=== PATIENT | female | born 1960 | race Caucasian/White ===

== ENCOUNTER 2024-06-23 10:46 | Emergency (ER) | payer OTHER, SELFPAY ==
--- NOTE | ~2024-06-23 | XR_ITS ---
EXAMINATION: XR CHEST CLINICAL INFORMATION: Pain COMPARISON: None available. TECHNIQUE: 2 views of the chest were obtained. FINDINGS: The lungs are well-expanded. No focal consolidation. No pleural effusions, edema or pneumothorax. The cardiomediastinal silhouette is within normal limits. No acute osseous abnormality. XR/XR chest 2V IMPRESSION: No acute pulmonary disease. Electronically signed by: Ludwin Sotelo MD 06/23/2024 01:34 PM EDT
--- NOTE | ~2024-06-23 | US_ITS ---
EXAMINATION: US ABDOMEN LIMITED CLINICAL INFORMATION: Right upper quadrant pain. COMPARISON: None available. TECHNIQUE: Real-time imaging of the gallbladder and common bile duct. FINDINGS: GALLBLADDER: The gallbladder is physiologically distended with a small nonmobile echogenic focus along the wall of the gallbladder measuring 0.2 x 0.1 x 0.2 cm and likely representing a polyp. No evidence of shadowing gallstones. No gallbladder wall thickening or pericholecystic fluid. As per technologist notes, a positive sonographic Horne's sign is noted. COMMON BILE DUCT: Normal in caliber measuring 0.5 cm in diameter. US/US abdomen limited IMPRESSION: 1. Tiny gallbladder polyp as detailed for which no dedicated follow-up imaging is required in the absence of symptoms. 2. No cholelithiasis or sonographic evidence of acute cholecystitis. Positive sonographic Horne's sign which is nonspecific. 3. No biliary ductal dilatation. Electronically signed by: Ludwin Sotelo MD 06/23/2024 01:46 PM EDT
--- NOTE | 2024-06-23 11:26 | ED.GENADULT ---
HPI - General Adult General Chief complaint: Abdominal Pain Stated complaint: r side abd pain Time Seen by Provider: 06/23/24 15:51 Source: patient Mode of arrival: ambulatory Limitations: no limitations History of Present Illness ED Provider: Mamta Mccloud PA-C HPI narrative: Patient is a 64 year old assigned female at with no reported medical history presenting to the emergency department today with right upper and right lower abdominal pain. Patient states that over the last 3 days she has had right lower and right upper abdominal pain. Patient states that she has had this before and it was more intermittent, normally around when she is about to eat or had just eaten but now it is more consistent. Patient denies any dizziness, lightheadedness, vomiting, fever, chills, blurry vision, double vision, loss of vision, chest pain, difficulty breathing, shortness of breath, back pain, night sweats, pain with urination, increased urinary frequency, increased urinary urgency, blood in her urine or stool, syncope or a near syncopal episode, recent trauma or falls, bowel incontinence, bladder incontinence, or any other complaints at this time. Onset (ago): day(s) (3) Location: abdomen and right Relieving factors: none Exacerbating factors: none Associated symptoms: nausea/vomiting Treatments prior to arrival: none Related Data Previous Rx's ?Medication ?Instructions ?Recorded pantoprazole 40 mg tablet,delayed 40 mg PO DAILY #14 tabs 06/23/24 release (Protonix) Allergies Allergy/AdvReac Type Severity Reaction Status Date / Time Latex, Natural Rubber Allergy Rash Verified 06/23/24 11:30 Review of Systems Constitutional: Constitutional: Reports no additional constitutional complaints, Denies chills, Denies fever(s) and Denies night sweats Eyes: Eyes: Reports no additional eye complaints, Denies blurry vision, Denies change in vision, Denies diplopia, Denies eye discharge, Denies loss of vision and Denies eye pain ENT: Denies dizziness Cardiovascular: Cardiovascular: Reports no additional cardiovascular complaints, Denies chest pain, Denies lightheadedness, Denies Loss of Consciousness and Denies dyspnea Respiratory: Respiratory: Reports no additional respiratory complaints and Denies dyspnea Gastrointestinal: Gastrointestinal: Reports no additional gastrointestinal complaints, Reports abdominal pain, Denies melena, Denies hematochezia, Denies change in bowel habits, Denies change in stool character, Reports nausea and Denies vomiting Genitourinary: Genitourinary: Denies hematuria, Denies urinary frequency, Denies dysuria, Denies urinary incontinence, Denies urinary hesitancy and Denies urinary urgency Musculoskeletal: Musculoskeletal: Reports no additional musculoskeletal complaints, Denies numbness and Denies tingling Neurologic: Denies dizziness, Denies loss of vision, Denies numbness and Denies tingling Psychiatric: Psychiatric: Reports no additional psychiatric complaints Endocrine: Endocrine: Reports no additional endocrine complaints Hematologic/Lymphatic: Hematologic/Lymphatic: Reports no additional hematologic/lymphatic complaints Allergic/Immunologic: Allergic/Immunologic: Reports no additional allergic/immunologic complaints [facility] Past Medical History Attestation statement: The following information was validated with the patient. Source: old records reviewed and nursing notes reviewed Social History Social History Advance Directives: No Advance Directives Information Provided: No Do you have a plan to hurt others: No Plan Physical Exam ED Vital Signs: Vital Signs - 24 hr 06/23/24 11:27 06/23/24 15:45 06/23/24 15:46 Temperature 98.6 F 98.3 F 98.3 F Pulse Rate 101 H 89 89 Respiratory Rate 16 16 16 Blood Pressure 146/87 H 142/72 H 142/72 H Pulse Oximetry 97 98 98 Oxygen Delivery Method Room Air Room Air BMI result Body Mass Index 22.9 Const General: cooperative, no acute distress, alert and awake Nutritional Appearance: well nourished Orientation/consciousness: patient oriented x3 Limitations: no limitations [facility] Head: Yes normal to inspection and Yes atraumatic Ears: hearing grossly normal bilaterally and external ears normal General nose exam: Normal external nose present, no nasal discharge noted and no epistaxis Face and sinus: Yes normal facial exam, No abrasion and No laceration Mouth: Normal oral and palatal mucosa present, no drooling and no muffled voice Eyes General: appearance normal, both eyes and all related structures Periorbital: periorbital findings normal Eyelids: Yes eyelids normal Conjunctivae: conjunctivae normal Pupils: Equal, round and reactive pupils present EOM: EOMs intact bilaterally Neck Neck: Yes normal visual inspection, Yes full ROM and Yes no lymphadenopathy Chest Chest palpation & inspection: normal inspection of the chest Resp Effort & Inspection: normal respiratory effort and able to speak in complete sentences GI Inspection: Yes normal to inspection Palpation (GI): Soft to palpation, not firm, Tenderness to palpation present (GI) in the RUQ, no guarding and not rigid Neuro General: patient oriented x3 and moves all extremities Cranial nerves: Yes Equal, round and reactive pupils present Cognition (Neuro): normal cognition Extrem General: Yes normal to inspection, Yes full ROM and Yes capillary refill normal Psych Appearance: grossly normal Mental Status: mental status grossly normal Affect: normal affect Attitude: cooperative Thought process: Normal thought process present Thought content: Normal thought content present Insight: Good insight present (Psych) Course Course Course Narrative: RME performed by Mamta Mccloud PA-C. Patient is a 64 year old assigned female at presenting to the emergency department with right sided chest and abdominal pain. Patient states she has been having right sided chest and abdominal pain over the last 3 days. Detailed physical exam and review of systems are deferred to the primary care nurse practitioner. EKG, labs, imaging, and swabs ordered. Patient placed back in the waiting room pending room availability and results. Medical Decision Making Medical Decision Making MDM Narrative: Patient is a 64 year old assigned female at with no reported medical history presenting to the emergency department today with right sided upper and lower abdominal pain. Patient's physical exam was as noted in the physical exam portion of this note. Patient's blood work showed a slightly elevated WBC count of 12.6 but were otherwise unremarkable. Patient's urine showed no acute process. Patient's EKG was unremarkable. Patient's chest x-ray showed no acute process. Patient's RUQ abdominal US showed a gallbladder polyp and a positive horne's sign but otherwise unremarkable. Patient's clinical presentation is most consistent with biliary colic. I explained my physical exam findings as well as all test results to the patient. I answered all questions asked by the patient. I stressed the importance of the patient taking her medication as directed (either prescribed or as the over the counter packaging recommends). I stressed the importance of the patient following up with her primary care provider and a general surgeon for a HIDA scan. I stressed the importance of the patient returning to the emergency department immediately if her symptoms were to worsen or if she were to develop any dizziness, shortness of breath, difficulty breathing, chest pain, blurry vision, loss of vision, nausea, vomiting, abdominal pain, fever, chills, back pain, or any other complaints. Patient verbalized agreement and understanding with this treatment plan and discharge. Differential Diagnosis Differential Diagnoses: The differential diagnosis associated with the presentation includes RUQ abdominal pain Biliary colic Cholecystitis Cholelithiasis Admission/Observation Consideration of admission/observation: Escalation of care including admission/observation considered Patient would have been admitted to the hospital had her work up had any findings where hospital admission was appropriate and her clinical presentation warranted hospital admission. Lab Data [facility] Lab Attestation statement: I reviewed the patient's lab results. My interpretation of these results are in the MDM Rationale portion of this note. 06/23/24 11:47 06/23/24 11:47 Labs: Lab Results 06/23/24 06/23/24 Range/Units 11:46 11:47 WBC 12.6 H (4.8-10.8) X10*3/uL RBC 4.48 (4.20-5.50) X10*6/uL Hgb 14.4 (12.0-16.0) g/dl Hct 40.2 (37.0-47.0) % MCV 89.7 (80.0-98.0) fL MCH 32.1 (27.0-33.0) pg MCHC 35.8 H (31.0-35.0) g/dl RDW 12.3 (11.0-16.0) % Plt Count 421 H (160-400) X10*3/uL MPV 9.4 (9.4-12.3) fL Immature Gran % (Auto) 0.4 (0.0-0.4) % Neut % (Auto) 67.8 (45-73) % Lymph % (Auto) 23.1 (20-40) % Oliver % (Auto) 5.9 (2-11) % Eos % (Auto) 1.8 (0-4) % Baso % (Auto) 1.0 (0-2) % Lymph # (Auto) 2.9 (1.2-4.9) X10*3/uL Oliver # (Auto) 0.7 (0.1-1.2) X10*3/uL Eos # (Auto) 0.2 (0.0-0.4) X10*3/uL Baso # (Auto) 0.1 (0.0-0.2) X10*3/uL Abs Immat Gran (auto) 0.05 H (0.00-0.03) X10*3/uL Absolute Neuts (auto) 8.5 H (2.0-8.3) x10*3/uL Absolute Nucleated RBC 0.000 (0.0-0.012) X10*3/uL Nucleated RBC % (auto) 0.0 (0.0-0.2) /100WBC Sodium 139 (135-145) mmol/L Potassium 4.0 (3.3-5.1) mmol/L Chloride 101 (96-108) mmol/L Carbon Dioxide 29 (22-29) mmol/L Anion Gap 13 (12-20) BUN 24 H (9-16) mg/dL Creatinine 0.78 (0.5-1.4) mg/dL Estim Creat Clear Calc 71.7 Estimated GFR > 60 Random Glucose 215 H (60-115) mg/dL Calcium 10.3 H (8.4-10.2) mg/dL Magnesium 1.8 (1.6-2.6) mg/dL Total Bilirubin 0.3 (0.0-1.0) mg/dL AST 13 (5-31) U/L ALT 16 (0-31) U/L Alkaline Phosphatase 85 (39-117) U/L Troponin I High Sens < 2.7 (<3.5-17.0) ng/L Total Protein 7.2 (6.5-8.0) g/dL Albumin 4.2 (3.5-5.0) g/dL Urine Color Dark Yellow Urine Appearance Cloudy Urine pH 5.5 (5.0-9.0) Ur Specific [place] >= 1.030 H (1.005-1.025) Urine Protein 30 (1+) H (Neg-Trace) mg/dL Urine Glucose (UA) 250 H (Negative) mg/dL Urine Ketones Negative (Negative) mg/dL Urine Blood Negative (Negative) Urine Nitrite Negative (Negative) Ur Leukocyte Esterase Negative (Negative) Urine RBC 3-5 H (0-2) /HPF Urine WBC 6-10 (0-5) /HPF Ur Squamous Epith Cells 11-20 (0-2) /HPF Urine Bacteria 1+ (None Seen) Hyaline Casts 0-2 (0-2) /LPF Influenza Type A (PCR) NEGATIVE (Negative) Influenza Type B (PCR) NEGATIVE (Negative) RSV RNA Qual (PCR) NEGATIVE (Negative) SARS-CoV-2 RNA (RT-PCR) NEGATIVE (Negative) Independent Interpretation I performed an independent interpretation of an: EKG, Plain X-Ray and Ultrasound Interpretation: My interpretation is in agreement with the radiologist's impression of these imaging studies. EXAMINATION: US ABDOMEN LIMITED CLINICAL INFORMATION: Right upper quadrant pain. COMPARISON: None available. TECHNIQUE: Real-time imaging of the gallbladder and common bile duct. FINDINGS: GALLBLADDER: The gallbladder is physiologically distended with a small nonmobile echogenic focus along the wall of the gallbladder measuring 0.2 x 0.1 x 0.2 cm and likely representing a polyp. No evidence of shadowing gallstones. No gallbladder wall thickening or pericholecystic fluid. As per technologist notes, a positive sonographic Horne's sign is noted. COMMON BILE DUCT: Normal in caliber measuring 0.5 cm in diameter. US/US abdomen limited IMPRESSION: 1. Tiny gallbladder polyp as detailed for which no dedicated follow-up imaging is required in the absence of symptoms. 2. No cholelithiasis or sonographic evidence of acute cholecystitis. Positive sonographic Horne's sign which is nonspecific. 3. No biliary ductal dilatation. Electronically signed by: Ludwin Sotelo MD 06/23/2024 01:46 PM EDT Dictated By: Ludwin Sotelo Signed By: Electronically signed by Ludwin Sotelo 06/23/24 1346 EXAMINATION: XR CHEST CLINICAL INFORMATION: Pain COMPARISON: None available. TECHNIQUE: 2 views of the chest were obtained. FINDINGS: The lungs are well-expanded. No focal consolidation. No pleural effusions, edema or pneumothorax. The cardiomediastinal silhouette is within normal limits. No acute osseous abnormality. XR/XR chest 2V IMPRESSION: No acute pulmonary disease. Electronically signed by: Ludwin Sotelo MD 06/23/2024 01:34 PM EDT Dictated By: Ludwin Sotelo Signed By: Electronically signed by Ludwin Sotelo 06/23/24 1334 Vent. Rate: 097 BPM Atrial Rate: 097 BPM P-R Int: 140 ms QRS Dur: 072 ms QT Int: 338 ms P-R-T Axes: 072 044 055 degrees QTc Int: 429 ms Normal sinus rhythm Possible Left atrial enlargement Borderline ECG No previous ECGs available DD/ 0179 Radiology Impression Discussion of test interpretation with radiology: I have reviewed the radiologist's reading. Discharge Plan Discharge Clinical Impression: Biliary colic Patient Disposition: Home, Self-Care Instructions: Biliary Colic (ED) Additional Instructions: Follow up with your primary care provider and a General Surgeon (for a HIDA scan). Return to the emergency department immediately if your symptoms worsen or if you develop any dizziness, shortness of breath, difficulty breathing, chest pain, blurry vision, loss of vision, nausea, vomiting, abdominal pain, fever, chills, back pain, or any other complaints. Prescriptions: New pantoprazole [Protonix] 40 mg tablet,delayed release (DR/EC) 40 mg PO DAILY Qty: 14 0RF Referrals: [facility] [Provider Group] (Call to establish and follow up with a general surgeon for a HIDA scan. ) [facility] [place]] (Call to establish and follow up with a primary care provider. If you already have a primary care provider, please follow up with them.) [facility] [Provider Group] (Call to establish and follow up with a primary care provider. If you already have a primary care provider, please follow up with them.) [facility] [Provider Group] (Call to establish and follow up with a primary care provider. If you already have a primary care provider, please follow up with them.) Stand Alone Forms: Work/School Release Interventions: ED Discharge Assessment Last Done: 06/23/24 15:45 Discharge Date/Time: 06/23/24 16:00 Print Language: Polish
[2024-06-23 11:27] VITALS: BP 146/87; PULSE 101; RESP 16; TEMP 37; O2SAT 97; BMI 22.9
--- NOTE | 2024-06-23 11:28 | ECG_ITS ---
Test Reason : chest pain Blood Pressure : / mmHG Vent. Rate : 097 BPM Atrial Rate : 097 BPM P-R Int : 140 ms QRS Dur : 072 ms QT Int : 338 ms P-R-T Axes : 072 044 055 degrees QTc Int : 429 ms Normal sinus rhythm Possible Left atrial enlargement Borderline ECG No previous ECGs available Referred By: Mamta Mccloud Electronically Signed By:TERRI DEAL
[2024-06-23 11:58] LABS: MANUAL DIFF FLAG NO
[2024-06-23 12:03] LABS: Appearance Urine Cloudy; Color Urine Dark Yellow; Glucose Urine UA 250 mg/dL (Negative); Leukocyte Esterase Urine Negative (Negative); Nitrite Urine Negative (Negative); PH 5.5 (5.0-9.0); Specific Gravity - Urine >= 1.030 (1.005-1.025); UMIC TRIGGER UACC YES; Urine Blood Negative (Negative); Urine Ketones Negative (Negative); Urine Protein 30 (1+) mg/dL (Neg-Trace)
[2024-06-23 12:04] LABS: Basophils Absolute Auto 0.1 X10*3/uL (0.0-0.2); Eosinophils Absolute Auto 0.2 X10*3/uL (0.0-0.4); Eosinophils Percent Auto 1.8 % (0-4); Hematocrit 40.2 % (37.0-47.0); Hemoglobin 14.4 g/dl (12.0-16.0); Imm Gran Abs Auto 0.05 X10*3/uL (0.00-0.03); Imm Gran Pct Auto 0.4 % (0.0-0.4); Lymphocytes Absolute Auto 2.9 X10*3/uL (1.2-4.9); Lymphocytes Percent Auto 23.1 % (20-40); Mean Corpuscular HGB Conc 35.8 g/dl (31.0-35.0); Mean Corpuscular Hemoglobin 32.1 pg (27.0-33.0); Mean Corpuscular Volume 89.7 fL (80.0-98.0); Mean Platelet Volume 9.4 fL (9.4-12.3); Monocytes Absolute Auto 0.7 X10*3/uL (0.1-1.2); Monocytes Percent Auto 5.9 % (2-11); Neutrophils Absolute Auto 8.5 x10*3/uL (2.0-8.3); Neutrophils Percent Auto 67.8 % (45-73); Platelet Count 421 X10*3/uL (160-400); Red Blood Count 4.48 X10*6/uL (4.20-5.50); Red Cell Distribution Width 12.3 % (11.0-16.0); White Blood Count 12.6 X10*3/uL (4.8-10.8)
[2024-06-23 12:18] LABS: Alanine Aminotransferase 16 U/L (0-31); Albumin Level 4.2 g/dL (3.5-5.0); Alkaline Phosphatase 85 U/L (39-117); Anion Gap 13 (12-20); Aspartate Amino Transferase 13 U/L (5-31); Bilirubin Total 0.3 mg/dL (0.0-1.0); Blood Urea Nitrogen 24 mg/dL (9-16); Calcium 10.3 mg/dL (8.4-10.2); Carbon Dioxide 29 mmol/L (22-29); Chloride 101 mmol/L (96-108); Creatinine Clr Calc Pharmacy 71.7; Estimated Glomerular Filt Rate > 60; Glucose Random 215 mg/dL (60-115); Magnesium 1.8 mg/dL (1.6-2.6); Sodium 139 mmol/L (135-145); Total Protein 7.2 g/dL (6.5-8.0)
[2024-06-23 12:20] LABS: Bacteria Urine 1+ (None Seen); Hyaline Casts Urine 0-2 /LPF (0-2); UACC Culture Trigger YES
[2024-06-23 12:26] LABS: Troponin-I High Sensitivity < 2.7 ng/L (<3.5-17.0)
[2024-06-23 12:41] LABS: Influenza A PCR NEGATIVE (Negative); Influenza B PCR NEGATIVE (Negative); Resp Syncy Virus RNA Qual PCR NEGATIVE (Negative); SARS COV2 PCR INHOUSE NEGATIVE (Negative)
[2024-06-23 15:45] VITALS: BP 142/72; PULSE 89; RESP 16; TEMP 36.8; O2SAT 98
[2024-06-23 15:46] VITALS: BP 142/72; PULSE 89; RESP 16; TEMP 36.8; O2SAT 98
== END 2024-06-23 16:00 | disposition home or self-care (01) ==
PROVIDERS: Physician Assistant Medical; Emergency Provider Emergency Medicine
DX: K80.50 Calculus of bile duct without cholangitis or cholecystitis without obstruction (principal); R10.11 Right upper quadrant pain; R10.31 Right lower quadrant pain; R07.89 Other chest pain; Z03.818 Encounter for observation for suspected exposure to other biological agents ruled out; Z79.899 Other long term (current) drug therapy
CPT/HCPCS: 0241U; 71046; 76705; 80053; 81001; 81003; 83735; 84484; 85025; 87086; 93005; 99283; 99284

== ENCOUNTER 2024-07-16 14:24 | Outpatient (AMB) | payer OTHER, SELFPAY ==
[2024-07-16 14:25] VITALS: BP 144/72; PULSE 91; BMI 23.2
--- NOTE | 2024-07-16 14:25 | MHC.OFFVIS ---
Vital Signs 07/16/24 14:25 Height 5 ft 7 in Weight 148 lb BMI 23.2 BP 144/72 H Blood Pressure Location Rt brachial Position Sitting Pulse 91 Intake Visit Reasons: Bilary colic Intake Note: This patient presents for [facility] [place] emergency department follow-up for biliary colic. Pt c/o; reports RUQ swelling radiates towards back, reports nausea, reports eating small meals helps with nausea but other day's has no appetite at all. Chest X-ray-06/23/2024 Abd US: 06/23/2024 Business Department Chair Required: No Accompanied by: Other Relationship Allergies Latex, Natural Rubber Allergy (Verified 07/16/24 14:34) Rash HPI HPI Bilary colic: Details: 64-year-old male referred for gallbladder polyp. She went to the ER on June 26, 2024 because of abdominal pain. Her pain had resolved in the emergency room. He had an ultrasound showing a small gallbladder polyp, 2 mm in widest dimension. She was therefore referred to me. She does state that she had multiple complaints when she went to the ER. She had vague chest pains, joint pains and nausea. She says the she continues to have some of this symptoms. She says that her nausea seems to be much improved with Prilosec. She denies any weight loss. She has good oral intake. [facility] Medical History (Updated 07/17/24 @ 12:49 by Tracee Novak [facility]) Gallbladder polyp Surgical History No pertinent past surgical history Social History Unable to assess alcohol history related to: Unknown Patient Tobacco Use Status: Tobacco use Unknown Review of Systems Const Denies chills and Denies fever(s) Card Denies chest pain, Denies dyspnea and Denies dyspnea on exertion Resp Denies cough, Denies dyspnea and Denies dyspnea on exertion GI Denies hematochezia and Denies change in bowel habits Denies hematuria Musc Denies back pain and Denies limited range of motion Neuro Denies focal weakness and Denies convulsions Psych Denies depression and Denies mood swings Physical Exam Vital Signs: Last Vital Signs Pulse 91 07/16/24 14:25 BP 144/72 H 07/16/24 14:25 BMI result Body Mass Index 23.2 Const General: comfortable and no acute distress Orientation/consciousness: patient oriented x3 Neck Neck: Yes no lymphadenopathy Resp Auscultation: clear to auscultation bilaterally Cardio Rhythm: regular rhythm GI Palpation (GI): Soft to palpation, nontender and no guarding Neuro General: patient oriented x3 Assessment & Plan Assessment & Plan (1) Gallbladder polyp: Code(s): K82.4 - Cholesterolosis of gallbladder Category: Medical Plan: She has a very small gallbladder polyp as described above. She describes vague complaints when she went to the emergency room 3 weeks ago. She says she had chest pain, nausea, abdominal pain as well as joint pains. It was unlikely that her symptoms were from a very small gallbladder polyp. Currently, cholecystectomy is not indicated. Ultrasound does not show gallstones. I did tell her that for larger gallbladder polyps, cholecystectomy may be warranted. She may therefore benefit from a follow-up ultrasound in about 1 year. She does state that Prilosec has helped with her symptoms. I will prescribe this for her. She may have had gastritis causing some abdominal pain. Medications: New omeprazole magnesium (Prilosec OTC) 20 mg PO DAILY 30 tabs 1RF Coding Level of Care Code New Pt Level 3 (18822) Diagnoses Gallbladder polyp K82.4
== END 2024-07-16 15:02 | disposition home or self-care (01) ==
PROVIDERS: PCP Internal Medicine; Visit Provider Surgery
DX: K82.4 Cholesterolosis of gallbladder (principal)
CPT/HCPCS: 99203

== ENCOUNTER → 2024-07-16 14:24 | Outpatient (BNVA) | payer OTHER, SELFPAY | PROVIDERS: PCP Internal Medicine; Visit Provider Surgery | DX: K82.4 Cholesterolosis of gallbladder (principal) | CPT/HCPCS: 99202 ==

== ENCOUNTER 2024-08-21 07:28 | Emergency (ER) | payer OTHER, SELFPAY ==
--- NOTE | ~2024-08-21 | US_ITS ---
EXAMINATION: US ABDOMEN LIMITED CLINICAL INFORMATION: Right upper quadrant and flank pain. COMPARISON: None available. TECHNIQUE: Real-time imaging of the right upper quadrant abdominal viscera. FINDINGS: PANCREAS: Normal. LIVER: Normal. The liver is normal in size. The liver contour is normal. Parenchymal echogenicity is normal. No focal hepatic lesion. There is no intrahepatic biliary duct dilatation seen. GALLBLADDER: A 2 mm nonmobile polyps is limited. The gallbladder is physiologically distended without evidence of stones, sludge, polyps, wall thickening or pericholecystic fluid. COMMON BILE DUCT: Normal in caliber measuring 0.6 cm in diameter. RIGHT KIDNEY: Normal. There is pelviectasis, without franklin hydronephrosis. No renal calculi or focal parenchymal lesions. The kidney measures 11.8 cm in maximum dimension. FREE FLUID: None. US/US abdomen limited IMPRESSION: 1. No right renal mass or calculus is seen. There is right renal pelviectasis, without franklin hydronephrosis. 2. A 2 mm nonmobile gallbladder polyp is incidentally noted. Electronically signed by: Lex Moran MD 08/21/2024 12:25 PM EDT
--- NOTE | ~2024-08-21 | XR_ITS ---
EXAMINATION: XR CHEST 2 VIEW CLINICAL INFORMATION: Right scapular pain COMPARISON: 06/23/2024 TECHNIQUE: PA and lateral views of the chest obtained. FINDINGS: The lungs are clear. There are no pleural effusions. The cardiomediastinal silhouette is normal. XR/XR chest 2V IMPRESSION: No acute cardiopulmonary disease. Electronically signed by: Darin Toney MD 08/21/2024 10:36 AM EDT
[2024-08-21 07:35] VITALS: BP 134/95; PULSE 109; RESP 18; TEMP 36.6; O2SAT 100; BMI 22.6
--- NOTE | 2024-08-21 08:16 | ECG_ITS ---
Test Reason : back pain Blood Pressure : / mmHG Vent. Rate : 082 BPM Atrial Rate : 082 BPM P-R Int : 156 ms QRS Dur : 070 ms QT Int : 352 ms P-R-T Axes : 069 033 054 degrees QTc Int : 411 ms Normal sinus rhythm Possible Left atrial enlargement Borderline ECG When compared with ECG of 23-JUN-2024 11:29, No significant change was found Referred By: Briseyda Diamond Electronically Signed By:Prateek Mann
[2024-08-21 08:38] LABS: MANUAL DIFF FLAG NO
[2024-08-21 08:40] LABS: Basophils Absolute Auto 0.1 X10*3/uL (0.0-0.2); Eosinophils Absolute Auto 0.3 X10*3/uL (0.0-0.4); Eosinophils Percent Auto 2.9 % (0-4); Hematocrit 38.3 % (37.0-47.0); Hemoglobin 13.9 g/dl (12.0-16.0); Imm Gran Abs Auto 0.04 X10*3/uL (0.00-0.03); Imm Gran Pct Auto 0.4 % (0.0-0.4); Lymphocytes Absolute Auto 2.2 X10*3/uL (1.2-4.9); Lymphocytes Percent Auto 19.4 % (20-40); Mean Corpuscular HGB Conc 36.3 g/dl (31.0-35.0); Monocytes Absolute Auto 0.6 X10*3/uL (0.1-1.2); Monocytes Percent Auto 4.9 % (2-11); Neutrophils Percent Auto 71.4 % (45-73); Platelet Count 443 X10*3/uL (160-400); Red Blood Count 4.35 X10*6/uL (4.20-5.50); Red Cell Distribution Width 12.1 % (11.0-16.0); White Blood Count 11.2 X10*3/uL (4.8-10.8)
[2024-08-21 08:55] LABS: Alanine Aminotransferase 20 U/L (0-31); Albumin Level 4.1 g/dL (3.5-5.0); Alkaline Phosphatase 77 U/L (39-117); Anion Gap 13 (12-20); Aspartate Amino Transferase 18 U/L (5-31); Bilirubin Direct 0.1 mg/dL (0.0-0.5); Bilirubin Total 0.4 mg/dL (0.0-1.0); Blood Urea Nitrogen 22 mg/dL (9-16); Calcium 10.3 mg/dL (8.4-10.2); Carbon Dioxide 24 mmol/L (22-29); Chloride 105 mmol/L (96-108); Creatinine Clr Calc Pharmacy 66.6; Estimated Glomerular Filt Rate > 60; Glucose Random 155 mg/dL (60-115); Lipase 35 U/L (8-78); Magnesium 1.8 mg/dL (1.6-2.6); Potassium 3.9 mmol/L (3.3-5.1); Sodium 138 mmol/L (135-145); Total Protein 6.9 g/dL (6.5-8.0)
--- NOTE | 2024-08-21 10:07 | ED.BACK ---
HPI - Back Pain/Injury General Chief Complaint: Back Pain/Injury Stated Complaint: R side pain Time Seen by Provider: 08/21/24 07:39 Source: patient, RN notes reviewed and old records reviewed Mode of arrival: ambulatory History of Present Illness ED Provider: Briseyda Diamond PA-C HPI Narrative: 64-year-old female with a past medical history of gallbladder polyp, biliary colic, presenting to the ED complaining of right upper back/RUQ abdominal pain intermittently x few weeks with associated nausea. Admits eating improves symptoms. Admits she does heavy lifting at work however denies known injury or fall/trauma. Denies CP/SOB, vomiting, dysuria/hematuria Related Data Previous Rx's ?Medication ?Instructions ?Recorded omeprazole magnesium 20 mg 20 mg PO DAILY #30 tabs 07/16/24 tablet,delayed release (Prilosec OTC) pantoprazole 40 mg tablet,delayed 40 mg PO DAILY #14 tabs 07/24/24 release (Protonix) acetaminophen 500 mg tablet 500 mg PO Q6H PRN fever or pain 08/21/24 (Tylenol Extra Strength) #14 tabs cyclobenzaprine 5 mg tablet 5 mg PO Q8H PRN pain (scale score 08/21/24 7-10) 5 days #14 tabs lidocaine 5 % topical patch 1 patch topical DAILY PRN pain #30 08/21/24 (Lidoderm) ea naproxen 500 mg tablet 500 mg PO BID PRN pain 10 days #20 08/21/24 tabs Allergies Allergy/AdvReac Type Severity Reaction Status Date / Time Latex, Natural Rubber Allergy Rash Verified 08/21/24 07:38 Review of Systems Review of Systems: Yes all other systems are reviewed and are negative Constitutional: Constitutional: Reports as per HPI [facility] Past Medical History Attestation statement: The following information was validated with the patient. Source: old records reviewed Medical History Gallbladder polyp Surgical History No pertinent past surgical history Social History Social History Unable to assess alcohol history related to: Unknown Patient Tobacco Use Status: Tobacco use Unknown Advance Directives: No Advance Directives Information Provided: Yes Do you have a plan to hurt others: No Plan Physical Exam Vital Signs: Vital Signs: Last Vital Signs Temp 97.9 F 08/21/24 13:59 Pulse 79 08/21/24 13:59 Resp 18 08/21/24 13:59 BP 135/93 H 08/21/24 13:59 Pulse Ox 98 08/21/24 13:59 O2 Del Method Room Air 08/21/24 13:59 BMI result Body Mass Index 22.6 Const: General: cooperative, healthy appearing and no acute distress Orientation/consciousness: patient oriented x3 Limitations: no limitations HEENT: Head: Yes normal to inspection and Yes atraumatic Ears: hearing grossly normal bilaterally General nose exam: Normal external nose present Face and sinus: Yes normal facial exam Eyes: General: appearance normal, both eyes and all related structures EOM: EOMs intact bilaterally Neck: Neck: Yes normal visual inspection and Yes no meningeal signs Resp: Effort & Inspection: normal respiratory effort and no respiratory distress Auscultation: clear to auscultation bilaterally Cardio: Rate: regular rate Heart sounds: S1 normal heart sound present and S2 normal heart sound present Peripheral pulses: Peripheral pulses 2+ throughout GI: Inspection: Yes normal to inspection Palpation (GI): Soft to palpation, Tenderness to palpation present (GI) in the RUQ; with no rebound tenderness, no guarding and not rigid : General: Yes no CVA tenderness Back/Spine/Pelvis: Other: No midline cervical/thoracic/lumbar spinous tenderness/step-off or deformity. Back pain not reproducible on exam. No rash. Back: no CVA tenderness Skin: Rashes: no rashes Wounds: no wounds Neuro: General: patient oriented x3, gait normal, tone normal, moves all extremities, no meningeal signs, no focal motor deficits and CN's II-XI intact bilaterally Cranial nerves: Yes CN's II-XII intact bilaterally Gait exam (Neuro): Normal gait present Motor exam (neuro): 5/5 motor strength present throughout Extrem: General: Yes normal to inspection Course Course Course Narrative: -labs reassuring -UA negative XR chest 2V IMPRESSION: No acute cardiopulmonary disease. > delay in [facility] reading patient's ultrasound. US abdomen limited IMPRESSION: 1. No right renal mass or calculus is seen. There is right renal pelviectasis, without franklin hydronephrosis. 2. A 2 mm nonmobile gallbladder polyp is incidentally noted. > patient has follow-up with GI next week. Recommended keeping this appointment. Results discussed with patient including worrisome signs and symptoms and strict return precautions, and when to return to the emergency department. They verbalized understanding and feel safe for discharge at this time. Medications Administered Discontinued Medications Generic Name Dose Route Start Last Admin Trade Name Frelinda PRN Reason Stop Dose Admin Cyclobenzaprine HCl 10 mg 08/21/24 10:11 08/21/24 10:21 Cyclobenzaprine Hcl 10 Mg Tablet PO 08/21/24 10:12 10 mg ONCE ONE Administration Ketorolac Tromethamine 30 mg 08/21/24 12:44 08/21/24 12:52 Ketorolac Tromethamine 30 Mg/Ml Vial IM 08/21/24 12:45 30 mg ONCE ONE Administration Medical Decision Making Medical Decision Making MDM Narrative: 64-year-old female with a past medical history of gallbladder polyp, biliary colic, presenting to the ED complaining of right upper back/RUQ abdominal pain intermittently x few weeks with associated nausea. On exam mildly tachycardic likely from pain, NAD/nontoxic appearing, physical exam as noted above with RUQ tenderness, no rebound or guarding, no reproducible back tenderness. Concern for cholecystitis/lithiasis vs pancreatitis vs MSK pain/strain vs pyelo or stone. Lower suspicion for atypical ACS or pneumonia/PTX. Unlikely dissection or PE Plan: EKG, labs, UA, ultrasound, x-ray, pain control Please refer to course for remaining clinical decision making, interpretation of labs/imaging results, and discussions with consultants and/or family members. Differential Diagnosis Differential Diagnoses: The differential diagnosis associated with the presentation includes As above Admission/Observation Consideration of admission/observation: Escalation of care including admission/observation considered Lab Data [facility] Lab Attestation statement: I reviewed the patient's lab results. 08/21/24 08:33 08/21/24 08:33 Labs: Lab Results 08/21/24 08/21/24 Range/Units 08:33 10:23 WBC 11.2 H (4.8-10.8) X10*3/uL RBC 4.35 (4.20-5.50) X10*6/uL Hgb 13.9 (12.0-16.0) g/dl Hct 38.3 (37.0-47.0) % MCV 88.0 (80.0-98.0) fL MCH 32.0 (27.0-33.0) pg MCHC 36.3 H (31.0-35.0) g/dl RDW 12.1 (11.0-16.0) % Plt Count 443 H (160-400) X10*3/uL MPV 9.0 L (9.4-12.3) fL Immature Gran % (Auto) 0.4 (0.0-0.4) % Neut % (Auto) 71.4 (45-73) % Lymph % (Auto) 19.4 L (20-40) % [place] % (Auto) 4.9 (2-11) % Eos % (Auto) 2.9 (0-4) % Baso % (Auto) 1.0 (0-2) % Lymph # (Auto) 2.2 (1.2-4.9) X10*3/uL [place] # (Auto) 0.6 (0.1-1.2) X10*3/uL Eos # (Auto) 0.3 (0.0-0.4) X10*3/uL Baso # (Auto) 0.1 (0.0-0.2) X10*3/uL Abs Immat Gran (auto) 0.04 H (0.00-0.03) X10*3/uL Absolute Neuts (auto) 8.0 (2.0-8.3) x10*3/uL Absolute Nucleated RBC 0.000 (0.0-0.012) X10*3/uL Nucleated RBC % (auto) 0.0 (0.0-0.2) /100WBC Sodium 138 (135-145) mmol/L Potassium 3.9 (3.3-5.1) mmol/L Chloride 105 (96-108) mmol/L Carbon Dioxide 24 (22-29) mmol/L Anion Gap 13 (12-20) BUN 22 H (9-16) mg/dL Creatinine 0.84 (0.5-1.4) mg/dL Estim Creat Clear Calc 66.6 Estimated GFR > 60 Random Glucose 155 H (60-115) mg/dL Calcium 10.3 H (8.4-10.2) mg/dL Magnesium 1.8 (1.6-2.6) mg/dL Total Bilirubin 0.4 (0.0-1.0) mg/dL Direct Bilirubin 0.1 (0.0-0.5) mg/dL AST 18 (5-31) U/L ALT 20 (0-31) U/L Alkaline Phosphatase 77 (39-117) U/L Total Protein 6.9 (6.5-8.0) g/dL Albumin 4.1 (3.5-5.0) g/dL Lipase 35 (8-78) U/L Urine Color Yellow Urine Appearance Clear Urine pH 6.0 (5.0-9.0) Ur Specific [place] <= 1.005 (1.005-1.025) Urine Protein Negative (Neg-Trace) mg/dL Urine Glucose (UA) Negative (Negative) mg/dL Urine Ketones Negative (Negative) mg/dL Urine Blood Negative (Negative) Urine Nitrite Negative (Negative) Ur Leukocyte Esterase Negative (Negative) Independent Interpretation I performed an independent interpretation of an: EKG (My interpretation EKG normal sinus rhythm rate of 82. QRS 70. QTC 411. No significant change when compared to prior. No STEMI), Plain X-Ray and Ultrasound Radiology Impression Discussion of test interpretation with radiology: I have reviewed the radiologist's reading. External Record Review External record reviewed: Inpatient record, Office record, Outpatient record, Prior outpatient labs, Prior outpatient radiology, Primary care record and Outside ED record Tests considered The following testing was considered but not selected: As above Prescription Management I considered prescription management with: Pain Medication Social Determinants Patient?s care significantly limited by Social Determinants of Health including: Other Social Determinant of Health Discharge Plan Discharge Clinical Impression: Back pain, Abdominal pain, RUQ Patient Disposition: Home, Self-Care Instructions: Abdominal Pain (ED), Back Pain (ED) Additional Instructions: Your blood work and urine are reassuring Your x-ray was unremarkable Your ultrasound does show a polyp in her gallbladder Please keep follow-up with gastroenterology as scheduled Please also follow up with her doctor Flexeril is a muscle relaxer, take at night as it makes you drowsy, do not drive, drink alcohol, or operate machinery while taking it Naproxen as an anti-inflammatory / pain medication, take with food Lidoderm patches are numbing patches, apply to painful area In addition take Tylenol at home If symptoms persist or worsen, pain becomes unbearable, you developed urinary retention or incontinence, or weakness return to the ED Prescriptions: New acetaminophen [Tylenol Extra Strength] 500 mg tablet 500 mg PO Q6H PRN (Reason: fever or pain) Qty: 14 0RF lidocaine [Lidoderm] 5 % adhesive patch,medicated 1 patch topical DAILY MDD remove after 12 hours PRN (Reason: pain) Qty: 30 0RF Rx Instructions: leave on most painful area for up to 12 hrs naproxen 500 mg tablet 500 mg PO BID PRN (Reason: pain) 10 Days Qty: 20 0RF cyclobenzaprine 5 mg tablet 5 mg PO Q8H PRN (Reason: pain (scale score 7-10)) 5 Days Qty: 14 0RF No Action pantoprazole [Protonix] 40 mg tablet,delayed release (DR/EC) 40 mg PO DAILY Qty: 14 0RF omeprazole magnesium [Prilosec OTC] 20 mg tablet,delayed release (DR/EC) 20 mg PO DAILY Qty: 30 1RF Referrals: [facility] [place] [facility] [Provider Group] Blanche Granger MD [Primary Care Provider] - 5 days Interventions: ED Discharge Assessment Last Done: 08/21/24 13:59 Discharge Date/Time: 08/21/24 13:59 Print Language: Vietnamese
[2024-08-21] MEDS: Cyclobenzaprine HCl 10 MG TABLET PO (10:21)
[2024-08-21 10:32] LABS: Appearance Urine Clear; Color Urine Yellow; Glucose Urine UA Negative (Negative); Leukocyte Esterase Urine Negative (Negative); Nitrite Urine Negative (Negative); Specific Gravity - Urine <= 1.005 (1.005-1.025); Urine Blood Negative (Negative); Urine Ketones Negative (Negative); Urine Protein Negative (Neg-Trace)
[2024-08-21] MEDS: Ketorolac Tromethamine 30 MG/ML VIAL IM (12:52)
[2024-08-21 13:27] VITALS: BP 135/93; PULSE 79; RESP 16; TEMP 36.5; O2SAT 98
[2024-08-21 13:59] VITALS: BP 135/93; PULSE 79; RESP 18; TEMP 36.6; O2SAT 98
== END 2024-08-21 13:59 | disposition home or self-care (01) ==
PROVIDERS: Physician Assistant; Emergency Provider Emergency Medicine; PCP Internal Medicine
DX: M54.50 Low back pain, unspecified (principal); R10.11 Right upper quadrant pain; R11.0 Nausea; R94.31 Abnormal electrocardiogram [ECG] [EKG]; Z79.899 Other long term (current) drug therapy
CPT/HCPCS: 36415; 71046; 76705; 80048; 80076; 81003; 83690; 83735; 85025; 93005; 96372; 99284; 99285; J1885

== ENCOUNTER → 2024-08-21 08:16 | Outpatient (BNV) | payer OTHER, SELFPAY | PROVIDERS: Emergency Provider Emergency Medicine; PCP Internal Medicine; Visit Provider Internal Medicine Cardiovascular Disease | DX: R94.31 Abnormal electrocardiogram [ECG] [EKG] (principal); M54.9 Dorsalgia, unspecified | CPT/HCPCS: 93010 ==

== ENCOUNTER 2024-08-29 13:59 | Outpatient (AMB) | payer OTHER, SELFPAY ==
[2024-08-29 14:28] VITALS: BP 111/66; PULSE 109; BMI 22.3
--- NOTE | 2024-08-29 14:28 | MHC.OFFVIS ---
Vital Signs 08/29/24 14:28 Height 5 ft 7 in Weight 142 lb 6.698 oz BMI 22.3 BP 111/66 Blood Pressure Location Lt brachial Position Sitting Pulse 109 H Intake Visit Reasons: Gastritis, unspecified, Intake Note: Nohemi presents to office as new patient for gastritis. CC: Patient states that has been in the ER twice since May, first time for abdominal pain and the second time with back pain. She still c/o back pain, constant nausea, abdominal pain, constipation alternating with diarrhea today. Per patient she can't pass gas easily, she also reports RUQ abdominal swelling and induration, and feeling lower back pain and swelling. Her daughter also reports that the patient has big lump from her left upper back. Cork Insulation Setter Required: No Accompanied by: Self / Same As Patient Allergies No Known Drug Allergies Allergy (Unknown, Verified 10/31/24 11:59) none Latex, Natural Rubber Allergy (Verified 10/31/24 11:59) Rash HPI HPI Gastritis, unspecified,: Details: 64-year-old female here for a preprocedural meeting to discuss a screening colonoscopy. She is referred by Yeny Barrow. PMX Chronic back pain Smoker Impaired fasting glucose * SURGICAL HISTORY PT denies * ALLERGIES Latex * [email or web address] LABS: Laboratory Tests 08/21/24 08:33 WBC 11.2 H Hgb 13.9 Hct 38.3 Plt Count 443 H Estimated GFR > 60 Total Bilirubin 0.4 Direct Bilirubin 0.1 AST 18 ALT 20 Alkaline Phosphatase 77 Lipase 35 US ABDOMEN 08/21/24 FINDINGS: PANCREAS: Normal. LIVER: Normal. The liver is normal in size. The liver contour is normal. Parenchymal echogenicity is normal. No focal hepatic lesion. There is no intrahepatic biliary duct dilatation seen. GALLBLADDER: A 2 mm nonmobile polyps is limited. The gallbladder is physiologically distended without evidence of stones, sludge, polyps, wall thickening or pericholecystic fluid. COMMON BILE DUCT: Normal in caliber measuring 0.6 cm in diameter. RIGHT KIDNEY: Normal. There is pelviectasis, without franklin hydronephrosis. No renal calculi or focal parenchymal lesions. The kidney measures 11.8 cm in maximum dimension. FREE FLUID: None. US/US abdomen limited IMPRESSION: 1. No right renal mass or calculus is seen. There is right renal pelviectasis, without franklin hydronephrosis. 2. A 2 mm nonmobile gallbladder polyp is incidentally noted. TODAY'S VISIT ER and Dr. Betancourt for question of biliary colic. ONset about several mos ago with discomfort in my gut. It was in the upper abdomen diffusely somewhat to the right. In December it suddenly worsened. She aslo had some feeling of swelling in the right back with apin and she put ice on it. she has tried wearing a back brace but his worsens the rt flank pain. The pain in knawing/aching and when she is hungry she will feel like she has to vomit. Sometimes, eating helps. Hunger also is a trigger for the pain. Worse 10/10 but lingers at 5/10. The pain seemed to creep up happening only for a couple of days then remitting, but now the pain is every day, only somewhat better in am if she eats. Some help with protonix but ran out. She has difficulty eating and has to force myself. She has been taking nsaid/tylenol with a muscle relaxer for her back. This seems to worsen the nausea. Cannibus edibles helps a little bit. Has a large fluid filled swelling on her back just along side the shoulder blade. Has been there for 2 years. FHX PUD in father with parts of stomach removed mother had GB diseease. NO known FHX of crc or polyps. DIet mostly sandwiches and soup. Used to drink a lot of diet coke, not excessive ETOH. Trial bentyl. ROV2 weeks. [facility] Medical History (Updated 10/31/24 @ 12:43 by CHEMO Asher) Back pain Gallbladder polyp Surgical History No pertinent past surgical history Social History Alcohol intake: current Alcohol intake frequency: holidays/special occasions only Patient Tobacco Use Status: Current someday Tobacco user Years Smoked: 40 + Review of Systems Const Denies fatigue, Denies fever(s), Denies night sweats, Reports poor appetite and Reports weight loss ENT Reports Normal hearing present, Denies dental pain, Denies dysphagia, Denies hearing loss, Denies mouth pain, Denies odynophagia, Denies throat swelling, Denies tongue swelling and Reports other (Dentition adequate) Card Reports chest pain Resp Reports no additional complaints GI Details: Reports abdominal pain, Denies melena, Reports bloating (upper abd), Denies hematochezia, Denies constipation, Denies GI cramping, Denies dysphagia, Denies excessive flatus, Denies early satiety, Reports heartburn, Denies diarrhea, Reports loose stools, Reports nausea, Denies odynophagia, Denies vomiting and Denies hematemesis Musc Reports back pain, Reports myalgias and Reports arthralgias Skin/Breast Reports change in breast shape, Denies pruritus, Denies lesions, Denies rash, Reports skin swelling (left upper back) and Denies jaundice Neuro Reports Normal hearing present, Denies Abnormal speech present and Reports paresthesias Endo Denies fatigue Aller/Immun Denies throat swelling and Denies tongue swelling Physical Exam Vital Signs: Last Vital Signs Pulse 109 H 08/29/24 14:28 BP 111/66 08/29/24 14:28 BMI result Body Mass Index 22.3 Const General: cooperative, no acute distress, well developed and well groomed Nutritional Appearance: average body habitus and well nourished Orientation/consciousness: oriented to person, oriented to place and oriented to time Limitations: No language barrier HEENT Head: Yes normocephalic and Yes atraumatic Eyes General: appearance normal, both eyes and all related structures Pupils: Equal, round and reactive pupils present Neck Neck: Yes normal visual inspection and Yes no lymphadenopathy Thyroid: Thyroid normal Resp Effort & Inspection: normal respiratory effort and able to speak in complete sentences Auscultation: clear to auscultation bilaterally Cardio Rate: regular rate Rhythm: regular rhythm Heart sounds: Normal, physiologic split S2 sound present Peripheral pulses: radial pulses present and posterior tibial pulses present GI Inspection: No distended and No Abdominal panniculus present Palpation (GI): Soft to palpation, nontender, no guarding, not rigid and No hepatosplenomegaly present Percussion: Yes normal to percussion Auscultation: normal bowel sounds Rectal Exam - Female: deferred Back/Spine/Pelvis Back/spine/pelvis image: 1. Large fluid-filled? sac on back Skin General skin exam: no rashes or lesions noted, turgor normal, skin not dry, no jaundice, No spider nevi and no striae Rashes: no rashes Nails: normal Neuro General: oriented to person, oriented to place and oriented to time Cranial nerves: Yes Equal, round and reactive pupils present and Yes Normal hearing present Speech: No Abnormal speech present Extrem General: Yes normal to inspection, No clubbing, No cyanosis and No edema Psych Appearance: grossly normal and well kempt Mental Status: mental status grossly normal Speech and movement: Normal speech and movement present Affect: normal affect Attitude: cooperative Thought process: Normal thought process present and not confabulating Thought content: Normal thought content present Insight: Fair insight present (Psych) Judgement: Fair judgement present (Psych) Assessment & Plan Assessment & Plan (1) GERD (gastroesophageal reflux disease): Code(s): K21.9 - Gastro-esophageal reflux disease without esophagitis Category: Medical (2) Periumbilical abdominal pain: Code(s): R10.33 - Periumbilical pain Category: Medical (3) Weight loss: Code(s): R63.4 - Abnormal weight loss Category: Medical (4) Nausea: Code(s): R11.0 - Nausea Category: Medical (5) Mass on back: Comment: large fluid sack on back Code(s): R22.2 - Localized swelling, mass and lump, trunk Category: Medical Plan ER and Dr. Betancourt for question of biliary colic. ONset about several mos ago with discomfort in my gut. It was in the upper abdomen diffusely somewhat to the right. In December it suddenly worsened. She aslo had some feeling of swelling in the right back with apin and she put ice on it. she has tried wearing a back brace but his worsens the rt flank pain. The pain in knawing/aching and when she is hungry she will feel like she has to vomit. Sometimes, eating helps. Hunger also is a trigger for the pain. Worse 10/10 but lingers at 5/10. The pain seemed to creep up happening only for a couple of days then remitting, but now the pain is every day, only somewhat better in am if she eats. Some help with protonix but ran out. She has difficulty eating and has to force myself. She has been taking nsaid/tylenol with a muscle relaxer for her back. This seems to worsen the nausea. Cannibus edibles helps a little bit. Has a large fluid filled swelling on her back just along side the shoulder blade. Has been there for 2 years. FHX PUD in father with parts of stomach removed mother had GB diseease. NO known FHX of crc or polyps. DIet mostly sandwiches and soup. Used to drink a lot of diet coke, not excessive ETOH. Trial bentyl. ROV2 weeks. Orders: Orders XR lumbar spine 2-3V 09/01/24 M54.9 - Dorsalgia, unspecified, R10.33 - Periumbilical pain, R63.4 - Abnormal weight loss, R11.0 - Nausea EGD/[place] Combo - GI Use Only 08/29/24 M54.9 - Dorsalgia, unspecified, R10.33 - Periumbilical pain, R63.4 - Abnormal weight loss, R11.0 - Nausea GERALDINE Reflex Titer and Pattern 09/01/24 M54.9 - Dorsalgia, unspecified, R10.33 - Periumbilical pain, R63.4 - Abnormal weight loss, R11.0 - Nausea Erythrocyte Sedimentation Rate 09/01/24 M54.9 - Dorsalgia, unspecified, R10.33 - Periumbilical pain, R63.4 - Abnormal weight loss, R11.0 - Nausea Uric Acid 09/01/24 M54.9 - Dorsalgia, unspecified, R10.33 - Periumbilical pain, R63.4 - Abnormal weight loss, R11.0 - Nausea XR thoracic spine 2V 09/01/24 M54.9 - Dorsalgia, unspecified, R10.33 - Periumbilical pain, R63.4 - Abnormal weight loss, R11.0 - Nausea C Reactive Protein 09/01/24 M54.9 - Dorsalgia, unspecified, R10.33 - Periumbilical pain, R63.4 - Abnormal weight loss, R11.0 - Nausea H Pylori Breath Test 08/29/24 M54.9 - Dorsalgia, unspecified, R10.33 - Periumbilical pain, R63.4 - Abnormal weight loss, R11.0 - Nausea Rheumatoid Factor 09/01/24 M54.9 - Dorsalgia, unspecified, R10.33 - Periumbilical pain, R63.4 - Abnormal weight loss, R11.0 - Nausea Cyclic Citrullinated Peptide 09/01/24 M54.9 - Dorsalgia, unspecified, R10.33 - Periumbilical pain, R63.4 - Abnormal weight loss, R11.0 - Nausea US soft tiss head and/or neck 08/29/24 R22.2 - Localized swelling, mass and lump, trunk Medications: New dicyclomine 20 mg PO QID 120 tabs 3RF 30 days R10.33 - Periumbilical pain Changed From pantoprazole 40 mg PO DAILY 14 tabs 0RF K21.9 - Gastro-esophageal reflux disease without esophagitis To pantoprazole (Protonix) 40 mg PO BID 60 tabs 6RF K21.9 - Gastro-esophageal reflux disease without esophagitis Discontinued omeprazole magnesium Discontinued Reason: Doctor's Order 20 mg PO DAILY 30 tabs 1RF Coding Level of Care Code New Pt Level 3 (09190) Diagnoses GERD (gastroesophageal reflux disease) K21.9 Periumbilical abdominal pain R10.33 Weight loss R63.4 Nausea R11.0 Mass on back R22.2
== END 2024-08-29 16:15 | disposition home or self-care (01) ==
LOC: HO.HGI 13:59
PROVIDERS: PCP Internal Medicine; Visit Provider Nurse Practitioner
DX: K21.9 Gastro-esophageal reflux disease without esophagitis (principal); R10.33 Periumbilical pain; R63.4 Abnormal weight loss; R11.0 Nausea; R22.2 Localized swelling, mass and lump, trunk
CPT/HCPCS: 99203

== ENCOUNTER 2024-08-29 13:59 | Outpatient (REF) | payer OTHER, SELFPAY ==
[2024-08-30 10:18] LABS: H Pylori Breath Test Negative (Negative)
== END 2024-08-29 14:00 | disposition home or self-care (01) ==
LOC: HO.LNP 13:59
PROVIDERS: PCP Internal Medicine; Visit Provider Nurse Practitioner
DX: K21.9 Gastro-esophageal reflux disease without esophagitis (principal); R10.33 Periumbilical pain; R63.4 Abnormal weight loss; R11.0 Nausea; R22.2 Localized swelling, mass and lump, trunk; M54.9 Dorsalgia, unspecified
CPT/HCPCS: 83013; 99202

== ENCOUNTER 2024-09-01 09:53 | Outpatient (REF) | payer OTHER, SELFPAY ==
[2024-09-01 13:57] LABS: Estimated Average Glucose 151 mg/dL; Hemoglobin A1C 172.4489 umol/L; Hemoglobin A1c % 6.9 % (<6.0); Total Hemoglobin (HGBA1C) 3333.0868 umol/L
[2024-09-01 14:14] LABS: C Reactive Protein < 0.10 mg/dL (< or = 0.50); Uric Acid 5.4 mg/dL (2.4-5.7)
[2024-09-01 14:29] LABS: Erythrocyte Sedimentation Rate 19 MM/HR (0-20)
[2024-09-01 14:42] LABS: Alanine Aminotransferase 15 U/L (0-31); Albumin Level 4.4 g/dL (3.5-5.0); Anion Gap 12 (12-20); Aspartate Amino Transferase 20 U/L (5-31); Bilirubin Total 0.6 mg/dL (0.0-1.0); Blood Urea Nitrogen 23 mg/dL (9-16); Calcium 10.3 mg/dL (8.4-10.2); Carbon Dioxide 23 mmol/L (22-29); Chloride 104 mmol/L (96-108); Cholesterol 233 mg/dL (<200); Estimated Glomerular Filt Rate > 60; Glucose Random 136 mg/dL (60-115); HDL Cholesterol 54 mg/dL (>40); LDL Cholesterol Calculated 139 mg/dL (<100); Potassium 3.9 mmol/L (3.3-5.1); Rheumatoid Factor < 13.0 IU/mL (<15.0); Sodium 135 mmol/L (135-145); Total Protein 7.1 g/dL (6.5-8.0); Triglycerides 203 mg/dL (<150)
[2024-09-01 16:29] LABS: Alkaline Phosphatase 70 U/L (39-117)
[2024-09-04 07:13] LABS: Cyclic Citrullinated Peptide <16 UNITS
[2024-09-08 13:29] LABS: Anti Nuclear Antibody Screen NEGATIVE (NEGATIVE)
== END 2024-09-01 09:54 | disposition home or self-care (01) ==
LOC: HO.HMGCX 09:53
PROVIDERS: Nurse Practitioner; PCP Internal Medicine; Visit Provider Internal Medicine
DX: Z00.00 Encounter for general adult medical examination without abnormal findings (principal); R10.33 Periumbilical pain; R63.4 Abnormal weight loss; R11.0 Nausea; M54.50 Low back pain, unspecified; R73.01 Impaired fasting glucose; Z13.31 Encounter for screening for depression; Z72.0 Tobacco use; Z12.4 Encounter for screening for malignant neoplasm of cervix
CPT/HCPCS: 36415; 72070; 72100; 80053; 80061; 83036; 84550; 85652; 86038; 86140; 86200; 86431

== ENCOUNTER 2024-09-08 07:00 | Outpatient (RCR) | payer OTHER, SELFPAY ==
--- NOTE | 2024-09-05 08:43 | MHC.PT.EP ---
[facility] [place] Office [place] Office [place] Office [address] Maritza Nguyen [address] [phone] F: [phone] F: [phone] F: [phone] F: [phone] Physical Therapy Plan of Care Date of Evaluation: 09/05/24 Date of Surgery: n/a Diagnosis: low back pain Assessment: Patient is a 64 year old female presenting to PT with complaints of pain in her low back. Pt reports onset of pain began December 2023 due to insidious onset but around the time she began having GI issues. She presents today with impairments in pain, hip strength, tissue density, core strength. 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 Clinical presentation today is most consistent with signs and sx associated with low back pain and pt will benefit from skilled PT 2 week x 4 weeks to address the following problems and impairments noted upon evaluation: pain, hip strength, tissue density, core strength. These problems limit the patient with the following functional activities: prolonged standing, work, sitting, ADLs. The prescribed treatment plan of care is medically necessary. Co-morbidities of none were identified and taken into considerations of plan of care. Pt was educated on HEP, role of PT, prognosis, POC. Frequency and Duration: The patient will be seen 2 x week x 4 weeks Short Term Goals: Pt will demonstrate improved hip MMT strength by 1/3 grade in 2 weeks. Pt will demonstrate improved posture as evidence by min to no cues during session in 2 weeks. 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 Pt will demonstrate ability to work a full day with min to no pain in 4 weeks for improved tolerance to work. Pt will demonstrate ability to sit with min to no pain in 4 weeks for return to PLOF Treatment Plan: Modalities to reduce pain, spasms and effusion. Manual therapy to restore motion and function. Therapeutic exercise to improve strength and flexibility. Neuromuscular re-education for posture and balance. Therapeutic activities to return to functional activities of daily living. Electronically signed by: Pau Malave, PT, DPT, ATC Please sign and return to therapist. Thank you for your referral.
--- NOTE | 2024-10-17 13:19 | MHC.PT.DC ---
[facility] [place] Office [place] Office [place] Office [address] Maritza Nguyen [address] [phone] F: [phone] F: [phone] F: [phone] F: [phone] Physical Therapy Discharge Report Diagnosis: low back pain Date of Surgery: n/a Date of Evaluation: 09/05/24 Date of Discharge: 10/17/24 Treatments to Date: 2 Cancellations to Date: 3 No Shows to Date: 0 Discharge Status: Discharge Summary: Pt cancelled her last 3 appointments and has not called to be scheduled in > 30 days, therefore to be d/c. Electronically signed by: Pau Malave, PT, DPT, ATC Please sign and return to therapist. Thank you for your referral.
== END 2024-10-17 13:20 | disposition home or self-care (01) ==
LOC: HO.PTCHIC 07:00
PROVIDERS: PCP Internal Medicine; Visit Provider Internal Medicine
DX: M54.50 Low back pain, unspecified (principal)
CPT/HCPCS: 97110; 97161

== ENCOUNTER 2024-09-09 10:07 | Outpatient (REF) | payer OTHER, SELFPAY | END 2024-09-09 10:08 | disposition home or self-care (01) | LOC: HO.HMGCX 10:07 | PROVIDERS: PCP Internal Medicine; Visit Provider Nurse Practitioner | DX: R22.2 Localized swelling, mass and lump, trunk (principal) | CPT/HCPCS: 76604 ==

== ENCOUNTER 2024-10-31 11:57 | Outpatient (AMB) | payer OTHER, SELFPAY ==
--- NOTE | 2024-10-31 11:58 | A.OFFVIS_ITS ---
Vital Signs 10/31/24 12:09 Height 5 ft 6 in Weight 133 lb BMI 21.5 BP 110/59 L Blood Pressure Location Lt brachial Position Sitting Pulse 95 Intake Visit Reasons: Follow up labs and US Allergies No Known Drug Allergies Allergy (Unknown, Verified 10/31/24 11:59) none Latex, Natural Rubber Allergy (Verified 10/31/24 11:59) Rash [facility] Medical History (Updated 08/29/24 @ 15:29 by CHEMO Asher) Back pain Gallbladder polyp Surgical History No pertinent past surgical history Social History Alcohol intake: current Alcohol intake frequency: holidays/special occasions only Patient Tobacco Use Status: Current someday Tobacco user Years Smoked: 40 + Physical Exam Vital Signs: Last Vital Signs Pulse 95 10/31/24 12:09 BP 110/59 L 10/31/24 12:09 BMI result Body Mass Index 21.5 Coding
--- NOTE | 2024-10-31 11:59 | MHC.OFFVIS ---
Vital Signs 10/31/24 12:09 Height 5 ft 6 in Weight 133 lb BMI 21.5 BP 110/59 L Blood Pressure Location Lt brachial Position Sitting Pulse 95 Intake Visit Reasons: Follow up labs and US Intake Note: Patient follow up for GERD and US results. Patient cc: no good appetite with weight lost, RUQ pain with numbness and bloating, and constipation with some bloody mucous stool. 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: No Accompanied by: Family/Other Allergies No Known Drug Allergies Allergy (Unknown, Verified 10/31/24 11:59) none Latex, Natural Rubber Allergy (Verified 10/31/24 11:59) Rash HPI HPI Follow up labs and US: Details: Assessment & Plan (1) GERD (gastroesophageal reflux disease): Code(s): K21.9 - Gastro-esophageal reflux disease without esophagitis Category: Medical (2) Periumbilical abdominal pain: Code(s): R10.33 - Periumbilical pain Category: Medical (3) Weight loss: Code(s): R63.4 - Abnormal weight loss Category: Medical (4) Nausea: Code(s): R11.0 - Nausea Category: Medical (5) Mass on back: Comment: large fluid sack on back Code(s): R22.2 - Localized swelling, mass and lump, trunk Category: Medical Orders: Orders XR lumbar spine 2-3V Today M54.9 - Dorsalgia, unspecified, R10.33 - Periumbilical pain, R11.0 - Nausea, R63.4 - Abnormal weight loss EGD/[place] Combo - GI Use Only Today M54.9 - Dorsalgia, unspecified, R10.33 - Periumbilical pain, R11.0 - Nausea, R63.4 - Abnormal weight loss GERALDINE Reflex Titer and Pattern Today M54.9 - Dorsalgia, unspecified, R10.33 - Periumbilical pain, R11.0 - Nausea, R63.4 - Abnormal weight loss Erythrocyte Sedimentation Rate Today M54.9 - Dorsalgia, unspecified, R10.33 - Periumbilical pain, R11.0 - Nausea, R63.4 - Abnormal weight loss Uric Acid Today M54.9 - Dorsalgia, unspecified, R10.33 - Periumbilical pain, R11.0 - Nausea, R63.4 - Abnormal weight loss XR thoracic spine 2V Today M54.9 - Dorsalgia, unspecified, R10.33 - Periumbilical pain, R11.0 - Nausea, R63.4 - Abnormal weight loss C Reactive Protein Today M54.9 - Dorsalgia, unspecified, R10.33 - Periumbilical pain, R11.0 - Nausea, R63.4 - Abnormal weight loss H Pylori Breath Test Today M54.9 - Dorsalgia, unspecified, R10.33 - Periumbilical pain, R11.0 - Nausea, R63.4 - Abnormal weight loss Rheumatoid Factor Today M54.9 - Dorsalgia, unspecified, R10.33 - Periumbilical pain, R11.0 - Nausea, R63.4 - Abnormal weight loss Cyclic Citrullinated Peptide Today M54.9 - Dorsalgia, unspecified, R10.33 - Periumbilical pain, R11.0 - Nausea, R63.4 - Abnormal weight loss US soft tiss head and/or neck Today R22.2 - Localized swelling, mass and lump, trunk Medications: New dicyclomine 20 mg PO QID 120 tabs 3RF 30 days R10.33 - Periumbilical pain Changed From pantoprazole (Protonix) 40 mg PO DAILY 14 tabs 0RF K21.9 - Gastro-esophageal reflux disease without esophagitis To pantoprazole (Protonix) 40 mg PO BID 60 tabs 6RF K21.9 - Gastro-esophageal reflux disease without esophagitis Discontinued omeprazole magnesium (Prilosec OTC) Discontinued Reason: Doctor's Order 20 mg PO DAILY 30 tabs 1RF ER and Dr. Betancourt for question of biliary colic. Onset about several mos ago with discomfort in my gut. It was in the upper abdomen diffusely somewhat to the right. In December it suddenly worsened. She aslo had some feeling of swelling in the right back with pain and she put ice on it. she has tried wearing a back brace but his worsens the rt flank pain. The pain in knawing/aching and when she is hungry she will feel like she has to vomit. Sometimes, eating helps. Hunger also is a trigger for the pain. Worse 10/10 but lingers at 5/10. The pain seems to creep up happening only for a couple of days then remitting, but now the pain is every day, only somewhat better in am if she eats. Some help with protonix but ran out. she has difficulty eating and has to force myself. she has been taking nsaid/tylenol with a muscle relaxer for her back. This seems to worsen the nausea. Cannibus edibles helps a little bit. Has a large fluid filled swelling on her back just along side the shoulder blade. Has been there for 2 years. FHX PUD in father with parts of stomach removed mother had GB disease. NO known FHX of crc or polyps. Diet mostly sandwiches and soup. Used to drink a lot of diet coke, not excessive ETOH. Trial bentyl. ROV2 weeks. LABS Laboratory Tests 08/29/24 09/01/24 15:50 10:10 Hemoglobin A1c % 6.9 H Uric Acid 5.4 Calcium 10.3 H Total Bilirubin 0.6 AST 20 ALT 15 Alkaline Phosphatase 70 C-Reactive Protein < 0.10 Rheumatoid Factor < 13.0 Cycl Citrul Peptide IgG <16 GERALDINE Screen NEGATIVE H. pylori Breath Test Negative Laboratory Tests 09/01/24 10:10 ESR 19 XR LUMBAR SPINE 10/24/24 FINDINGS: No acute lumbar compression fracture. Small spondylitic changes seen. There is a morphologic sixth lumbar appearing vertebra which may reflect a lumbarized transitional S1 vertebra. Anterolisthesis at the L5-S1 level. Mild eccentric degenerative disc space narrowing posteriorly at the L4-5 level. Multilevel facet arthrosis. Interpolar calcification of the right kidney measuring 3 mm suspicious for small nephrolith. XR/XR lumbar spine 2-3V IMPRESSION: 1. No acute compression fracture. Degenerative changes as described. 2. Anterolisthesis at the L5-S1 level. 3. Suspected small nephrolith of the right kidney. XR THORACIC SPINE 10/24/24 FINDINGS: No evidence for acute thoracic compression fracture. Upper to midthoracic slight to mild dextroscoliosis. No paravertebral abnormality. Multilevel spondylitic changes as well as eccentric degenerative disc space narrowing. Visualized pedicles appear intact. XR/XR thoracic spine 2V IMPRESSION: 1. No acute compression fracture. Slight to mild dextroscoliosis. 2. Multilevel degenerative changes. US CHEST 10/28/24 FINDINGS: Asymmetric edematous changes are noted in the area of concern indicated by the patient in the [id number] left back when compared with the corresponding right-sided area. No discrete mass or fluid collection appreciated in the area indicated by the patient in the [id number] left back. US/US chest IMPRESSION: 1. Asymmetric edematous changes are noted in the area of concern indicated by the patient in the mid to upper left back when compared with the corresponding right-sided area. No discrete mass or fluid collection appreciated in the area indicated by the patient in the [id number] left back. 2. Decisions regarding further imaging, treatment or biopsy should be based on the clinical exam, as not all abnormalities are detectable on ultrasound studies. EGD/COLONOSCOPY 12/22/2024 BIOPSY TODAYS VISIT She confirms her nex dx of NIDDM and she was started on metformin by her PCP. Nausea and back pain seem to have worsened. 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 She does have arthritis in her back it is too hard to tell on x-ray whether there is some element of radicular pain. She does report some increasing sense of numbness in her right flank. An MRI would be the only way to definitively tell. With the diagnosis of diabetes I think we need to do a gastric emptying study. It is also possible with a differential diagnosis that the nausea and weight loss is caused by peptic ulcer disease, I also would like to rule out any pancreatic problems. With this in mind I want to get a CT scan of the chest (because of the mass on her back the ultrasound failed to elucidate) and because of the ongoing nausea back pain and weight loss. Her primary care provider feels that it is probably a lipoma, and this could be true but usually lipomas are picked up on ultrasounds. In the meantime I am going to start her on Reglan 4 times a day 5 mg to try to improve the nausea and I have suggested that she utilize Tylenol for her back pain. She also had a mildly elevated calcium on 2 separate draws so I am going to run a parathyroid hormone just for her best health prevention going forward. Return office visit next available ? Bárbara Goel getting our reports??? [facility] Medical History (Updated 10/31/24 @ 12:43 by CHEMO Asher) Back pain Gallbladder polyp Surgical History No pertinent past surgical history Social History Alcohol intake: current Alcohol intake frequency: holidays/special occasions only Patient Tobacco Use Status: Current someday Tobacco user Years Smoked: 40 + Review of Systems Const Denies fatigue, Denies fever(s), Denies night sweats, Reports poor appetite and Reports weight loss ENT Reports Normal hearing present, Denies dental pain, Denies dysphagia, Denies hearing loss, Denies mouth pain, Denies odynophagia, Denies throat swelling, Denies tongue swelling and Reports other (Dentition adequate) Card Reports no additional complaints Resp Reports no additional complaints GI Details: Reports abdominal pain, Denies melena, Denies bloating, Denies hematochezia, Denies constipation, Denies GI cramping, Denies dysphagia, Denies excessive flatus, Denies early satiety, Denies heartburn, Denies diarrhea, Reports nausea, Denies odynophagia, Reports vomiting and Denies hematemesis Musc Details: Large lump on right side of back Reports back pain, Reports deformity and Reports numbness (Right flank) Skin/Breast Denies pruritus, Denies lesions, Denies rash and Denies jaundice Neuro Reports Normal hearing present, Denies Abnormal speech present and Reports numbness (Right flank) Endo Denies fatigue Aller/Immun Denies throat swelling and Denies tongue swelling Physical Exam Vital Signs: Last Vital Signs Pulse 95 10/31/24 12:09 BP 110/59 L 10/31/24 12:09 BMI result Body Mass Index 21.5 Const General: cooperative, no acute distress, well developed and well groomed Nutritional Appearance: well nourished and thin Orientation/consciousness: oriented to person, oriented to place and oriented to time Limitations: No language barrier HEENT Head: Yes normocephalic and Yes atraumatic Eyes General: appearance normal, both eyes and all related structures Pupils: Equal, round and reactive pupils present Neck Neck: Yes normal visual inspection and Yes no lymphadenopathy Thyroid: Thyroid normal Resp Effort & Inspection: normal respiratory effort and able to speak in complete sentences Auscultation: clear to auscultation bilaterally Cardio Rate: regular rate Rhythm: regular rhythm Heart sounds: Normal, physiologic split S2 sound present Peripheral pulses: radial pulses present and posterior tibial pulses present GI Inspection: No distended and No Abdominal panniculus present Palpation (GI): Soft to palpation, Tenderness to palpation present (GI) (To right flank radiating around to the back) in the RUQ, no guarding, not rigid and No hepatosplenomegaly present Percussion: Yes normal to percussion Auscultation: normal bowel sounds Rectal Exam - Female: deferred General: Yes CVA tenderness Back/Spine/Pelvis Back: CVA tenderness Thoracic/Lumbar Spine: thoracic spinal tenderness Skin General skin exam: no rashes or lesions noted, turgor normal, skin not dry, no jaundice, No spider nevi and no striae Rashes: no rashes Nails: normal Neuro General: oriented to person, oriented to place and oriented to time Cranial nerves: Yes Equal, round and reactive pupils present and Yes Normal hearing present Speech: No Abnormal speech present Extrem General: Yes normal to inspection, No clubbing, No cyanosis and No edema Psych Appearance: grossly normal and well kempt Mental Status: mental status grossly normal Speech and movement: Normal speech and movement present Affect: normal affect Attitude: cooperative Thought process: Normal thought process present and not confabulating Thought content: Normal thought content present Insight: Limited insight present (Psych) Judgement: Limited judgement present (Psych) Results Reviewed Results Reviewed: Laboratory Tests 09/01/24 10:10 ESR 19 XR LUMBAR SPINE 10/24/24 FINDINGS: No acute lumbar compression fracture. Small spondylitic changes seen. There is a morphologic sixth lumbar appearing vertebra which may reflect a lumbarized transitional S1 vertebra. Anterolisthesis at the L5-S1 level. Mild eccentric degenerative disc space narrowing posteriorly at the L4-5 level. Multilevel facet arthrosis. Interpolar calcification of the right kidney measuring 3 mm suspicious for small nephrolith. XR/XR lumbar spine 2-3V IMPRESSION: 1. No acute compression fracture. Degenerative changes as described. 2. Anterolisthesis at the L5-S1 level. 3. Suspected small nephrolith of the right kidney. XR THORACIC SPINE 10/24/24 FINDINGS: No evidence for acute thoracic compression fracture. Upper to midthoracic slight to mild dextroscoliosis. No paravertebral abnormality. Multilevel spondylitic changes as well as eccentric degenerative disc space narrowing. Visualized pedicles appear intact. XR/XR thoracic spine 2V IMPRESSION: 1. No acute compression fracture. Slight to mild dextroscoliosis. 2. Multilevel degenerative changes. US CHEST 10/28/24 FINDINGS: Asymmetric edematous changes are noted in the area of concern indicated by the patient in the [id number] left back when compared with the corresponding right-sided area. No discrete mass or fluid collection appreciated in the area indicated by the patient in the [id number]-pj-gcmti left back. US/US chest IMPRESSION: 1. Asymmetric edematous changes are noted in the area of concern indicated by the patient in the mid to upper left back when compared with the corresponding right-sided area. No discrete mass or fluid collection appreciated in the area indicated by the patient in the igy-rt-[id number] left back. 2. Decisions regarding further imaging, treatment or biopsy should be based on the clinical exam, as not all abnormalities are detectable on ultrasound studies. Assessment & Plan Assessment & Plan (1) Weight loss: Code(s): R63.4 - Abnormal weight loss Category: Medical (2) Nausea: Code(s): R11.0 - Nausea Category: Medical (3) Diabetes: Code(s): E11.9 - Type 2 diabetes mellitus without complications Category: Medical (4) Hypercalcemia: Code(s): E83.52 - Hypercalcemia Category: Medical Plan She confirms her nex dx of NIDDM and she was started on metformin by her PCP. Nausea and back pain seem to have worsened. 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 She does have arthritis in her back it is too hard to tell on x-ray whether there is some element of radicular pain. She does report some increasing sense of numbness in her right flank. An MRI would be the only way to definitively tell. With the diagnosis of diabetes I think we need to do a gastric emptying study. It is also possible with a differential diagnosis that the nausea and weight loss is caused by peptic ulcer disease, I also would like to rule out any pancreatic problems. With this in mind I want to get a CT scan of the chest (because of the mass on her back the ultrasound failed to elucidate) and because of the ongoing nausea back pain and weight loss. Her primary care provider feels that it is probably a lipoma, and this could be true but usually lipomas are picked up on ultrasounds. In the meantime I am going to start her on Reglan 4 times a day 5 mg to try to improve the nausea and I have suggested that she utilize Tylenol for her back pain. She also had a mildly elevated calcium on 2 separate draws so I am going to run a parathyroid hormone just for her best health prevention going forward. Return office visit next available ? Bárbara Goel getting our reports??? Orders: Orders NM gastric emptying study Today E11.9 - Type 2 diabetes mellitus without complications, R11.0 - Nausea, R63.4 - Abnormal weight loss Parathyroid Hormone Intact Today E83.52 - Hypercalcemia Blood Urea Nitrogen Today R10.33 - Periumbilical pain, R22.2 - Localized swelling, mass and lump, trunk, R63.4 - Abnormal weight loss Creatinine Today R10.33 - Periumbilical pain, R22.2 - Localized swelling, mass and lump, trunk, R63.4 - Abnormal weight loss CT abdomen w IV con Today R10.33 - Periumbilical pain, R22.2 - Localized swelling, mass and lump, trunk, R63.4 - Abnormal weight loss CT chest w IV con Today R10.33 - Periumbilical pain, R22.2 - Localized swelling, mass and lump, trunk, R63.4 - Abnormal weight loss Medications: New metoclopramide HCl (Reglan) 5 mg PO QIDACHS 120 tabs 6RF R11.0 - Nausea On Hold dicyclomine Hold Comment: Doctor's Order 20 mg PO QID 30 days 120 tabs 3RF R10.33 - Periumbilical pain Coding Level of Care Code Est Pt Level 4 (07164) Diagnoses Weight loss R63.4 Nausea R11.0 Diabetes E11.9 Hypercalcemia E83.52 Time Spent (min) 40
[2024-10-31 12:09] VITALS: BP 110/59; PULSE 95; BMI 21.5
== END 2024-10-31 12:54 | disposition home or self-care (01) ==
PROVIDERS: PCP Internal Medicine; Visit Provider Nurse Practitioner
DX: R63.4 Abnormal weight loss (principal); R11.0 Nausea; E11.9 Type 2 diabetes mellitus without complications; E83.52 Hypercalcemia
CPT/HCPCS: 99214

== ENCOUNTER → 2024-10-31 11:57 | Outpatient (BNVA) | payer OTHER, SELFPAY | PROVIDERS: PCP Internal Medicine; Visit Provider Nurse Practitioner | DX: E11.9 Type 2 diabetes mellitus without complications (principal); R63.4 Abnormal weight loss; R11.0 Nausea; E83.52 Hypercalcemia; Z79.84 Long term (current) use of oral hypoglycemic drugs | CPT/HCPCS: 99212 ==

== ENCOUNTER → 2024-11-20 08:01 | Outpatient (REF) | payer OTHER, SELFPAY ==
--- NOTE | ~2024-11-20 | NM_ITS ---
EXAMINATION: NM RADIONUCLIDE SOLID FOOD GASTRIC EMPTYING 4-HOUR STUDY CLINICAL INFORMATION: Nausea COMPARISON: None TECHNIQUE: A standard meal consisting of 4 oz of Egg Beaters brand tagged with 1.0 microcuries Tc-99m Sulfur Colloid, 8 oz water and 2 slices of toast with jelly was administered orally to the patient. Images were obtained using a dual head gamma camera in the anterior and posterior projections over of the stomach immediately post ingestion and at hourly intervals up to 4 hours post ingestion. The anterior and posterior counts at each time interval were averaged using the geometric mean and expressed as percentage of the immediate post ingestion counts. FINDINGS: There is good visualization of activity in the stomach immediately post ingestion. As the study progresses, there is good clearance of activity from the stomach and visualization of progressively increasing small bowel activity. By the end of the study, there is almost no retention noted in the stomach. Retention in the stomach at each time interval was: 1 hour 49%% (normal 37%-90%) 2 hours 3%% (normal 30%-60%) 3 hours 3% 4 hours. Not evaluated. NM/NM gastric emptying study IMPRESSION: Normal 4-hour solid food gastric emptying study. For solid meal, rapid gastric emptying is less than 30% at 60 minutes. Delayed gastric emptying criteria is more than 60% remaining at 120 minutes or more than 10% at 240 minutes. The 4-hour value is the best discriminator of a normal or abnormal result). Gastric emptying study grading per JNMT Consensus Recommendations in 2008 (https://tech.snmjournals.org/content/36/44) Grade 1 (mild retention): 11-20% at 4h Grade 2 (moderate retention): 21-35% at 4h Grade 3 (severe retention): 36-50% at 4h Grade 4 (very severe retention): >50% retention at 4h Electronically signed by: Victor Hugo Avery MD 11/20/2024 12:33 PM [facility]
== END ==
LOC: HO.NUCMED 08:01
PROVIDERS: PCP Internal Medicine; Visit Provider Nurse Practitioner
DX: R11.0 Nausea (principal); R63.4 Abnormal weight loss; E11.9 Type 2 diabetes mellitus without complications
CPT/HCPCS: 78264; A9541

== ENCOUNTER → 2024-11-20 08:02 | Outpatient (BNV) | payer OTHER, SELFPAY | PROVIDERS: PCP Internal Medicine; Visit Provider Radiology Diagnostic Radiology | DX: R11.0 Nausea (principal) | CPT/HCPCS: 78264 ==

== ENCOUNTER 2024-12-15 08:05 | Outpatient (REF) | payer OTHER, SELFPAY ==
[2024-12-15 10:36] LABS: Blood Urea Nitrogen 24 mg/dL (9-16); Estimated Glomerular Filt Rate > 60
[2024-12-15 10:38] LABS: Estimated Average Glucose 154 mg/dL; Hemoglobin A1C 196.5922 umol/L; Total Hemoglobin (HGBA1C) 3730.5122 umol/L
[2024-12-15 10:40] LABS: Alanine Aminotransferase 44 U/L (0-31); Albumin Level 4.4 g/dL (3.5-5.0); Alkaline Phosphatase 78 U/L (39-117); Anion Gap 13 (12-20); Aspartate Amino Transferase 21 U/L (5-31); Bilirubin Total 0.4 mg/dL (0.0-1.0); Blood Urea Nitrogen 24 mg/dL (9-16); Calcium 10.2 mg/dL (8.4-10.2); Carbon Dioxide 24 mmol/L (22-29); Chloride 105 mmol/L (96-108); Cholesterol 140 mg/dL (<200); Estimated Glomerular Filt Rate > 60; Glucose Random 177 mg/dL (60-115); HDL Cholesterol 50 mg/dL (>40); LDL Cholesterol Calculated 61 mg/dL (<100); Potassium 3.9 mmol/L (3.3-5.1); Sodium 138 mmol/L (135-145); Total Protein 7.4 g/dL (6.5-8.0); Triglycerides 146 mg/dL (<150)
[2024-12-15 11:02] LABS: Parathyroid Hormone Intact 133.4 pg/mL (8.7-77.1)
[2024-12-15 11:03] LABS: Creatinine Urine 211.12 mg/dL
[2024-12-15 11:18] LABS: Microalbum/Creatinine Ratio Ur 947.3 ug/mg cr (<30); Microalbumin Urine > 2000.0 mg/L
== END 2024-12-15 08:06 | disposition home or self-care (01) ==
LOC: HO.HMGCLDS 08:05
PROVIDERS: PCP Internal Medicine; Referring Provider Nurse Practitioner; Visit Provider Internal Medicine
DX: D17.1 Benign lipomatous neoplasm of skin and subcutaneous tissue of trunk (principal); E11.9 Type 2 diabetes mellitus without complications; E78.2 Mixed hyperlipidemia; Z72.0 Tobacco use; R22.2 Localized swelling, mass and lump, trunk; R63.4 Abnormal weight loss; R10.33 Periumbilical pain; E83.52 Hypercalcemia
CPT/HCPCS: 36415; 80053; 80061; 82043; 82565; 82570; 83036; 83970; 84520

== ENCOUNTER 2024-12-16 09:53 | Outpatient (AMB) | payer OTHER, SELFPAY ==
[2024-12-16 09:57] VITALS: BP 102/77; PULSE 107; BMI 20.7
--- NOTE | 2024-12-16 09:57 | A.OFFVIS_ITS ---
Vital Signs 12/16/24 09:57 Height 5 ft 7 in Weight 132 lb 4.438 oz BMI 20.7 BP 102/77 Blood Pressure Location Lt brachial Position Sitting Pulse 107 H Intake Visit Reasons: January Patient Pre [place] Intake Note: Nohemi presents as a January patient. CC: She states that she has been having dizzy spells due to reglan and stated that she is back to where she started with nausea and unable to eat. 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 Nausea and back pain seem to have worsened. 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 She does have arthritis in her back it is too hard to tell on x-ray whether there is some element of radicular pain. She does report some increasing sense of numbness in her right flank. An MRI would be the only way to definitively tell. With the diagnosis of diabetes I think we need to do a gastric emptying study. It is also possible with a differential diagnosis that the nausea and weight loss is caused by peptic ulcer disease, I also would like to rule out any pancreatic problems. With this in mind I want to get a CT scan of the chest (because of the mass on her back the ultrasound failed to elucidate) and because of the ongoing nausea back pain and weight loss. Her primary care provider feels that it is probably a lipoma, and this could be true but usually lipomas are picked up on ultrasounds. In the meantime I am going to start her on Reglan 4 times a day 5 mg to try to improve the nausea and I have suggested that she utilize Tylenol for her back pain. She also had a mildly elevated calcium on 2 separate draws so I am going to run a parathyroid hormone just for her best health prevention going forward. Return office visit next available TODAY'S VISIT Patient is here today for requested visit. As mentioned above in HPI patient was previously seen by Lory Jeff NP who currently is out of the office. Patient has been experiencing in the past few months epigastric pain, nausea, bloating. Patient last over 20 lb in the past few months. Patient denies melena, hematochezia. She is scheduled to go for upper endoscopy and colonoscopy next week. Patient stopped taking Reglan, patient experienced dizziness while taking it. Patient is not taking dicyclomine as it was not helping her with cramping. Patient reports occasional dyspepsia without dysphagia or odynophagia. Patient denies any issues with anesthesia in the past. No history of sleep apnea. Not on any anticoagulation. Patient reports large lipoma on her back, no change in size. Patient reports that it is not painful to touch. She is experiencing abdominal pain radiating to her legs. [facility] Medical History Back pain Gallbladder polyp Surgical History No pertinent past surgical history Social History Alcohol intake: current Alcohol intake frequency: holidays/special occasions only Patient Tobacco Use Status: Current someday Tobacco user Years Smoked: 40 + Review of Systems Const Denies weight gain and Denies weight loss ENT Reports no additional complaints, Denies dysphagia and Denies odynophagia Card Reports no additional complaints Resp Reports no additional complaints GI Reports abdominal pain, Denies belching, Denies melena, Reports bloating, Denies change in bowel habits, Reports constipation, Denies dysphagia, Denies excessive flatus, Denies dyspepsia, Denies heartburn, Denies diarrhea, Denies loose stools, Denies nausea, Denies odynophagia and Denies vomiting Reports no additional complaints Musc Reports no additional complaints Neuro Reports no additional complaints Psych Reports no additional complaints Endo Reports no additional complaints Physical Exam Vital Signs: Last Vital Signs Pulse 107 H 12/16/24 09:57 BP 102/77 12/16/24 09:57 BMI result Body Mass Index 20.7 Const General: healthy appearing, no acute distress and well developed Nutritional Appearance: well nourished Orientation/consciousness: patient oriented x3 Resp Effort & Inspection: normal respiratory effort, able to speak in complete sentences, no tracheal deviation and symmetric chest movement Auscultation: clear to auscultation bilaterally Cardio Rate: regular rate GI Inspection: Yes normal to inspection and No distended Palpation (GI): Soft to palpation, not firm, nontender and No hepatosplenomegaly present Auscultation: normal bowel sounds General: Yes no CVA tenderness Back/Spine/Pelvis Other: Large lipoma on right upper back. Back: no CVA tenderness Skin General skin exam: elasticity normal, turgor normal and dry skin Neuro General: patient oriented x3 Psych Appearance: grossly normal Mental Status: mental status grossly normal Assessment & Plan Assessment & Plan (1) Weight loss: Code(s): R63.4 - Abnormal weight loss Category: Medical (2) Nausea: Code(s): R11.0 - Nausea Category: Medical (3) Diabetes: Code(s): E11.9 - Type 2 diabetes mellitus without complications Category: Medical Qualifiers: Diabetes mellitus complication status: without complication Diabetes mellitus emt intermediate insulin use: without nursing home use Diabetes mellitus type: type 2 Qualified Code(s): E11.9 - Type 2 diabetes mellitus without complications (4) Hypercalcemia: Code(s): E83.52 - Hypercalcemia Category: Medical (5) GERD (gastroesophageal reflux disease): Code(s): K21.9 - Gastro-esophageal reflux disease without esophagitis Category: Medical Qualifiers: Esophagitis presence: esophagitis presence not specified Qualified Code(s): K21.9 - Gastro-esophageal reflux disease without esophagitis (6) Constipation: Code(s): K59.00 - Constipation, unspecified Qualifiers: Constipation type: slow transit constipation Qualified Code(s): K59.01 - Slow transit constipation Plan Patient has colonoscopy booked next week as well as upper endoscopy. Script for prep sent. Discuss with patient what to expect before during and after the procedure. Patient continues to have epigastric pain, decreased appetite. PTH elevated, calcium normal. Will send patient for ultrasound to evaluate parathyroid gland, will check vitamin-D level. Will refer patient to endocrinology. In addition we will rule out celiac as patient has epigastric pain postprandially. Will check lipase to rule out chronic pancreatitis. Discussed with patient high calorie diet. Patient reports that pantoprazole in size not helping. Will order Nexium in the morning and famotidine at bedtime. Avoid dietary triggers and late night snacking. Staying upright for minimum 3 hours after meals discussed with patient. Patient will be referred to dietitian as well. Patient was found to have large lipoma on her back. Dr. Chin from general surgery evaluated and referral was placed for patient to be seek. She will call to make appointment. At this time patient wants to wait as the lipoma is not causing her any pain or discomfort. Patient has appointment after the procedure with Lory Jeff, however if patient continues to have symptoms she was advised to call the office. I will call patient with results from both ultrasound and lab work. Patient is agreeable to this plan and verbalizes understanding of instructions. She was given the opportunity to ask questions and all questions answered. Thank you for allowing me to participate in her care Orders: Orders Transglutaminase IgA Today R10.9 - Unspecified abdominal pain Vitamin D 25-OH (D2 and D3) Today E55.9 - Vitamin D deficiency, unspecified Lipase Today R10.9 - Unspecified abdominal pain US soft tiss head and/or neck Today E21.3 - Hyperparathyroidism, unspecified Vitamin B12 and Folate Today R19.7 - Diarrhea, unspecified Referrals Endocrinology Referral E11.9 - Type 2 diabetes mellitus without complications, E21.3 - Hyperparathyroidism, unspecified, E83.52 - Hypercalcemia General Surgery Referral D17.9 - Benign lipomatous neoplasm, unspecified 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 Referral R63.4 - Abnormal weight loss Medications: New sennosides (Natural Senna Laxative) 17.2 mg (2 x 8.6 mg) PO BEDTIME 60 tabs 3RF constipation K59.00 - Constipation, unspecified bisacodyl (Dulcolax (bisacodyl)) take 4 tabs at noon the day before your colonoscopy 20 mg (4 x 5 mg) PO ONCE 1 day 4 tabs 0RF constipation Z12.11 - Encounter for screening for malignant neoplasm of colon polyethylene glycol 3350 (Miralax) As directed by gastroenterology department at [facility] 238 grams PO ONCE 238 grams 0RF Z12.11 - Encounter for screening for malignant neoplasm of colon mirtazapine 7.5 mg PO BEDTIME 30 tabs 1RF K31.84 - Gastroparesis famotidine (Pepcid) 20 mg PO BEDTIME 30 tabs 3RF K21.9 - Gastro-esophageal reflux disease without esophagitis esomeprazole magnesium (Nexium) 20 mg PO DAILY 30 caps 4RF Discontinued dicyclomine Discontinued Reason: Doctor's Order 20 mg PO QID 30 days 120 tabs 3RF R10.33 - Periumbilical pain pantoprazole (Protonix) Discontinued Reason: Doctor's Order 40 mg PO BID 60 tabs 6RF K21.9 - Gastro-esophageal reflux disease without esophagitis Coding Level of Care Code Est Pt Level 4 (77926) Complex EM visit Add On G2211 Diagnoses Weight loss R63.4 Nausea R11.0 Type 2 diabetes mellitus without complication, without long-term current use of insulin E11.9 Diabetes mellitus complication status: without complication Diabetes mellitus nursing home insulin use: without emt intermediate use Diabetes mellitus type: type 2 Hypercalcemia E83.52 Gastroesophageal reflux disease, unspecified whether esophagitis present K21.9 Esophagitis presence: esophagitis presence not specified Slow transit constipation K59.01 Constipation type: slow transit constipation Time Spent (min) 45 Comment 30 minutes spent with patient and additional 15 minutes spent reviewing her records
== END 2024-12-16 10:56 | disposition home or self-care (01) ==
PROVIDERS: PCP Internal Medicine; Visit Provider Nurse Practitioner Family
DX: R63.4 Abnormal weight loss (principal); R11.0 Nausea; E11.9 Type 2 diabetes mellitus without complications; E83.52 Hypercalcemia; K21.9 Gastro-esophageal reflux disease without esophagitis; K59.01 Slow transit constipation
CPT/HCPCS: 99214; G2211

== ENCOUNTER → 2024-12-16 09:53 | Outpatient (BNVA) | payer OTHER, SELFPAY | PROVIDERS: PCP Internal Medicine; Visit Provider Nurse Practitioner Family | DX: Z01.818 Encounter for other preprocedural examination (principal); K21.9 Gastro-esophageal reflux disease without esophagitis; K59.01 Slow transit constipation; R63.4 Abnormal weight loss; R11.0 Nausea; E11.9 Type 2 diabetes mellitus without complications; E83.52 Hypercalcemia; E55.9 Vitamin D deficiency, unspecified; E21.3 Hyperparathyroidism, unspecified; R19.7 Diarrhea, unspecified; D17.9 Benign lipomatous neoplasm, unspecified; R10.33 Periumbilical pain | CPT/HCPCS: 99212 ==

== ENCOUNTER 2024-12-19 14:10 | Outpatient (REF) | payer OTHER, SELFPAY ==
[2024-12-19 17:13] LABS: Lipase 22 U/L (8-78)
[2024-12-19 17:50] LABS: Folate 13.9 ng/mL (> or = 4.0); Vitamin B12 437 pg/mL (200-900)
[2024-12-22 18:54] LABS: Transglutaminase IgA <1.0 U/mL
[2024-12-23 17:54] LABS: Vitamin D 25-OH, D2 <4 ng/mL; Vitamin D 25-OH, D3 21 ng/mL; Vitamin D 25-OH, Total 21 ng/mL (30-100)
== END 2024-12-19 14:11 | disposition home or self-care (01) ==
LOC: HO.HMGCLDS 14:10
PROVIDERS: PCP Internal Medicine; Visit Provider Nurse Practitioner Family
DX: R10.9 Unspecified abdominal pain (principal); E55.9 Vitamin D deficiency, unspecified; R19.7 Diarrhea, unspecified
CPT/HCPCS: 36415; 82306; 82607; 82746; 83690; 86364

== ENCOUNTER 2024-12-22 14:07 | Outpatient (REF) | payer OTHER, SELFPAY ==
--- NOTE | ~2024-12-22 | US_ITS ---
EXAMINATION: US THYROID HISTORY: E21.3 - Hyperparathyroidism, unspecified TECHNIQUE: Real-time grayscale ultrasound imaging was performed and images were reviewed. COMPARISON: There are no prior studies for comparison. FINDINGS: SIZE: The right thyroid lobe measures 5.2 x 1.9 x 1.6 cm. The left thyroid lobe measures 5.0 x 1.1 x 1.7 cm. The isthmus measures 6 mm. FLOW: Flow to the gland is increased. ECHOGENICITY: The echotexture of the gland is mildly heterogeneous. NODULES: There are nodules noted in the right thyroid lobe as described below: Nodule #: 1 Location: Right upper pole measuring 2 x 1 x 2 mm Shape: Wider than tall (0 points) Margins: Smooth (0 points) Echotexture: Hyperechoic (1 point) Composition: Solid (2 points) Calcifications: Macrocalcs (1 point) Total points: 4 TIRADS: TR4: Moderately suspicious. Nodule #: 2 Location: Midportion of the right thyroid lobe measuring 4 x 2 x 3 mm Shape: Wider than tall (0 points) Margins: Smooth (0 points) Echotexture: Hyperechoic (1 point) Composition: Solid (2 points) Calcifications: Macrocalcs (1 point) Total points: 4 TIRADS: TR4: Moderately suspicious. US/US thyroid IMPRESSION: Tiny subcentimeter right thyroid nodules as described. ACR TI-RADS Guidelines TR1: Benign, No follow-up or biopsy required TR2: Not Suspicious, No biopsy indicated TR3: Mildly Suspicious, FNA if >= 2.5 cm, Follow if >= 1.5 cm TR4: Moderately Suspicious, FNA if >= 1.5 cm, Follow if >= 1.0 cm TR5: Highly Suspicious, FNA if >= 1.0 cm, Follow if >= 0.5 cm Electronically signed by: Jorge Shelby MD 12/22/2024 03:15 PM [facility] [place]
== END 2024-12-22 14:08 | disposition home or self-care (01) ==
LOC: HO.US 14:07
PROVIDERS: PCP Internal Medicine; Visit Provider Nurse Practitioner Family
DX: E21.3 Hyperparathyroidism, unspecified (principal)
CPT/HCPCS: 76536

== ENCOUNTER → 2024-12-22 14:08 | Outpatient (BNV) | payer OTHER, SELFPAY | PROVIDERS: PCP Internal Medicine; Visit Provider Radiology Diagnostic Radiology | DX: E21.3 Hyperparathyroidism, unspecified (principal); E04.1 Nontoxic single thyroid nodule | CPT/HCPCS: 76536 ==

== ENCOUNTER 2024-12-23 08:44 | Day surgery (SDC) | payer OTHER, SELFPAY ==
--- NOTE | 2024-12-22 10:30 | HO.ANESPROP2 ---
Documented by User: Annie Cali NP 12/22/24 10:32 HPI - Anesthesia Eval Consult details Narrative: 64yo F for Upper Endoscopy and Colonoscopy PMF Active Problems Active Problems: All Active Problems Hypercalcemia (Acute) Diabetes (Acute) Mass on back (Acute) Nausea (Acute) Weight loss (Acute) Periumbilical abdominal pain (Acute) Back pain (Acute) GERD (gastroesophageal reflux disease) (Acute) Gallbladder polyp (Acute) Past Medical History Medical History (Updated 12/23/24 @ 09:09 by Thea Cordero RN) Diabetes GERD (gastroesophageal reflux disease) Back pain Gallbladder polyp Surgical History Surgical History (Updated 12/23/24 @ 09:08 by Thea Cordero RN) H/O dilation and curettage Social History Social History Alcohol intake: current Alcohol intake frequency: holidays/special occasions only Patient Tobacco Use Status: Current everyday Tobacco user Tobacco use type: Cigarette Cigarettes Per Day: 6 Years Smoked: 40 + Use of substances other than those prescribed or required for medical reasons: Yes Substance Use Type Other:: gummies for pain and sleep Advance Directives: No Advance Directives Information Provided: Yes Recently lost weight without trying: Yes How much weight loss: 24-33 pounds Nutrition Risks: No Nutritional Risk Patient : No Meds Allergies Allergy/AdvReac Type Severity Reaction Status Date / Time Latex, Natural Rubber Allergy Rash Verified 12/16/24 10:00 Home Medications ?Medication ?Instructions ?Recorded ?Confirmed ?Last Taken ?Type atorvastatin 20 mg tablet 20 mg PO BEDTIME 10/31/24 Unknown History metformin 500 mg tablet,extended mg PO DAILY 12/16/24 Unknown History release 24 hr Exam Pertinent Lab Results Pertinent Lab Results: Laboratory Tests 08/21/24 12/15/24 08:33 08:10 WBC 11.2 H Hgb 13.9 Hct 38.3 Plt Count 443 H Sodium 138 Potassium 3.9 Chloride 105 Carbon Dioxide 24 BUN 24 H Creatinine 0.77 Narrative Narrative: EKG 2023 Vent. Rate : 082 BPM Atrial Rate : 082 BPM P-R Int : 156 ms QRS Dur : 070 ms QT Int : 352 ms P-R-T Axes : 069 033 054 degrees QTc Int : 411 ms Normal sinus rhythm Possible Left atrial enlargement Borderline ECG When compared with ECG of 23-JUN-2024 11:29, No significant change was found Assessment and Plan Assessment Anesthesia Assessment: Chart Reviewed Documented by User: Eron Nesbitt MD 12/23/24 10:17 [facility] Past Medical History Medical History (Updated 12/23/24 @ 09:09 by Thea Cordero RN) Diabetes GERD (gastroesophageal reflux disease) Back pain Gallbladder polyp Family History Family history of problems with anesthesia: No Surgical History Surgical History (Updated 12/23/24 @ 09:08 by Thea Cordero RN) H/O dilation and curettage History of Problems with Anesthesia: No Social History Social History Alcohol intake: current Alcohol intake frequency: holidays/special occasions only Patient Tobacco Use Status: Current everyday Tobacco user Tobacco use type: Cigarette Cigarettes Per Day: 6 Years Smoked: 40 + Use of substances other than those prescribed or required for medical reasons: Yes Substance Use Type Other:: gummies for pain and sleep Advance Directives: No Advance Directives Information Provided: Yes Recently lost weight without trying: Yes How much weight loss: 24-33 pounds Nutrition Risks: No Nutritional Risk Patient : No Meds Allergies Allergy/AdvReac Type Severity Reaction Status Date / Time Latex, Natural Rubber Allergy Rash Verified 12/16/24 10:00 Home Medications ?Medication ?Instructions ?Recorded ?Confirmed ?Last Taken ?Type atorvastatin 20 mg tablet 20 mg PO BEDTIME 10/31/24 Unknown History metformin 500 mg tablet,extended mg PO DAILY 12/16/24 Unknown History release 24 hr Exam Airway Mallampati Class: II TM Dist: >3cm Neck ROM: Full Loose/Missing/Broken Teeth: Yes Heart: ok Lungs: ok Assessment and Plan Assessment Anesthesia Assessment: Anesthesia Plan Discussed Final Anesthetic Review Family History of Problems with Anesthesia: No History of Problems with Anesthesia: No NPO: Yes ASA Class: II Final Preanesthetic Review: No Changes in Pt Med Stat, Meds/Allgs Chart Reviewed, Consent Obtained/Reviewed and Anes Risks/Benef Reviewed Patient Risk: Low Procedure Risk: Intermediate Anesthetic Plan Anesthetic Plan: Agree w/ Assess. and Plan and TIVA Disposition: Standard PACU
[2024-12-23 09:16] VITALS: BMI 20.4
[2024-12-23 09:19] VITALS: BP 118/66; PULSE 98; RESP 16; TEMP 37.3; O2SAT 97
[2024-12-23 09:34] LABS: Glucose, Whole Blood 169 mg/dL (60-115)
[2024-12-23] MEDS: Lactated Ringers 1,000 ML 100 ML IVCONT (09:35)
--- NOTE | 2024-12-23 09:49 | MHC.SHP ---
Pre-Procedural Eval Section A - 24 Hr Update-Section A only Date of Service: 12/23/24 Section B - Complete if H&P > 30 days Chief Complaint: Dorsalgia,Periumbilical pain,gerd, Details of Present Illness: weight loss Relevant Family History (Specify if Yes): No Relevant Social History: Tobacco Use Present Medications: see Short Stay Collaborative assessment Medical History: Significant History (Back pain Gallbladder polyp) History of Previous Operations: No relevant previous surgery Allergies: Allergies Allergy/AdvReac Type Severity Reaction Status Date / Time Latex, Natural Rubber Allergy Rash Verified 12/16/24 10:00 Review of Systems Sugical H&P ROS: Negative: Constitution, Cardiovascular, Respiratory, Neurological, Psychiatric, Hem-Onc, Allergic/Immunologic, Gastrointestinal, Genitourinary, Musculoskeletal, Integumentary, Endocrine and Eyes/Ears/Nose/Throat Exam Surgical H&P Exam: Normal: HEENT, Normal: Heart, Normal: Lungs, Normal: Extremities, Normal: Abdomen, Normal: Skin and Normal: Neurological Plan Diagnosis/Plan: Unchanged I have reviewed the history and physical and performed a pertinent physical examination on my patient. No changes have occurred unless specified. Time Spent With Patient Time: Total time managing care of this patient today ____ minutes.
--- NOTE | 2024-12-23 10:09 | P.OPN-COLO_ITS ---
Colonoscopy Operative Note Operative Note Date of Service: 12/23/24 Narrative: Operative Information Procedure Description: EGD, Colonoscopy Indication: weight loss Anesthesia: MAC FLEXIBLE TRANSORAL UPPER GASTROINTESTINAL ENDOSCOPY AND COLONOSCOPY PROCEDURE NOTE UPPER ENDOSCOPY Consent: Indications for the procedure and potential complications of bleeding, perforation, reaction to medications and missed diagnosis were discussed with the patient and informed consent was obtained. Instrument: Olympus GIF H 190 J mid size upper endoscope Monitoring: Vital signs and clinical assessment, continuous EKG monitoring, Pulse oximetry, Carbon Dioxide monitoring and blood pressure monitoring were done throughout the procedure. Procedure: The patient was placed in the left lateral decubitis position and pre-procedure medications were administered and a bite block was placed. The endoscope was inserted into the mouth and advanced under direct vision to the third part of duodenum. A careful inspection was made as the upper endoscope was withdrawn including a retroflexed examination of the proximal stomach; Findings and interventions are described below. Findings: Larynx:normal Esophagus: GE junction at 40 cm, diaphragm hiatus at 40 cm, bogginess and erythema at GEJ, bx taken from here and distal, proximal esophagus Stomach: Normal mucosa. Biopsies were obtained. Grade 2 flap valve on retroflexed examination of the cardia. Duodenum: Normal bulb and descending duodenum, bx taken Intervention: Biopsies as noted above, COLONOSCOPY Instrument: Olympus variable stiffness pediatric scope 190L Colonoscopy Monitoring: Vital signs and clinical assessment, continuous EKG monitoring, Pulse oximetry, Carbon Dioxide monitoring and blood pressure monitoring were done throughout the procedure. Colon withdrawal time was 10 minutes. Procedure: The patient was placed in the left lateral decubitis position and pre-procedure medications were administered. After a digital rectal examination of the ano-rectum, the video colonoscope was inserted into the rectum and advanced through the colon to the cecum/TI. The colonoscope was slowly withdrawn in a retrograde panoramic fashion and the colon mucosa was carefully examined including a retroflexed view of the rectum. Findings and interventions are described below. Procedure Difficulty:moderate Findings: Terminal Ileum-normal, bx taken Random colon bx taken Cecum:normal Ascending Colon: normal Transverse Colon -normal Descending Colon:normal Sigmoid Colon: moderate severe diverticulosis with tight angles Rectum: Retroflexion with small internal hemorrhoids, grade I Anorectum - normal Colon preparation: [place] Bowel Preparation Scale Right colon; 2 Transverse colon: 2 Left colon; 2 (0 = Unprepared colon segment with mucosa not seen due to solid stool that cannot be cleared. 1 = Portion of mucosa of the colon segment seen, but other areas of the colon segment not well seen due to staining, residual stool and/or opaque liquid. 2 = Minor amount of residual staining, small fragments of stool and/or opaque liquid, but mucosa of colon segment seen well. 3 = Entire mucosa of colon segment seen well with no residual staining, small fragments of stool or opaque liquid) Impression and Post Procedure Diagnosis: Endoscopy Findings: mild esophagitis Colonoscopy Findings: diverticulosis internal hemorrhoids Plan: Await Pathology results Repeat Colonoscopy in 10 years or earlier if clinically indicated High fiber diet leaflet avoid straining at stool, epsom salts and sitz bath, anusol supps or cream if ongoing weight loss and bx negative consider Ct chest Above findings were reviewed with the patient and relevant handouts were provided if indicated.
[2024-12-23 10:39] VITALS: BP 94/51; PULSE 81; RESP 20; TEMP 37.3; O2SAT 97
[2024-12-23 10:54] VITALS: BP 107/60; PULSE 80; RESP 20; O2SAT 95
[2024-12-23 11:09] VITALS: BP 123/62; PULSE 78; RESP 20; TEMP 37.2; O2SAT 96
== END 2024-12-23 11:49 | disposition home or self-care (01) ==
PROVIDERS: PCP Internal Medicine; Visit Provider Internal Medicine Gastroenterology
PROC: (CPT 45380; principal; 2024-12-23 11:30)
DX: Z12.11 Encounter for screening for malignant neoplasm of colon (principal); K59.01 Slow transit constipation; K57.30 Diverticulosis of large intestine without perforation or abscess without bleeding; K64.0 First degree hemorrhoids; R63.4 Abnormal weight loss; Z68.20 Body mass index [BMI] 20.0-20.9, adult; M54.9 Dorsalgia, unspecified; R10.13 Epigastric pain; R10.33 Periumbilical pain; K82.4 Cholesterolosis of gallbladder; R11.0 Nausea; K20.80 Other esophagitis without bleeding; K21.9 Gastro-esophageal reflux disease without esophagitis; K44.9 Diaphragmatic hernia without obstruction or gangrene; E11.9 Type 2 diabetes mellitus without complications; M47.9 Spondylosis, unspecified; R20.0 Anesthesia of skin; D17.1 Benign lipomatous neoplasm of skin and subcutaneous tissue of trunk; E55.9 Vitamin D deficiency, unspecified; E83.52 Hypercalcemia; E21.3 Hyperparathyroidism, unspecified; Z79.84 Long term (current) use of oral hypoglycemic drugs; Z79.899 Other long term (current) drug therapy; Z91.040 Latex allergy status; F17.210 Nicotine dependence, cigarettes, uncomplicated
CPT/HCPCS: 45380; 43239; 82947; 88305; 88313; J2003; J2704; J3010

== ENCOUNTER → 2024-12-23 08:44 | Outpatient (BNV) | payer OTHER, SELFPAY | PROVIDERS: PCP Internal Medicine; Visit Provider Internal Medicine Gastroenterology | DX: K20.90 Esophagitis, unspecified without bleeding (principal); R63.4 Abnormal weight loss; K57.30 Diverticulosis of large intestine without perforation or abscess without bleeding; K64.0 First degree hemorrhoids | CPT/HCPCS: 43239; 45380 ==

== ENCOUNTER 2024-12-24 | Outpatient (REF) | payer OTHER, SELFPAY | END 2024-12-24 00:01 | disposition home or self-care (01) | LOC: CF | PROVIDERS: PCP Nurse Practitioner Family; Visit Provider Nurse Practitioner | DX: D17.1 Benign lipomatous neoplasm of skin and subcutaneous tissue of trunk (principal) | CPT/HCPCS: 99212 ==

== ENCOUNTER 2024-12-24 09:44 | Outpatient (AMB) | payer OTHER, SELFPAY ==
--- NOTE | 2024-12-24 09:50 | MHC.OFFVIS ---
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 Pt c/o; lipoma of back, no pain or discomfort at this time. Cancer Program Consultant Required: No Accompanied by: Self / Same As Patient Allergies Latex, Natural Rubber Allergy (Verified 12/24/24 09:56) Rash Medication List - Last Reconciled 12/24/24 by Wesley Betancourt MD acetaminophen (Tylenol Extra Strength) 500 mg PO Q6H PRN atorvastatin 20 mg PO BEDTIME bisacodyl (Dulcolax (bisacodyl)) 20 mg (4 x 5 mg) PO ONCE 1 day cholecalciferol (vitamin D3) 125 mcg PO DAILY cyclobenzaprine 5 mg PO Q8H PRN 5 days esomeprazole magnesium (Nexium) 20 mg PO DAILY famotidine (Pepcid) 20 mg PO BEDTIME metformin ER mg PO DAILY mirtazapine 7.5 mg PO BEDTIME polyethylene glycol 3350 (Miralax) 238 grams PO ONCE sennosides (Natural Senna Laxative) 17.2 mg (2 x 8.6 mg) PO BEDTIME HPI HPI 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 She says that she has had this for many years but this has been increasing in size. This has been causing her discomfort and she now wants this removed. She has a known diabetic but admits that she does not really monitor her blood sugars closely She had an EGD and colonoscopy today showing hemorrhoids and diverticulosis. She describes being unsteady and says she has this chronic back pain. [facility] Medical History (Updated 12/24/24 @ 10:17 by Wesley Betancourt MD) Lipoma of back Diabetes GERD (gastroesophageal reflux disease) Back pain Gallbladder polyp Surgical History H/O dilation and curettage Social History Alcohol intake: current Alcohol intake frequency: holidays/special occasions only Patient Tobacco Use Status: Current everyday Tobacco user Tobacco use type: Cigarette Cigarettes Per Day: 6 Years Smoked: 40 + Review of Systems Const Denies chills and Denies fever(s) Card Denies chest pain, Denies dyspnea and Denies dyspnea on exertion Resp Denies cough, Denies dyspnea and Denies dyspnea on exertion GI Denies hematochezia and Denies change in bowel habits Denies hematuria Musc Reports back pain and Denies limited range of motion Neuro Details: Unsteadiness Denies focal weakness and Denies convulsions Psych Denies depression and Denies mood swings Physical Exam Vital Signs: BMI result Body Mass Index 21.3 Const General: comfortable and no acute distress Orientation/consciousness: patient oriented x3 Neck Neck: Yes no lymphadenopathy Resp Auscultation: clear to auscultation bilaterally Cardio Rhythm: regular rhythm GI Palpation (GI): Soft to palpation, nontender and no guarding Back/Spine/Pelvis Other: Large lipoma, about 7 cm, well-defined, on the back Neuro General: patient oriented x3 Assessment & Plan Assessment & Plan (1) Lipoma of back: Code(s): D17.1 - Benign lipomatous neoplasm of skin and subcutaneous tissue of trunk Category: Medical Plan: She wants this excised. In view of the size I told her that we may need to do this under some form of anesthesia. I explained the technique of this procedure. I reviewed the risks including but not limited to bleeding, infections and postop pain, as well as the benefits and alternatives. She understands and wants to proceed She is going to see her primary care physician tomorrow so I told her that she should have her A1c checked. She describes some other complaints like back pain as well as weight loss. Coding Level of Care Code New Pt Level 3 (41919) Diagnoses Lipoma of back D17.1
[2024-12-24 09:56] VITALS: BMI 21.3
== END 2024-12-24 10:13 | disposition home or self-care (01) ==
PROVIDERS: PCP Internal Medicine; Visit Provider Surgery
DX: D17.1 Benign lipomatous neoplasm of skin and subcutaneous tissue of trunk (principal)
CPT/HCPCS: 99213

== ENCOUNTER 2024-12-27 07:06 | Inpatient (IN) | payer OTHER, SELFPAY ==
--- NOTE | ~2024-12-27 | US_ITS ---
CLINICAL HISTORY: complex R cyst US pelvis transvaginal Comparison: CT/SR - CT ABDOMEN PELVIS W IV CON - 12/27/24 10:14 EST Findings: Transvaginal scanning performed. The uterus is 6.6 cm length. Normal myometrium. Endometrium 2.5 mm thickness. Right ovary 3.1 x 1.4 x 1.9 cm. Within the right adnexa, there is a 2.4 x 1.3 x 3.2 cm complex cystic structure noted. Left ovary 2.3 x 1.9 x 2.5 cm. Normal color Doppler of both ovaries. Small volume free fluid within the cul-de-sac. IMPRESSION: Complex cystic structure right adnexa. Given age of patient and postmenopausal state, a follow-up within 3 months is recommended This document has been electronically signed by: Zachariah Lunsford MD on 12/27/2024 13:33:26
--- NOTE | ~2024-12-27 | CT_ITS ---
CLINICAL HISTORY: lower abdominal pain n v CT abdomen and pelvis with contrast Comparison: None Findings: Trace right effusion with overlying atelectasis. The liver, gallbladder, spleen, adrenal glands and pancreas are unremarkable. There is asymmetric prominence and heterogeneous enhancement of the right kidney. Asymmetric perinephric stranding on the right. No obstructing calculus. There is a 3 mm collecting system calculus in the right. The bladder is decompressed. Normal appendix. Abnormal thickening of the ascending colon with surrounding stranding. Normal appendix. The terminal ileum appears unremarkable. No bowel obstruction or free air. No abscess. Complex right adnexal cyst suggested. Uterus unremarkable. Moderate diffuse atherosclerotic disease. No acute osseous finding. Impression: Abnormal prominence of the right kidney with asymmetric perfusion. Clinical correlation for pyelonephritis. Abnormal thickening of predominantly the ascending colon with surrounding stranding. Colitis suggested. Normal appendix. No free air or abscess. Right adnexal complex cysts. Ultrasound could be considered. This document has been electronically signed by: Zachariah Lunsford MD on 12/27/2024 12:08:17
--- NOTE | ~2024-12-27 | CT_ITS ---
CLINICAL HISTORY: unexplained weight loss CT chest with contrast Comparison: None Findings: No cardiomegaly or pericardial effusion. No aneurysm or dissection. No mediastinal adenopathy or pericardial effusion. Trace right-sided pleural effusion with overlying consolidation, likely atelectasis. Minimal airway thickening. No suspicious pulmonary lesion. No acute osseous finding. The visualized upper abdomen is unremarkable. Impression: No suspicious pulmonary lesion. Trace right effusion with overlying atelectasis. This document has been electronically signed by: Zachariah Lunsford MD on 12/27/2024 11:46:09
[2024-12-27 07:17] VITALS: BP 95/57; PULSE 100; RESP 22; TEMP 36.2; O2SAT 100; BMI 19.7
--- NOTE | 2024-12-27 08:41 | ED_ITS ---
HPI - Abdominal Pain General Chief Complaint: Abdominal Pain Stated Complaint: abd pain Time Seen by Provider: 12/27/24 08:29 Source: patient and old records reviewed Mode of arrival: ambulatory Limitations: no limitations History of Present Illness ED Provider: JOSEFINA CARRERA narrative: 64 yo female with PMH Of GERD followed by GI just had colonoscopy a week ago diverticulosis, mild esophagitis follows with Dr. Salinas. She has has reported significant weight loss along with lower abdominal pain and nausea. She cannot eat despite takin remeron and edibles. She has temporal wasting. She has no change in stools. She cannot remember an event but it has worsened slowly since the summer and she has unbearable back pain as well. She had a normal gastric emptying study. No fevers, she is here today stating she cannot live like this anymore and is frustrated. MD elicited complaint: abdominal pain Pertinent past history: none Onset (ago): month(s) Pain Consistency: constant Location: RLQ, LLQ and suprapubic Severity: moderate Quality: aching and fullness Radiation: none Migration to: no migration Exacerbating factors: eating and movement Relieving factors: nothing Context: history of similar episodes Associated symptoms: nausea and other (weight loss) Related Data Home Medications ?Medication ?Instructions ?Recorded ?Confirmed atorvastatin 20 mg tablet 20 mg PO BEDTIME 10/31/24 12/24/24 metformin 500 mg tablet,extended mg PO DAILY 12/16/24 12/24/24 release 24 hr Previous Rx's ?Medication ?Instructions ?Recorded acetaminophen 500 mg tablet 500 mg PO Q6H PRN fever or pain 08/21/24 (Tylenol Extra Strength) #14 tabs cyclobenzaprine 5 mg tablet 5 mg PO Q8H PRN pain (scale score 08/21/24 7-10) 5 days #14 tabs bisacodyl 5 mg tablet,delayed 20 mg (4 x 5 mg) PO ONCE 12/16/24 release (Dulcolax (bisacodyl)) constipation 1 day #4 tabs esomeprazole magnesium 20 mg 20 mg PO DAILY #30 caps 12/16/24 capsule,delayed release (Nexium) famotidine 20 mg tablet (Pepcid) 20 mg PO BEDTIME #30 tabs 12/16/24 mirtazapine 7.5 mg tablet 7.5 mg PO BEDTIME #30 tabs 12/16/24 polyethylene glycol 3350 17 238 g PO ONCE #238 grams 12/16/24 gram/dose oral powder (Miralax) sennosides 8.6 mg tablet (Natural 17.2 mg (2 x 8.6 mg) PO BEDTIME 12/16/24 Senna Laxative) constipation #60 tabs cholecalciferol (vitamin D3) 125 125 mcg PO DAILY #90 caps 12/23/24 mcg (5,000 unit) capsule Allergies Allergy/AdvReac Type Severity Reaction Status Date / Time Latex, Natural Rubber Allergy Rash Verified 12/27/24 07:25 Review of Systems Review of Systems Constitutional : pos Weight loss, No Fever, No Chills, pos fatigue ENT/Mouth : No sore throat, No Rhinorrhea Eyes: No Swelling, No Redness Cardiovascular : No Chest Pain, No SOB, NoEdema Respiratory : No Cough, No Sputum, No Wheezing Gastrointestinal : Positive Nausea, Positive Vomiting, no Diarrhea, positive abdominal Pain, No Hematochezia, No Melena Genitourinary : No Dysuria, No Urinary Frequency, No Hematuria, No Urgency Musculoskeletal : No joint pain, No Myalgias, No Joint Swelling Skin : No Skin Lesions, No rash Neuro : No Weakness, No Numbness, No Dizziness, No Headache All other systems reviewed and are negative. [facility] Past Medical History Attestation statement: The following information was validated with the patient. Source: old records reviewed Medical History Lipoma of back Diabetes GERD (gastroesophageal reflux disease) Back pain Gallbladder polyp Surgical History H/O dilation and curettage Social History Social History Alcohol intake: former Patient Tobacco Use Status: Current everyday Tobacco user Tobacco use type: Cigarette Cigarettes Per Day: 6 Years Smoked: 40 + Smoked in Last 30 Days: Yes Use of substances other than those prescribed or required for medical reasons: Yes Substance Use Type: Marijuana Substance Use Frequency: Daily Advance Directives: No Advance Directives Information Provided: No Patient : No Physical Exam ED Vital Signs: Vital Signs - 24 hr 12/27/24 07:17 12/27/24 11:05 Temperature 97.1 F Pulse Rate 100 79 Respiratory Rate 22 H 14 Blood Pressure 95/57 L 122/49 L Pulse Oximetry 100 97 Oxygen Delivery Method Room Air Room Air BMI result Body Mass Index 19.7 Appearance: Alert. Oriented X3. No acute distress. Eyes: Pupils equal, round and reactive to light. ENT: Pharynx dry MM, temporal wasting Neck: Normal inspection. Neck supple. CVS: Normal heart rate and rhythm. Pulses normal. Respiratory: No respiratory distress. Breath sounds normal. Abdomen: Soft and moderate lower abdominal ttp feels slightly bloated Skin: Skin warm and dry. pale skin color. Normal skin turgor. Extremities: No lower extremity edema. No calf ttp Neuro: Oriented X 3. No motor deficit. No sensory deficit. CN2-12 intact Course Course Course Narrative: infection suspected 935am lactic acid cultures and IV ceftriaxone for UTI ordered Medical Decision Making Medical Decision Making [facility] Narrative: 64 yo female with PMH of GERD followed by GI here with c/o weight loss, abdominal pain, fatigue on exam she has visible wasting and weight loss but her abdomen is slightly swollen I am concerned about mass I do not see any prior CT scans just US of upper abdomen. She could have ovarian pathology or other isolated mass causing her symptoms. I am going to start her on fluids, check thyroid panel Differential Diagnosis Differential Diagnoses: The differential diagnosis associated with the presentation includes mass, FTT, anorexia, lyte abnormality Admission/Observation Consideration of admission/observation: Escalation of care including admission/observation considered admit for further workup given pyelo and inability to eat or drink I am going to admit for IV abx Consult Healthcare Provider Management of the patient was discussed with: Hospitalist (will admit) Lab Data [facility] Lab Attestation statement: I reviewed the patient's lab results. 12/27/24 09:04 12/27/24 09:04 Labs: Lab Results 12/27/24 12/27/24 12/27/24 Range/Units 09:04 09:06 09:40 WBC 16.8 H (4.8-10.8) X10*3/uL RBC 4.02 L (4.20-5.50) X10*6/uL Hgb 12.6 (12.0-16.0) g/dl Hct 34.3 L (37.0-47.0) % MCV 85.3 (80.0-98.0) fL MCH 31.3 (27.0-33.0) pg MCHC 36.7 H (31.0-35.0) g/dl RDW 12.1 (11.0-16.0) % Plt Count 321 D (160-400) X10*3/uL MPV 9.8 (9.4-12.3) fL Immature Gran % (Auto) 0.8 H (0.0-0.4) % Neut % (Auto) 88.3 H (45-73) % Lymph % (Auto) 3.6 L (20-40) % [place] % (Auto) 6.8 (2-11) % Eos % (Auto) 0.2 (0-4) % Baso % (Auto) 0.3 (0-2) % Lymph # (Auto) 0.6 L (1.2-4.9) X10*3/uL [place] # (Auto) 1.2 (0.1-1.2) X10*3/uL Eos # (Auto) 0.0 (0.0-0.4) X10*3/uL Baso # (Auto) 0.1 (0.0-0.2) X10*3/uL Abs Immat Gran (auto) 0.13 H (0.00-0.03) X10*3/uL Absolute Neuts (auto) 14.8 H (2.0-8.3) x10*3/uL Absolute Nucleated RBC 0.000 (0.0-0.012) X10*3/uL Nucleated RBC % (auto) 0.0 (0.0-0.2) /100WBC Sodium 131 L (135-145) mmol/L Potassium 3.0 L D (3.3-5.1) mmol/L Chloride 97 (96-108) mmol/L Carbon Dioxide 21 L (22-29) mmol/L Anion Gap 16 (12-20) BUN 27 H (9-16) mg/dL Creatinine 1.08 (0.5-1.4) mg/dL Estim Creat Clear Calc 47.9 Estimated GFR 51 Random Glucose 266 H (60-115) mg/dL Lactic Acid 1.7 (0.5-2.0) mmol/L Calcium 9.1 D (8.4-10.2) mg/dL Total Bilirubin 0.5 (0.0-1.0) mg/dL AST 42 H (5-31) U/L ALT 35 H (0-31) U/L Alkaline Phosphatase 121 H (39-117) U/L Total Protein 6.6 (6.5-8.0) g/dL Albumin 3.1 L (3.5-5.0) g/dL Lipase 21 Cancelled (8-78) U/L TSH 4.44 H Cancelled (0.32-4.0) uIU/mL Free T4 1.06 (0.71-1.85) ng/dL Urine Color Yellow Urine Appearance Turbid Urine pH 6.0 (5.0-9.0) Ur Specific [place] 1.020 (1.005-1.025) Urine Protein 300 (3+) H (Neg-Trace) mg/dL Urine Glucose (UA) 500 H (Negative) mg/dL Urine Ketones Trace (Negative) mg/dL Urine Blood Small (1+) H (Negative) Urine Nitrite Negative (Negative) Ur Leukocyte Esterase Moderate (2+) H (Negative) Urine RBC 3-5 H (0-2) /HPF Urine WBC >50 H (0-5) /HPF Ur Squamous Epith Cells 6-10 (0-2) /HPF Urine Bacteria 4+ (None Seen) Hyaline Casts 3-5 (0-2) /LPF Granular Casts Present Independent Interpretation I performed an independent interpretation of an: Ultrasound (ovarian cyst repeat in 3 months) and CT Scan (pyelo no stones, R pleural effusion) Radiology Impression Discussion of test interpretation with radiology: I have reviewed the radiologist's reading. Independent Historian Clinical information obtained from an independent historian. History obtained from or confirmed by: Other (family) External Record Review External record reviewed: Outpatient record Medications Administered Discontinued Medications Generic Name Dose Route Start Last Admin Trade Name Freq PRN Reason Stop Dose Admin Ceftriaxone Sodium 1 gm 12/27/24 09:34 12/27/24 10:49 Ceftriaxone Sodium 1 Gm Vial IVPUSH 12/27/24 09:35 1 gm ONCE ONE Administration Lactated Ringer's 1,000 mls @ 999 mls/hr 12/27/24 09:02 12/27/24 10:19 Lr IV 12/27/24 10:02 Infused .Q1H1M ONE Infusion Potassium Chloride 10 meq in 100 mls @ 100 mls/hr 12/27/24 09:49 12/27/24 12:12 Potassium Chloride/H20 IV 12/27/24 10:48 Infused ONCE ONE Infusion Lactated Ringer's 1,000 mls @ 999 mls/hr 12/27/24 10:45 12/27/24 13:33 Lr IV 12/27/24 11:45 Infused .Q1H1M ONE Infusion Iohexol 85 ml 12/27/24 10:20 12/27/24 10:20 Iohexol 350 Mg/Ml 100 Ml Infus..Btl IV 12/27/24 10:21 85 ml ONCE ONE Administration Potassium Chloride 40 meq 12/27/24 09:49 12/27/24 10:49 Potassium Chloride Er 20 Meq Tab.Er.Prt PO 12/27/24 09:50 40 meq ONCE ONE Administration Prochlorperazine Edisylate 10 mg 12/27/24 09:02 12/27/24 09:29 Prochlorperazine Edisylate 10 Mg/2 Ml Vial IVPUSH 12/27/24 09:03 10 mg ONCE ONE Administration Discharge Plan Discharge Clinical Impression: Acute UTI, Abdominal pain, Acute hypokalemia, Pyelonephritis, Ovarian cyst Patient Disposition: Admitted As Inpatient Print Language: Uzbek
[2024-12-27 09:09] LABS: MANUAL DIFF FLAG NO
[2024-12-27 09:11] LABS: Basophils Absolute Auto 0.1 X10*3/uL (0.0-0.2); Basophils Percent Auto 0.3 % (0-2); Eosinophils Percent Auto 0.2 % (0-4); Hematocrit 34.3 % (37.0-47.0); Hemoglobin 12.6 g/dl (12.0-16.0); Imm Gran Abs Auto 0.13 X10*3/uL (0.00-0.03); Imm Gran Pct Auto 0.8 % (0.0-0.4); Lymphocytes Absolute Auto 0.6 X10*3/uL (1.2-4.9); Lymphocytes Percent Auto 3.6 % (20-40); Mean Corpuscular HGB Conc 36.7 g/dl (31.0-35.0); Mean Corpuscular Hemoglobin 31.3 pg (27.0-33.0); Mean Corpuscular Volume 85.3 fL (80.0-98.0); Mean Platelet Volume 9.8 fL (9.4-12.3); Monocytes Absolute Auto 1.2 X10*3/uL (0.1-1.2); Monocytes Percent Auto 6.8 % (2-11); Neutrophils Absolute Auto 14.8 x10*3/uL (2.0-8.3); Neutrophils Percent Auto 88.3 % (45-73); Platelet Count 321 X10*3/uL (160-400); Red Blood Count 4.02 X10*6/uL (4.20-5.50); Red Cell Distribution Width 12.1 % (11.0-16.0); White Blood Count 16.8 X10*3/uL (4.8-10.8)
[2024-12-27 09:12] LABS: Appearance Urine Turbid; Color Urine Yellow; Glucose Urine UA 500 mg/dL (Negative); Leukocyte Esterase Urine Moderate (2+) (Negative); Nitrite Urine Negative (Negative); UMIC TRIGGER UACC YES; Urine Blood Small (1+) (Negative); Urine Ketones Trace mg/dL (Negative); Urine Protein 300 (3+) mg/dL (Neg-Trace)
[2024-12-27 09:21] LABS: Bacteria Urine 4+ (None Seen); Granular Casts Urine Present; UACC Culture Trigger YES; WBC Urine >50 /HPF (0-5)
[2024-12-27] MEDS: Lactated Ringers 1,000 ML 999 ML IV ×2 (09:26→10:50)
[2024-12-27] MEDS: Prochlorperazine Edisylate 10 MG/2 ML VIAL IVPUSH (09:29)
[2024-12-27 09:44] LABS: Alanine Aminotransferase 35 U/L (0-31); Albumin Level 3.1 g/dL (3.5-5.0); Alkaline Phosphatase 121 U/L (39-117); Anion Gap 16 (12-20); Aspartate Amino Transferase 42 U/L (5-31); Bilirubin Total 0.5 mg/dL (0.0-1.0); Blood Urea Nitrogen 27 mg/dL (9-16); Calcium 9.1 mg/dL (8.4-10.2); Carbon Dioxide 21 mmol/L (22-29); Chloride 97 mmol/L (96-108); Creatinine Clr Calc Pharmacy 47.9; Estimated Glomerular Filt Rate 51; Glucose Random 266 mg/dL (60-115); Lipase 21 U/L (8-78); Sodium 131 mmol/L (135-145); Total Protein 6.6 g/dL (6.5-8.0)
[2024-12-27 10:00] LABS: TSH reflex Free T4 4.44 uIU/mL (0.32-4.0)
[2024-12-27] MEDS: iohexoL 350 MG/ML 100 ML INFUS..BTL 85 ML IV (10:20)
[2024-12-27 10:30] LABS: Free T4 (Free Thyroxine) 1.06 ng/dL (0.71-1.85)
[2024-12-27 10:39] LABS: Lactic Acid 1.7 mmol/L (0.5-2.0)
[2024-12-27] MEDS: Potassium Chloride ER 20 MEQ TAB.ER.PRT 40 MEQ PO (10:49)
[2024-12-27] MEDS: cefTRIAXone sodium 1 GM VIAL IVPUSH ×2 (10:49→23:33)
[2024-12-27] MEDS: Potassium Chloride/H20 10 MEQ/100 ML PIGGYBACK 100 MEQ IV (10:55)
[2024-12-27 11:05] VITALS: BP 122/49; PULSE 79; RESP 14; O2SAT 97
--- NOTE | 2024-12-27 13:47 | PM.IMHP ---
History of Present Illness Date of Service: 12/27/24 Attending physician on admission: [facility] Chief Complaint: Lower abdominal pain Pt is a 64-year-old female with a PMH significant for?HLD, [id number] type 2 diabetes, and GERD who presents to the ED with multiple complaints, including lower abdominal pain, nausea, reduced p.o. intake, weight loss, and lower back pain. Symptoms have primarily been going on since May and pt has been following with her PCP, GI, and endocrinology with multiple workups which have been mostly benign: Gastric emptying study on 11/20/2024 was normal; thyroid ultrasound on 12/22/2024 showed tiny subcentimeter right thyroid nodule; and EGD and colonoscopy on 12/23/2024 found mild esophagitis, diverticulosis, and internal hemorrhoids. Pt reports 30 lb weight loss in the past 6 months due to lack of appetite. Reports presents to the ED today as she felt that outpatient workup was going too slowly and symptoms were not resolving. Pt's only new complaint is of lower back pain for the past few days. No vomiting or diarrhea. Denies fever, chills. No SOB or difficulty breathing. Denies chest pain/ pressure, palpitations. In the ED pt was Tachycardic up to 100, tachypneic up to 22, and soft BP as low as 95/57. Labs were significant for leukocytosis 16.8, sodium 131, potassium 3.0, creatinine 1.08, glucose 266, AST 42, ALT 35, alk-phos 121, and albumin 3.1. UA positive for UTI. CTA chest with trace right effusion with overlying atelectasis, but negative for suspicious pulmonary lesion. CT of abdomen / pelvis with asymmetric perfusion of right kidney suspicious for pyelonephritis. Also showed abnormal thickening ascending colon suggestive of colitis, As well as right adnexal complex cysts. Transvaginal pelvic ultrasound found complex cystic structure of right adnexa, recommend follow up in 3 months. Pt was treated with IVF, prochlorperazine, potassium chloride and ceftriaxone. Pt will be admitted to the hospital For treatment and further evaluation of acute pyelonephritis with sepsis. Review of Systems Review of Systems: Negative except for that which is stated in the HPI. [facility] Medical History Lipoma of back Diabetes GERD (gastroesophageal reflux disease) Back pain Gallbladder polyp Surgical History H/O dilation and curettage Social History Household Members: Family Housing: House Alcohol intake: former Patient Tobacco Use Status: Current everyday Tobacco user Tobacco use type: Cigarette Cigarettes Per Day: 2 Years Smoked: 40 + Smoked in Last 30 Days: Yes e-Cigarette/Vaping Use: Currently Using Patient Interested in Nicotine Replacement: No Use of substances other than those prescribed or required for medical reasons: Yes Substance Use Type: Marijuana Substance Use Frequency: Daily Currently Displaying Signs/Symptoms of Drug Intoxication Withdrawal: No Any prior treatment program specific to substance use: No Have you been hit, kicked, punched, or otherwise hurt by someone within the past year? If so, by whom?: No Do you feel safe in your current relationship?: No Current Relationship Is there a partner from a previous relationship who is making you feel unsafe now?: No Are you made to feel afraid or neglected: No Advance Directives: No Advance Directives Information Provided: No Do you have a plan to hurt others: No Plan Recently lost weight without trying: Yes How much weight loss: 24-33 pounds Eating poorly because of decreased appetite: Yes Nutrition screen score: 6 Nutrition Risks: No Nutritional Risk Patient : No : No Poor oral hygiene: No Meds Allergies Allergy/AdvReac Type Severity Reaction Status Date / Time Latex, Natural Rubber Allergy Rash Verified 12/27/24 07:25 Home Medications ?Medication ?Instructions ?Recorded ?Confirmed ?Last Taken ?Type atorvastatin 20 mg tablet 20 mg PO BEDTIME 10/31/24 12/27/24 12/26/24 History Physical Exam Vital Signs and Narrative: Vital Signs: Last Vital Signs Temp 97.1 F 12/27/24 07:17 Pulse 79 12/27/24 11:05 Resp 14 12/27/24 11:05 BP 122/49 L 12/27/24 11:05 Pulse Ox 97 12/27/24 11:05 O2 Del Method Room Air 12/27/24 11:05 BMI result Body Mass Index 19.7 General: AOx3, no acute distress. Looks weak and wan Resp: CTA bilaterally CVS: S1, S2, RRR GI: +BS, NT, no distention Back: Right CVA tenderness Skin: Warm, dry Neuro: Cranial nerves II-XII grossly intact bilaterally. Motor grossly intact bilaterally Extremities: No edema Psych: Appropriate affect Results Labs 12/28/24 06:16 12/28/24 06:17 Labs: Laboratory Results - last 24 hr 12/27/24 12/27/24 12/27/24 09:04 09:06 09:40 MCV 85.3 MCH 31.3 MCHC 36.7 H RDW 12.1 Plt Count 321 D MPV 9.8 Immature Gran % (Auto) 0.8 H Neut % (Auto) 88.3 H Lymph % (Auto) 3.6 L [place] % (Auto) 6.8 Eos % (Auto) 0.2 Baso % (Auto) 0.3 Lymph # (Auto) 0.6 L [place] # (Auto) 1.2 Eos # (Auto) 0.0 Baso # (Auto) 0.1 Abs Immat Gran (auto) 0.13 H Absolute Neuts (auto) 14.8 H Absolute Nucleated RBC 0.000 Nucleated RBC % (auto) 0.0 Anion Gap 16 Estim Creat Clear Calc 47.9 Estimated GFR 51 Random Glucose 266 H Lactic Acid 1.7 Calcium 9.1 D Total Bilirubin 0.5 AST 42 H ALT 35 H Alkaline Phosphatase 121 H Total Protein 6.6 Albumin 3.1 L Lipase 21 Cancelled TSH 4.44 H Cancelled Free T4 1.06 Urine Color Yellow Urine Appearance Turbid Urine pH 6.0 Ur Specific [place] 1.020 Urine Protein 300 (3+) H Urine Glucose (UA) 500 H Urine Ketones Trace Urine Blood Small (1+) H Urine Nitrite Negative Ur Leukocyte Esterase Moderate (2+) H Urine RBC 3-5 H Urine WBC >50 H Ur Squamous Epith Cells 6-10 Urine Bacteria 4+ Hyaline Casts 3-5 Granular Casts Present Assessment and Plan (1) Pyelonephritis: Status: Acute Plan Pt is a 64-year-old female with a PMH significant for?HLD, nla-[id number] type 2 diabetes, and GERD who presents to the ED with multiple complaints, including lower abdominal pain, nausea, reduced p.o. intake, weight loss, and lower back pain. Acute pyelonephritis UA+, CT evidence, right-sided CVA tenderness Meets sepsis criteria with leukocytosis, tachycardia, and tachypnea; lactic acid WNL Will treat with ceftriaxone, started 12/27/2024 Follow urine cultures Transaminitis, mild Unclear etiology Trend labs, GI consult Question of colitis CT showing abnormal thickening of ascending colon with surrounding stranding Abdominal exam benign Pt with longstanding abdominal pain, nausea, reduced p.o. intake since May Outpatient GI workup so farunremarkable Symptomatic treatment GI consult Right ovarian cyst Pelvic ultrasound found complex cystic structure of right adnexa Follow up outpatient with OBGYN for repeat imaging in 3 months Elevated TSH Thyroid ultrasound on 12/22/2024 showing tiny subcentimeter right thyroid nodule Follow-up outpatient with endocrinology Non-insulin dependent type 2 diabetes Recently taken off metformin due to GI sympotms SSI Diabetic diet HLD Continue statin GERD Continue famotidine, PPI Mood disorder Mirtazapine Full Code Attending:?Dr. Rachel DVT Prophylaxis: Lovenox Pt will require a hospitalization of at least two nights for treatment of? acute pyelonephritis with sepsis require administration of IV antibiotics. Quality Stroke Does the patient have a stroke diagnosis?: No VTE Prior VTE?: No VTE Risk Level:: Medical - moderate - high VTE Device Contraindication: Treatment Not Indicated VTE Drug Contraindication: N/A - Med Ordered
[2024-12-27] MEDS: Morphine Sulfate 2 MG/ML CARTRIDGE IVPUSH (13:57)
[2024-12-27] MEDS: Ketorolac Tromethamine 15 MG/ML VIAL IVPUSH (13:57)
[2024-12-27 15:03] VITALS: BP 108/54; PULSE 82; RESP 16; O2SAT 96
--- NOTE | 2024-12-27 15:11 | PHA.MEDREC ---
Addendum entered by Amber Norton susie 12/27/24 15:53: reviewed by pharmacist Original Note: Pharmacy Consult ? Medication Reconciliation Pharmacy has completed the medication reconciliation. Spoke with patient and family member at bedside to confirm medications. She was taken off of metformin on d/t weight loss, last taken on Sunday. She was switched from pantoprazole to esomeprazole. She is no longer taking metoclopramide due to dizziness and dicyclomine due to not helping with cramps.
[2024-12-27 16:13] VITALS: BP 124/65; PULSE 78; RESP 16; TEMP 36.6; O2SAT 97
[2024-12-27] MEDS: Enoxaparin Sodium 40 MG/0.4 ML SYRINGE SUBCUT (16:15)
[2024-12-27] MEDS: 0.9 % Sodium Chloride Flush 3 ML SYRINGE IVFLUSH ×2 (16:16→20:50)
--- NOTE | 2024-12-27 18:59 | PC.NURSE ---
Pt settled in room, no complaints at this time. Ambulated to bed, no questions for POC. Call lambert within reach. RNs in middle of report during shift change.
[2024-12-27 19:27] VITALS: BP 119/62; PULSE 74; RESP 18; TEMP 36.2; O2SAT 96
[2024-12-27] MEDS: Mirtazapine 7.5 MG TABLET PO (20:50)
[2024-12-27] MEDS: Atorvastatin Calcium 20 MG TABLET PO (20:50)
[2024-12-27] MEDS: Famotidine 20 MG TABLET PO (20:50)
[2024-12-27 21:05] LABS: Glucose, Whole Blood 268 mg/dL (60-115)
[2024-12-27] MEDS: Insulin Lispro 100 UNIT/ML 3 ML VIAL SUBCUT (21:12)
--- NOTE | 2024-12-27 23:11 | PM.EVENT ---
Event Note Date of Service: 12/27/24 Event Note: Lab reported: Positive blood culture: Gram negative rods seen on the Gram stain. . Will increase ceftriaxone to 2 g daily Time Spent With Patient Time: Total time managing care of this patient today ____ minutes.
[2024-12-28 03:55] VITALS: BP 134/71; PULSE 82; RESP 18; TEMP 36.3; O2SAT 99
[2024-12-28] MEDS: Omeprazole 20 MG CAPSULE.DR PO (05:12)
[2024-12-28 06:27] LABS: Hematocrit 30.5 % (37.0-47.0); Mean Corpuscular HGB Conc 36.1 g/dl (31.0-35.0); Mean Corpuscular Hemoglobin 31.4 pg (27.0-33.0); Mean Corpuscular Volume 87.1 fL (80.0-98.0); Mean Platelet Volume 9.7 fL (9.4-12.3); Platelet Count 313 X10*3/uL (160-400); Red Cell Distribution Width 12.1 % (11.0-16.0); White Blood Count 18.1 X10*3/uL (4.8-10.8)
[2024-12-28 06:50] LABS: Anion Gap 13 (12-20); Blood Urea Nitrogen 22 mg/dL (9-16); Calcium 8.9 mg/dL (8.4-10.2); Carbon Dioxide 22 mmol/L (22-29); Chloride 100 mmol/L (96-108); Creatinine Clr Calc Pharmacy 56.9; Estimated Glomerular Filt Rate > 60; Glucose Random 160 mg/dL (60-115); Potassium 3.3 mmol/L (3.3-5.1); Sodium 132 mmol/L (135-145)
[2024-12-28 07:24] LABS: Glucose, Whole Blood 153 mg/dL (60-115)
[2024-12-28] MEDS: 0.9 % Sodium Chloride Flush 3 ML SYRINGE IVFLUSH ×3 (07:36→20:37)
[2024-12-28] MEDS: Insulin Lispro 100 UNIT/ML 3 ML VIAL SUBCUT ×3 (07:36→20:36)
[2024-12-28] MEDS: Cholecalciferol (Vitamin D3) 25 MCG TABLET 125 MCG PO (07:37)
[2024-12-28 08:00] VITALS: BP 137/87; PULSE 75; RESP 18; TEMP 36.3; O2SAT 97
[2024-12-28] MEDS: Meropenem 1 GM VIAL IVPUSH ×3 (08:55→23:16)
--- NOTE | 2024-12-28 09:29 | P.CNGI_ITS ---
History of Present Illness Data of Consult Service Date: 12/28/24 Requesting physician: Elliot Buchanan Primary Care Provider: Blanche Granger MD HPI Reason for consult: weight loss 64-year-old female with a hx of?HLD, [id number] type 2 diabetes, and GERD who I am seeing for assessment for weight loss Patient was admitted with acute on chronic worsening right sided 6/10 lower abdominal pain with radiaiton to the lower back, nausea, poor appetite, weight loss of 30# over 6 months . No vomiting or diarrhea. Denies fever, chills. No SOB or difficulty breathing. Denies chest pain/ pressure, palpitations. No releiving or exacerbating factors for her abdominal pain She had a number of tests recently for evaluation of her weight loss: Gastric emptying study on 11/20/2024 was normal; thyroid ultrasound on 12/22/2024 showed tiny subcentimeter right thyroid nodule; EGD and colonoscopy on 12/23/2024 with mild esophagitis, diverticulosis, and internal hemorrhoids This admission: Labs: v leukocytosis 16.8, sodium 131, potassium 3.0, creatinine 1.08, glucose 266, AST 42, ALT 35, alk-phos 121, and albumin 3.1. blood culture pos for GNR UA suggestive of UTI Imaging: CTA and CT A/P: Trace right effusion with overlying atelectasis, but negative for suspicious pulmonary lesion. CT of abdomen / pelvis with asymmetric perfusion of right kidney suspicious for pyelonephritis. Also showed abnormal thickening ascending colon suggestive of colitis, right adnexal complex cysts Transvaginal pelvic ultrasound with complex cystic structure of right adnexa, Review of Systems 2 Review of Systems: Constitutional : + Weight loss, No Fever, No Chills ENT/Mouth : No sore throat, No Rhinorrhea Eyes: No Swelling, No Redness Cardiovascular : No Chest Pain, No SOB, No Edema Respiratory : No Cough, No Sputum, No Wheezing Gastrointestinal : see HPI Genitourinary : NO Dysuria, No Urinary Frequency, No Hematuria, No Urgency Musculoskeletal : + joint pain, No Myalgias, No Joint Swelling Skin : No Skin Lesions, No rash Neuro : No Weakness, No Numbness, No Dizziness, No Headache Psych : No Anxiety/Panic, No Depression Heme/Lymph: No Bruising, No Lymphadenopathy Endocrine : No Polyuria, No Polydipsia All other systems reviewed and are negative. [facility] Past Medical History Medical History Lipoma of back Diabetes GERD (gastroesophageal reflux disease) Back pain Gallbladder polyp Surgical History Surgical History H/O dilation and curettage Social History Social History Household Members: Family Housing: House Alcohol intake: former Patient Tobacco Use Status: Current everyday Tobacco user Tobacco use type: Cigarette Cigarettes Per Day: 2 Years Smoked: 40 + Smoked in Last 30 Days: Yes e-Cigarette/Vaping Use: Currently Using Patient Interested in Nicotine Replacement: No Use of substances other than those prescribed or required for medical reasons: Yes Substance Use Type: Marijuana Substance Use Frequency: Daily Currently Displaying Signs/Symptoms of Drug Intoxication Withdrawal: No Any prior treatment program specific to substance use: No Have you been hit, kicked, punched, or otherwise hurt by someone within the past year? If so, by whom?: No Do you feel safe in your current relationship?: No Current Relationship Is there a partner from a previous relationship who is making you feel unsafe now?: No Are you made to feel afraid or neglected: No Advance Directives: No Advance Directives Information Provided: No Do you have a plan to hurt others: No Plan Recently lost weight without trying: Yes How much weight loss: 24-33 pounds Eating poorly because of decreased appetite: Yes Nutrition screen score: 6 Nutrition Risks: No Nutritional Risk Patient : No : No Poor oral hygiene: No service: No Meds Allergies Allergy/AdvReac Type Severity Reaction Status Date / Time Latex, Natural Rubber Allergy Rash Verified 12/27/24 07:25 Active Medications: Current Medications Acetaminophen (Acetaminophen 325 Mg Tablet) 650 mg PO Q6H PRN PRN Reason: Pain, Mild 1-3,fever,headache Atorvastatin Calcium (Atorvastatin Calcium 20 Mg Tablet) 20 mg PO BEDTIME [facility] Last Admin: 12/27/24 20:50 Dose: 20 mg Calcium Carbonate (Calcium Carbonate 750 Mg Tab.Chew) 750 mg PO Q4H PRN PRN Reason: Heartburn Dextrose (Dextrose 50 % 25 Gm/50 Ml Syringe) 25 gm IVPUSH Q15M PRN; Protocol PRN Reason: per Hypoglycemia Standing Ord. Enoxaparin Sodium (Enoxaparin Sodium 40 Mg/0.4 Ml Syringe) 40 mg SUBCUT Q24H [facility] Last Admin: 12/27/24 16:15 Dose: 40 mg Famotidine (Famotidine 20 Mg Tablet) 20 mg PO BEDTIME [facility] Last Admin: 12/27/24 20:50 Dose: 20 mg Glucose (Glucose Gel 15 Gm Gel..Gram.) 15 gm PO Q15M PRN; Protocol PRN Reason: per Hypoglycemia Standing Ord. Insulin Human Lispro (Insulin Lispro 100 Unit/Ml 3 Ml Vial) 0 unit SUBCUT QIDACHS [facility]; Protocol Last Admin: 12/28/24 07:36 Dose: 2 unit Ketorolac Tromethamine (Ketorolac Tromethamine 15 Mg/Ml Vial) 15 mg IVPUSH Q6H PRN PRN Reason: Pain, Moderate(Pain Scale 4-6) Magnesium Hydroxide (Milk Of Magnesia 30 Ml Oral.Susp) 30 ml PO DAILY PRN PRN Reason: Constipation Melatonin (Melatonin 3 Mg Tablet) 6 mg PO BEDTIME PRN PRN Reason: Insomnia Meropenem (Meropenem 1 Gm Vial) 1 gm IVPUSH Q8H [facility] Last Admin: 12/28/24 08:55 Dose: 1 gm Mirtazapine (Mirtazapine 7.5 Mg Tablet) 7.5 mg PO BEDTIME [facility] Last Admin: 12/27/24 20:50 Dose: 7.5 mg Morphine Sulfate (Morphine Sulfate 2 Mg/Ml Cartridge) 2 mg IVPUSH Q6H PRN; Protocol PRN Reason: Pain, Severe (Pain Scale 7-10) Omeprazole (Omeprazole 20 Mg Capsule.Dr) 20 mg PO DAILY [facility] Last Admin: 12/28/24 05:12 Dose: 20 mg Sodium Chloride (0.9 % Sodium Chloride Flush 3 Ml Syringe) 3 ml IVFLUSH QSHIFT [facility] Last Admin: 12/28/24 07:36 Dose: 3 ml Vitamin D (Cholecalciferol (Vitamin D3) 25 Mcg Tablet) 125 mcg PO DAILY [facility] Last Admin: 12/28/24 07:37 Dose: 125 mcg Home Medications ?Medication ?Instructions ?Recorded ?Confirmed ?Last Taken ?Type atorvastatin 20 mg tablet 20 mg PO BEDTIME 10/31/24 12/27/24 12/26/24 History Physical Exam 2 Vital Signs: Vital Signs: Last Vital Signs Temp 97.4 F 12/28/24 08:00 Pulse 75 12/28/24 08:00 Resp 18 12/28/24 08:00 BP 137/87 12/28/24 08:00 Pulse Ox 97 12/28/24 08:00 O2 Del Method Room Air 12/28/24 08:00 BMI result Body Mass Index 19.7 EXAM: GENERAL: The patient is thin VITAL SIGNS:see workflow HEENT: Nonicteric sclerae, PERRLA, EOMI. Oropharynx clear. Moist mucous membranes. Conjunctivae appear well perfused. No thyroid mass. CHEST: Chest wall is nontender. HEART: Regular rate and rhythm without murmurs. LUNGS: Clear to auscultation bilaterally. ABDOMEN: Soft, positive bowel sounds, tender right side abdo, no organomegaly.no flank tenderness SKIN: No rash, no excessive bruising, petechiae, or purpura. NEUROLOGIC: Cranial nerves II-XII intact without motor/sensory deficit. Psych: normal affect Results Labs 12/28/24 06:16 12/28/24 06:17 Labs: Short CBC 12/28/24 Range/Units 06:16 WBC 18.1 H (4.8-10.8) X10*3/uL Hgb 11.0 L (12.0-16.0) g/dl Hct 30.5 L (37.0-47.0) % Plt Count 313 (160-400) X10*3/uL BMP 12/27/24 12/28/24 09:04 06:17 Sodium 131 L 132 L Potassium 3.0 L D 3.3 Chloride 97 100 Carbon Dioxide 21 L 22 BUN 27 H 22 H Creatinine 1.08 0.91 Calcium 9.1 D 8.9 Liver Function 12/27/24 Range/Units 09:04 Total Bilirubin 0.5 (0.0-1.0) mg/dL AST 42 H (5-31) U/L ALT 35 H (0-31) U/L Alkaline Phosphatase 121 H (39-117) U/L Albumin 3.1 L (3.5-5.0) g/dL Microbiology Microbiology Results: Microbiology 12/27/24 09:40 Urine clean catch - Clean Catch Midstream Urine Culture - Preliminary Gram negative lashae 12/27/24 09:40 Blood - Venous Blood Culture - Preliminary Prelim: GNR Gram Stain only 12/27/24 10:37 Blood - Venous Blood Culture - Preliminary Prelim: GNR Gram Stain only Imaging CT scan - abdomen: Attestation: I personally reviewed and interpreted this imaging study as follows: (right adnexal lesion, right colonic thickening, enlarged right kidney) Assessment and Plan (1) Abdominal pain: Qualifiers: Abdominal location: lower abdomen, unspecified Qualified Code(s): R 10.30 - Lower abdominal pain, unspecified Status: Acute Plan 1/ 6 month of weight loss, now with GNR bacteremia and pyelonephritis, may have a complax mass in right adnexal area - no obvious GI etiology to her sx, also recent colonoscopy was reassuring PLAN: 1/ recommend checking ca 125 2/ cont treatment for her bacteremia 3/ 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
[2024-12-28] MEDS: Morphine Sulfate 2 MG/ML CARTRIDGE IVPUSH (10:35)
--- NOTE | 2024-12-28 11:00 | HO.PM.IMPN ---
Subjective Subjective Date of Service: 12/28/24 Interval History: f/u on acute pyelonephritis, sepsis, bacteremia less pain today, no fever but wbc going up urine and blood cultures growing gram negative rods Physical Exam Vital Signs: Vital Signs: Last Vital Signs Temp 97.4 F 12/28/24 08:00 Pulse 75 12/28/24 08:00 Resp 18 12/28/24 08:00 BP 137/87 12/28/24 08:00 Pulse Ox 97 12/28/24 08:00 O2 Del Method Room Air 12/28/24 08:00 BMI result Body Mass Index 19.7 Const: Other: GENERAL: The patient is thin VITAL SIGNS:see workflow HEENT: Nonicteric sclerae, PERRLA, EOMI. Oropharynx clear. Moist mucous membranes. Conjunctivae appear well perfused. No thyroid mass. CHEST: Chest wall is nontender. HEART: Regular rate and rhythm without murmurs. LUNGS: Clear to auscultation bilaterally. ABDOMEN: Soft, positive bowel sounds, nontender, no organomegaly.no flank tenderness SKIN: No rash, no excessive bruising, petechiae, or purpura. NEUROLOGIC: Cranial nerves II-XII intact without motor/sensory deficit. Psych: normal affect Objective Data Active Medications Acetaminophen (Acetaminophen 325 Mg Tablet) 650 mg PO Q6H PRN PRN Reason: Pain, Mild 1-3,fever,headache Atorvastatin Calcium (Atorvastatin Calcium 20 Mg Tablet) 20 mg PO BEDTIME [facility] Last Admin: 12/27/24 20:50 Dose: 20 mg Documented By: MEENU Calcium Carbonate (Calcium Carbonate 750 Mg Tab.Chew) 750 mg PO Q4H PRN PRN Reason: Heartburn Dextrose (Dextrose 50 % 25 Gm/50 Ml Syringe) 25 gm IVPUSH Q15M PRN; Protocol PRN Reason: per Hypoglycemia Standing Ord. Enoxaparin Sodium (Enoxaparin Sodium 40 Mg/0.4 Ml Syringe) 40 mg SUBCUT Q24H [facility] Last Admin: 12/27/24 16:15 Dose: 40 mg Documented By: MANNIE Famotidine (Famotidine 20 Mg Tablet) 20 mg PO BEDTIME [facility] Last Admin: 12/27/24 20:50 Dose: 20 mg Documented By: MEENU Glucose (Glucose Gel 15 Gm Gel..Gram.) 15 gm PO Q15M PRN; Protocol PRN Reason: per Hypoglycemia Standing Ord. Insulin Human Lispro (Insulin Lispro 100 Unit/Ml 3 Ml Vial) 0 unit SUBCUT QIDACHS [facility]; Protocol Last Admin: 12/28/24 07:36 Dose: 2 unit Documented By: TY Ketorolac Tromethamine (Ketorolac Tromethamine 15 Mg/Ml Vial) 15 mg IVPUSH Q6H PRN PRN Reason: Pain, Moderate(Pain Scale 4-6) Magnesium Hydroxide (Milk Of Magnesia 30 Ml Oral.Susp) 30 ml PO DAILY PRN PRN Reason: Constipation Melatonin (Melatonin 3 Mg Tablet) 6 mg PO BEDTIME PRN PRN Reason: Insomnia Meropenem (Meropenem 1 Gm Vial) 1 gm IVPUSH Q8H [facility] Last Admin: 12/28/24 08:55 Dose: 1 gm Documented By: TY Mirtazapine (Mirtazapine 7.5 Mg Tablet) 7.5 mg PO BEDTIME [facility] Last Admin: 12/27/24 20:50 Dose: 7.5 mg Documented By: MEENU Morphine Sulfate (Morphine Sulfate 2 Mg/Ml Cartridge) 2 mg IVPUSH Q6H PRN; Protocol PRN Reason: Pain, Severe (Pain Scale 7-10) Last Admin: 12/28/24 10:35 Dose: 2 mg Documented By: TY Omeprazole (Omeprazole 20 Mg Capsule.Dr) 20 mg PO DAILY [facility] Last Admin: 12/28/24 05:12 Dose: 20 mg Documented By: MEENU Sodium Chloride (0.9 % Sodium Chloride Flush 3 Ml Syringe) [facility] Last Admin: 12/28/24 07:36 Dose: 3 ml Documented By: TY Vitamin D (Cholecalciferol (Vitamin D3) 25 Mcg Tablet) 125 mcg PO DAILY [facility] Last Admin: 12/28/24 07:37 Dose: 125 mcg Documented By: TY Labs 12/28/24 06:16 12/28/24 06:17 Labs: Laboratory Results - last 24 hr 12/27/24 12/28/24 12/28/24 20:55 06:16 06:17 MCV 87.1 MCH 31.4 MCHC 36.1 H RDW 12.1 Plt Count 313 MPV 9.7 Absolute Nucleated RBC 0.000 Nucleated RBC % (auto) 0.0 Anion Gap 13 Estim Creat Clear Calc 56.9 Estimated GFR > 60 POC Glucose 268 H Random Glucose 160 H Calcium 8.9 12/28/24 07:16 MCV MCH MCHC RDW Plt Count MPV Absolute Nucleated RBC Nucleated RBC % (auto) Anion Gap Estim Creat Clear Calc Estimated GFR POC Glucose 153 H Random Glucose Calcium Microbiology Microbiology Results: Microbiology 12/27/24 09:40 Urine Culture - Preliminary Urine clean catch - Clean Catch Midstream Gram negative lashae 12/27/24 09:40 Blood Culture - Preliminary Blood - Venous Prelim: GNR Gram Stain only 12/27/24 10:37 Blood Culture - Preliminary Blood - Venous Prelim: GNR Gram Stain only Assessment and Plan (1) Pyelonephritis: Status: Acute Plan Pt is a 64-year-old female with a PMH significant for?HLD, [id number] type 2 diabetes, and GERD who presents to the ED with multiple complaints, including lower abdominal pain, nausea, reduced p.o. intake, weight loss, and lower back pain. Acute pyelonephritis with gram negative lashae bacteremia, WBC went up 16 to 18, urine culture gram negative lashae as well on Ceftriaxone from 12/27, change to Meropnem 12/28 to cover ESBL ID consult Transaminitis, mild Unclear etiology Trend labs, GI consult Question of colitis CT showing abnormal thickening of ascending colon with surrounding stranding Abdominal exam benign Pt with longstanding abdominal pain, nausea, reduced p.o. intake since May Outpatient GI workup so farunremarkable Symptomatic treatment GI consult Right ovarian cyst Pelvic ultrasound found complex cystic structure of right adnexa Follow up outpatient with OBGYN for repeat imaging in 3 months Elevated TSH Thyroid ultrasound on 12/22/2024 showing tiny subcentimeter right thyroid nodule Follow-up outpatient with endocrinology Non-insulin dependent type 2 diabetes Recently taken off metformin due to GI sympotms SSI Diabetic diet HLD Continue statin GERD Continue famotidine, PPI Mood disorder Mirtazapine Full Code DVT Prophylaxis: Lovenox Pt will require a hospitalization of at least two nights for treatment of? acute pyelonephritis with sepsis require administration of IV antibiotics. Quality Stroke Does the patient have a stroke diagnosis?: No VTE Prior VTE?: No VTE Risk Level:: Medical - moderate - high VTE Device Contraindication: Treatment Not Indicated VTE Drug Contraindication: N/A - Med Ordered
[2024-12-28 11:06] LABS: Glucose, Whole Blood 191 mg/dL (60-115)
[2024-12-28 11:20] LABS: Alanine Aminotransferase 56 U/L (0-31); Albumin Level 2.7 g/dL (3.5-5.0); Alkaline Phosphatase 112 U/L (39-117); Aspartate Amino Transferase 57 U/L (5-31); Bilirubin Direct 0.2 mg/dL (0.0-0.5); Bilirubin Total 0.4 mg/dL (0.0-1.0); Total Protein 5.7 g/dL (6.5-8.0)
[2024-12-28] MEDS: ondansetron HCL 4 MG/2 ML VIAL IVPUSH (12:26)
--- NOTE | 2024-12-28 13:50 | MHC.CM.PN ---
PT REPORTS SHE LIVES WITH HER MOTHER, BROTHER AND DAUGHTER SHE IS INDEPENDENT WITH CARE AND HAS NO DME OR SERVICES SHE DOES NOT WANT TO COMPLETE A HCP TODAY BUT DID ACCEPT INFO AND DOCUMENT PCP: SRINIVASA SEVILLA DCP: HOME NO SERVICES VIA PRIVATE TRANSPORT
[2024-12-28 15:20] VITALS: BP 131/69; PULSE 75; RESP 18; TEMP 36.9; O2SAT 98
[2024-12-28 16:19] LABS: Glucose, Whole Blood 144 mg/dL (60-115)
[2024-12-28] MEDS: Enoxaparin Sodium 40 MG/0.4 ML SYRINGE SUBCUT (16:30)
[2024-12-28 20:00] VITALS: BP 124/58; PULSE 87; RESP 18; TEMP 37.1; O2SAT 96
[2024-12-28 20:17] LABS: Glucose, Whole Blood 227 mg/dL (60-115)
[2024-12-28] MEDS: Mirtazapine 7.5 MG TABLET PO (20:36)
[2024-12-28] MEDS: Atorvastatin Calcium 20 MG TABLET PO (20:36)
[2024-12-28] MEDS: Famotidine 20 MG TABLET PO (20:36)
[2024-12-28] MEDS: Ketorolac Tromethamine 15 MG/ML VIAL IVPUSH (20:43)
[2024-12-28 21:13] VITALS: RESP 16
[2024-12-29 02:23] VITALS: RESP 16
[2024-12-29 03:13] VITALS: BP 143/78; PULSE 69; RESP 18; TEMP 36.5; O2SAT 97
[2024-12-29] MEDS: Ketorolac Tromethamine 15 MG/ML VIAL IVPUSH (05:05)
[2024-12-29 06:29] LABS: Anion Gap 16 (12-20); Blood Urea Nitrogen 18 mg/dL (9-16); Calcium 8.8 mg/dL (8.4-10.2); Carbon Dioxide 24 mmol/L (22-29); Chloride 99 mmol/L (96-108); Creatinine Clr Calc Pharmacy 63.2; Estimated Glomerular Filt Rate > 60; Glucose Random 163 mg/dL (60-115); Potassium 3.6 mmol/L (3.3-5.1); Sodium 135 mmol/L (135-145)
[2024-12-29 07:31] VITALS: BP 137/70; PULSE 66; RESP 16; TEMP 36.6; O2SAT 99
[2024-12-29 07:39] LABS: Glucose, Whole Blood 173 mg/dL (60-115)
[2024-12-29] MEDS: 0.9 % Sodium Chloride Flush 3 ML SYRINGE IVFLUSH ×3 (08:32→20:24)
[2024-12-29] MEDS: Omeprazole 20 MG CAPSULE.DR PO (08:33)
[2024-12-29] MEDS: Cholecalciferol (Vitamin D3) 25 MCG TABLET 125 MCG PO (08:33)
[2024-12-29] MEDS: Meropenem 1 GM VIAL IVPUSH ×2 (08:33→15:41)
[2024-12-29] MEDS: Insulin Lispro 100 UNIT/ML 3 ML VIAL SUBCUT ×4 (08:34→20:24)
[2024-12-29 10:11] LABS: Hematocrit 32.2 % (37.0-47.0); Hemoglobin 11.4 g/dl (12.0-16.0); Mean Corpuscular HGB Conc 35.4 g/dl (31.0-35.0); Mean Corpuscular Hemoglobin 31.2 pg (27.0-33.0); Mean Corpuscular Volume 88.2 fL (80.0-98.0); Mean Platelet Volume 9.9 fL (9.4-12.3); Platelet Count 361 X10*3/uL (160-400); Red Blood Count 3.65 X10*6/uL (4.20-5.50); Red Cell Distribution Width 12.3 % (11.0-16.0)
--- NOTE | 2024-12-29 10:43 | MHC.CM.PN ---
Per MD rounds patient not medically cleared for dc. CM will continue to follow.
[2024-12-29 11:10] LABS: Glucose, Whole Blood 166 mg/dL (60-115)
--- NOTE | 2024-12-29 11:45 | P.PNIM_ITS ---
Subjective Subjective Date of Service: 12/29/24 Interval History: f/u on acute pyelonephritis, sepsis, bacteremia less pain today, no fever but wbc going up urine and blood cultures growing gram negative rods Physical Exam 2 Vital Signs: Vital Signs: Last Vital Signs Temp 97.8 F 12/29/24 07:31 Pulse 66 12/29/24 07:31 Resp 16 12/29/24 07:31 BP 137/70 12/29/24 07:31 Pulse Ox 99 12/29/24 07:31 O2 Del Method Room Air 12/29/24 07:31 BMI result Body Mass Index 19.7 Const: Other: General: AO X 3, no acute distress Resp: CTA bilateral CVS: S1,S2,RRR GI: +BS, NT, no distention, no flank tenderness Skin: No rash Neuro: motor grossly intact Psych: appropriate affect Objective Data Active Medications Acetaminophen (Acetaminophen 325 Mg Tablet) 650 mg PO Q6H PRN PRN Reason: Pain, Mild 1-3,fever,headache Atorvastatin Calcium (Atorvastatin Calcium 20 Mg Tablet) 20 mg PO BEDTIME [facility] Last Admin: 12/28/24 20:36 Dose: 20 mg Documented By: MU Calcium Carbonate (Calcium Carbonate 750 Mg Tab.Chew) 750 mg PO Q4H PRN PRN Reason: Heartburn Dextrose (Dextrose 50 % 25 Gm/50 Ml Syringe) 25 gm IVPUSH Q15M PRN; Protocol PRN Reason: per Hypoglycemia Standing Ord. Enoxaparin Sodium (Enoxaparin Sodium 40 Mg/0.4 Ml Syringe) 40 mg SUBCUT Q24H [facility] Last Admin: 12/28/24 16:30 Dose: 40 mg Documented By: TY Famotidine (Famotidine 20 Mg Tablet) 20 mg PO BEDTIME [facility] Last Admin: 12/28/24 20:36 Dose: 20 mg Documented By: MU Glucose (Glucose Gel 15 Gm Gel..Gram.) 15 gm PO Q15M PRN; Protocol PRN Reason: per Hypoglycemia Standing Ord. Insulin Human Lispro (Insulin Lispro 100 Unit/Ml 3 Ml Vial) 0 unit SUBCUT QIDACHS [facility]; Protocol Last Admin: 12/29/24 08:34 Dose: 2 unit Documented By: ANUEL Ketorolac Tromethamine (Ketorolac Tromethamine 15 Mg/Ml Vial) 15 mg IVPUSH Q6H PRN PRN Reason: Pain, Moderate(Pain Scale 4-6) Last Admin: 12/29/24 05:05 Dose: 15 mg Documented By: MU Magnesium Hydroxide (Milk Of Magnesia 30 Ml Oral.Susp) 30 ml PO DAILY PRN PRN Reason: Constipation Melatonin (Melatonin 3 Mg Tablet) 6 mg PO BEDTIME PRN PRN Reason: Insomnia Meropenem (Meropenem 1 Gm Vial) 1 gm IVPUSH Q8H [facility] Last Admin: 12/29/24 08:33 Dose: 1 gm Documented By: ANUEL Mirtazapine (Mirtazapine 7.5 Mg Tablet) 7.5 mg PO BEDTIME [facility] Last Admin: 12/28/24 20:36 Dose: 7.5 mg Documented By: MU Morphine Sulfate (Morphine Sulfate 2 Mg/Ml Cartridge) 2 mg IVPUSH Q6H PRN; Protocol PRN Reason: Pain, Severe (Pain Scale 7-10) Last Admin: 12/28/24 10:35 Dose: 2 mg Documented By: TY Omeprazole (Omeprazole 20 Mg Capsule.Dr) 20 mg PO DAILY [facility] Last Admin: 12/29/24 08:33 Dose: 20 mg Documented By: ANUEL Ondansetron HCl (Ondansetron Hcl 4 Mg/2 Ml Vial) 4 mg IVPUSH Q8H PRN PRN Reason: Nausea and Vomiting Last Admin: 12/28/24 12:26 Dose: 4 mg Documented By: TY Sodium Chloride (0.9 % Sodium Chloride Flush 3 Ml Syringe) 3 ml IVFLUSH QSHIFT [facility] Last Admin: 12/29/24 08:32 Dose: 3 ml Documented By: ANUEL Vitamin D (Cholecalciferol (Vitamin D3) 25 Mcg Tablet) 125 mcg PO DAILY [facility] Last Admin: 12/29/24 08:33 Dose: 125 mcg Documented By: ANUEL Labs 12/29/24 09:33 12/29/24 05:51 Labs: Laboratory Results - last 24 hr 12/28/24 12/28/24 12/29/24 16:15 19:41 05:51 MCV MCH MCHC RDW Plt Count MPV Absolute Nucleated RBC Nucleated RBC % (auto) Anion Gap 16 Estim Creat Clear Calc 63.2 Estimated GFR > 60 POC Glucose 144 H 227 H Random Glucose 163 H Calcium 8.8 12/29/24 12/29/24 12/29/24 07:34 09:33 11:06 MCV 88.2 MCH 31.2 MCHC 35.4 H RDW 12.3 Plt Count 361 MPV 9.9 Absolute Nucleated RBC 0.000 Nucleated RBC % (auto) 0.0 Anion Gap Estim Creat Clear Calc Estimated GFR POC Glucose 173 H 166 H Random Glucose Calcium Microbiology Microbiology Results: Microbiology 12/27/24 10:37 Blood Culture - Preliminary Blood - Venous Gram negative lashae 12/27/24 09:40 Blood Culture - Preliminary Blood - Venous Gram negative lashae 12/27/24 09:40 Urine Culture - Final Urine clean catch - Clean Catch Midstream Klebsiella pneumoniae Assessment and Plan (1) Pyelonephritis: Status: Acute Plan Pt is a 64-year-old female with a PMH significant for?HLD, [id number] type 2 diabetes, and GERD who presents to the ED with multiple complaints, including lower abdominal pain, nausea, reduced p.o. intake, weight loss, and lower back pain. Acute pyelonephritis with gram negative lashae bacteremia, WBC went up 16 to 18, and now 12 urine culture gram negative lashae as well on Ceftriaxone from 12/27, change to Meropnem 12/28 to cover ESBL, sensitivity pending. Urine Klebsiela. ID consult pending Transaminitis, mild Unclear etiology Trend labs, GI consult Question of colitis CT showing abnormal thickening of ascending colon with surrounding stranding Abdominal exam benign Pt with longstanding abdominal pain, nausea, reduced p.o. intake since May Outpatient GI workup so farunremarkable Symptomatic treatment GI consult Right ovarian cyst Pelvic ultrasound found complex cystic structure of right adnexa Follow up outpatient with OBGYN for repeat imaging in 3 months Elevated TSH Thyroid ultrasound on 12/22/2024 showing tiny subcentimeter right thyroid nodule Follow-up outpatient with endocrinology Non-insulin dependent type 2 diabetes Recently taken off metformin due to GI sympotms SSI Diabetic diet HLD Continue statin GERD Continue famotidine, PPI Mood disorder Mirtazapine Full Code DVT Prophylaxis: Lovenox Pt will require a hospitalization of at least two nights for treatment of? acute pyelonephritis with sepsis require administration of IV antibiotics. Quality Stroke Does the patient have a stroke diagnosis?: No VTE Prior VTE?: No VTE Risk Level:: Medical - moderate - high VTE Device Contraindication: Treatment Not Indicated VTE Drug Contraindication: N/A - Med Ordered
[2024-12-29 13:19] VITALS: BMI 19.7
--- NOTE | 2024-12-29 13:31 | MHC.CLN ---
DIET=DIABETIC 2000 KCALS, VEGETARIAN. REPORTS 30# WEIGHT LOSS X 6 MONTHS DUE TO REDUCED PO INTAKE/APPETITE. SIGNIFICANT WEIGHT LOSS X 7 MONTHS=-14%. TAKES HIGH PROTEIN SHAKE AT HOME. ADDING ENSURE MAX BID TO PROVIDE 300 KCALS, 60 G PROTEIN. QUALIFIES MODERATELY MALNOURISHED IN THE CONTEXT OF CHRONIC ILLNESS. MILD DEPLETION OF BODY FAT AND MUSCLE MASS NOTED. SIGNIFICANT WEIGHT LOSS AND DECLINE IN INTAKE X 7 MONTHS. FOLLOW FOR PO INTAKE AND DIET TOLERANCE. SEE CLINICAL NUTRITION ASSESSMENT 12/29/24.
[2024-12-29 15:10] VITALS: BP 154/74; PULSE 72; RESP 14; TEMP 37.1; O2SAT 98
[2024-12-29] MEDS: Morphine Sulfate 2 MG/ML CARTRIDGE IVPUSH (15:35)
[2024-12-29] MEDS: Enoxaparin Sodium 40 MG/0.4 ML SYRINGE SUBCUT (15:35)
[2024-12-29 16:18] LABS: Glucose, Whole Blood 153 mg/dL (60-115)
[2024-12-29 20:00] VITALS: BP 115/59; PULSE 64; RESP 20; TEMP 36.9; O2SAT 97
[2024-12-29 20:17] LABS: Glucose, Whole Blood 162 mg/dL (60-115)
[2024-12-29] MEDS: Famotidine 20 MG TABLET PO (20:23)
[2024-12-29] MEDS: Mirtazapine 7.5 MG TABLET PO (20:23)
[2024-12-29] MEDS: Atorvastatin Calcium 20 MG TABLET PO (20:24)
[2024-12-29] MEDS: polyethylene glycoL 3350 17 GM POWD.PACK PO (20:28)
[2024-12-29 21:44] LABS: Lyme Abs Screen <0.90 index
[2024-12-30] MEDS: Meropenem 1 GM VIAL IVPUSH ×3 (00:05→15:47)
[2024-12-30 03:43] VITALS: BP 133/70; PULSE 74; RESP 18; TEMP 36.5; O2SAT 97
[2024-12-30 06:30] LABS: Hematocrit 35.1 % (37.0-47.0); Hemoglobin 12.4 g/dl (12.0-16.0); Mean Corpuscular HGB Conc 35.3 g/dl (31.0-35.0); Mean Corpuscular Hemoglobin 31.1 pg (27.0-33.0); Mean Platelet Volume 9.5 fL (9.4-12.3); Platelet Count 450 X10*3/uL (160-400); Red Blood Count 3.99 X10*6/uL (4.20-5.50); Red Cell Distribution Width 12.2 % (11.0-16.0); White Blood Count 9.8 X10*3/uL (4.8-10.8)
[2024-12-30 06:31] LABS: Anion Gap 12 (12-20); Blood Urea Nitrogen 17 mg/dL (9-16); Calcium 9.2 mg/dL (8.4-10.2); Carbon Dioxide 29 mmol/L (22-29); Chloride 99 mmol/L (96-108); Creatinine Clr Calc Pharmacy 63.9; Estimated Glomerular Filt Rate > 60; Glucose Random 162 mg/dL (60-115); Potassium 4.3 mmol/L (3.3-5.1); Sodium 136 mmol/L (135-145)
[2024-12-30] MEDS: Milk of Magnesia 30 ML ORAL.SUSP PO ×2 (06:43→15:48)
[2024-12-30 07:13] LABS: Glucose, Whole Blood 144 mg/dL (60-115)
[2024-12-30 07:17] VITALS: BP 134/62; PULSE 70; RESP 12; TEMP 36; O2SAT 99
[2024-12-30] MEDS: Cholecalciferol (Vitamin D3) 25 MCG TABLET 125 MCG PO (07:52)
[2024-12-30] MEDS: 0.9 % Sodium Chloride Flush 3 ML SYRINGE IVFLUSH ×3 (07:53→22:10)
[2024-12-30] MEDS: Omeprazole 20 MG CAPSULE.DR PO (07:53)
[2024-12-30 08:38] LABS: Alanine Aminotransferase 64 U/L (0-31); Albumin Level 2.8 g/dL (3.5-5.0); Aspartate Amino Transferase 48 U/L (5-31); Bilirubin Direct 0.1 mg/dL (0.0-0.5); Bilirubin Total 0.4 mg/dL (0.0-1.0); Total Protein 6.1 g/dL (6.5-8.0)
[2024-12-30 08:47] LABS: Alkaline Phosphatase 127 U/L (39-117)
[2024-12-30 11:13] LABS: Glucose, Whole Blood 215 mg/dL (60-115)
[2024-12-30] MEDS: Insulin Lispro 100 UNIT/ML 3 ML VIAL SUBCUT ×2 (11:46→22:09)
[2024-12-30 15:10] VITALS: BP 119/68; PULSE 86; RESP 16; TEMP 36.6; O2SAT 96
[2024-12-30] MEDS: Enoxaparin Sodium 40 MG/0.4 ML SYRINGE SUBCUT (15:47)
[2024-12-30 16:23] LABS: Glucose, Whole Blood 135 mg/dL (60-115)
[2024-12-30 19:16] VITALS: BP 134/85; PULSE 77; RESP 15; TEMP 36.6; O2SAT 97
--- NOTE | 2024-12-30 19:20 | HO.PM.IMPN ---
Subjective Subjective Date of Service: 12/30/24 Interval History: f/u on acute pyelonephritis, sepsis, bacteremia less pain today, no fever but wbc going up urine Klebsieal, blood culture sensitivity still pending, but likely same as urine Physical Exam Vital Signs: Vital Signs: Last Vital Signs Temp 97.9 F 12/30/24 19:16 Pulse 77 12/30/24 19:16 Resp 15 12/30/24 19:16 BP 134/85 12/30/24 19:16 Pulse Ox 97 12/30/24 19:16 O2 Del Method Room Air 12/30/24 19:16 BMI result Body Mass Index 19.7 Const: Other: General: AO X 3, no acute distress Resp: CTA bilateral CVS: S1,S2,RRR GI: +BS, NT, no distention Skin: No rash Neuro: motor grossly intact Psych: appropriate affect Objective Data Active Medications Acetaminophen (Acetaminophen 325 Mg Tablet) 650 mg PO Q6H PRN PRN Reason: Pain, Mild 1-3,fever,headache Atorvastatin Calcium (Atorvastatin Calcium 20 Mg Tablet) 20 mg PO BEDTIME [facility] Last Admin: 12/29/24 20:24 Dose: 20 mg Documented By: CHRIS Calcium Carbonate (Calcium Carbonate 750 Mg Tab.Chew) 750 mg PO Q4H PRN PRN Reason: Heartburn Dextrose (Dextrose 50 % 25 Gm/50 Ml Syringe) 25 gm IVPUSH Q15M PRN; Protocol PRN Reason: per Hypoglycemia Standing Ord. Enoxaparin Sodium (Enoxaparin Sodium 40 Mg/0.4 Ml Syringe) 40 mg SUBCUT Q24H [facility] Last Admin: 12/30/24 15:47 Dose: 40 mg Documented By: ANUEL Famotidine (Famotidine 20 Mg Tablet) 20 mg PO BEDTIME [facility] Last Admin: 12/29/24 20:23 Dose: 20 mg Documented By: CHRIS Glucose (Glucose Gel 15 Gm Gel..Gram.) 15 gm PO Q15M PRN; Protocol PRN Reason: per Hypoglycemia Standing Ord. Insulin Human Lispro (Insulin Lispro 100 Unit/Ml 3 Ml Vial) 0 unit SUBCUT QIDACHS [facility]; Protocol Last Admin: 12/30/24 16:27 Dose: Not Given Documented By: ANUEL Non-Admin Reason: No Insulin Coverage Ketorolac Tromethamine (Ketorolac Tromethamine 15 Mg/Ml Vial) 15 mg IVPUSH Q6H PRN PRN Reason: Pain, Moderate(Pain Scale 4-6) Last Admin: 12/29/24 05:05 Dose: 15 mg Documented By: MU Magnesium Hydroxide (Milk Of Magnesia 30 Ml Oral.Susp) 30 ml PO DAILY PRN PRN Reason: Constipation Last Admin: 12/30/24 15:48 Dose: 30 ml Documented By: ANUEL Comments: per MD Rachel give now Melatonin (Melatonin 3 Mg Tablet) 6 mg PO BEDTIME PRN PRN Reason: Insomnia Meropenem (Meropenem 1 Gm Vial) 1 gm IVPUSH Q8H [facility] Last Admin: 12/30/24 15:47 Dose: 1 gm Documented By: ANUEL Mirtazapine (Mirtazapine 7.5 Mg Tablet) 7.5 mg PO BEDTIME [facility] Last Admin: 12/29/24 20:23 Dose: 7.5 mg Documented By: CHRIS Morphine Sulfate (Morphine Sulfate 2 Mg/Ml Cartridge) 2 mg IVPUSH Q6H PRN; Protocol PRN Reason: Pain, Severe (Pain Scale 7-10) Last Admin: 12/29/24 15:35 Dose: 2 mg Documented By: ANUEL Omeprazole (Omeprazole 20 Mg Capsule.Dr) 20 mg PO DAILY [facility] Last Admin: 12/30/24 07:53 Dose: 20 mg Documented By: ANUEL Ondansetron HCl (Ondansetron Hcl 4 Mg/2 Ml Vial) 4 mg IVPUSH Q8H PRN PRN Reason: Nausea and Vomiting Last Admin: 12/28/24 12:26 Dose: 4 mg Documented By: TY Polyethylene Glycol (Polyethylene Glycol 3350 17 Gm Powd.Pack) 17 gm PO DAILY PRN PRN Reason: Constipation Last Admin: 12/29/24 20:28 Dose: 17 gm Documented By: CHRIS Sodium Chloride (0.9 % Sodium Chloride Flush 3 Ml Syringe) 3 ml IVFLUSH QSHIFT [facility] Last Admin: 12/30/24 15:54 Dose: 3 ml Documented By: ANUEL Vitamin D (Cholecalciferol (Vitamin D3) 25 Mcg Tablet) 125 mcg PO DAILY [facility] Last Admin: 12/30/24 07:52 Dose: 125 mcg Documented By: ANUEL Labs 12/30/24 05:55 12/30/24 05:55 Labs: Laboratory Results - last 24 hr 12/27/24 12/29/24 12/30/24 09:24 20:13 05:55 MCV 88.0 MCH 31.1 MCHC 35.3 H RDW 12.2 Plt Count 450 H MPV 9.5 Absolute Nucleated RBC 0.000 Nucleated RBC % (auto) 0.0 Anion Gap 12 Estim Creat Clear Calc 63.9 Estimated GFR > 60 POC Glucose 162 H Random Glucose 162 H Calcium 9.2 Total Bilirubin 0.4 Direct Bilirubin 0.1 AST 48 H ALT 64 H Alkaline Phosphatase 127 H Total Protein 6.1 L Albumin 2.8 L Lyme Screen IgG & IgM <0.90 Lyme Progressive Test TNP 12/30/24 12/30/24 12/30/24 07:10 11:09 16:20 MCV MCH MCHC RDW Plt Count MPV Absolute Nucleated RBC Nucleated RBC % (auto) Anion Gap Estim Creat Clear Calc Estimated GFR POC Glucose 144 H 215 H 135 H Random Glucose Calcium Total Bilirubin Direct Bilirubin AST ALT Alkaline Phosphatase Total Protein Albumin Lyme Screen IgG & IgM Lyme Progressive Test Microbiology Microbiology Results: Microbiology 12/27/24 10:37 Blood Culture - Preliminary Blood - Venous Gram negative lashae 12/27/24 09:40 Blood Culture - Preliminary Blood - Venous Gram negative lashae Assessment and Plan (1) Pyelonephritis: Status: Acute Plan Pt is a 64-year-old female with a PMH significant for?HLD, [id number] type 2 diabetes, and GERD who presents to the ED with multiple complaints, including lower abdominal pain, nausea, reduced p.o. intake, weight loss, and lower back pain. Acute pyelonephritis with gram negative lashae bacteremia, WBC went up 16 to 18, and now 12 urine culture gram negative lashae as well on Ceftriaxone from 12/27, change to Meropnem 12/28 to cover ESBL, sensitivity pending. Urine Klebsiela. ID consult pending Transaminitis, mild Unclear etiology monitor Question of colitis CT showing abnormal thickening of ascending colon with surrounding stranding Abdominal exam benign Pt with longstanding abdominal pain, nausea, reduced p.o. intake since May Outpatient GI workup so farunremarkable Symptomatic treatment same abx as above, outpatient eval as needed Right ovarian cyst Pelvic ultrasound found complex cystic structure of right adnexa Follow up outpatient with OBGYN for repeat imaging in 3 months Let Maryann Kohler's office know at discharge for follow up Elevated TSH Thyroid ultrasound on 12/22/2024 showing tiny subcentimeter right thyroid nodule Follow-up outpatient with endocrinology Non-insulin dependent type 2 diabetes Recently taken off metformin due to GI sympotms SSI Diabetic diet HLD Continue statin GERD Continue famotidine, PPI Mood disorder Mirtazapine Full Code DVT Prophylaxis: Lovenox Pt will require a hospitalization of at least two nights for treatment of? acute pyelonephritis with sepsis require administration of IV antibiotics home likely tomorrow. Quality Stroke Does the patient have a stroke diagnosis?: No VTE Prior VTE?: No VTE Risk Level:: Medical - moderate - high VTE Device Contraindication: Treatment Not Indicated VTE Drug Contraindication: N/A - Med Ordered
[2024-12-30 20:46] LABS: Glucose, Whole Blood 183 mg/dL (60-115)
--- NOTE | 2024-12-30 21:33 | P.CNID_ITS ---
History of Present Illness Data of Consult Service Date: 12/29/24 Requesting physician: Serjio Rachel Primary Care Provider: Blanche Granger MD [facility] Reason for consult: pyelonephritis She presents with right flank pain and low back pain,05/07. She has urine culture Klebsiella pneumonia. She has right kidney pyelonephritis. Review of Systems 2 Review of Systems: Yes all other systems are reviewed and are negative PMFSH Past Medical History Medical History Lipoma of back Diabetes GERD (gastroesophageal reflux disease) Back pain Gallbladder polyp Family History Family history: reviewed and not pertinent Surgical History Surgical History H/O dilation and curettage Social History Social History Household Members: Family Housing: House Alcohol intake: former Patient Tobacco Use Status: Current everyday Tobacco user Tobacco use type: Cigarette Cigarettes Per Day: 2 Years Smoked: 40 + Smoked in Last 30 Days: Yes e-Cigarette/Vaping Use: Currently Using Patient Interested in Nicotine Replacement: No Use of substances other than those prescribed or required for medical reasons: Yes Substance Use Type: Marijuana Substance Use Frequency: Daily Currently Displaying Signs/Symptoms of Drug Intoxication Withdrawal: No Any prior treatment program specific to substance use: No Have you been hit, kicked, punched, or otherwise hurt by someone within the past year? If so, by whom?: No Do you feel safe in your current relationship?: No Current Relationship Is there a partner from a previous relationship who is making you feel unsafe now?: No Are you made to feel afraid or neglected: No Advance Directives: No Advance Directives Information Provided: No Do you have a plan to hurt others: No Plan Recently lost weight without trying: Yes How much weight loss: 24-33 pounds Eating poorly because of decreased appetite: Yes Nutrition screen score: 6 Nutrition Risks: No Nutritional Risk Patient : No : No Poor oral hygiene: No service: No Meds Allergies Allergy/AdvReac Type Severity Reaction Status Date / Time Latex, Natural Rubber Allergy Rash Verified 12/27/24 07:25 Active Medications: Current Medications Acetaminophen (Acetaminophen 325 Mg Tablet) 650 mg PO Q6H PRN PRN Reason: Pain, Mild 1-3,fever,headache Atorvastatin Calcium (Atorvastatin Calcium 20 Mg Tablet) 20 mg PO BEDTIME [facility] Last Admin: 12/29/24 20:24 Dose: 20 mg Calcium Carbonate (Calcium Carbonate 750 Mg Tab.Chew) 750 mg PO Q4H PRN PRN Reason: Heartburn Dextrose (Dextrose 50 % 25 Gm/50 Ml Syringe) 25 gm IVPUSH Q15M PRN; Protocol PRN Reason: per Hypoglycemia Standing Ord. Enoxaparin Sodium (Enoxaparin Sodium 40 Mg/0.4 Ml Syringe) 40 mg SUBCUT Q24H [facility] Last Admin: 12/30/24 15:47 Dose: 40 mg Famotidine (Famotidine 20 Mg Tablet) 20 mg PO BEDTIME [facility] Last Admin: 12/29/24 20:23 Dose: 20 mg Glucose (Glucose Gel 15 Gm Gel..Gram.) 15 gm PO Q15M PRN; Protocol PRN Reason: per Hypoglycemia Standing Ord. Insulin Human Lispro (Insulin Lispro 100 Unit/Ml 3 Ml Vial) 0 unit SUBCUT QIDACHS [facility]; Protocol Last Admin: 12/30/24 16:27 Dose: Not Given Ketorolac Tromethamine (Ketorolac Tromethamine 15 Mg/Ml Vial) 15 mg IVPUSH Q6H PRN PRN Reason: Pain, Moderate(Pain Scale 4-6) Last Admin: 12/29/24 05:05 Dose: 15 mg Magnesium Hydroxide (Milk Of Magnesia 30 Ml Oral.Susp) 30 ml PO DAILY PRN PRN Reason: Constipation Last Admin: 12/30/24 15:48 Dose: 30 ml Melatonin (Melatonin 3 Mg Tablet) 6 mg PO BEDTIME PRN PRN Reason: Insomnia Meropenem (Meropenem 1 Gm Vial) 1 gm IVPUSH Q8H [facility] Last Admin: 12/30/24 15:47 Dose: 1 gm Mirtazapine (Mirtazapine 7.5 Mg Tablet) 7.5 mg PO BEDTIME [facility] Last Admin: 12/29/24 20:23 Dose: 7.5 mg Morphine Sulfate (Morphine Sulfate 2 Mg/Ml Cartridge) 2 mg IVPUSH Q6H PRN; Protocol PRN Reason: Pain, Severe (Pain Scale 7-10) Last Admin: 12/29/24 15:35 Dose: 2 mg Omeprazole (Omeprazole 20 Mg Capsule.) 20 mg PO DAILY [facility] Last Admin: 12/30/24 07:53 Dose: 20 mg Ondansetron HCl (Ondansetron Hcl 4 Mg/2 Ml Vial) 4 mg IVPUSH Q8H PRN PRN Reason: Nausea and Vomiting Last Admin: 12/28/24 12:26 Dose: 4 mg Polyethylene Glycol (Polyethylene Glycol 3350 17 Gm Powd.Pack) 17 gm PO DAILY PRN PRN Reason: Constipation Last Admin: 12/29/24 20:28 Dose: 17 gm Sodium Chloride (0.9 % Sodium Chloride Flush 3 Ml Syringe) 3 ml IVFLUSH QSHIFT [facility] Last Admin: 12/30/24 15:54 Dose: 3 ml Vitamin D (Cholecalciferol (Vitamin D3) 25 Mcg Tablet) 125 mcg PO DAILY [facility] Last Admin: 12/30/24 07:52 Dose: 125 mcg Home Medications ?Medication ?Instructions ?Recorded ?Confirmed ?Last Taken ?Type atorvastatin 20 mg tablet 20 mg PO BEDTIME 10/31/24 12/27/24 12/26/24 History Physical Exam 2 Vital Signs: Vital Signs: Last Vital Signs Temp 97.9 F 12/30/24 19:16 Pulse 77 12/30/24 19:16 Resp 15 12/30/24 19:16 BP 134/85 12/30/24 19:16 Pulse Ox 97 12/30/24 19:16 O2 Del Method Room Air 12/30/24 19:16 BMI result Body Mass Index 19.7 Const: General: cooperative HEENT: Head: Yes normal to inspection Face and sinus: Yes normal facial exam Mouth: Normal oral and palatal mucosa present Teeth and gingiva: d entition normal Eyes: General: appearance normal, both eyes and all related structures P upils: Equal, round and reactive pupils present Resp: Effort & Inspection: normal respiratory effort Cardio: Rate: regular rate Rhythm: regular rhythm GI: Palpation (GI): Soft to palpation and nontender : Other: right flank pain General: Yes no CVA tenderness Back/Spine/Pelvis: Back: no CVA tenderness Skin: General skin exam: no rashes or lesions noted Neuro: General: moves all extremities Cranial nerves: Yes Equal, round and reactive pupils present Extrem: General: Yes normal to inspection Psych: Appearance: grossly normal Results Labs 12/30/24 05:55 12/30/24 05:55 Labs: Short CBC 12/30/24 Range/Units 05:55 WBC 9.8 (4.8-10.8) X10*3/uL Hgb 12.4 (12.0-16.0) g/dl Hct 35.1 L (37.0-47.0) % Plt Count 450 H (160-400) X10*3/uL BMP 12/30/24 05:55 Sodium 136 Potassium 4.3 Chloride 99 Carbon Dioxide 29 BUN 17 H Creatinine 0.81 Calcium 9.2 Liver Function 12/30/24 Range/Units 05:55 Total Bilirubin 0.4 (0.0-1.0) mg/dL Direct Bilirubin 0.1 (0.0-0.5) mg/dL AST 48 H (5-31) U/L ALT 64 H (0-31) U/L Alkaline Phosphatase 127 H (39-117) U/L Albumin 2.8 L (3.5-5.0) g/dL Microbiology Microbiology Results: Microbiology 12/27/24 10:37 Blood - Venous Blood Culture - Preliminary Gram negative lashae 12/27/24 09:40 Blood - Venous Blood Culture - Preliminary Gram negative lashae 12/27/24 09:40 Urine clean catch - Clean Catch Midstream Urine Culture - Final Klebsiella pneumoniae Assessment and Plan (1) Pyelonephritis: Status: Acute Plan She has probable right kidney pyelonephritis. She has blood culture gram negative rods and urine culture Klebsiella,probably same,obstruction Would continue antibiotics, cephalosporin for total 14 days likely.
[2024-12-30] MEDS: Mirtazapine 7.5 MG TABLET PO (22:10)
[2024-12-30] MEDS: Atorvastatin Calcium 20 MG TABLET PO (22:10)
[2024-12-30] MEDS: Famotidine 20 MG TABLET PO (22:10)
[2024-12-31] MEDS: Meropenem 1 GM VIAL IVPUSH ×2 (00:25→08:20)
[2024-12-31] MEDS: polyethylene glycoL 3350 17 GM POWD.PACK PO (00:25)
[2024-12-31] MEDS: Sennosides 8.6 MG TABLET 17.2 MG PO (00:25)
[2024-12-31 03:47] VITALS: BP 129/71; PULSE 89; RESP 16; TEMP 36.6; O2SAT 98
[2024-12-31 07:08] VITALS: BP 143/76; PULSE 76; RESP 18; TEMP 36.1; O2SAT 98
[2024-12-31 07:10] LABS: Glucose, Whole Blood 129 mg/dL (60-115)
[2024-12-31] MEDS: 0.9 % Sodium Chloride Flush 3 ML SYRINGE IVFLUSH (08:18)
[2024-12-31] MEDS: Omeprazole 20 MG CAPSULE.DR PO (08:19)
[2024-12-31] MEDS: Cholecalciferol (Vitamin D3) 25 MCG TABLET 125 MCG PO (08:19)
--- NOTE | 2024-12-31 08:23 | P.DS_ITS ---
DS: Providers Provider Date of Service: 12/31/24 Date of admission: 12/27/24 14:19 Date of discharge: 12/31/24 Primary care physician: Blanche Granger MD Consults: 12/27/24 14:24 Consult to Gastroenterology Routine Consulting Provider: Clara Salinas Reason for consultation: Abd pain, anorexia, weight loss ?colitis on CT 12/28/24 11:07 Consult to Infectious Diseases Routine Consulting Provider: [facility] Reason for consultation: bacteremia Has provider been notified: Yes 12/29/24 08:41 Consult to Obstetrics / Gynecology Routine Consulting Provider: Ankit Kohler Reason for consultation: adnexal mass DS: Diagnosis Discharge Diagnosis (1) Pyelonephritis: Status: Acute DS: Summary Hospital Course Hospital Course: admission hpi Chief Complaint: Lower abdominal pain Pt is a 64-year-old female with a PMH significant for?HLD, [id number]-rjhbpwigl type 2 diabetes, and GERD who presents to the ED with multiple complaints, including lower abdominal pain, nausea, reduced p.o. intake, weight loss, and lower back pain. Symptoms have primarily been going on since May and pt has been following with her PCP, GI, and endocrinology with multiple workups which have been mostly benign: Gastric emptying study on 11/20/2024 was normal; thyroid ultrasound on 12/22/2024 showed tiny subcentimeter right thyroid nodule; and EGD and colonoscopy on 12/23/2024 found mild esophagitis, diverticulosis, and internal hemorrhoids. Pt reports 30 lb weight loss in the past 6 months due to lack of appetite. Reports presents to the ED today as she felt that outpatient workup was going too slowly and symptoms were not resolving. Pt's only new complaint is of lower back pain for the past few days. No vomiting or diarrhea. Denies fever, chills. No SOB or difficulty breathing. Denies chest pain/ pressure, palpitations. In the ED pt was Tachycardic up to 100, tachypneic up to 22, and soft BP as low as 95/57. Labs were significant for leukocytosis 16.8, sodium 131, potassium 3.0, creatinine 1.08, glucose 266, AST 42, ALT 35, alk-phos 121, and albumin 3.1. UA positive for UTI. CTA chest with trace right effusion with overlying atelectasis, but negative for suspicious pulmonary lesion. CT of abdomen / pelvis with asymmetric perfusion of right kidney suspicious for pyelonephritis. Also showed abnormal thickening ascending colon suggestive of colitis, As well as right adnexal complex cysts. Transvaginal pelvic ultrasound found complex cystic structure of right adnexa, recommend follow up in 3 months. Pt was treated with IVF, prochlorperazine, potassium chloride and ceftriaxone. Pt will be admitted to the hospital For treatment and further evaluation of acute pyelonephritis with sepsis. hospital course: The patient presented with lower abdominal pain as described above. A workup with a urinalysis (UA) was positive for a urinary tract infection (UTI). A CT of the abdomen and pelvis revealed asymmetric perfusion of the right kidney, suggestive of pyelonephritis, and right adnexal complex cysts, which was further evaluated with a transvaginal ultrasound (US), confirming a complex cystic structure in the right adnexa. The patient was admitted and started on broad- spectrum antibiotics with Ceftriaxone; however, by the next day, the white blood cell (WBC) count increased from 16 to 18, prompting a switch to Meropenem. This resulted in a normalization of the WBC count to 9. Urine culture grew Klebsiella , which was sensitive to all agents except ampicillin. Blood cultures also grew Klebsiella. The patient is currently afebrile with minimal pain. Infectious Disease recommends 14 days of antibiotics and transitioning to oral Ceftin 500 mg twice daily for an additional 10 days. Regarding the right adnexal mass seen on CT and ultrasound, there is concern for malignancy, and the patient will follow up with gynecology in the office. Other Findings and Plans: Transaminitis, mild The etiology is unclear. mild, hold statin Question of colitis CT showed abnormal thickening of the ascending colon with surrounding stranding. The abdominal exam was benign. The patient has a history of longstanding abdominal pain, nausea, and reduced oral intake since May. An outpatient GI workup is planned with symptomatic treatment in the meantime. Elevated TSH, 4.4 A thyroid ultrasound on 12/22/2024 revealed a tiny subcentimeter right thyroid nodule. The patient will follow up outpatient with endocrinology. Non-insulin dependent type 2 diabetes The patient was recently taken off metformin due to gastrointestinal symptoms. Sugars less than 200 and can be diet contro;. Hyperlipidemia (HLD) The patient will hold statin therapy dt elevated LFTs Gastroesophageal reflux disease (GERD) The patient will continue famotidine and a proton pump inhibitor (PPI). Mood disorder The patient will continue on mirtazapine. Time Attestation Discharge Coordination Time (in mins): 45 Quality: Safe Use of Opioids Does Pt have an Active Cancer Diagnosis on the Problem List?: No Quality: Stroke Does the patient have a stroke diagnosis?: No Physical Exam Vital Signs: Vital Signs: Selected Entries 12/31/24 07:08 Temperature 96.9 F Pulse Rate 76 Respiratory Rate 18 Blood Pressure 143/76 H Pulse Oximetry 98 Oxygen Delivery Me thod Room Air Const: Other: General: AO X 3, no acute distress Resp: CTA bilateral CVS: S1,S2,RRR GI: +BS, NT, no distention Skin: No rash Neuro: motor grossly intact Psych: appropriate affect DS: Data Data Completed and Pending Labs on day of discharge: Laboratory Results - last 24 hr 12/27/24 12/29/24 12/29/24 09:24 09:33 11:06 WBC 12.0 H RBC 3.65 L Hgb 11.4 L Hct 32.2 L MCV 88.2 MCH 31.2 MCHC 35.4 H RDW 12.3 Plt Count 361 MPV 9.9 Absolute Nucleated RBC 0.000 Nucleated RBC % (auto) 0.0 Sodium Potassium Chloride Carbon Dioxide Anion Gap BUN Creatinine Estim Creat Clear Calc Estimated GFR POC Glucose 166 H Random Glucose Calcium Lyme Screen IgG & IgM <0.90 12/29/24 12/29/24 12/30/24 16:15 20:13 05:55 WBC 9.8 RBC 3.99 L Hgb 12.4 Hct 35.1 L MCV 88.0 MCH 31.1 MCHC 35.3 H RDW 12.2 Plt Count 450 H MPV 9.5 Absolute Nucleated RBC 0.000 Nucleated RBC % (auto) 0.0 Sodium 136 Potassium 4.3 Chloride 99 Carbon Dioxide 29 Anion Gap 12 BUN 17 H Creatinine 0.81 Estim Creat Clear Calc 63.9 Estimated GFR > 60 POC Glucose 153 H 162 H Random Glucose 162 H Calcium 9.2 Lyme Screen IgG & IgM 12/30/24 07:10 WBC RBC Hgb Hct MCV MCH MCHC RDW Plt Count MPV Absolute Nucleated RBC Nucleated RBC % (auto) Sodium Potassium Chloride Carbon Dioxide Anion Gap BUN Creatinine Estim Creat Clear Calc Estimated GFR POC Glucose 144 H Random Glucose Calcium Lyme Screen IgG & IgM Preliminary micro results at discharge 12/27/24 09:40 Blood Culture - Preliminary Blood - Venous Gram negative lashae 12/27/24 10:37 Blood Culture - Preliminary Blood - Venous Gram negative lashae Discharge Plan Discharge Anticipated Discharge Date/Time: 12/31/24 09:25 Patient Disposition: Home, Self-Care Discharge Diagnosis: Acute pyelonephritis, UTI, bacteremia, Ovarian mass Referrals: Blanche Granger MD [Primary Care Provider] - 1 Week Discharge Medications: New cefuroxime axetil 500 mg tablet 500 mg PO BID 10 Days Qty: 20 0RF Continued cholecalciferol (vitamin D3) 125 mcg (5,000 unit) capsule 125 mcg PO DAILY Qty: 90 3RF acetaminophen [Tylenol Extra Strength] 500 mg tablet 500 mg PO Q6H PRN (Reason: fever or pain) Qty: 14 0RF atorvastatin 20 mg tablet 20 mg PO BEDTIME mirtazapine 7.5 mg tablet 7.5 mg PO BEDTIME Qty: 30 1RF famotidine [Pepcid] 20 mg tablet 20 mg PO BEDTIME Qty: 30 3RF esomeprazole magnesium [Nexium] 20 mg capsule,delayed release(DR/EC) 20 mg PO DAILY Qty: 30 4RF Discharge Orders: Discharge Order (Routine); Ordered 12/31/24 Ordered By: Aiden Sandoval Diet: Advance to usual diet Activity on Discharge: As tolerated Stand Alone Forms: Patient Portal Discharge page Print Language: Irish Care Plan Goals: recovery from acute pyelonephritis, uti and bacteremia Health Concerns: acute pyelonephrittis UTI and bacteremia Ovarian mass Plan of Treatment: Take Cefuroxime as directed for pyelonephritis and bacteremia Follow up with your pcp in 2 weeks Follow up with Dr. Kohler from OBGYN for Ovarian mass Assessment: see above
[2024-12-31 11:20] LABS: Glucose, Whole Blood 190 mg/dL (60-115)
[2024-12-31 11:26] VITALS: BP 147/73; PULSE 98; RESP 16; TEMP 36.6; O2SAT 99
--- NOTE | 2024-12-31 11:27 | MHC.CM.PN ---
Patient medically cleared for dc home self care via private transport
== END 2024-12-31 11:40 | disposition home or self-care (01) | DRG 720 ==
LOC: HO.ED 12:29 → HO.EDOVER 14:40 → HO.S3 17:35
PROVIDERS: Internal Medicine; Admitting Provider Student in an Organized Health Care Education/Training Program; Emergency Provider Emergency Medicine; PCP Internal Medicine; Visit Provider Hospitalist
DX: A41.9 Sepsis, unspecified organism (principal); C56.1 Malignant neoplasm of right ovary; E04.1 Nontoxic single thyroid nodule; N10 Acute pyelonephritis; E11.9 Type 2 diabetes mellitus without complications; E78.5 Hyperlipidemia, unspecified; B96.1 Klebsiella pneumoniae [K. pneumoniae] as the cause of diseases classified elsewhere; F39 Unspecified mood [affective] disorder; R74.01 Elevation of levels of liver transaminase levels; F17.210 Nicotine dependence, cigarettes, uncomplicated; Z71.6 Tobacco abuse counseling; E87.6 Hypokalemia; N83.201 Unspecified ovarian cyst, right side; K52.9 Noninfective gastroenteritis and colitis, unspecified; Z79.899 Other long term (current) drug therapy
CPT/HCPCS: 36415; 71260; 74177; 76830; 76856; 80048; 80053; 80076; 81001; 82947; 83605; 83690; 84439; 84443; 85025; 85027; 86617; 86618; 87040; 87077; 87086; 87088; 87186; 87205; 99285; J0696; J0737; J1650; J1885; J2185; J2270; J2405; J3480; J7120; Q9967

== ENCOUNTER → 2024-12-27 09:11 | Outpatient (BNV) | payer OTHER, SELFPAY | PROVIDERS: Emergency Provider Emergency Medicine; PCP Internal Medicine; Visit Provider Radiology Vascular & Interventional Radiology | DX: N83.201 Unspecified ovarian cyst, right side (principal); J90 Pleural effusion, not elsewhere classified | CPT/HCPCS: 71260; 74177; 76830; 76856 ==

== ENCOUNTER → 2024-12-27 14:19 | Outpatient (BNV) | payer OTHER, SELFPAY | PROVIDERS: Admitting Provider Student in an Organized Health Care Education/Training Program; Emergency Provider Emergency Medicine; PCP Internal Medicine; Visit Provider Internal Medicine Gastroenterology | DX: R10.30 Lower abdominal pain, unspecified (principal) | CPT/HCPCS: 99223 ==

== ENCOUNTER → 2024-12-27 14:19 | Outpatient (BNV) | payer OTHER, SELFPAY | PROVIDERS: Admitting Provider Student in an Organized Health Care Education/Training Program; Emergency Provider Emergency Medicine; PCP Internal Medicine; Visit Provider Student in an Organized Health Care Education/Training Program | DX: N12 Tubulo-interstitial nephritis, not specified as acute or chronic (principal); E11.9 Type 2 diabetes mellitus without complications | CPT/HCPCS: 99222; 99232; 99239; 99499 ==

== ENCOUNTER → 2024-12-27 14:19 | Outpatient (BNV) | payer OTHER, SELFPAY | PROVIDERS: Admitting Provider Student in an Organized Health Care Education/Training Program; Emergency Provider Emergency Medicine; PCP Internal Medicine; Visit Provider Internal Medicine | DX: N12 Tubulo-interstitial nephritis, not specified as acute or chronic (principal) | CPT/HCPCS: 99222 ==

== ENCOUNTER 2025-01-01 14:46 | Outpatient (REF) | payer OTHER, SELFPAY ==
[2025-01-01 17:01] LABS: Alanine Aminotransferase 97 U/L (0-31); Albumin Level 3.4 g/dL (3.5-5.0); Alkaline Phosphatase 121 U/L (39-117); Anion Gap 14 (12-20); Aspartate Amino Transferase 54 U/L (5-31); Bilirubin Total 0.3 mg/dL (0.0-1.0); Blood Urea Nitrogen 22 mg/dL (9-16); Calcium 9.4 mg/dL (8.4-10.2); Carbon Dioxide 29 mmol/L (22-29); Chloride 96 mmol/L (96-108); Estimated Glomerular Filt Rate > 60; Glucose Random 145 mg/dL (60-115); Potassium 4.2 mmol/L (3.3-5.1); Sodium 135 mmol/L (135-145); Total Protein 6.9 g/dL (6.5-8.0)
[2025-01-01 17:16] LABS: TSH reflex Free T4 9.56 uIU/mL (0.32-4.0)
== END 2025-01-01 14:47 | disposition home or self-care (01) ==
LOC: HO.HMGCLDS 14:46
PROVIDERS: PCP Internal Medicine; Referring Provider Nurse Practitioner Family; Visit Provider Internal Medicine
DX: E11.9 Type 2 diabetes mellitus without complications (principal); K59.00 Constipation, unspecified; E87.6 Hypokalemia; N10 Acute pyelonephritis; N83.209 Unspecified ovarian cyst, unspecified side
CPT/HCPCS: 36415; 80053; 84439; 84443

== ENCOUNTER 2025-01-09 08:04 | Outpatient (AMB) | payer OTHER, SELFPAY ==
--- NOTE | 2025-01-09 08:15 | A.OFFVIS_ITS ---
Vital Signs 01/09/25 08:25 Height 5 ft 7 in Weight 131 lb 6.328 oz BMI 20.6 BP 98/60 Blood Pressure Location Rt brachial Position Sitting Pulse 112 H Pulse Source Pulse Oximeter Pulse Oximetry (%) 100 Oxygen Delivery Method Room Air Intake Visit Reasons: f/u thyroid Intake Note: ESTABLISHED PATIENT for s/p duo w/ TH + recent admission to Med Surg (12/27 dc) Chief Complaint; Pt reports sx are well controlled currently and denies any GI concerns. Experimental [employer]ic [employer] Required: No Accompanied by: Self / Same As Patient Allergies Latex, Natural Rubber Allergy (Verified 01/09/25 08:15) Rash HPI HPI f/u thyroid: Details: LAST VISIT: Weight loss Nausea Diabetes Hypercalcemia GERD (gastroesophageal reflux disease) Constipation Plan Patient has colonoscopy booked next week as well as upper endoscopy. Script for prep sent. Discuss with patient what to expect before during and after the procedure. Patient continues to have epigastric pain, decreased appetite. PTH elevated, calcium normal. Will send patient for ultrasound to evaluate parathyroid gland, will check vitamin-D level. Will refer patient to endocrinology. In addition we will rule out celiac as patient has epigastric pain postprandially. Will check lipase to rule out chronic pancreatitis. Discussed with patient high calorie diet. Patient reports that pantoprazole in size not helping. Will order Nexium in the morning and famotidine at bedtime. Avoid dietary triggers and late night snacking. Staying upright for minimum 3 hours after meals discussed with patient. Patient will be referred to dietitian as well. Patient was found to have large lipoma on her back. Dr. Chin from general surgery evaluated and referral was placed for patient to be seek. She will call to make appointment. At this time patient wants to wait as the lipoma is not causing her any pain or discomfort. Patient has appointment after the procedure with Lory Jeff, however if patient continues to have symptoms she was advised to call the office. I will call patient with results from both ultrasound and lab work. Patient is agreeable to this plan and verbalizes understanding of instructions. She was given the opportunity to ask questions and all questions answered. ? Thank you for allowing me to participate in her care Orders Orders Transglutaminase IgA Today R10.9 Vitamin D 25-OH (D2 and D3) Today E55.9 Lipase Today R10.9 US soft tiss head and/or neck Today E21.3 Vitamin B12 and Folate Today R19.7 Referrals Endocrinology Referral E11.9, E21.3, E83.52 General Surgery Referral D17.9 Business Unit Director Nutrition Referral R63.4 Medications New sennosides (Natural Senna Laxative) 17.2 mg (2 x 8.6 mg) PO BEDTIME 60 tabs 3RF constipation K59.00 bisacodyl (Dulcolax (bisacodyl)) take 4 tabs at noon the day before your colonoscopy 20 mg (4 x 5 mg) PO ONCE 1 day 4 tabs 0RF constipation Z12.11 polyethylene glycol 3350 (Miralax) As directed by gastroenterology department at [facility] 238 grams PO ONCE 238 grams 0RF Z12.11 mirtazapine 7.5 mg PO BEDTIME 30 tabs 1RF K31.84 famotidine (Pepcid) 20 mg PO BEDTIME 30 tabs 3RF K21.9 esomeprazole magnesium (Nexium) 20 mg PO DAILY 30 caps 4RF Discontinued dicyclomine Discontinued Reason: Doctor's Order 20 mg PO QID 30 days 120 tabs 3RF R10.33 pantoprazole (Protonix) Discontinued Reason: Doctor's Order 40 mg PO BID 60 tabs 6RF K21.9 UPPER ENDOSCOPY AND COLONOSCOPY Findings: Larynx:normal Esophagus: GE junction at 40 cm, diaphragm hiatus at 40 cm, bogginess and erythema at GEJ, bx taken from here and distal, proximal esophagus Stomach: Normal mucosa. Biopsies were obtained. Grade 2 flap valve on retroflexed examination of the cardia. Duodenum: Normal bulb and descending duodenum, bx taken Intervention: Biopsies as noted above, COLONOSCOPY Instrument: Olympus variable stiffness pediatric scope 190L Colonoscopy Monitoring: Vital signs and clinical assessment, continuous EKG monitoring, Pulse oximetry, Carbon Dioxide monitoring and blood pressure monitoring were done throughout the procedure. Colon withdrawal time was 10 minutes. Procedure: The patient was placed in the left lateral decubitis position and pre-procedure medications were administered. After a digital rectal examination of the ano-rectum, the video colonoscope was inserted into the rectum and advanced through the colon to the cecum/TI. The colonoscope was slowly withdrawn in a retrograde panoramic fashion and the colon mucosa was carefully examined including a retroflexed view of the rectum. Findings and interventions are described below. Procedure Difficulty:moderate Findings: Terminal Ileum-normal, bx taken Random colon bx taken Cecum:normal Ascending Colon: normal Transverse Colon -normal Descending Colon:normal Sigmoid Colon: moderate severe diverticulosis with tight angles Rectum: Retroflexion with small internal hemorrhoids, grade I Anorectum - normal Colon preparation: [place] Bowel Preparation Scale Right colon; 2 Transverse colon: 2 Left colon; 2 (0 = Unprepared colon segment with mucosa not seen due to solid stool that cannot be cleared. 1 = Portion of mucosa of the colon segment seen, but other areas of the colon segment not well seen due to staining, residual stool and/or opaque liquid. 2 = Minor amount of residual staining, small fragments of stool and/or opaque liquid, but mucosa of colon segment seen well. 3 = Entire mucosa of colon segment seen well with no residual staining, small fragments of stool or opaque liquid) Impression and Post Procedure Diagnosis: Endoscopy Findings: mild esophagitis Colonoscopy Findings: diverticulosis internal hemorrhoids Plan: Await Pathology results Repeat Colonoscopy in 10 years or earlier if clinically indicated High fiber diet leaflet avoid straining at stool, epsom salts and sitz bath, anusol supps or cream if ongoing weight loss and bx negative consider Ct chest PATHOLOGY RESULTS Diagnosis A. Duodenum, biopsy: Duodenal mucosa with preserved villi and features of chronic/non-specific duodenitis. B. Stomach, biopsy: Gastric body mucosa with features suggesting proton pump inh ibitor effect, otherwise no specific change; no evidence of H. pylori; negative for intestinal metaplasia and dysplasia; and fragment of duodenal-type mucosa (likely contaminant from part A). C. Esophagogastric junction, biopsy: Squamocolumnar mucosa with mild chronic inflammation; negative for intestinal metaplasia and dysplasia. D. Esophagus, distal, biopsy: Squamous mucosa with no specific change and gastric-type mucosa (? contaminant); negative for intestinal metaplasia and dysplasia. E. Esophagus, proximal, biopsy: Squamous mucosa with no specific change; no columnar mucosa present. F. Terminal ileum, biopsy: Ileal mucosa with no specific change. G. Colon, random, biopsy: Colonic mucosa with no specific change TODAY'S VISIT: Patient is here today for follow-up after endoscopy and colonoscopy as well as recent admission. Patient had endoscopy which showed no polyps, upper endoscopy showed no metaplasia or dysplasia in his stomach, no esophagitis, no Barretts. Colonoscopy was on 23 of December. On December 29 patient went to the ER after speaking with our office about her ongoing symptoms. Patient continues to have right upper quadrant that radiates to right back pain. No problem urinating, no constipation, no postprocedural complications like bleeding or abdominal blo ating or distention. Moving her bowels well. Patient was found to have pyelonephritis to right kidney. Treated with antibiotic and admitted. Patient admits to me today that she was hesitant about admission, however ED provider and her daughter convinced her to stay. After receiving fluids and antibiotics she started to feel better. Today patient feels that she feels stronger and feels like she is starting to gain weight and has more appetite. Still has a dull like pain in her right lumbar area without any radiation. Reports that she is moving her bowels well and urinating well. Patient denies any fever or chills. [facility] Medical History Lipoma of back Diabetes GERD (gastroesophageal reflux disease) Back pain Gallbladder polyp Surgical History History of esophagogastroduodenoscopy (EGD) Hx of colonoscopy H/O dilation and curettage Social History Household Members: Family Housing: House Alcohol intake: former Patient Tobacco Use Status: Current everyday Tobacco user Tobacco use type: Cigarette Cigarettes Per Day: 2 Years Smoked: 40 + e-Cigarette/Vaping Use: Currently Using Substance Use Type: Marijuana service: No Review of Systems Const Denies weight gain and Denies weight loss ENT Reports no additional complaints, Denies dysphagia and Denies odynophagia Card Reports no additional complaints Resp Reports no additional complaints GI Reports abdominal pain (Right lumbar), Denies belching, Denies melena, Reports bloating, Denies change in bowel habits, Denies constipation, Denies dysphagia, Denies excessive flatus, Denies dyspepsia, Denies heartburn, Denies diarrhea, Denies loose stools, Denies nausea, Denies odynophagia and Denies vomiting Reports no additional complaints Musc Reports no additional complaints Neuro Reports no additional complaints Psych Reports no additional complaints Endo Reports no additional complaints Physical Exam Vital Signs: Last Vital Signs Pulse 112 H 01/09/25 08:25 BP 98/60 01/09/25 08:25 Pulse Ox 100 01/09/25 08:25 Oxygen Delivery Method Room Air 01/09/25 08:25 BMI result Body Mass Index 20.6 Const General: healthy appearing, no acute distress and well developed Nutritional Appearance: well nourished Orientation/consciousness: patient oriented x3 Resp Effort & Inspection: normal respiratory effort, able to speak in complete sentences, no tracheal deviation and symmetric chest movement Auscultation: clear to auscultation bilaterally Cardio Rate: regular rate GI Inspection: Yes normal to inspection and No distended Palpation (GI): Soft to palpation, not firm, nontender and No hepatosplenomegaly present Auscultation: normal bowel sounds General: Yes no CVA tenderness Back/Spine/Pelvis Other: Large lipoma on right upper back. Back: no CVA tenderness Skin General skin exam: elasticity normal, turgor normal and dry skin Neuro General: patient oriented x3 Psych Appearance: grossly normal Mental Status: mental status grossly normal Assessment & Plan Assessment & Plan (1) Hypercalcemia: Code(s): E83.52 - Hypercalcemia Category: Medical (2) Nausea: Code(s): R11.0 - Nausea Category: Medical (3) Weight loss: Code(s): R63.4 - Abnormal weight loss Category: Medical (4) Periumbilical abdominal pain: Code(s): R10.33 - Periumbilical pain Category: Medical (5) GERD (gastroesophageal reflux disease): Code(s): K21.9 - Gastro-esophageal reflux disease without esophagitis Category: Medical Qualifiers: Esophagitis presence: esophagitis presence not specified Qualified Code(s): K21.9 - Gastro-esophageal reflux disease without esophagitis (6) Gallbladder polyp: Code(s): K82.4 - Cholesterolosis of gallbladder Category: Medical Plan Continue Nexium and famotidine. Patient was encouraged to continue protein shakes. Normal calcium levels will rechecked PTH. Patient has appointment with endocrinology next week. Will recheck liver panel mild elevation during hospitalization. Could be idiopathic caused by medication, however can not rule out cholecystitis, cholelithiasis. If patient will continue to have symptoms I will send her for HIDA scan. Gallbladder normal on CT scan. Patient will follow-up in the office in 5 weeks. Patient was encouraged to call our office if she will have on going symptoms or if her symptoms will worsen. May use Senokot as needed if constipated. Increase fluid intake and activity to promote better bowel motility. Patient has appointment with Dr. Feliciano next week to evaluate her thyroid. Patient is agreeable to current plan of care and verbalizes understanding of instructions. She was given the opportunity to ask questions and all questions answered. Thank you for allowing me to participate in her care Orders: Orders Parathyroid Hormone Intact Today E83.52 - Hypercalcemia Liver Panel Today R74.01 - Elevation of levels of liver transaminase levels Coding Level of Care Code Est Pt Level 5 (46153) Diagnoses Hypercalcemia E83.52 Nausea R11.0 Weight loss R63.4 Periumbilical abdominal pain R10.33 Gastroesophageal reflux disease, unspecified whether esophagitis present K21.9 Esophagitis presence: esophagitis presence not specified Gallbladder polyp K82.4 Time Spent (min) 55 Comment 35 minutes spent with patient and additional 20 minutes spent reviewing her records
[2025-01-09 08:25] VITALS: BP 98/60; PULSE 112; O2SAT 100; BMI 20.6
== END 2025-01-09 11:58 | disposition home or self-care (01) ==
LOC: HO.HGI 08:04
PROVIDERS: PCP Internal Medicine; Visit Provider Nurse Practitioner Family
DX: E83.52 Hypercalcemia (principal); R11.0 Nausea; R63.4 Abnormal weight loss; R10.33 Periumbilical pain; K21.9 Gastro-esophageal reflux disease without esophagitis; K82.4 Cholesterolosis of gallbladder
CPT/HCPCS: 99215

== ENCOUNTER 2025-01-09 08:04 | Outpatient (REF) | payer OTHER, SELFPAY ==
[2025-01-09 14:18] LABS: Alanine Aminotransferase 68 U/L (0-31); Albumin Level 3.8 g/dL (3.5-5.0); Alkaline Phosphatase 107 U/L (39-117); Aspartate Amino Transferase 29 U/L (5-31); Bilirubin Direct 0.1 mg/dL (0.0-0.5); Bilirubin Total 0.3 mg/dL (0.0-1.0); Total Protein 7.2 g/dL (6.5-8.0)
[2025-01-09 14:37] LABS: Parathyroid Hormone Intact 92.4 pg/mL (8.7-77.1)
== END 2025-01-09 08:05 | disposition home or self-care (01) ==
LOC: HO.HMGCLDS 08:04
PROVIDERS: PCP Internal Medicine; Visit Provider Nurse Practitioner Family
DX: E83.52 Hypercalcemia (principal); R74.01 Elevation of levels of liver transaminase levels; R11.0 Nausea; R63.4 Abnormal weight loss; R10.33 Periumbilical pain; K21.9 Gastro-esophageal reflux disease without esophagitis; K82.4 Cholesterolosis of gallbladder
CPT/HCPCS: 36415; 80076; 83970; 99212

== ENCOUNTER 2025-01-16 12:11 | Outpatient (AMB) | payer OTHER, SELFPAY ==
--- NOTE | 2025-01-16 12:34 | MHC.OFFVIS ---
Vital Signs 01/16/25 12:36 Height 5 ft 7 in Weight 131 lb BMI 20.5 BP 102/70 Intake Visit Reasons: Hospital follow up Intake Note: Per patient last pap smear 1 year ago, normal. Previous to that 18 years ago, normal history. Has not had a mammogram in some time, says she has alot going on and hasn't gotten around to it. Electronic Assembler: Electronic Assembler Present (Helen) Accompanied by: Daughter Allergies Latex, Natural Rubber Allergy (Verified 01/16/25 12:36) Rash Is last menstrual period known: No Post menopausal: Yes Patient : No HPI Comments Details: Presenting for regarding abnormal ultrasound finding done on 12/27/2024 which showed the following: Transvaginal scanning performed. The uterus is 6.6 cm length. Normal myometrium. Endometrium 2.5 mm thickness. Right ovary 3.1 x 1.4 x 1.9 cm. Within the right adnexa, there is a 2.4 x 1.3 x 3.2 cm complex cystic structure noted. Left ovary 2.3 x 1.9 x 2.5 cm. Normal color Doppler of both ovaries. Small volume free fluid within the cul-de-sac. CT scan of abdomen and pelvis done on 12/27/2028 showed the following: Abnormal prominence of the right kidney with asymmetric perfusion. Clinical correlation for pyelonephritis. Abnormal thickening of predominantly the ascending colon with surrounding stranding. Colitis suggested. Normal appendix. No free air or abscess. Right adnexal complex cysts. Ultrasound could be considered [facility] Medical History Lipoma of back Diabetes GERD (gastroesophageal reflux disease) Back pain Gallbladder polyp Surgical History History of esophagogastroduodenoscopy (EGD) Hx of colonoscopy H/O dilation and curettage Social History Household Members: Family Housing: House Alcohol intake: former Patient Tobacco Use Status: Current everyday Tobacco user Tobacco use type: Cigarette Cigarettes Per Day: 2 Years Smoked: 40 + e-Cigarette/Vaping Use: Currently Using Substance Use Type: Marijuana service: No Female Reproductive History Menstrual Age of Menarche: 13 Total pregnancies: 2 Full term: 1 Review of Systems Const All systems reviewed & are unremarkable except as noted in HPI and below Card Reports as per HPI Resp Reports as per HPI GI Reports as per HPI and Reports no additional complaints Reports as per HPI Physical Exam Const General: cooperative, healthy appearing and comfortable Chest Chest palpation & inspection: normal inspection of the chest and normal palpation of entire chest wall Breast/axilla inspection: normal inspection of the breasts and normal inspection of the axillae Breast/axilla palpation: normal palpation of the breasts, normal palpation of the axillae and no axillary lymphadenopathy Resp Effort & Inspection: normal respiratory effort Auscultation: clear to auscultation bilaterally Percussion: percussion normal Cardio Palpation: normal PMI Rate: regular rate Rhythm: regular rhythm Heart sounds: no murmurs and no rubs Peripheral pulses: Peripheral pulses 2+ throughout GI Inspection: Yes normal to inspection Palpation (GI): Soft to palpation, nontender, no guarding, not rigid and No hepatosplenomegaly present Percussion: Yes normal to percussion Auscultation: normal bowel sounds Rectal Exam - Female: deferred General: Yes bladder normal to palpation External Female Exam: No lesion Speculum Exam - Vagina: normal appearance of the vagina, normal palpation, normal vaginal discharge and not erythematous Speculum Exam - Cervix: normal appearance of the cervix and normal palpation Bimanual exam- vagina & uterus: normal bimanual exam, normal palpation, uterine size normal, bladder normal to palpation, consistency normal and normal palpation Bimanual Exam- Adnexa, other: normal adnexae, no masses and no tenderness Assessment & Plan Assessment & Plan (1) Complex cyst of right ovary: Code(s): N83.291 - Other ovarian cyst, right side Category: Medical Plan: Co testing done. Screening mammogram ordered. Discussed with the patient the complex ovarian cyst by ultrasound. Discussed with the patient the Ultrasound findings, the main limitation of transvaginal ultrasonography alone as a diagnostic tool to distinguish benign from malignant masses relates to its lack of specificity and low positive predictive value for cancer. The differential diagnosis discussed with the patient includes the following but not limited to: benign and malignant gynecological and non-gynecological causes. Laboratory evaluation include screening mammogram, ovarian cancer tumor markers including CA 125, CA 19 9, CEA and will refer to radio time sales supervisor Oncology at [facility]. Appointment scheduled with amy Hurtado 01/29/2025 at 13:00, the patient is aware Orders: Orders Carbohydrate Antigen 19-9 Today N83.299 - Other ovarian cyst, unspecified side MM tomosynthesis screening BI Today Z12.31 - Encounter for screening mammogram for malignant neoplasm of breast CA-125 Today N83.299 - Other ovarian cyst, unspecified side Carcinoembryonic Antigen Today N83.299 - Other ovarian cyst, unspecified side Referrals Gynecologic Oncology Referral N83.299 - Other ovarian cyst, unspecified side Coding Level of Care Code New Pt Level 3 (71973) Diagnoses Complex cyst of right ovary N83.291
[2025-01-16 12:36] VITALS: BP 102/70; BMI 20.5
== END 2025-01-16 13:37 | disposition home or self-care (01) ==
LOC: HO.HWS 12:11
PROVIDERS: PCP Internal Medicine; Visit Provider Obstetrics & Gynecology
DX: N83.291 Other ovarian cyst, right side (principal)
CPT/HCPCS: 99203

== ENCOUNTER 2025-01-16 12:11 | Outpatient (REF) | payer OTHER, SELFPAY ==
[2025-01-17 12:38] LABS: CA-125 18 U/mL (<35)
[2025-01-23 12:34] LABS: Carbohydrate Antigen 19-9 10 U/mL (<34)
== END 2025-01-16 12:12 | disposition home or self-care (01) ==
LOC: HO.LAB 12:11
PROVIDERS: PCP Internal Medicine; Visit Provider Obstetrics & Gynecology
DX: N83.291 Other ovarian cyst, right side (principal)
CPT/HCPCS: 36415; 82378; 86301; 86304; 99202

== ENCOUNTER 2025-01-16 14:29 | Outpatient (REF) | payer OTHER, SELFPAY ==
[2025-01-22 15:01] LABS: HPV Genotype 16 Negative (Negative); HPV Genotype 18 Negative (Negative); HPV High Risk Negative (Negative)
== END 2025-01-16 14:30 | disposition home or self-care (01) ==
LOC: HO.LNP 14:29
PROVIDERS: Visit Provider Obstetrics & Gynecology
DX: N83.291 Other ovarian cyst, right side (principal)
CPT/HCPCS: 87626; 88175

== ENCOUNTER 2025-01-20 13:48 | Outpatient (AMB) | payer OTHER, SELFPAY ==
--- NOTE | 2025-01-20 13:49 | A.OFFVIS_ITS ---
Vital Signs 01/20/25 13:50 Height 5 ft 7 in Weight 136 lb 10.986 oz BMI 21.4 BP 128/70 Blood Pressure Location Rt brachial Position Sitting Pulse 102 H Pulse Source Pulse Oximeter Pulse Oximetry (%) 99 Oxygen Delivery Method Room Air Intake Visit Reasons: Nontoxic single thyroid nodule Intake Note: New patient present today for Nontoxic single thyroid nodule office visit. Rotating Equipment Specialist Required: No Accompanied by: Self / Same As Patient Allergies Latex, Natural Rubber Allergy (Verified 01/20/25 13:51) Rash Medication List - Last Reconciled 01/20/25 by Lalita Feliciano MD acetaminophen (Tylenol Extra Strength) 500 mg PO Q6H PRN atorvastatin 20 mg PO BEDTIME blood sugar diagnostic (FreeStyle Lite Strips) As directed cholecalciferol (vitamin D3) 125 mcg PO DAILY esomeprazole magnesium (Nexium) 20 mg PO DAILY famotidine (Pepcid) 20 mg PO BEDTIME glipizide 2.5 mg PO DAILY glipizide ER 2.5 mg PO DAILY lancets (FreeStyle Lancets) As directed mirtazapine 7.5 mg PO BEDTIME HPI Comments Details: 64-year-old female here today for initial evaluation of subclinical hypothyroidism and elevated PTH level. Subclinical hypothyroidism Labs from 12/27/24: TSH 4.44, free 1.06 01/01/25: TSH elevated 9.56, free t4 was normal 1.10 She did have cute pyelonephritis at the time of these labs 12/22/24: Thyroid US , i reveiwed the images [facility] showed subcentimeter colloid cysts that do not meet criteria for follow up Patient currently denies heat or cold intolerance, diarrhea or constipation, hair loss, palpitation, anxiety, mood changes, low energy, changes in appearance of eyes or vision changes, tremors, increased diaphoresis or dry skin. ? Lost 20 lbs between winter 2023 and spring 2024, now gained back 10 lbs since past month, feels eating a bit more now Patient denies any difficulty swallowing, pain on swallowing or voice changes or difficulty breathing. Patient denies any history of childhood neck radiation. Denies having ever used lithium, amiodarone or biotin supplements. Patient denies any family history of thyroid cancer or thyroid disease. 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 No concurrent calcium level for that day, however total calcium has been in the range of 8.9-9.4, however patient's albumin helps been low around 2.7-3.1, corrected calcium would be some thing around 10 or 10.2. In the past in 2023 when she had normal albumin levels, total calcium was noted to be elevated at 10.3. No concurrent PTH level from that time. Most recently vitamin-D level noted to be low at 21 from November 2024. Normal kidney function. No fractures , no BMD done Mother : had kidney stone 2007 passed a kidney stone Vitamin D 5000 units daily started 12/23/24 by BENNY Bartlett no calcium supplements Milk: with cereal almost daily Yogurt: almost daily one serving Cheese : sometimes no abd pain, no muscle aches or pains, no mental status chnages , no brain fog , no constipation Physical exam General: sitting comfortably in no acute distress HEENT: normocephalic/atraumatic, Neck: supple, symmetrical, no dorsocervical or supraclavicular fat pads Cardiac: normal heart sounds Pulm: normal breath sounds B/L, no added breath sounds Abd: not distended, no tenderness Extremities: no edema, no signs of myxedema Neuro: AAO x3, Speech: normal, no facial droop, moving all 4 extremities Laboratory Tests 12/15/24 12/19/24 12/27/24 09:38 14:18 09:04 Calcium 9.1 D Albumin 3.1 L 25-OH Vitamin D Total 21 L 25-Hydroxy Vitamin D2 <4 25-Hydroxy Vitamin D3 21 TSH 4.44 H Free T4 1.06 PTH Intact 133.4 H 12/28/24 12/30/24 01/01/25 06:17 05:55 14:58 Calcium 8.9 9.2 9.4 Albumin 2.7 L 2.8 L 3.4 L 25-OH Vitamin D Total 25-Hydroxy Vitamin D2 25-Hydroxy Vitamin D3 TSH 9.56 H Free T4 1.10 PTH Intact 01/09/25 09:33 Calcium Albumin 3.8 25-OH Vitamin D Total 25-Hydroxy Vitamin D2 25-Hydroxy Vitamin D3 TSH Free T4 PTH Intact 92.4 H EXAMINATION: US THYROID 12/22/24 HISTORY: E21.3 - Hyperparathyroidism, unspecified TECHNIQUE: Real-time grayscale ultrasound imaging was performed and images were reviewed. COMPARISON: There are no prior studies for comparison. FINDINGS: SIZE: The right thyroid lobe measures 5.2 x 1.9 x 1.6 cm. The left thyroid lobe measures 5.0 x 1.1 x 1.7 cm. The isthmus measures 6 mm. FLOW: Flow to the gland is increased. ECHOGENICITY: The echotexture of the gland is mildly heterogeneous. NODULES: There are nodules noted in the right thyroid lobe as described below: Nodule #: 1 Location: Right upper pole measuring 2 x 1 x 2 mm Shape: Wider than tall (0 points) Margins: Smooth (0 points) Echotexture: Hyperechoic (1 point) Composition: Solid (2 points) Calcifications: Macrocalcs (1 point) Total points: 4 TIRADS: TR4: Moderately suspicious. Nodule #: 2 Location: Midportion of the right thyroid lobe measuring 4 x 2 x 3 mm Shape: Wider than tall (0 points) Margins: Smooth (0 points) Echotexture: Hyperechoic (1 point) Composition: Solid (2 points) Calcifications: Macrocalcs (1 point) Total points: 4 TIRADS: TR4: Moderately suspicious. US/US thyroid IMPRESSION: Tiny subcentimeter right thyroid nodules as described. PFSH Medical History Lipoma of back Diabetes GERD (gastroesophageal reflux disease) Back pain Gallbladder polyp Surgical History History of esophagogastroduodenoscopy (EGD) Hx of colonoscopy H/O dilation and curettage Social History Household Members: Family Housing: House Alcohol intake: former Patient Tobacco Use Status: Current everyday Tobacco user Tobacco use type: Cigarette Cigarettes Per Day: 2 Years Smoked: 40 + e-Cigarette/Vaping Use: Currently Using Substance Use Type: Marijuana service: No Female Reproductive History Menstrual Age of Menarche: 13 Physical Exam Vital Signs: Last Vital Signs Pulse 102 H 01/20/25 13:50 BP 128/70 01/20/25 13:50 Pulse Ox 99 01/20/25 13:50 Oxygen Delivery Method Room Air 01/20/25 13:50 BMI result Body Mass Index 21.4 Assessment & Plan Assessment & Plan (1) Elevated parathyroid hormone: Code(s): R79.89 - Other specified abnormal findings of blood chemistry Category: Medical Plan: 64-year-old female noted to have elevated PTH level. Chart review shows that patient was found to have elevated PTH level of 133.4 on 12/15/2024. No concurrent calcium level for that day, however total calcium has been in the range of 8.9-9.4, however patient's albumin helps been low around 2.7-3.1, corrected calcium would be some thing around 10 or 10.2. In the past in 2023 when she had normal albumin levels, total calcium was noted to be elevated at 10.3. No concurrent PTH level from that time. Most recently vitamin-D level noted to be low at 21 from November 2024. Normal kidney function. Differentials include possibly secondary hyperparathyroidism in the setting of vitamin-D deficiency. She was started on vitamin-D 5000 units daily on 12/23/2024 and she has been taking this for the past month started by GI p.r.n., however that might be a little bit too much for her, at this time I have changed her prescription to reduce 2000 units daily. We will have her repeat labs in 7 weeks so that she would have had vitamin-D replacement for a total of 3 months to see if her PTH level improves with vitamin-D supplementation. Given that previously she was noted to have high calcium levels, she could possibly have primary hyperparathyroidism as well. Plan: -reduce vitamin-D 2000 units daily -continue incorporating calcium in diet, no use of calcium supplements -repeat labs ordered for 7 weeks prior to appointment in 8 weeks (2) Subclinical hypothyroidism: Code(s): E03.8 - Other specified hypothyroidism Category: Medical Plan: 64-year-old female with blood work from November 2024 showing elevated TSH level with normal free T4 consistent with subclinical hypothyroidism. However at the time and labs were done, patient was having an acute pyelonephritis. Usually during acute sickness TSH levels are lower not higher however we will have her repeat these in 6 to 7 weeks prior to her next appointment to see if she has persistent abnormalities. Currently she is not very symptomatic. Usually treatment criteria is either TSH greater than 10 or if between 6 and 9, and patient has significant symptoms. Her TSH was as high as 9.56, however for now we will hopefully hold off on treatment. Ultrasound thyroid from November 2024 did not show any concerning findings, small subcentimeter colloid /microcalcification that do not need follow up. Plan: -ordered TSH, free T4, TPO antibodies to be done in 6-7 weeks Plan I spent 45 minutes in reviewing the record, seeing the patient and documenting in the medical record. Orders: Orders Thyroid Stimulating Hormone 7 Weeks E03.8 - Other specified hypothyroidism, R79.89 - Other specified abnormal findings of blood chemistry Free T4 (Free Thyroxine) 7 Weeks E03.8 - Other specified hypothyroidism, R79.89 - Other specified abnormal findings of blood chemistry Calcium, Ionized 7 Weeks E03.8 - Other specified hypothyroidism, R79.89 - Other specified abnormal findings of blood chemistry Phosphorus 7 Weeks E03.8 - Other specified hypothyroidism, R79.89 - Other specified abnormal findings of blood chemistry Parathyroid Hormone Intact 7 Weeks E03.8 - Other specified hypothyroidism, R79.89 - Other specified abnormal findings of blood chemistry Vitamin D 25-OH Total 7 Weeks E03.8 - Other specified hypothyroidism, R79.89 - Other specified abnormal findings of blood chemistry Thyroid Peroxidase Antibodies 7 Weeks E03.8 - Other specified hypothyroidism Albumin Level 7 Weeks E03.8 - Other specified hypothyroidism, R79.89 - Other specified abnormal findings of blood chemistry Calcium 7 Weeks E03.8 - Other specified hypothyroidism, R79.89 - Other specified abnormal findings of blood chemistry Basic Metabolic Panel 7 Weeks E03.8 - Other specified hypothyroidism, R79.89 - Other specified abnormal findings of blood chemistry Medications: New cholecalciferol (vitamin D3) 25 mcg PO DAILY 30 caps 3RF Discontinued cholecalciferol (vitamin D3) Discontinued Reason: Doctor's Order 125 mcg PO DAILY 90 caps 3RF Patient Instructions: Decrease vitamin D to 1000 units daily Do blood work in 7 weeks Follow up in 8 weeks Coding Level of Care Code New Pt Level 4 (88879) Diagnoses Elevated parathyroid hormone R79.89 Subclinical hypothyroidism E03.8 Time Spent (min) 45
[2025-01-20 13:50] VITALS: BP 128/70; PULSE 102; O2SAT 99; BMI 21.4
== END 2025-01-20 14:40 | disposition home or self-care (01) ==
LOC: HO.ENCR 13:49
PROVIDERS: PCP Internal Medicine; Visit Provider Student in an Organized Health Care Education/Training Program
DX: R79.89 Other specified abnormal findings of blood chemistry (principal); E03.8 Other specified hypothyroidism
CPT/HCPCS: 99204

== ENCOUNTER → 2025-01-20 13:48 | Outpatient (BNVA) | payer OTHER, SELFPAY | PROVIDERS: PCP Internal Medicine; Visit Provider Student in an Organized Health Care Education/Training Program | DX: E03.8 Other specified hypothyroidism (principal); R79.89 Other specified abnormal findings of blood chemistry | CPT/HCPCS: 99202 ==

== ENCOUNTER 2025-01-21 10:25 | Outpatient (REF) | payer OTHER, SELFPAY | END 2025-01-21 10:26 | disposition home or self-care (01) | LOC: HO.MAMMO 10:25 | PROVIDERS: PCP Internal Medicine; Visit Provider Obstetrics & Gynecology | DX: Z12.31 Encounter for screening mammogram for malignant neoplasm of breast (principal) | CPT/HCPCS: 77063; 77067 ==

== ENCOUNTER → 2025-01-21 10:45 | Outpatient (BNV) | payer OTHER, SELFPAY | PROVIDERS: PCP Internal Medicine; Visit Provider Internal Medicine | DX: Z12.31 Encounter for screening mammogram for malignant neoplasm of breast (principal) | CPT/HCPCS: 77063; 77067 ==

== ENCOUNTER 2025-02-05 09:10 | Outpatient (AMB) | payer OTHER, SELFPAY ==
[2025-02-05 09:27] VITALS: BMI 21.3
--- NOTE | 2025-02-05 09:27 | MHC.AMNUTRGE ---
VS Expanded 02/05/25 09:27 Height 5 ft 7 in Weight 135 lb 12.876 oz BMI 21.3 Intake Visit Reasons: Abnormal weightloss Allergies Latex, Natural Rubber Allergy (Verified 01/20/25 13:51) Rash Nutrition Presentation Details: Pt presents for MNT for recent unintentional weight loss , Pt reports weight loss was related to lack of appetite and nauseous feelings Now feeling more comfortable with improved appetite and since taking mirtazapine. Pt has [place] 10 lbs, [place] [facility] [place]12[place]27[place]24 at 125lbs 10 oz to 135 lbs 12 oz today 02/05/25) Pt reports having small meals throughout the day Lives with daughter and mother Has a meal supplement once a day in between meals fruits: 1-2 dairy: choosing full fat (yogurts/milk) and contemplating switching to low fat fish: 0-1/d legumes: 2x/wk starches 20/day beverages: water, juices diluted with water, sometimes soda veg 1/d etoh/smoking==== BS Monitoring Most Recent Diabetes Results: Creatinine 0.88 mg/dL (0.5-1.4) 01/01/25 Blood Urea Nitrogen 22 mg/dL (9-16) H 01/01/25 Sodium 135 mmol/L (135-145) 01/01/25 Potassium 4.2 mmol/L (3.3-5.1) 01/01/25 Chloride 96 mmol/L (96-108) 01/01/25 Carbon Dioxide 29 mmol/L (22-29) 01/01/25 Calcium 9.4 mg/dL (8.4-10.2) 01/01/25 AST 29 U/L (5-31) 01/09/25 ALT 68 U/L (0-31) H 01/09/25 Total Protein 7.2 g/dL (6.5-8.0) 01/09/25 Albumin 3.8 g/dL (3.5-5.0) 01/09/25 VZD-Rkebnps-Jf.Jeor Equation Height: 5 ft 7 in Weight: 136 lb Resting Metabolic Rate: 1208.93 Calculated Activity Level: Very Heavy Activity Calories Needed to Maintain Weight: 2296.97 [facility] [place] Medical History (Updated 01/20/25 @ 14:37 by Lalita Feliciano MD) Subclinical hypothyroidism Elevated parathyroid hormone Lipoma of back Diabetes GERD (gastroesophageal reflux disease) Back pain Gallbladder polyp Surgical History History of esophagogastroduodenoscopy (EGD) Hx of colonoscopy H/O dilation and curettage Social History Household Members: Family Housing: House Alcohol intake: former Patient Tobacco Use Status: Current everyday Tobacco user Tobacco use type: Cigarette Cigarettes Per Day: 2 Years Smoked: 40 + e-Cigarette/Vaping Use: Currently Using Substance Use Type: Marijuana service: No Female Reproductive History Menstrual Age of Menarche: 13 Assessment & Plan Assessment & Plan (1) Weight loss: Code(s): R63.4 - Abnormal weight loss Category: Medical Plan: Wt:62 Kg ( 02/20 ) Est kcal needs as per MSJ: 2300 +1000/2000+ for wt gain and prevention of weight loss (40% carb, 30% protein/fat) Est fluid needs as per 25-30 ml/d: 2000 Est prot per day as per 1 g/kg bw: 65 Recommend fiber intake : 8-10 g per day and gradually increase to 25-28 g per day for women and 35-38 g for men or as tolerated Recommend sodium intake per day : less than 2000 mg Educated patient on: ( R = reviewed V = verbalizes understanding N/R = needs review N/A = not applicable Including a variety of foods including fats and protein in diet: R, V Patient Instructions: Have 4 small meals throughout the day including a variety of protein/fat Continue choosing full fat milk/dairy products Add 2 tbsp of peanut butter to the cereal with milk Have full fat cottage cheese with the fruit i Coding Level of Care Code Nutr Indiv Intake (60484) Diagnoses Weight loss R63.4 Time Spent (min) 30
[2025-02-05 10:27] VITALS: BMI 21.3
== END 2025-02-05 10:06 | disposition home or self-care (01) ==
LOC: HO.ENCR 09:11
PROVIDERS: PCP Internal Medicine; Visit Provider Dietitian, Registered
DX: R63.4 Abnormal weight loss (principal)

== ENCOUNTER → 2025-02-05 09:10 | Outpatient (BNVA) | payer OTHER, SELFPAY | PROVIDERS: PCP Internal Medicine; Visit Provider Dietitian, Registered | DX: R63.4 Abnormal weight loss (principal); Z71.3 Dietary counseling and surveillance; Z68.21 Body mass index [BMI] 21.0-21.9, adult | CPT/HCPCS: 97802 ==

== ENCOUNTER 2025-02-13 10:15 | Outpatient (AMB) | payer OTHER, SELFPAY ==
[2025-02-13 10:20] VITALS: BP 148/80; PULSE 108; O2SAT 99; BMI 21.6
--- NOTE | 2025-02-13 10:20 | A.OFFVIS_ITS ---
Vital Signs 02/13/25 10:20 Height 5 ft 7 in Weight 138 lb BMI 21.6 BP 148/80 H Blood Pressure Location Rt brachial Position Sitting Pulse 108 H Pulse Source Pulse Oximeter Pulse Oximetry (%) 99 Oxygen Delivery Method Room Air Intake Visit Reasons: f/u GERD nausea weight loss Intake Note: ESTABLISHED PATIENT for GERD mgmt. Labs done. Chief Complaint; C/O worsening chronic sx. Pt reports that her GERD has worsened but is not preventing her from eating like it had previously. Pt also reports RUQ pain and bloating with most intake. Pt feels that her sx are returning to their state that they were when she started her care with our office. [employer] Required: No Accompanied by: Daughter Allergies Latex, Natural Rubber Allergy (Verified 02/13/25 10:21) Rash HPI HPI f/u GERD nausea weight loss: Details: LAST VISIT Hypercalcemia Nausea Weight loss Periumbilical abdominal pain GERD (gastroesophageal reflux disease) Gallbladder polyp Plan Continue Nexium and famotidine. Patient was encouraged to continue protein shakes. Normal calcium levels will rechecked PTH. Patient has appointment with endocrinology next week. Will recheck liver panel mild elevation during hospitalization. Could be idiopathic caused by medication, however can not rule out cholecystitis, cholelithiasis. If patient will continue to have symptoms I will send her for HIDA scan. Gallbladder normal on CT scan. Patient will follow- up in the office in 5 weeks. Patient was encouraged to call our office if she will have on going symptoms or if her symptoms will worsen. May use Senokot as needed if constipated. Increase fluid intake and activity to promote better bowel motility. Patient has appointment with Dr. Feliciano next week to evaluate her thyroid. Patient is agreeable to current plan of care and verbalizes understanding of instructions. She was given the opportunity to ask questions and all questions answered. ? Thank you for allowing me to participate in her care Orders Orders Parathyroid Hormone Intact Today E83.52 Liver Panel Today R74.01 TODAY'S VISIT Patient is here today for follow-up. Patient reports that she is taking Nexium in the morning and she continues to have postprandial abdominal bloating and cramping to right upper quadrant. Patient reports to be feeling nauseous. Patient describes this pain as different than when she was admitted with pyelonephritis. Patient has surgery scheduled for end of this month. Patient will be going for oophorectomy. Patient reports that she is moving her bowels without any issues. Patient is no longer taking mirtazapine. Patient states th at she has good appetite is just that she does not feel well after eating. Patient gain 7 lb in 1 month. Patient denies melena, hematochezia. COUNT INCLUDES THE [facility] Medical History (Updated 02/13/25 @ 10:44 [address] Radha Bartlett [facility]) History of pyelonephritis Subclinical hypothyroidism Elevated parathyroid hormone Lipoma of back Diabetes GERD (gastroesophageal reflux disease) Back pain Gallbladder polyp Surgical History History of esophagogastroduodenoscopy (EGD) Hx of colonoscopy H/O dilation and curettage Social History Household Members: Family Housing: House Alcohol intake: former Patient Tobacco Use Status: Current everyday Tobacco user Tobacco use type: Cigarette Cigarettes Per Day: 2 Years Smoked: 40 + e-Cigarette/Vaping Use: Currently Using Substance Use Type: Marijuana service: No Female Reproductive History Menstrual Age of Menarche: 13 Review of Systems Const Denies weight gain and Denies weight loss ENT Reports no additional complaints, Denies dysphagia and Denies odynophagia Card Reports no additional complaints Resp Reports no additional complaints GI Reports abdominal pain (Right lumbar), Denies belching, Denies melena, Reports bloating, Denies change in bowel habits, Denies constipation, Denies dysphagia, Denies excessive flatus, Denies dyspepsia, Denies heartburn, Denies diarrhea, Denies loose stools, Denies nausea, Denies odynophagia and Denies vomiting Reports no additional complaints Musc Reports no additional complaints Neuro Reports no additional complaints Psych Reports no additional complaints Endo Reports no additional complaints Physical Exam Vital Signs: Last Vital Signs Pulse 108 H 02/13/25 10:20 BP 148/80 H 02/13/25 10:20 Pulse Ox 99 02/13/25 10:20 Oxygen Delivery Method Room Air 02/13/25 10:20 BMI result Body Mass Index 21.6 Const General: healthy appearing, no acute distress and well developed Nutritional Appearance: well nourished Orientation/consciousness: patient oriented x3 Resp Effort & Inspection: normal respiratory effort, able to speak in complete sentences, no tracheal deviation and symmetric chest movement Auscultation: clear to auscultation bilaterally Cardio Rate: regular rate GI Inspection: Yes normal to inspection and No distended Palpation (GI): Soft to palpation, not firm, nontender and No hepatosplenomegaly present Auscultation: normal bowel sounds General: Yes no CVA tenderness Back/Spine/Pelvis Other: Large lipoma on right upper back. Back: no CVA tenderness Skin General skin exam: elasticity normal, turgor normal and dry skin Neuro General: patient oriented x3 Psych Appearance: grossly normal Mental Status: mental status grossly normal Assessment & Plan Assessment & Plan (1) Hypercalcemia: Code(s): E83.52 - Hypercalcemia Category: Medical (2) Nausea: Code(s): R11.0 - Nausea Category: Medical (3) Weight loss: Code(s): R63.4 - Abnormal weight loss Category: Medical (4) Periumbilical abdominal pain: Code(s): R10.33 - Periumbilical pain Category: Medical (5) GERD (gastroesophageal reflux disease): Code(s): K21.9 - Gastro-esophageal reflux disease without esophagitis Category: Medical Qualifiers: Esophagitis presence: esophagitis presence not specified Qualified Code(s): K21.9 - Gastro-esophageal reflux disease without esophagitis (6) Gallbladder polyp: Code(s): K82.4 - Cholesterolosis of gallbladder Category: Medical (7) Postprandial abdominal pain in right upper quadrant: Code(s): R10.11 - Right upper quadrant pain Category: Medical (8) RUQ abdominal pain: Code(s): R10.11 - Right upper quadrant pain Plan Patient continues to have right upper quadrant lumbar region pain and bloated. Reports that she is moving her bowels without any issues. Reports occasional dyspepsia without of dysphagia or odynophagia. Is he reports feeling nauseous after she eats, however she is trying to eat despite of feeling nauseous. Patient gained 7 lb in 1 month since last visit. I will send her for ultrasound. Will check liver panel, GGT and lipase. Patient can start taking sucralfate at bedtime. She may take Creon with meals to help her with bloating and indigestion. We discussed low FODMAP diet. List of food recommended of what was approved avoid given to patient. If patient will have normal ultrasound and continues with symptoms she should get HIDA scan. Patient will follow-up in 3 months, sooner on as needed basis. She is agreeable to this plan and verbalizes understanding of instructions. She was given the opportunity to ask questions and all questions answered. Thank you for allowing me to participate in her care Orders: Orders US abdomen complete 02/16/25 R10.9 - Unspecified abdominal pain, R10.11 - Right upper quadrant pain, Z87.448 - Personal history of other diseases of urinary system Liver Panel 02/13/25 R74.01 - Elevation of levels of liver transaminase levels Gamma Glutamyl Transpeptidase 02/13/25 R74.8 - Abnormal levels of other serum enzymes Lipase 02/13/25 R10.9 - Unspecified abdominal pain Medications: New sucralfate 10 mL PO BEDTIME 400 mL 3RF K21.9 - Gastro-esophageal reflux disease without esophagitis [id number] 24,000-76,000 -120,000 unit (Creon) administer with meals and/or snacks 1 cap PO QID 120 caps 2RF K58.9 - Irritable bowel syndrome, unspecified Discontinued mirtazapine Discontinued Reason: Doctor's Order 7.5 mg PO BEDTIME 30 tabs 1RF K31.84 - Gastroparesis famotidine Discontinued Reason: Doctor's Order 20 mg PO BEDTIME 30 tabs 3RF K21.9 - Gastro-esophageal reflux disease without esophagitis Coding Level of Care Code Est Pt Level 4 (22396) Complex EM visit Add On G2211 Diagnoses Hypercalcemia E83.52 Nausea R11.0 Weight loss R63.4 Periumbilical abdominal pain R10.33 Gastroesophageal reflux disease, unspecified whether esophagitis present K21.9 Esophagitis presence: esophagitis presence not specified Gallbladder polyp K82.4 Postprandial abdominal pain in right upper quadrant R10.11 RUQ abdominal pain R10.11 Time Spent (min) 40 Comment 25 minutes spent with patient and additional 15 minutes spent reviewing her records
== END 2025-02-13 10:57 | disposition home or self-care (01) ==
LOC: HO.HGI 10:16
PROVIDERS: PCP Internal Medicine; Visit Provider Nurse Practitioner Family
DX: E83.52 Hypercalcemia (principal); R11.0 Nausea; R63.4 Abnormal weight loss; R10.33 Periumbilical pain; K21.9 Gastro-esophageal reflux disease without esophagitis; K82.4 Cholesterolosis of gallbladder; R10.11 Right upper quadrant pain
CPT/HCPCS: 99214; G2211

== ENCOUNTER → 2025-02-13 10:15 | Outpatient (BNVA) | payer OTHER, SELFPAY | PROVIDERS: PCP Internal Medicine; Visit Provider Nurse Practitioner Family | DX: K21.9 Gastro-esophageal reflux disease without esophagitis (principal); K82.4 Cholesterolosis of gallbladder; R10.11 Right upper quadrant pain; E83.52 Hypercalcemia; R11.0 Nausea; R63.4 Abnormal weight loss; R10.33 Periumbilical pain | CPT/HCPCS: 99212 ==

== ENCOUNTER 2025-02-16 07:38 | Outpatient (REF) | payer OTHER, SELFPAY ==
--- NOTE | ~2025-02-16 | US_ITS ---
CLINICAL HISTORY: R10.9 - Unspecified abdominal pain US abdomen complete Comparison: None Findings: The visualized pancreas is normal. The aorta and inferior vena cava are normal caliber. The liver is normal in size and echotexture. There is no intrahepatic bile duct dilatation. The common duct is 2.2 mm in diameter. There is minimal layering gallbladder sludge. The gallbladder is otherwise normal. There is no sonographic Horne sign. The main portal vein is antegrade. The right kidney is 11.6 cm in length. The left kidney is 10.8 cm in length. The spleen is normal. No ascites. IMPRESSION: 1. No acute findings. This document has been electronically signed by: Darin Pulliam MD on 02/16/2025 08:33:35
== END 2025-02-16 07:39 | disposition home or self-care (01) ==
LOC: HO.US 07:38
PROVIDERS: PCP Internal Medicine; Visit Provider Nurse Practitioner Family
DX: R10.11 Right upper quadrant pain (principal); Z87.448 Personal history of other diseases of urinary system
CPT/HCPCS: 76700

== ENCOUNTER → 2025-02-16 07:41 | Outpatient (BNV) | payer OTHER, SELFPAY | PROVIDERS: PCP Internal Medicine; Visit Provider Specialist | DX: R10.9 Unspecified abdominal pain (principal) | CPT/HCPCS: 76700 ==

== ENCOUNTER → 2025-03-04 13:08 | Outpatient (REF) | payer OTHER, SELFPAY ==
--- NOTE | ~2025-03-04 | NM_ITS ---
EXAMINATION: NM HEPATOBILIARY WITH PHARM HISTORY: R10.11 - Right upper quadrant pain. TECHNIQUE: An hepatobiliary scan was performed following the intravenous administration of 5 mCi technetium 99m-mebrofenin. Sequential images were obtained over 1 hour. Subsequently, the patient received 1.3 microgram of IV CCK over 30 minutes and additional imaging was performed. COMPARISON: Correlation is made with an abdominal ultrasound dated 02/16/2025. FINDINGS: There is normal uptake and excretion of the radiopharmaceutical by the liver. Gallbladder activity is noted at 10 minutes. Common bile duct activity is seen at 8 minutes. Small bowel activity is noted at 18 minutes. After the administration of intravenous CCK, the estimated gallbladder ejection fraction is 82%, which is within normal limits (normal 35-80%). NM/NM hepatobiliary w pharm IMPRESSION: Normal hepatobiliary scan with normal gallbladder ejection fraction. Electronically signed by: Jorge Shelby MD 03/04/2025 03:31 PM EDT
== END ==
LOC: HO.NUCMED 13:08
PROVIDERS: PCP Internal Medicine; Visit Provider Nurse Practitioner Family
DX: R10.11 Right upper quadrant pain (principal); R11.0 Nausea; R63.4 Abnormal weight loss
CPT/HCPCS: 78227; A9537; J2805

== ENCOUNTER → 2025-03-04 13:10 | Outpatient (BNV) | payer OTHER, SELFPAY | PROVIDERS: PCP Internal Medicine; Visit Provider Radiology Diagnostic Radiology | DX: R10.11 Right upper quadrant pain (principal) | CPT/HCPCS: 78227 ==

== ENCOUNTER 2025-03-06 09:06 | Outpatient (AMB) | payer OTHER, SELFPAY ==
--- NOTE | 2025-03-06 09:09 | A.OFFVIS_ITS ---
Vital Signs 03/06/25 09:13 Height 5 ft 7 in Weight 141 lb BMI 22.1 BP 124/66 Blood Pressure Location Rt brachial Position Sitting Pulse 84 Pulse Source Pulse Oximeter Pulse Oximetry (%) 100 Oxygen Delivery Method Room Air Intake Visit Reasons: f/u hida scan 30min Intake Note: ESTABLISHED PATIENT for GERD mgmt. HIDA scan read by rad. Chief Complaint; Pt reports that she has been doing better since last visit and is encouraged by their progress. Pt also to review HIDA scan results. 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 Reports that she is moving her bowels without any issues. Reports occasional dyspepsia without of dysphagia or odynophagia. Is he reports feeling nauseous after she eats, however she is trying to eat despite of feeling nauseous. Patient gained 7 lb in 1 month since last visit. I will send her for ultrasound. Will check liver panel, GGT and lipase. Patient can start taking sucralfate at bedtime. She may take Creon with meals to help her with bloating and indigestion. We discussed low FODMAP diet. List of food recommended of what was approved avoid given to patient. If patient will have normal ultrasound and continues with symptoms she should get HIDA scan. Patient will follow-up in 3 months, sooner on as needed basis. She is agreeable to this plan and verbalizes understanding of instructions. She was given the opportunity to ask questions and all questions answered. ? Thank you for allowing me to participate in her care Orders Orders US abdomen complete 02/16/25 R10.9, R10.11, Z87.448 Liver Panel 02/13/25 R74.01 Gamma Glutamyl Transpeptidase 02/13/25 R74.8 Lipase 02/13/25 R10.9 Medications New sucralfate 10 mL PO BEDTIME 400 mL 3RF K21.9 wroxkm-mrztwmir-fadoldy 24,000-76,000 -120,000 unit (Creon) administer with meals and/or snacks 1 cap PO QID 120 caps 2RF K58.9 Discontinued mirtazapine Discontinued Reason: Doctor's Order 7.5 mg PO BEDTIME 30 tabs 1RF K31.84 famotidine Discontinued Reason: Doctor's Order 20 mg PO BEDTIME 30 tabs 3RF K21.9 TODAY'S VISIT Patient is here today for follow-up and to discuss HIDA scan results. Patient reports that since last I have seen her she has been doing little better. Takes pantoprazole in the morning and sucralfate in the afternoon and at bedtime. Her nausea has gone away. Patient's appetite has improved.. Patient is vegetarian and is not eating any meat or fish. Seen dietitian and is trying low FODMAP diet as we discussed last visit. Patient reports that she is moving her bowels well without any issues. Patient had oophorectomy last week. 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 Patient reports that she is moving her bowels better now. Occasionally takes senna as needed. [facility] Medical History History of pyelonephritis Subclinical hypothyroidism Elevated parathyroid hormone Lipoma of back Diabetes GERD (gastroesophageal reflux disease) Back pain Gallbladder polyp Surgical History History of esophagogastroduodenoscopy (EGD) Hx of colonoscopy H/O dilation and curettage Social History Household Members: Family Housing: House Alcohol intake: former Patient Tobacco Use Status: Current everyday Tobacco user Tobacco use type: Cigarette Cigarettes Per Day: 2 Years Smoked: 40 + e-Cigarette/Vaping Use: Currently Using Substance Use Type: Marijuana service: No Female Reproductive History Menstrual Age of Menarche: 13 Physical Exam Vital Signs: Last Vital Signs Pulse 84 03/06/25 09:13 BP 124/66 03/06/25 09:13 Pulse Ox 100 03/06/25 09:13 Oxygen Delivery Method Room Air 03/06/25 09:13 BMI result Body Mass Index 22.1 Results Reviewed Results Reviewed: HIDA SCAN 03/04/2025 FINDINGS: There is normal uptake and excretion of the radiopharmaceutical by the liver. Gallbladder activity is noted at 10 minutes. Common bile duct activity is seen at 8 minutes. Small bowel activity is noted at 18 minutes. After the administration of intravenous CCK, the estimated gallbladder ejection fraction is 82%, which is within normal limits (normal 35-80%). NM/NM hepatobiliary w pharm IMPRESSION: Normal hepatobiliary scan with normal gallbladder ejection fraction. Assessment & Plan Assessment & Plan (1) Hypercalcemia: Code(s): E83.52 - Hypercalcemia Category: Medical (2) Nausea: Code(s): R11.0 - Nausea Category: Medical (3) Weight loss: Code(s): R63.4 - Abnormal weight loss Category: Medical (4) Periumbilical abdominal pain: Code(s): R10.33 - Periumbilical pain Category: Medical (5) GERD (gastroesophageal reflux disease): Code(s): K21.9 - Gastro-esophageal reflux disease without esophagitis Category: Medical Qualifiers: Esophagitis presence: esophagitis presence not specified Qualified Code(s): K21.9 - Gastro-esophageal reflux disease without esophagitis (6) Gallbladder polyp: Code(s): K82.4 - Cholesterolosis of gallbladder Category: Medical (7) Postprandial abdominal pain in right upper quadrant: Code(s): R10.11 - Right upper quadrant pain Category: Medical (8) RUQ abdominal pain: Code(s): R10.11 - Right upper quadrant pain Plan Patient will try high-calorie intake. Increase protein intake. Continue taking pantoprazole in the morning and sucralfate in the afternoon and at bedtime. Avoid dietary triggers and late night snacking. Staying upright for minimum 3 hours after meals discussed with patient. Continue low FODMAP diet. Continue following up with dietitian. Patient can take Senokot as needed. Increase fluid intake and activity to promote better bowel motility. Follow-up in the office in 2-3 weeks, sooner on as needed basis. She is agreeable to this plan and verbalizes understanding of instructions. She was given the opportunity to ask questions and all questions answered Thank you for allowing me to participate in her care Coding Level of Care Code Est Pt Level 4 (64386) Complex EM visit Add On G2211 Diagnoses Hypercalcemia E83.52 Nausea R11.0 Weight loss R63.4 Periumbilical abdominal pain R10.33 Gastroesophageal reflux disease, unspecified whether esophagitis present K21.9 Esophagitis presence: esophagitis presence not specified Gallbladder polyp K82.4 Postprandial abdominal pain in right upper quadrant R10.11 RUQ abdominal pain R10.11 Time Spent (min) 40 Comment 25 minutes spent with patient and additional 15 minutes spent reviewing her records
[2025-03-06 09:13] VITALS: BP 124/66; PULSE 84; O2SAT 100; BMI 22.1
== END 2025-03-06 09:43 | disposition home or self-care (01) ==
LOC: HO.HGI 09:06
PROVIDERS: PCP Internal Medicine; Visit Provider Nurse Practitioner Family
DX: E83.52 Hypercalcemia (principal); R11.0 Nausea; R63.4 Abnormal weight loss; R10.33 Periumbilical pain; K21.9 Gastro-esophageal reflux disease without esophagitis; K82.4 Cholesterolosis of gallbladder; R10.11 Right upper quadrant pain
CPT/HCPCS: 99214; G2211

== ENCOUNTER → 2025-03-06 09:06 | Outpatient (BNVA) | payer OTHER, SELFPAY | PROVIDERS: PCP Internal Medicine; Visit Provider Nurse Practitioner Family | DX: K21.9 Gastro-esophageal reflux disease without esophagitis (principal); K82.4 Cholesterolosis of gallbladder; E83.52 Hypercalcemia; R11.0 Nausea; R63.4 Abnormal weight loss; R10.33 Periumbilical pain; R10.11 Right upper quadrant pain | CPT/HCPCS: 99212 ==

== ENCOUNTER 2025-03-13 08:06 | Outpatient (REF) | payer OTHER, SELFPAY ==
[2025-03-13 10:55] LABS: Gamma Glutamyl Transpeptidase 43 U/L (7-33)
[2025-03-13 11:16] LABS: Alanine Aminotransferase 50 U/L (0-31); Albumin Level 4.3 g/dL (3.5-5.0); Alkaline Phosphatase 88 U/L (39-117); Anion Gap 15 (12-20); Aspartate Amino Transferase 23 U/L (5-31); Bilirubin Direct 0.2 mg/dL (0.0-0.5); Bilirubin Total 0.3 mg/dL (0.0-1.0); Blood Urea Nitrogen 15 mg/dL (9-16); Calcium 10.3 mg/dL (8.4-10.2); Carbon Dioxide 25 mmol/L (22-29); Chloride 102 mmol/L (96-108); Estimated Glomerular Filt Rate > 60; Glucose Random 139 mg/dL (60-115); Lipase 26 U/L (8-78); Phosphorus 3.3 mg/dL (2.7-4.5); Potassium 4.7 mmol/L (3.3-5.1); Sodium 137 mmol/L (135-145); Total Protein 7.4 g/dL (6.5-8.0)
[2025-03-13 11:19] LABS: Free T4 (Free Thyroxine) 0.91 ng/dL (0.71-1.85); Thyroid Stimulating Hormone 6.02 uIU/mL (0.32-4.0); Vitamin D 25-OH Total 31.5 ng/mL (>30)
[2025-03-13 11:22] LABS: Parathyroid Hormone Intact 101.6 pg/mL (8.7-77.1)
[2025-03-16 15:13] LABS: Calcium, Ionized 5.8 mg/dL (4.7-5.5)
[2025-03-18 18:27] LABS: Thyroid Peroxidase Antibodies 680 IU/mL (<9)
== END 2025-03-13 08:07 | disposition home or self-care (01) ==
LOC: HO.HMGCLDS 08:06
PROVIDERS: PCP Internal Medicine; Referring Provider Nurse Practitioner Family; Visit Provider Student in an Organized Health Care Education/Training Program
DX: R79.89 Other specified abnormal findings of blood chemistry (principal); E03.8 Other specified hypothyroidism; R74.01 Elevation of levels of liver transaminase levels; R74.8 Abnormal levels of other serum enzymes; R10.9 Unspecified abdominal pain; E03.9 Hypothyroidism, unspecified
CPT/HCPCS: 36415; 80048; 80076; 82306; 82330; 82977; 83690; 83970; 84100; 84439; 84443; 86376

== ENCOUNTER 2025-03-17 09:42 | Outpatient (AMB) | payer OTHER, SELFPAY ==
[2025-03-17 09:44] VITALS: BP 130/66; PULSE 91; O2SAT 97; BMI 23.0
--- NOTE | 2025-03-17 09:44 | A.OFFVIS_ITS ---
Vital Signs 03/17/25 09:44 Height 5 ft 7 in Weight 146 lb 9.718 oz BMI 23.0 BP 130/66 Blood Pressure Location Rt brachial Position Sitting Pulse 91 Pulse Source Pulse Oximeter Pulse Oximetry (%) 97 Oxygen Delivery Method Room Air Intake Visit Reasons: Nontoxic single thyroid nodule Intake Note: Patient present today for Nontoxic single thyroid nodule office visit. 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 Accompanied by: Self / Same As Patient Allergies Latex, Natural Rubber Allergy (Verified 03/17/25 09:48) Rash Medication List - Last Reconciled 03/17/25 by Lalita Feliciano MD acetaminophen (Tylenol Extra Strength) 500 mg PO Q6H PRN atorvastatin 20 mg PO BEDTIME blood sugar diagnostic (FreeStyle Lite Strips) As directed blood-glucose meter (FreeStyle Lite Meter kit) As directed cholecalciferol (vitamin D3) 25 mcg PO DAILY glipizide ER 2.5 mg PO DAILY lancets (FreeStyle Lancets) As directed ondansetron 4 mg PO Q8H PRN pantoprazole 40 mg PO DAILY sucralfate 10 mL PO BEDTIME HPI Comments Details: 64-year-old female here today for fup of subclinical hypothyroidism and elevated PTH level. Subclinical hypothyroidism Labs from 12/27/24: TSH 4.44, free 1.06 01/01/25: TSH elevated 9.56, free t4 was normal 1.10 She did have cute pyelonephritis at the time of these labs 12/22/24: Thyroid US , i reveiwed the images [facility] showed subcentimeter colloid cysts that do not meet criteria for follow up Patient currently denies heat or cold intolerance, diarrhea or constipation, hair loss, palpitation, anxiety, mood changes, low energy, changes in appearance of eyes or vision changes, tremors, increased diaphoresis or dry skin. ? Lost 20 lbs between winter 2023 and spring 2024, now gained back 10 lbs since month, feels eating a bit more now Patient denies any difficulty swallowing, pain on swallowing or voice changes or difficulty breathing. Patient denies any history of childhood neck radiation. Denies having ever used lithium, amiodarone or biotin supplements. Patient denies any family history of thyroid cancer or thyroid disease. 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 Elevated PTH level Chart review shows that patient was found to have elevated PTH level of 133.4 on 12/15/2024. No concurrent calcium level for that day, however total calcium has been in the range of 8.9-9.4, however patient's albumin helps been low around 2.7-3.1, corrected calcium would be some thing around 10 or 10.2. In the past in 2023 when she had normal albumin levels, total calcium was noted to be elevated at 10.3. No concurrent PTH level from that time. Most recently vitamin-D level noted to be low at 21 from November 2024. Normal kidney function. No fractures , no BMD done Mother : had kidney stone 2007 passed a kidney stone , CT abdomen done December 2024 did show a right 3 mm nonobstructing calculi in the collecting system Vitamin D 5000 units daily started 12/23/24 by BENNY Bartlett Interval history labs February 2025 : Normal kidney function, calcium elevated at 10.3 with albumin of 4.3, corrected calcium would be 10, ionized calcium a low so elevated at 5.8, normal phosphorus, vitamin-D improved to 31.5, PTH elevated at 101.6. Vitamin D 1000 units daily reduced since 01/20/2025 no calcium supplements Milk: with cereal almost daily Yogurt: almost daily one serving Cheese : sometimes no abd pain, no muscle aches or pains, no mental status chnages , no brain fog , no constipation Physical exam General: sitting comfortably in no acute distress HEENT: normocephalic/atraumatic, Neck: supple, symmetrical, no dorsocervical or supraclavicular fat pads Cardiac: normal heart sounds Pulm: normal breath sounds B/L, no added breath sounds Abd: not distended, no tenderness Extremities: no edema, no signs of myxedema Neuro: AAO x3, Speech: normal, no facial droop, moving all 4 extremities Laboratory Tests 12/15/24 12/19/24 12/27/24 09:38 14:18 09:04 Calcium 9.1 D Albumin 3.1 L 25-OH Vitamin D Total 21 L 25-Hydroxy Vitamin D2 <4 25-Hydroxy Vitamin D3 21 TSH 4.44 H Free T4 1.06 PTH Intact 133.4 H 12/28/24 12/30/24 01/01/25 06:17 05:55 14:58 Calcium 8.9 9.2 9.4 Albumin 2.7 L 2.8 L 3.4 L 25-OH Vitamin D Total 25-Hydroxy Vitamin D2 25-Hydroxy Vitamin D3 TSH 9.56 H Free T4 1.10 PTH Intact 01/09/25 09:33 Calcium Albumin 3.8 25-OH Vitamin D Total 25-Hydroxy Vitamin D2 25-Hydroxy Vitamin D3 TSH Free T4 PTH Intact 92.4 H Laboratory Tests 03/13/25 08:12 Creatinine 0.81 Estimated GFR > 60 Calcium 10.3 H D Ionized Calcium 5.8 H Phosphorus 3.3 Albumin 4.3 25-OH Vitamin D Total 31.5 TSH 6.02 H Free T4 0.91 PTH Intact 101.6 H EXAMINATION: US THYROID 12/22/24 HISTORY: E21.3 - Hyperparathyroidism, unspecified TECHNIQUE: Real-time grayscale ultrasound imaging was performed and images were reviewed. COMPARISON: There are no prior studies for comparison. FINDINGS: SIZE: The right thyroid lobe measures 5.2 x 1.9 x 1.6 cm. The left thyroid lobe measures 5.0 x 1.1 x 1.7 cm. The isthmus measures 6 mm. FLOW: Flow to the gland is increased. ECHOGENICITY: The echotexture of the gland is mildly heterogeneous. NODULES: There are nodules noted in the right thyroid lobe as described below: Nodule #: 1 Location: Right upper pole measuring 2 x 1 x 2 mm Shape: Wider than tall (0 points) Margins: Smooth (0 points) Echotexture: Hyperechoic (1 point) Composition: Solid (2 points) Calcifications: Macrocalcs (1 point) Total points: 4 TIRADS: TR4: Moderately suspicious. Nodule #: 2 Location: Midportion of the right thyroid lobe measuring 4 x 2 x 3 mm Shape: Wider than tall (0 points) Margins: Smooth (0 points) Echotexture: Hyperechoic (1 point) Composition: Solid (2 points) Calcifications: Macrocalcs (1 point) Total points: 4 TIRADS: TR4: Moderately suspicious. US/US thyroid IMPRESSION: Tiny subcentimeter right thyroid nodules as described. CT abdomen and pelvis with contrast01/20 Comparison: None Findings: Trace right effusion with overlying atelectasis. The liver, gallbladder, spleen, adrenal glands and pancreas are unremarkable. There is asymmetric prominence and heterogeneous enhancement of the right kidney. Asymmetric perinephric stranding on the right. No obstructing calculus. There is a 3 mm collecting system calculus in the right. The bladder is decompressed. Normal appendix. Abnormal thickening of the ascending colon with surrounding stranding. Normal appendix. The terminal ileum appears unremarkable. No bowel obstruction or free air. No abscess. Complex right adnexal cyst suggested. Uterus unremarkable. Moderate diffuse atherosclerotic disease. No acute osseous finding. Impression: Abnormal prominence of the right kidney with asymmetric perfusion. Clinical correlation for pyelonephritis. Abnormal thickening of predominantly the ascending colon with surrounding stranding. Colitis suggested. Normal appendix. No free air or abscess. Right adnexal complex cysts. Ultrasound could be considered. This document has been electronically signed by: Zachariah Lunsford MD on 12/27/2024 12:08:17 [facility] Medical History (Updated 03/17/25 @ 10:10 by Lalita Feliciano MD) Hyperparathyroidism History of pyelonephritis Subclinical hypothyroidism Elevated parathyroid hormone Lipoma of back Diabetes GERD (gastroesophageal reflux disease) Back pain Gallbladder polyp Surgical History (Updated 03/17/25 @ 09:50 by ROBERT Lenz) History of salpingo-oophorectomy History of esophagogastroduodenoscopy (EGD) Hx of colonoscopy H/O dilation and curettage Social History Household Members: Family Housing: House Alcohol intake: former Patient Tobacco Use Status: Current everyday Tobacco user Tobacco use type: Cigarette Cigarettes Per Day: 2 Years Smoked: 40 + e-Cigarette/Vaping Use: Currently Using Substance Use Type: Marijuana service: No Female Reproductive History Menstrual Age of Menarche: 13 Physical Exam Vital Signs: Last Vital Signs Pulse 91 03/17/25 09:44 BP 130/66 03/17/25 09:44 Pulse Ox 97 03/17/25 09:44 Oxygen Delivery Method Room Air 03/17/25 09:44 BMI result Body Mass Index 23.0 Assessment & Plan Assessment & Plan (1) Elevated parathyroid hormone: Code(s): R79.89 - Other specified abnormal findings of blood chemistry Category: Medical Plan: 64-year-old female noted to have elevated PTH level. Chart review shows that patient was found to have elevated PTH level of 133.4 on 12/15/2024. No concurrent calcium level for that day, however total calcium has been in the range of 8.9-9.4, however patient's albumin helps been low around 2.7-3.1, corrected calcium would be some thing around 10 or 10.2. In the past in 2023 when she had normal albumin levels, total calcium was noted to be elevated at 10.3. No concurrent PTH level from that time. vitamin-D level noted to be low at 21 from November 2024. Normal kidney function. She was on vitamin-D 5000 units daily from 12/23/2024 up on 01/05/2025 and then I reduced it to 1000 units daily. She continues on this. labs February 2025 : Normal kidney function, calcium elevated at 10.3 with albumin of 4.3, corrected calcium would be 10, ionized calcium a low so elevated at 5.8, normal phosphorus, vitamin-D improved to 31.5, PTH elevated at 101.6. Now that vitamin-D has improved, and PTH still remains elevated, unlikely to be secondary hyperparathyroidism due to vitamin-D deficiency. Her kidney function is normal. She has good nutritional intake of calcium. Not on any calcium supplements. Given hypercalcemia with a history of kidney stones, with the abdominal CT from December 2024 also showing a nonobstructing 3 mm right renal calculi, most likely she has primary hyperparathyroidism. We will do a 24 hour urine calcium evaluation. No bone density done recently we will obtain bone density. No history of fragility fracture. Other differential could possibly be [facility], we will get the 24 hour urine calcium to help evaluate. Plan: -continue vitamin-D 1000 units daily -continue incorporating calcium in diet, no use of calcium supplements -do bone density scan including forearm -ordered 24 hour urine calcium and creatinine as well as repeat blood work that same day -follow up in 10 weeks to discuss results (2) Subclinical hypothyroidism: Code(s): E03.8 - Other specified hypothyroidism Category: Medical Plan: 64-year-old female with blood work from November 2024 showing elevated TSH level with normal free T4 consistent with subclinical hypothyroidism. However at the time and labs were done, patient was having an acute pyelonephritis. Usually during acute sickness TSH levels are lower not higher. Most recent blood work from February 2025 shows TSH has come down to 6.06, free T4 remains normal. Currently she is not very symptomatic. Usually treatment criteria is either TSH greater than 10 or if between 6 and 9, and patient has significant symptoms. For now we will hold off on any treatment. Ultrasound thyroid from November 2024 did not show any concerning findings, small subcentimeter colloid /microcalcification that do not need follow up. Plan: -we will plan to repeat TSH, free T4 in about 4-6 months sometime around fall 2024 (3) Hyperparathyroidism: Code(s): E21.3 - Hyperparathyroidism, unspecified Category: Medical Plan: See above (4) Hypercalcemia: Code(s): E83.52 - Hypercalcemia Category: Medical Plan: See above Plan I spent 30 minutes in reviewing the record, seeing the patient and documenting in the medical record. Orders: Orders Creatinine, 24 Hr Group Today E21.3 - Hyperparathyroidism, unspecified, E83.52 - Hypercalcemia Albumin Level Today E21.3 - Hyperparathyroidism, unspecified, E83.52 - Hypercalcemia Calcium, Ionized Today E21.3 - Hyperparathyroidism, unspecified, E83.52 - Hypercalcemia Parathyroid Hormone Intact Today E21.3 - Hyperparathyroidism, unspecified, E83.52 - Hypercalcemia XR DEXA appendicular skeleton Today E21.3 - Hyperparathyroidism, unspecified Calcium, 24 Hr Ur Today E21.3 - Hyperparathyroidism, unspecified, E83.52 - Hypercalcemia Calcium Today E21.3 - Hyperparathyroidism, unspecified, E83.52 - Hypercalcemia Creatinine Today E21.3 - Hyperparathyroidism, unspecified, E83.52 - Hypercalcemia Patient Instructions: Do bone density scan ,someone will call you to schedule this Do 24 hr urine collection and the same day as you hand in the urine , do blood work 24 hr urine collection instructions You have been asked to collect your urine for 24 hours to assess for calcium excretion. You must choose a 24 hour period of time when you will be home. The morning of the first day, DISCARD the FIRST morning void and then note the time. You will collect every single void from then on for 24 hours. For example, if you wake up at 6am and urinate, flush down that void. You will then collect every drop of urine all day and all night through 6am the following day. You will urinate one last time at 6am for the collection. The jug of urine must be kept in the refrigerator until you bring it to the lab. Continue vitaminD 1000 units daily Continue calcium imtake through diet meaning continue 2-3 servings of calcium rich foods like milk, yogurt, cheese daily, no calcium supplements Follow up in 10 weeks to discuss results for the above Coding Level of Care Code Est Pt Level 4 (49371) Diagnoses Elevated parathyroid hormone R79.89 Subclinical hypothyroidism E03.8 Hyperparathyroidism E21.3 Hypercalcemia E83.52 Time Spent (min) 30
== END 2025-03-17 10:20 | disposition home or self-care (01) ==
LOC: HO.ENCR 09:42
PROVIDERS: PCP Internal Medicine; Visit Provider Student in an Organized Health Care Education/Training Program
DX: E03.8 Other specified hypothyroidism (principal); E21.3 Hyperparathyroidism, unspecified; R79.89 Other specified abnormal findings of blood chemistry
CPT/HCPCS: 99214

== ENCOUNTER → 2025-03-17 09:42 | Outpatient (BNVA) | payer OTHER, SELFPAY | PROVIDERS: PCP Internal Medicine; Visit Provider Student in an Organized Health Care Education/Training Program | DX: R79.89 Other specified abnormal findings of blood chemistry (principal); E03.8 Other specified hypothyroidism; E21.3 Hyperparathyroidism, unspecified; E83.52 Hypercalcemia | CPT/HCPCS: 99212 ==

== ENCOUNTER 2025-03-18 10:14 | Outpatient (AMB) | payer OTHER, SELFPAY ==
--- NOTE | 2025-03-18 10:25 | MHC.OFFVIS ---
Vital Signs 03/18/25 10:26 Height 5 ft 7 in Weight 146 lb BMI 22.9 BP 126/74 Blood Pressure Location Rt brachial Position Sitting Pulse 116 H Pulse Source Pulse Oximeter Pulse Oximetry (%) 98 Oxygen Delivery Method Room Air Intake Visit Reasons: f/u Intake Note: ESTABLISHED PATIENT for mgmt of GERD + chronic nausea. CC; C.O. random / idiopathic, sharp pains throughout the thoracic cavity. Pt states that they have been having these pains for the last few months but that they might have become slightly worse since their most recent surgery. Pt comments that their GI sx have remained stable and improved since their last visit. 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 Increase protein intake. Continue taking pantoprazole in the morning and sucralfate in the afternoon and at bedtime. Avoid dietary triggers and late night snacking. Staying upright for minimum 3 hours after meals discussed with patient. Continue low FODMAP diet. Continue following up with dietitian. Patient can take Senokot as needed. Increase fluid intake and activity to promote better bowel motility. Follow-up in the office in 2-3 weeks, sooner on as needed basis. She is agreeable to this plan and verbalizes understanding of instructions. She was given the opportunity to ask questions and all questions answered ? Thank you for allowing me to participate in her care her TODAY'S VISIT Patient is here today for follow-up. Patient reports that she is feeling better, however since her of her rectum me she has been having more abdominal bloating. Patient reports that she started to take sucralfate twice a day is recommended couple weeks ago and she is doing little better. Patient reports that she is moving her bowels without any issues. Her symptoms are worse postprandially. Patient states that she is gaining weight and has more appetite. Feeling nauseous out of the blue, not related to eating. Patient is eating only 3 times a day. She is not snacking in between. Currently she is taking PPI, however she feels like it is not helping her as well. She stopped taking Creon few months ago. Patient does not remember if it was helpful or she was too sick to noticed at that time. Patient is still following up with endocrinology and diet patient. Patient denies dyspepsia, dysphagia or odynophagia. Denies melena, hematochezia. Patient denies fever or chills. [facility] Medical History Hyperparathyroidism History of pyelonephritis Subclinical hypothyroidism Elevated parathyroid hormone Lipoma of back Diabetes GERD (gastroesophageal reflux disease) Back pain Gallbladder polyp Surgical History History of salpingo-oophorectomy History of esophagogastroduodenoscopy (EGD) Hx of colonoscopy H/O dilation and curettage Social History Household Members: Family Housing: House Alcohol intake: former Patient Tobacco Use Status: Current everyday Tobacco user Tobacco use type: Cigarette Cigarettes Per Day: 2 Years Smoked: 40 + e-Cigarette/Vaping Use: Currently Using Substance Use Type: Marijuana service: No Female Reproductive History Menstrual Age of Menarche: 13 Review of Systems Const Denies weight gain and Denies weight loss ENT Reports no additional complaints, Denies dysphagia and Denies odynophagia Card Reports no additional complaints Resp Reports no additional complaints GI Reports abdominal pain (Right lumbar), Denies belching, Denies melena, Reports bloating, Denies change in bowel habits, Denies constipation, Denies dysphagia, Denies excessive flatus, Denies dyspepsia, Denies heartburn, Denies diarrhea, Denies loose stools, Denies nausea, Denies odynophagia and Denies vomiting Reports no additional complaints Musc Reports no additional complaints Neuro Reports no additional complaints Psych Reports no additional complaints Endo Reports no additional complaints Physical Exam Vital Signs: Last Vital Signs Pulse 116 H 03/18/25 10:26 BP 126/74 03/18/25 10:26 Pulse Ox 98 03/18/25 10:26 Oxygen Delivery Method Room Air 03/18/25 10:26 BMI result Body Mass Index 22.9 Const General: healthy appearing, no acute distress and well developed Nutritional Appearance: well nourished Orientation/consciousness: patient oriented x3 Resp Effort & Inspection: normal respiratory effort, able to speak in complete sentences, no tracheal deviation and symmetric chest movement Auscultation: clear to auscultation bilaterally Cardio Rate: regular rate GI Inspection: Yes normal to inspection and No distended Palpation (GI): Soft to palpation, not firm, nontender and No hepatosplenomegaly present Auscultation: normal bowel sounds General: Yes no CVA tenderness Back/Spine/Pelvis Other: Large lipoma on right upper back. Back: no CVA tenderness Skin General skin exam: elasticity normal, turgor normal and dry skin Neuro General: patient oriented x3 Psych Appearance: grossly normal Mental Status: mental status grossly normal Assessment & Plan Assessment & Plan (1) Hypercalcemia: Code(s): E83.52 - Hypercalcemia Category: Medical (2) Nausea: Code(s): R11.0 - Nausea Category: Medical (3) GERD (gastroesophageal reflux disease): Code(s): K21.9 - Gastro-esophageal reflux disease without esophagitis Category: Medical Qualifiers: Esophagitis presence: esophagitis presence not specified Qualified Code(s): K21.9 - Gastro-esophageal reflux disease without esophagitis (4) Gallbladder polyp: Code(s): K82.4 - Cholesterolosis of gallbladder Category: Medical (5) Postprandial abdominal pain in right upper quadrant: Code(s): R10.11 - Right upper quadrant pain Category: Medical (6) RUQ abdominal pain: Code(s): R10.11 - Right upper quadrant pain Plan Patient will continue sucralfate twice a day for another month. She will start taking pantoprazole in the morning and stop taking Nexium. Avoid dietary triggers in late and snacking. Staying upright for minimal 3 hours after meals discussed with patient. Patient will restart taking Creon. Reports abdominal bloating postprandially. Continue following up low FODMAP diet. Patient will follow-up in 2-3 months, sooner on as needed basis. Patient will continue visits with her diet patient. She is agreeable to this plan and verbalizes understanding of instructions. She was given the opportunity to ask questions and all questions answered. Thank you for allowing me to participate in her care Medications: New jckirx-[id number]-guxoyfj 24,000-76,000 -120,000 unit (Creon) administer with meals and/or snacks 1 cap PO QID 120 caps 3RF K86.89 - Other specified diseases of pancreas Refilled sucralfate 10 mL PO BEDTIME 400 mL 3RF K21.9 - Gastro-esophageal reflux disease without esophagitis Coding Level of Care Code Est Pt Level 3 (55372) Diagnoses Hypercalcemia E83.52 Nausea R11.0 Gastroesophageal reflux disease, unspecified whether esophagitis present K21.9 Esophagitis presence: esophagitis presence not specified Gallbladder polyp K82.4 Postprandial abdominal pain in right upper quadrant R10.11 RUQ abdominal pain R10.11 Time Spent (min) 30 Comment 20 minutes spent with patient and additional 10 minutes spent reviewing her records
[2025-03-18 10:26] VITALS: BP 126/74; PULSE 116; O2SAT 98; BMI 22.9
== END 2025-03-18 11:20 | disposition home or self-care (01) ==
LOC: HO.HGI 10:14
PROVIDERS: PCP Internal Medicine; Visit Provider Nurse Practitioner Family
DX: E83.52 Hypercalcemia (principal); R11.0 Nausea; K21.9 Gastro-esophageal reflux disease without esophagitis; K82.4 Cholesterolosis of gallbladder; R10.11 Right upper quadrant pain
CPT/HCPCS: 99213

== ENCOUNTER → 2025-03-18 10:14 | Outpatient (BNVA) | payer OTHER, SELFPAY | PROVIDERS: PCP Internal Medicine; Visit Provider Nurse Practitioner Family | DX: K21.9 Gastro-esophageal reflux disease without esophagitis (principal); R10.11 Right upper quadrant pain; R11.0 Nausea; E83.52 Hypercalcemia | CPT/HCPCS: 99212 ==

== ENCOUNTER 2025-03-24 09:33 | Outpatient (REF) | payer OTHER, SELFPAY ==
[2025-03-24 10:24] LABS: Estimated Average Glucose 117 mg/dL; Hemoglobin A1C 143.8714 umol/L; Hemoglobin A1c % 5.7 % (<6.0); Total Hemoglobin (HGBA1C) 3682.2584 umol/L
[2025-03-24 10:59] LABS: Parathyroid Hormone Intact 128.7 pg/mL (8.7-77.1)
[2025-03-24 11:12] LABS: Alanine Aminotransferase 22 U/L (0-31); Albumin Level 4.5 g/dL (3.5-5.0); Alkaline Phosphatase 74 U/L (39-117); Anion Gap 15 (12-20); Aspartate Amino Transferase 18 U/L (5-31); Bilirubin Total 0.5 mg/dL (0.0-1.0); Blood Urea Nitrogen 22 mg/dL (9-16); Calcium 10.4 mg/dL (8.4-10.2); Carbon Dioxide 24 mmol/L (22-29); Chloride 102 mmol/L (96-108); Estimated Glomerular Filt Rate > 60; Glucose Random 135 mg/dL (60-115); Phosphorus 3.9 mg/dL (2.7-4.5); Potassium 4.6 mmol/L (3.3-5.1); Sodium 136 mmol/L (135-145); TSH reflex Free T4 6.91 uIU/mL (0.32-4.0); Total Protein 7.2 g/dL (6.5-8.0); Vitamin D 25-OH Total 20.8 ng/mL (>30)
== END 2025-03-24 09:34 | disposition home or self-care (01) ==
LOC: HO.LAB 09:33
PROVIDERS: PCP Internal Medicine; Visit Provider Internal Medicine
DX: E11.9 Type 2 diabetes mellitus without complications (principal); E78.2 Mixed hyperlipidemia; R10.84 Generalized abdominal pain; R63.4 Abnormal weight loss; Z72.0 Tobacco use
CPT/HCPCS: 36415; 80053; 82306; 83036; 83970; 84100; 84439; 84443

== ENCOUNTER 2025-03-25 12:34 | Outpatient (REF) | payer OTHER, SELFPAY ==
--- NOTE | ~2025-03-25 | US_ITS ---
EXAMINATION: MM DIAGNOSTIC DIGITAL BREAST TOMOSYNTHESIS, BILATERAL Bilateral Limited ultrasound. CLINICAL INFORMATION: Back from baseline screening for bilateral focal asymmetries. COMPARISON: Mammography: Comparison is made with relevant prior exams. TECHNIQUE: Digital breast mammography with tomosynthesis is performed in both the craniocaudal and mediolateral oblique views along with computer-aided detection (CAD). FINDINGS: There are scattered areas of fibroglandular density (ACR BI-RADS breast composition Category b). Left: Circumscribed oval masses in the upper outer breast and central to lower outer breast persist have morphology consistent with lymph nodes. No suspicious calcifications masses or other abnormal findings. Targeted color Doppler ultrasound demonstrates a normal intramammary lymph node at 2:00 12 cm from the nipple and the normal-appearing intramammary lymph node at 2:30 12 cm from the nipple and a normal-appearing intramammary lymph node at 4:00 7 cm from the nipple. These 3 lymph nodes correlate with the circumscribed oval masses seen on mammography and are benign. Right: Focal asymmetry anterior depth upper outer breast persist on additional imaging projections. No suspicious calcifications or other abnormal findings. Targeted color Doppler ultrasound scanning at 9:00 2 cm from nipple demonstrates a hypoechoic intraductal solid mass measuring 8 x 4 x 7 mm probable correlate for the mammographic focal asymmetry. There is an additional simple cyst versus ectatic duct adjacent nonconvergent with the above intraductal mass described at 9:00 measuring 6 x 6 x 2 mm. Results are provided to the patient at time of visit by the technologist. US/US breast BI limited mamm only IMPRESSION: Left: Benign normal-appearing intramammary lymph nodes. Right: Intraductal solid mass at 9:00 2 cm from the nipple. Recommend histology with ultrasound-guided core needle biopsy at this time. The findings and recommendations were discussed with the patient the procedure will be scheduled. ASSESSMENT: BI-RADS BI-RADS 4 - Suspicious finding RECOMMENDATION: Biopsy recommended This patient's information was entered into a reminder system with a target due date for their next mammogram. Electronically signed by: Heike Eller DO 03/25/2025 03:06 PM EDT
== END 2025-03-25 12:35 | disposition home or self-care (01) ==
LOC: HO.MAMMO 12:34
PROVIDERS: PCP Internal Medicine; Visit Provider Obstetrics & Gynecology
DX: N64.89 Other specified disorders of breast (principal)
CPT/HCPCS: 76642; 77062; 77066

== ENCOUNTER → 2025-03-25 13:00 | Outpatient (BNV) | payer OTHER, SELFPAY | PROVIDERS: PCP Internal Medicine; Visit Provider Internal Medicine | DX: N63.10 Unspecified lump in the right breast, unspecified quadrant (principal); D24.1 Benign neoplasm of right breast | CPT/HCPCS: 76642; 77062; 77066 ==

== ENCOUNTER 2025-04-01 07:53 | Outpatient (REF) | payer OTHER, SELFPAY ==
--- NOTE | ~2025-04-01 | MM_ITS ---
EXAMINATION: DXA BONE DENSITY EXTREMITY HISTORY: E21.3 - Hyperparathyroidism, unspecified TECHNIQUE: [employer] Dual energy absorptiometry (DEXA) of the lumbar spine, total left hip, femoral neck, and distal forearm was performed. COMPARISON: There are no prior studies for comparison. FINDINGS: The bone mineral density of the lumbar spine is 1.119, corresponding to a T-score of -0.5, and a Z-score of 0.9. This is indicative of normal bone mineral density. The bone mineral density of the left total hip is 0.715, corresponding to a T-score of -2.3, and a Z-score of -1.2. This is indicative of osteopenia. The bone mineral density of the left femoral neck is 0.655, corresponding to a T-score of -2.8, and a Z-score of -1.4. This is indicative of osteoporosis. The bone mineral density of the distal forearm is 0.858, corresponding to a T-score of -0.2, and a Z-score of 1.0. This is indicative of normal bone mineral density. MM/XR DEXA appendicular skeleton IMPRESSION: Based on bone mineral density, and according to World Health Organization (WHO) criteria, the diagnosis is consistent with osteoporosis. All bone density values are in grams per centimeter squared (g/cm2). Statistically, 68% of repeat scans fall within 1 SD (+/- 0.010 g/cm2 for AP spine L1-L4) and 1 SD (+/- 0.012 g/cm2 for femur total) FRAX is a trademark of the [employer]'s [place] [employer] Metabolic Bone Disease, a World Health Organization (WHO) Collaborating Center. Electronically signed by: Jorge Shelby MD 04/01/2025 09:30 AM EDT
== END 2025-04-01 07:54 | disposition home or self-care (01) ==
LOC: HO.MAMMO 07:53
PROVIDERS: PCP Internal Medicine; Visit Provider Student in an Organized Health Care Education/Training Program
DX: Z13.820 Encounter for screening for osteoporosis (principal); E21.3 Hyperparathyroidism, unspecified
CPT/HCPCS: 77081

== ENCOUNTER → 2025-04-01 08:15 | Outpatient (BNV) | payer OTHER, SELFPAY | PROVIDERS: PCP Internal Medicine; Visit Provider Radiology Diagnostic Radiology | DX: E28.39 Other primary ovarian failure (principal) | CPT/HCPCS: 77081 ==

== ENCOUNTER 2025-04-07 13:35 | Outpatient (AMB) | payer OTHER, SELFPAY ==
--- NOTE | 2025-04-07 13:36 | MHC.OFFVIS ---
Vital Signs 04/07/25 13:53 Height 5 ft 7 in Weight 147 lb BMI 23.0 BP 104/62 Blood Pressure Location Lt brachial Position Sitting Pulse 104 H Intake Visit Reasons: US bx (R) breast 9 o'clock areolar mass Intake Note: Patient is seen in office for ultrasound guided biopsy CONSULT right breast for 9 o'clock areolar mass. Pt c/o: does not feel a lump on the breast, has not prior breast surgeries, had an abscess when breast feeding over 30 yrs ago, abscess healed on its own, denies fm hx of breast cancer or any other concerns, first at age of 33 yrs old Bx sched:04/15/25 @ 9am Pulmonary Function Technician Required: No Quality Assurance Qa Lab Technician: Quality Assurance Qa Lab Technician Present Accompanied by: Self / Same As Patient Allergies Latex, Natural Rubber Allergy (Verified 04/07/25 13:50) Rash HPI Comments Details: 64-year-old female patient presenting with a recent screening mammogram performed on 01/21/2025 with follow-up images including diagnostic mammogram and ultrasound performed on 02/23/2025. She was found to have a hypoechoic intraductal solid mass measuring 8 x 4 x 7 mm located in the 9 o'clock position 2 cm from the nipple which correlate with a mammographic focal asymmetry. This was felt to be suspicious for malignancy an ultrasound-guided core biopsy recommended. She is scheduled for this procedure at the [facility] on 04/15/2024. He denies a previous history of breast problems or breast surgery. Her family history is negative for breast cancer. Menarche was at 13, she is , LMP at the age of 41. She denies hormone replacement therapy. She has no personal or family history of genetic testing. She denies Ashkenazi Restoration heritage. [facility] Medical History Hyperparathyroidism History of pyelonephritis Subclinical hypothyroidism Elevated parathyroid hormone Lipoma of back Diabetes GERD (gastroesophageal reflux disease) Back pain Gallbladder polyp Surgical History History of salpingo-oophorectomy History of esophagogastroduodenoscopy (EGD) Hx of colonoscopy H/O dilation and curettage Social History Household Members: Family Housing: House Alcohol intake: former Patient Tobacco Use Status: Current everyday Tobacco user Tobacco use type: Cigarette Cigarettes Per Day: 2 Years Smoked: 40 + e-Cigarette/Vaping Use: Currently Using Substance Use Type: Marijuana service: No Female Reproductive History Menstrual Age of Menarche: 13 Age of menopause: 46 Total pregnancies: 2 Number of Living Children: 1 Review of Systems Const All systems reviewed & are unremarkable except as noted in HPI and below Physical Exam Const General: cooperative and no acute distress Nutritional Appearance: well nourished Orientation/consciousness: patient oriented x3 Limitations: no limitations HEENT Head: Yes normocephalic and Yes atraumatic Ears: hearing grossly normal bilaterally Chest Other: Left breast: No skin change, no nipple retraction, no nipple discharge, no palpable mass, no enlarged lymph nodes. Right breast: No skin change, no nipple retraction, no nipple discharge, faintly palpable nodule located in the 9 o'clock position at the lateral margin of the areola corresponding to the mammographic finding, no enlarged lymph nodes Chest/axillae images: 1. Site of palpable small nodule 9 o'clock position, 2 cm from nipple Resp Effort & Inspection: normal respiratory effort, no audible wheezes, no cough and no respiratory distress Cardio Jugular venous distension: no JVD GI Inspection: Yes normal to inspection Skin Other: Warm, dry, no rash Neuro Other: Mobility Assessment: 1. 3 meter assessment time (seconds) 5 2. Gait observations: Normal balance and gait General: patient oriented x3 Extrem General: Yes no clubbing, cyanosis or edema Assessment & Plan Assessment & Plan (1) Abnormal ultrasound of breast: Code(s): R92.8 - Other abnormal and inconclusive findings on diagnostic imaging of breast Category: Medical Plan 64-year-old female patient presenting with a recent mammogram and ultrasound which revealed a new density in the right breast, 9 o'clock position, 2 cm from the nipple felt to be suspicious for malignancy. Examination does confirm a palpable nodule which is quite small located at this location. She denies any previous history of breast problems or breast surgery and her family history is negative for breast cancer. She has no risk factors for breast cancer. She is scheduled for an ultrasound-guided core biopsy on 04/15/2025. I recommended follow-up examination approximately 1 week after biopsy to review the pathology results. She expressed understanding and agrees with the plan. Orders: Orders US breast ndl core biopsy RT Today R92.8 - Other abnormal and inconclusive findings on diagnostic imaging of breast Coding Level of Care Code New Pt Level 4 (59774) Diagnoses Abnormal ultrasound of breast R92.8
[2025-04-07 13:53] VITALS: BP 104/62; PULSE 104; BMI 23.0
== END 2025-04-07 14:11 | disposition home or self-care (01) ==
LOC: HO.HGS 13:35
PROVIDERS: PCP Internal Medicine; Visit Provider Surgery
DX: R92.8 Other abnormal and inconclusive findings on diagnostic imaging of breast (principal)
CPT/HCPCS: 99204

== ENCOUNTER → 2025-04-07 13:35 | Outpatient (BNVA) | payer OTHER, SELFPAY | PROVIDERS: PCP Internal Medicine; Visit Provider Surgery | DX: R92.8 Other abnormal and inconclusive findings on diagnostic imaging of breast (principal) | CPT/HCPCS: 99202 ==

== ENCOUNTER 2025-04-15 08:43 | Outpatient (REF) | payer OTHER, SELFPAY ==
--- OUTSIDE RECORDS SUMMARY | 2025-04-09 23:59 | XMS_ITS | Continuity of Care Document ---
Author Organization [facility] [employer] On[facility] y Address [address] [place] [id number] Care Team Providers Care Computer Engineering Professor Name Role Phone Bárbara MESSINA, Blanche Zheng Primary Care Physician Encounter [facility] Date(s): 03/10/25 - 04/09/25 [facility] [employer] Oncology [address] [place] [id number] Attending Physician: Tayla Han Admitting Physician: Tayla Han Referring Physician: AdmtrTayla Encounter Type: Triage Allergies, Adverse Reactions, Alerts No Known Medication Allergies Substance Criticality Severity Reaction Reaction Severity Status Latex itchy Active Medications acetaminophen 325 mg oral tablet 975 mg, 3, tablet, By Mouth, Every 6 hours, # 50 tablet, Refills 0, Tot. Refills 0, Maintenance, 02/25/25 2:57:00 PM EDT, Route to Pharmacy Electronically, [facility], Partial fill upon patient request if the prescription is for a schedule II opioid drug., 170.18, cm, 01/29/25 13:17:00EDT, Height, 62.6, kg, 02/25/25 11:36:00 EDT, Dry Weight Start Date: 02/25/25 Status: Ordered Quantity: 50.0 Unit: tablet Repeat number: 1 atorvastatin 20 mg oral tablet 1 tablet = 20 mg, By Mouth, Daily, 0 Refills, Maintenance, 01/29/25 1:09:00 PM EDT, Partial fill uponpatient request if the prescription is for a schedule II opioid drug. Start Date: 01/29/25 Status: Ordered Repeat number: 1 glipiZIDE 2.5 mg oral tablet, extended release 1 tablet = 2.5 mg, By Mouth, Daily, 0 Refills, Maintenance, 01/29/25 1:09:00 PM EDT, Partial fill upon patient request if the prescription is for a schedule II opioid drug. Start Date: 01/29/25 Status: Ordered Repeat number: 1 pantoprazole 40 mg oral delayed release tablet 1 tablet = 40 mg, By Mouth, Daily, 0 Refills, Maintenance, 03/10/25 11:10:00 AM EDT Start Date: 03/10/25 Status: Ordered Repeat number: 1 Simethicone By Mouth, 0 Refills, Maintenance, 02/25/25 11:16:00 AM EDT, Partial fill upon patient request if theprescription is for a schedule II opioid drug. Start Date: 02/25/25 Status: Ordered Repeat number: 1 simethicone 125 mg oral tablet, chewable 1 tablet = 125 mg, Chew, 4 times a day, # 48 tablet, 0 Refills, Maintenance, 02/25/25 2:56:00 PM EDT, Chew Tablet, [facility], Partial fill upon patient request if the prescription is for a schedule II opioid drug., 170.18, cm, 01/29/25 13:17:00 EDT, Height, 62.6, kg, 02/25/25 11:36:00EDT, Dry Weight Start Date: 02/25/25 Status: Ordered Quantity: 48.0 Unit: tablet Repeat number: 1 sucralfate 1 gm oral tablet 1 Gm, 1, tablet, By Mouth, Daily, # 60 tablet, Refills 0, Maintenance, 02/19/25 2:29:00 PM EDT, Partial fill upon patient request if the prescription is for a schedule II opioid drug. Start Date: 02/19/25 Status: Ordered Quantity: 60.0 Unit: tablet Repeat number: 1 Vitamin D3 1000 intl units oral capsule 1 capsule = 25 mcg, By Mouth, Daily, 0 Refills, Maintenance, 01/29/25 1:09:00 PM EDT, Partial fill upon patient request if the prescription is for a schedule II opioid drug. Start Date: 01/29/25 Status: Ordered Repeat number: 1 Problem List Condition Confirmation Course Effective Dates Status H ealth Status Informant Back ache Confirmed Active Diabetes Confirmed Active GERD (gastroesophageal reflux disease) Confirmed Active Lipoma of back Confirmed Active Polyp of gallbladder Confirmed Active Follow-up examination after gynecological surgery Confirmed Active Social History Social History Type Response Smoking Status 5-9 cigarettes (betw een 1/4 to 1/2 pack)/day in last 30 days entered on: 01/29/25 Sex Sex Representation Female (finding) Patient Care team information Care Team Personnel Name: Blanche Granger MD Position: [facility] Outreach Member Role: PCP [address]: [address] [place] [address] [address] Blanche [place]anger [place], [place] [address] Telecom: Care Team Related Persons Name: SHERRI COREAS Insurance Providers Guarantor name: CHERYL Health Plan Information #: 1 Payer: [employer] DIRECT Payer Identifier: CHERYL Member Number: [id number] Group Number: [id number] Subscriber Identifier: [id number] Relationship to Subscriber: self Coverage Type: Managed Care (Private) Coverage Verification Date: CHERYL Telecom: CHERYL Address:
--- NOTE | ~2025-04-15 | US_ITS ---
PROCEDURE: ULTRASOUND-GUIDED RIGHT BREAST BIOPSY CLINICAL INFORMATION: Solid intraductal mass versus complicated cyst in the right breast at 9:00 Mammogram. COMPARISON: [facility] on PACS. TECHNIQUE: The details of the procedure, as well as the risks, benefits, and alternatives to the procedure were explained to the patient in detail and all of her questions were answered, after which, written informed consent was obtained. PROCEDURE: Prior to the procedure, sonography revealed a hypoechoic intraductal mass versus complicated cyst at 9:00 3 cm from the nipple. A time-out was performed, the lesion intended for biopsy was targeted and the skin of the right breast was then prepped and draped in the usual sterile fashion. Using sonographic guidance, sterile technique, and 1% lidocaine without epinephrine for local anesthesia, a total of 5 cores were obtained through the targeted area with a 14-gauge biopsy device. At the completion of tissue sampling, a single coil metallic clip was deposited at the biopsy site. An appropriate sample was obtained. The postprocedure 2-view direct digital mammogram reveals satisfactory positioning of the biopsy clip. The patient tolerated the procedure well and, after assuring adequate hemostasis, was discharged in good condition after reviewing postbiopsy breast care instructions. Final pathology results are pending. US/US breast ndl core biopsy RT IMPRESSION: 1. Uncomplicated sonographically-guided core biopsy of the right breast breast. The 2-view direct digital postprocedure mammogram reveals satisfactory positioning of the biopsy clip. 2. Final pathology results are pending. A separate report with final recommendations will be issued once these results are made available. Electronically signed by: Heike Eller DO 04/15/2025 10:04 AM EDRonnie
[2025-04-15] MEDS: Sodium Bicarbonate 8.4% 50 MEQ/50 ML VIAL SUBCUT (09:35)
[2025-04-15] MEDS: Lidocaine HCl 1 % 20 ML VIAL 9 ML SUBCUT (09:36)
== END 2025-04-15 08:44 | disposition home or self-care (01) ==
LOC: HO.MAMMO 08:43
PROVIDERS: Absent Provider Obstetrics & Gynecology; PCP Internal Medicine; Visit Provider Surgery
DX: N63.15 Unspecified lump in the right breast, overlapping quadrants (principal); D24.1 Benign neoplasm of right breast
CPT/HCPCS: 19083; 77061; 77065; 88305; A4648; J2003

== ENCOUNTER → 2025-04-15 09:00 | Outpatient (BNV) | payer OTHER, SELFPAY | PROVIDERS: Absent Provider Obstetrics & Gynecology; PCP Internal Medicine; Visit Provider Internal Medicine | DX: N60.01 Solitary cyst of right breast (principal) | CPT/HCPCS: 19083; 77065 ==

== ENCOUNTER 2025-04-22 10:35 | Outpatient (AMB) | payer OTHER, SELFPAY ==
--- NOTE | 2025-04-22 10:40 | MHC.OFFVIS ---
Intake Visit Reasons: lipoma on back Intake Note: Patient scheduled today's appointment for lipoma on back. Present over 20 yrs. [facility] 12-24-2024. Of note: Hgb A1C (5.7) checked on 03-24-2025. Patient c/o: lipoma enlarging. 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 Accompanied by: daughter Lauren Allergies Latex, Natural Rubber Allergy (Verified 04/23/25 09:49) Rash Medication List - Last Reconciled 04/22/25 by Wesley Betancourt MD acetaminophen (Tylenol Extra Strength) 500 mg PO Q6H PRN atorvastatin 20 mg PO BEDTIME blood sugar diagnostic (FreeStyle Lite Strips) As directed blood-glucose meter (FreeStyle Lite Meter kit) As directed cholecalciferol (vitamin D3) 25 mcg PO DAILY glipizide ER 2.5 mg PO DAILY lancets (FreeStyle Lancets) As directed [id number] 24,000-76,000 -120,000 unit (Creon) 1 cap PO QID ondansetron 4 mg PO Q8H PRN pantoprazole 40 mg PO DAILY simethicone (Gas Relief (simethicone)) 125 mg PO BID-QID PRN sucralfate 10 mL PO BEDTIME turmeric root extract 500 mg PO DAILY HPI HPI lipoma on back: Details: [age] year old female here for a large lipoma of the back. I had actually seen her in November and she had wanted this excised. However, she says she has questions again and wanted to see me before rescheduling. She says that she has had this for many years but this has been increasing in size. This has been causing her discomfort and she now wants this removed. She iis a known diabetic but admits that she does not really monitor her blood sugars closely . She had an EGD and colonoscopy today showing hemorrhoids and diverticulosis. She describes being unsteady and says she has this chronic back pain. [facility] Medical History Hyperparathyroidism History of pyelonephritis Subclinical hypothyroidism Elevated parathyroid hormone Lipoma of back Diabetes GERD (gastroesophageal reflux disease) Back pain Gallbladder polyp Surgical History History of salpingo-oophorectomy History of esophagogastroduodenoscopy (EGD) Hx of colonoscopy H/O dilation and curettage Social History Household Members: Family Housing: House Alcohol intake: former Patient Tobacco Use Status: Current everyday Tobacco user Tobacco use type: Cigarette Cigarettes Per Day: 2 Years Smoked: 40 + e-Cigarette/Vaping Use: Currently Using Substance Use Type: Marijuana service: No Female Reproductive History Menstrual Age of Menarche: 13 Review of Systems Const Denies chills and Denies fever(s) Card Denies chest pain, Denies dyspnea and Denies dyspnea on exertion Resp Denies cough, Denies dyspnea and Denies dyspnea on exertion GI Denies hematochezia and Denies change in bowel habits Denies hematuria Musc Reports back pain and Denies limited range of motion Neuro Denies focal weakness and Denies convulsions Psych Denies depression and Denies mood swings Physical Exam Const General: comfortable and no acute distress Orientation/consciousness: patient oriented x3 Neck Neck: Yes no lymphadenopathy Resp Auscultation: clear to auscultation bilaterally Cardio Rhythm: regular rhythm GI Palpation (GI): Soft to palpation, nontender and no guarding Back/Spine/Pelvis Other: Lipomatous mass on the back, about 7 cm mobile and well-defined Neuro General: patient oriented x3 Assessment & Plan Assessment & Plan (1) Lipoma of back: Code(s): D17.1 - Benign lipomatous neoplasm of skin and subcutaneous tissue of trunk Category: Medical Plan: I reviewed with her the technique of excision of the lipoma which we will be done under anesthesia in view of the size. I explained the risks including but not limited to bleeding, infections, postop pain, as well as the benefits and alternatives. I also reviewed with her what to expect postoperatively She understands and now wants to proceed. Her daughter was with her during the visit. Coding Level of Care Code New Pt Level 3 (95331) Diagnoses Lipoma of back D17.1
== END 2025-04-22 11:10 | disposition home or self-care (01) ==
LOC: HO.HGS 10:36
PROVIDERS: PCP Internal Medicine; Visit Provider Surgery
DX: D17.1 Benign lipomatous neoplasm of skin and subcutaneous tissue of trunk (principal)
CPT/HCPCS: 99213

== ENCOUNTER → 2025-04-22 10:35 | Outpatient (BNVA) | payer OTHER, SELFPAY | PROVIDERS: PCP Internal Medicine; Visit Provider Surgery | DX: D17.1 Benign lipomatous neoplasm of skin and subcutaneous tissue of trunk (principal) | CPT/HCPCS: 99212 ==

== ENCOUNTER 2025-04-23 09:42 | Outpatient (AMB) | payer OTHER, SELFPAY ==
--- NOTE | 2025-04-23 09:44 | MHC.OFFVIS ---
Vital Signs 04/23/25 09:49 Height 5 ft 7 in Weight 146 lb 13.246 oz BMI 23.0 Intake Visit Reasons: RESULTS US bx (R) breast 9 o'clock areolar mass Intake Note: Patient is seen in office for biopsy RESULTS following right breast for mass. 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 She was found to have a right breast hypoechoic intraductal solid mass measuring 8 x 4 x 7 mm located in the 9 o'clock position 2 cm from the nipple which correlate with a mammographic focal asymmetry. This was felt to be suspicious for malignancy an ultrasound-guided core biopsy recommended. He denies a previous history of breast problems or breast surgery. Her family history is negative for breast cancer. Menarche was at 13, she is , LMP at the age of 41. She denies hormone replacement therapy. She has no personal or family history of genetic testing. She denies Ashkenazi Spiritism heritage. She underwent a right breast ultrasound-guided core biopsy at the [facility] on 04/15/2025. Pathology revealed intraductal papilloma, fragmented. She tolerated the procedure well and denies any ongoing breast symptoms [facility] Medical History Hyperparathyroidism History of pyelonephritis Subclinical hypothyroidism Elevated parathyroid hormone Lipoma of back Diabetes GERD (gastroesophageal reflux disease) Back pain Gallbladder polyp Surgical History History of salpingo-oophorectomy History of esophagogastroduodenoscopy (EGD) Hx of colonoscopy H/O dilation and curettage Social History Household Members: Family Housing: House Alcohol intake: former Patient Tobacco Use Status: Current everyday Tobacco user Tobacco use type: Cigarette Cigarettes Per Day: 2 Years Smoked: 40 + e-Cigarette/Vaping Use: Currently Using Substance Use Type: Marijuana service: No Female Reproductive History Menstrual Age of Menarche: 13 Review of Systems Const All systems reviewed & are unremarkable except as noted in HPI and below Physical Exam Vital Signs: BMI result Body Mass Index 23.0 Const General: cooperative and no acute distress Nutritional Appearance: well nourished Orientation/consciousness: patient oriented x3 Limitations: no limitations HEENT Head: Yes normocephalic and Yes atraumatic Ears: hearing grossly normal bilaterally Chest Other: From previous examination: Left breast: No skin change, no nipple retraction, no nipple discharge, no palpable mass, no enlarged lymph nodes. Right breast: No skin change, no nipple retraction, no nipple discharge, faintly palpable nodule located in the 9 o'clock position at the lateral margin of the areola corresponding to the mammographic finding, no enlarged lymph nodes Resp Effort & Inspection: normal respiratory effort, no audible wheezes, no cough and no respiratory distress Cardio Jugular venous distension: no JVD GI Inspection: Yes normal to inspection Skin Other: Warm, dry, no rash Neuro Other: Mobility Assessment: 1. 3 meter assessment time (seconds) 5 2. Gait observations: Normal balance and gait General: patient oriented x3 Extrem General: Yes no clubbing, cyanosis or edema Assessment & Plan Assessment & Plan (1) Abnormal ultrasound of breast: Code(s): R92.8 - Other abnormal and inconclusive findings on diagnostic imaging of breast Category: Medical Plan 64-year-old female patient presenting with a recent mammogram and ultrasound which revealed a new density in the right breast, 9 o'clock position, 2 cm from the nipple felt to be suspicious for malignancy. Examination does confirm a palpable nodule which is quite small located at this location. She denies any previous history of breast problems or breast surgery and her family history is negative for breast cancer. She has no risk factors for breast cancer. Ultrasound-guided core biopsy on 04/15/2025 revealed intraductal papilloma, fragmented. I reviewed the pathology results with the patient and her daughter today and recommended a wider excision to assure complete removal. This will be performed as a short-stay surgery. I reviewed the procedure, risks, and alternatives to a lumpectomy with localizer right breast and she consents to the surgery. Coding Level of Care Code Est Pt Level 4 (75568) Diagnoses Abnormal ultrasound of breast R92.8
[2025-04-23 09:49] VITALS: BMI 23.0
== END 2025-04-23 10:15 | disposition home or self-care (01) ==
LOC: HO.HGS 09:43
PROVIDERS: PCP Internal Medicine; Visit Provider Surgery
DX: R92.8 Other abnormal and inconclusive findings on diagnostic imaging of breast (principal)
CPT/HCPCS: 99214

== ENCOUNTER → 2025-04-23 09:42 | Outpatient (BNVA) | payer OTHER, SELFPAY | PROVIDERS: PCP Internal Medicine; Visit Provider Surgery | DX: Z71.2 Person consulting for explanation of examination or test findings (principal); R92.8 Other abnormal and inconclusive findings on diagnostic imaging of breast; D05.11 Intraductal carcinoma in situ of right breast | CPT/HCPCS: 99212 ==

== ENCOUNTER 2025-05-07 09:15 | Outpatient (AMB) | payer OTHER, SELFPAY ==
[2025-05-07 09:35] VITALS: BMI 23.7
--- NOTE | 2025-05-07 09:35 | MHC.AMNUTRGE ---
VS Expanded 05/07/25 09:35 Height 5 ft 7 in Weight 151 lb 3.794 oz BMI 23.7 Intake Visit Reasons: Unintentional weight loss Allergies Latex, Natural Rubber Allergy (Verified 04/23/25 09:49) Rash Nutrition Presentation Details: Pt presents for MNT f/u for unintentional weight loss Pt reports doing better with gradual weight gain working on choosing lactose free foods r/t GI symptoms follows vegetarian diet, and is working on choosing foods with protein B:bagel with peanut butter or or cereal with whole milk lactose free , grapes d/L wrap , chicken replacement nuggets or pasta or rice/beans/legumes/vegetables includes nuts/seeds 3x/wk or nut butters daily Dairy: 3-4/d, choosing lactose free fruits: 1-3/d beverages: water, milk, juices diluted reports reading food labels and choosing meals/foods with higher protein and fortified with vit /min physical activity: walking 3-4 x/wk BS Monitoring Most Recent Diabetes Results: Creatinine, (0.5-1.4) 0.89 mg/dL 03/24/25 BUN, (9-16) 22 mg/dL H 03/24/25 Sodium, (135-145) 136 mmol/L 03/24/25 Potassium, (3.3-5.1) 4.6 mmol/L 03/24/25 Chloride, (96-108) 102 mmol/L 03/24/25 Carbon Dioxide, (22-29) 24 mmol/L 03/24/25 Calcium, (8.4-10.2) 10.4 mg/dL H 03/24/25 AST, (5-31) 18 U/L 03/24/25 ALT, (0-31) 22 U/L 03/24/25 Total Protein, (6.5-8.0) 7.2 g/dL 03/24/25 Albumin, (3.5-5.0) 4.5 g/dL 03/24/25 [facility] Medical History Hyperparathyroidism History of pyelonephritis Subclinical hypothyroidism Elevated parathyroid hormone Lipoma of back Diabetes GERD (gastroesophageal reflux disease) Back pain Gallbladder polyp Surgical History History of salpingo-oophorectomy History of esophagogastroduodenoscopy (EGD) Hx of colonoscopy H/O dilation and curettage Social History Household Members: Family Housing: House Alcohol intake: former Patient Tobacco Use Status: Current everyday Tobacco user Tobacco use type: Cigarette Cigarettes Per Day: 2 Years Smoked: 40 + e-Cigarette/Vaping Use: Currently Using Substance Use Type: Marijuana service: No Female Reproductive History Menstrual Age of Menarche: 13 Assessment & Plan Assessment & Plan (1) Weight loss: Code(s): R63.4 - Abnormal weight loss Category: Medical Plan: Wt:62 Kg ( 02/20 ), 68.6 kg (05/22) Est kcal needs as per MSJ: 2300 +1000/2000+ for wt gain and prevention of weight loss (40% carb, 30% protein/fat) Est fluid needs as per 25-30 ml/d: 2000 Est prot per day as per 1 g/kg bw: 65 Recommend fiber intake : 8-10 g per day and gradually increase to 25-28 g per day for women and 35-38 g for men or as tolerated Recommend sodium intake per day : less than 2000 mg Educated patient on: ( R = reviewed V = verbalizes understanding N/R = needs review N/A = not applicable Including a variety of foods including fats and protein in diet: R, V Patient Instructions: Work on weight maintenance Include a variety of foods following healthy plate method , vegetarian guide , mindful of lactose containing foods (including but not limited to batters, butters, pastries) Mantain physically active, as able 150 minutes pe week and keep hydrated Coding Level of Care Code Nutr Indiv Subseq (77253) Diagnoses Weight loss R63.4 Time Spent (min) 30
== END 2025-05-07 13:18 | disposition home or self-care (01) ==
LOC: HO.ENCR 09:15
PROVIDERS: PCP Internal Medicine; Visit Provider Dietitian, Registered
DX: R63.4 Abnormal weight loss (principal)

== ENCOUNTER → 2025-05-07 09:15 | Outpatient (BNVA) | payer OTHER, SELFPAY | PROVIDERS: PCP Internal Medicine; Visit Provider Dietitian, Registered | DX: R63.4 Abnormal weight loss (principal) | CPT/HCPCS: 97803 ==

== ENCOUNTER 2025-05-18 08:05 | Outpatient (REF) | payer OTHER, SELFPAY ==
[2025-05-18 10:30] LABS: Albumin Level 4.4 g/dL (3.5-5.0); Calcium 10.1 mg/dL (8.4-10.2); Estimated Glomerular Filt Rate > 60
[2025-05-18 10:54] LABS: Parathyroid Hormone Intact 65.6 pg/mL (8.7-77.1)
[2025-05-19 13:09] LABS: Calcium, Ionized 5.6 mg/dL (4.7-5.5)
== END 2025-05-18 08:06 | disposition home or self-care (01) ==
LOC: HO.HMGCLDS 08:05
PROVIDERS: PCP Internal Medicine; Visit Provider Student in an Organized Health Care Education/Training Program
DX: E83.52 Hypercalcemia (principal)
CPT/HCPCS: 36415; 82040; 82310; 82330; 82565; 83970

== ENCOUNTER 2025-05-20 09:11 | Outpatient (AMB) | payer OTHER, SELFPAY ==
--- NOTE | 2025-05-20 09:19 | A.OFFVIS_ITS ---
Vital Signs 05/20/25 09:25 Height 5 ft 7 in Weight 149 lb BMI 23.3 BP 122/72 Blood Pressure Location Rt brachial Position Sitting Pulse 88 Pulse Source Pulse Oximeter Pulse Oximetry (%) 100 Oxygen Delivery Method Room Air Intake Visit Reasons: 3 mos FUV. GERD + abd pain mgmt. Intake Note: Est pt for GERD, postprandial abdominal bloating mgmt CC: Pt denies any changes or new concerns since last visit and reports that she has remained stable and is doing well. 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 GERD + abd pain mgmt.: Details: LAST VISIT: Hypercalcemia Nausea GERD (gastroesophageal reflux disease) Gallbladder polyp Postprandial abdominal pain in right upper quadrant RUQ abdominal pain Plan Patient will continue sucralfate twice a day for another month. She will start taking pantoprazole in the morning and stop taking Nexium. Avoid dietary trig gers in late and snacking. Staying upright for minimal 3 hours after meals discussed with patient. Patient will restart taking Creon. Reports abdominal bloating postprandially. Continue following up low FODMAP diet. Patient will follow-up in 2-3 months, sooner on as needed basis. Patient will continue visits with her diet patient. She is agreeable to this plan and verbalizes understanding of instructions. She was given the opportunity to ask questions and all questions answered. ? Thank you for allowing me to participate in her care New [id number]-[id number]-kahnkdc 24,000-76,000 -120,000 unit (Creon) administer with meals and/or snacks 1 cap PO QID 120 caps 3RF K86.89 Refilled sucralfate 10 mL PO BEDTIME 400 mL 3RF K21.9 TODAY'S VISIT Patient is here today for follow-up. Patient is accompanied by her daughter. Patient reports that since last visit she has been doing quite well. Patient is taking Creon with meals and her symptoms of abdominal bloating have suppressed. Patient is also watching her diet. Started taking supplements like reserve back to all and turmeric. Has appointment with general surgeons for breath lumbar checked a move and removal of lipoma her back. Patient reports that she has been trying to drink fluids. Patient denies having any urinary issues. Denies any nausea or vomiting. Denies any abdominal pain or bloating. [facility] Medical History Hyperparathyroidism History of pyelonephritis Subclinical hypothyroidism Elevated parathyroid hormone Lipoma of back Diabetes GERD (gastroesophageal reflux disease) Back pain Gallbladder polyp Surgical History History of salpingo-oophorectomy History of esophagogastroduodenoscopy (EGD) Hx of colonoscopy H/O dilation and curettage Social History Household Members: Family Housing: House Alcohol intake: former Patient Tobacco Use Status: Current everyday Tobacco user Tobacco use type: Cigarette Cigarettes Per Day: 2 Years Smoked: 40 + e-Cigarette/Vaping Use: Currently Using Substance Use Type: Marijuana service: No Female Reproductive History Menstrual Age of Menarche: 13 Review of Systems Const Denies weight gain and Denies weight loss ENT Reports no additional complaints, Denies dysphagia and Denies odynophagia Card Reports no additional complaints Resp Reports no additional complaints GI Denies abdominal pain, Denies belching, Denies melena, Denies bloating, Denies change in bowel habits, Denies constipation, Denies dysphagia, Denies excessive flatus, Denies dyspepsia, Denies heartburn, Denies diarrhea, Denies loose stools, Denies nausea, Denies odynophagia and Denies vomiting Reports no additional complaints Musc Reports no additional complaints Neuro Reports no additional complaints Psych Reports no additional complaints Endo Reports no additional complaints Physical Exam Vital Signs: Last Vital Signs Pulse 88 05/20/25 09:25 BP 122/72 05/20/25 09:25 Pulse Ox 100 05/20/25 09:25 Oxygen Delivery Method Room Air 05/20/25 09:25 BMI result Body Mass Index 23.3 Const General: healthy appearing, no acute distress and well developed Nutritional Appearance: well nourished Orientation/consciousness: patient oriented x3 Resp Effort & Inspection: normal respiratory effort, able to speak in complete sentences, no tracheal deviation and symmetric chest movement Auscultation: clear to auscultation bilaterally Cardio Rate: regular rate GI Inspection: Yes normal to inspection and No distended Palpation (GI): Soft to palpation, not firm, nontender and No hepatosplenomegaly present Auscultation: normal bowel sounds General: Yes no CVA tenderness Back/Spine/Pelvis Other: Large lipoma on right upper back. Back: no CVA tenderness Skin General skin exam: elasticity normal, turgor normal and dry skin Neuro General: patient oriented x3 Psych Appearance: grossly normal Mental Status: mental status grossly normal Assessment & Plan Assessment & Plan (1) GERD (gastroesophageal reflux disease): Code(s): K21.9 - Gastro-esophageal reflux disease without esophagitis Category: Medical Qualifiers: Esophagitis presence: esophagitis presence not specified Qualified Code(s): K21.9 - Gastro-esophageal reflux disease without esophagitis (2) Nausea: Code(s): R11.0 - Nausea Category: Medical (3) Gallbladder polyp: Code(s): K82.4 - Cholesterolosis of gallbladder Category: Medical (4) Postprandial abdominal pain in right upper quadrant: Code(s): R10.11 - Right upper quadrant pain Category: Medical Plan Patient will continue current dietary choices. Patient was encouraged to quit smoking. Avoid dietary triggers and late night snacking. Staying upright for minimum 3 hours after meals discussed with patient. Continue current treatment with sucralfate at night time and pantoprazole in the morning. Patient will follow-up in 6 months. She will call us if she will have any GI concerning symptoms. She is agreeable to this plan and verbalizes understanding of instructions. She was given the opportunity to ask questions and all questions answered. Thank you for allowing me to participate in her care Coding Level of Care Code Est Pt Level 3 (07722) Diagnoses Gastroesophageal reflux disease, unspecified whether esophagitis present K21.9 Esophagitis presence: esophagitis presence not specified Nausea R11.0 Gallbladder polyp K82.4 Postprandial abdominal pain in right upper quadrant R10.11 Time Spent (min) 30 Comment 20 minutes spent with patient and additional 10 minutes spent reviewing her records
[2025-05-20 09:25] VITALS: BP 122/72; PULSE 88; O2SAT 100; BMI 23.3
== END 2025-05-20 09:50 | disposition home or self-care (01) ==
LOC: HO.HGI 09:12
PROVIDERS: PCP Internal Medicine; Visit Provider Nurse Practitioner Family
DX: K21.9 Gastro-esophageal reflux disease without esophagitis (principal); R11.0 Nausea; K82.4 Cholesterolosis of gallbladder; R10.11 Right upper quadrant pain
CPT/HCPCS: 99213

== ENCOUNTER → 2025-05-20 09:11 | Outpatient (BNVA) | payer OTHER, SELFPAY | PROVIDERS: PCP Internal Medicine; Visit Provider Nurse Practitioner Family | DX: K21.9 Gastro-esophageal reflux disease without esophagitis (principal); R11.0 Nausea; R10.11 Right upper quadrant pain; K82.4 Cholesterolosis of gallbladder | CPT/HCPCS: 99212 ==

== ENCOUNTER 2025-05-21 08:48 | Outpatient (REF) | payer OTHER, SELFPAY ==
--- NOTE | ~2025-05-21 | MM_ITS ---
EXAMINATION: Ultrasound GUIDED RFID LOCALIZATION BREAST, RIGHT CLINICAL INFORMATION: Right breast papilloma 9:00 3 cm from the nipple here for localization COMPARISON: [facility] on PACS. TECHNIQUE NEEDLE LOC: Proper informed consent is obtained from the patient after discussion of the procedure, potential risks and complications, and alternatives including declining the procedure today. Patient was given an opportunity for questions. The patient appeared to understand. The patient consented to the procedure and signed the consent form. GUIDANCE: Ultrasound. APPROACH: Lateral. TARGET: Right breast mass 9:00 recent meters from the nipple. ANESTHESIA: carbonated lidocaine . LOCALIZATION SYSTEM: [employer] LOCallizer Wire-Free Guidance System with 12g needle applicator. RADIOFREQUENCY TAG: ID # [id number] RF Tag ID confirmed with LOCalizer Guidance System prior to placement. The skin is prepped and local anesthesia administered. The needle is positioned and RFID tag deployed. Final images demonstrate the LOCalizer RF tag to reside adjacent to the marker clip. The patient tolerated the procedure well and had no immediate complications. Dressing placed and home instructions reviewed. MM/MM tomosynthesis diagnostic RT IMPRESSION: -Status post right breast RFID localization. Electronically signed by: Heike Eller DO 05/21/2025 12:04 PM EDT
--- NOTE | ~2025-05-21 | US_ITS ---
EXAMINATION: Ultrasound GUIDED RFID LOCALIZATION BREAST, RIGHT CLINICAL INFORMATION: Right breast papilloma 9:00 3 cm from the nipple here for localization COMPARISON: [facility] on PACS. TECHNIQUE NEEDLE LOC: Proper informed consent is obtained from the patient after discussion of the procedure, potential risks and complications, and alternatives including declining the procedure today. Patient was given an opportunity for questions. The patient appeared to understand. The patient consented to the procedure and signed the consent form. GUIDANCE: Ultrasound. APPROACH: Lateral. TARGET: Right breast mass 9:00 recent meters from the nipple. ANESTHESIA: carbonated lidocaine . LOCALIZATION SYSTEM: [employer] LOCallizer Wire-Free Guidance System with 12g needle applicator. RADIOFREQUENCY TAG: ID # [id number] RF Tag ID confirmed with LOCalizer Guidance System prior to placement. The skin is prepped and local anesthesia administered. The needle is positioned and RFID tag deployed. Final images demonstrate the LOCalizer RF tag to reside adjacent to the marker clip. The patient tolerated the procedure well and had no immediate complications. Dressing placed and home instructions reviewed. US/US Breast RF Tag Device Right IMPRESSION: -Status post right breast RFID localization. Electronically signed by: Heike Eller DO 05/21/2025 12:04 PM EDT
[2025-05-21] MEDS: Lidocaine HCl 1 % 20 ML VIAL 5 ML SUBCUT (11:04)
== END 2025-05-21 08:49 | disposition home or self-care (01) ==
LOC: HO.MAMMO 08:48
PROVIDERS: PCP Internal Medicine; Visit Provider Surgery
DX: Z12.31 Encounter for screening mammogram for malignant neoplasm of breast (principal); R92.8 Other abnormal and inconclusive findings on diagnostic imaging of breast
CPT/HCPCS: 19285; 77061; 77065; C1819; J2003

== ENCOUNTER → 2025-05-21 09:00 | Outpatient (BNV) | payer OTHER, SELFPAY | PROVIDERS: PCP Internal Medicine; Visit Provider Internal Medicine | DX: D24.1 Benign neoplasm of right breast (principal) | CPT/HCPCS: 19285; 77065 ==

== ENCOUNTER 2025-05-27 06:49 | Day surgery (SDC) | payer OTHER, SELFPAY ==
[2025-05-25 15:09] VITALS: BMI 23.0
[2025-05-25 15:24] VITALS: BMI 23.5
--- NOTE | 2025-05-26 11:44 | HO.ANESPROP2 ---
Documented by User: Annie Cali NP 05/26/25 11:48 HPI - Anesthesia Eval Consult details Narrative: 64yo F for Right Breast Lumpectomy w/LOCalizer, Excision Large Lipoma on Back PMFSH Active Problems Active Problems: All Active Problems Abnormal ultrasound of breast (Acute) Hyperparathyroidism (Acute) History of pyelonephritis (Acute) Postprandial abdominal pain in right upper quadrant (Acute) Subclinical hypothyroidism (Acute) Elevated parathyroid hormone (Acute) Complex cyst of right ovary (Acute) Ovarian cyst (Acute) Pyelonephritis (Acute) Acute UTI (Acute) Lipoma of back (Acute) Hypercalcemia (Acute) Diabetes (Acute) Mass on back (Acute) Nausea (Acute) Weight loss (Acute) Periumbilical abdominal pain (Acute) GERD (gastroesophageal reflux disease) (Acute) Back pain (Acute) Gallbladder polyp (Acute) Past Medical History Medical History Hyperparathyroidism History of pyelonephritis Subclinical hypothyroidism Elevated parathyroid hormone Lipoma of back Diabetes GERD (gastroesophageal reflux disease) Back pain Gallbladder polyp Family History Family history of problems with anesthesia: No Surgical History Surgical History History of salpingo-oophorectomy History of esophagogastroduodenoscopy (EGD) Hx of colonoscopy H/O dilation and curettage History of Problems with Anesthesia: No Social History Social History (Updated 05/27/25 @ 07:08 by Anca Mcgregor RN) Household Members: Family Housing: House Alcohol intake: former Patient Tobacco Use Status: Current everyday Tobacco user Tobacco use type: Cigarette Cigarettes Per Day: 2 Years Smoked: 40 + Smoked in Last 30 Days: Yes e-Cigarette/Vaping Use: Currently Using Use of substances other than those prescribed or required for medical reasons: No Substance Use Type: Marijuana Substance Use Type Other:: edibles Substance Use Frequency: Occasionally Last Used Substance: Days (ago) Have you been hit, kicked, punched, or otherwise hurt by someone within the past year? If so, by whom?: No Are you DNR?: No Advance Directives: No Advance Directives Information Provided: Yes Advance Directives on File: No service: No Meds Allergies Allergy/AdvReac Type Severity Reaction Status Date / Time Latex, Natural Rubber Allergy Rash Verified 05/20/25 09:20 Home Medications ?Medication ?Instructions ?Recorded ?Confirmed ?Last Taken ?Type atorvastatin 20 mg tablet 20 mg PO BEDTIME 10/31/24 05/25/25 12/26/24 History blood sugar diagnostic (FreeStyle #10 ea 01/20/25 04/22/25 Unknown History Lite Strips) glipizide 2.5 mg tablet, extended 2.5 mg PO DAILY 01/20/25 05/25/25 Unknown History release 24 hr lancets 28 gauge (FreeStyle #100 ea 01/20/25 04/22/25 Unknown History Lancets) blood-glucose meter (FreeStyle #1 ea 02/13/25 04/22/25 Unknown History Lite Meter kit) simethicone 125 mg capsule (Gas 125 mg PO BID-QID PRN Abdominal 04/22/25 05/25/25 Unknown History Relief (simethicone)) Distention turmeric root extract 500 mg tablet 500 mg PO DAILY 04/22/25 05/25/25 05/26/25 History Exam Height,Weight and Vital Signs: Height 5 ft 7 in Weight 68.039 kg Pertinent Lab Results Pertinent Lab Results: Laboratory Tests 12/30/24 03/24/25 05/18/25 05:55 09:55 08:16 WBC 9.8 Hgb 12.4 Hct 35.1 L Plt Count 450 H Sodium 136 Potassium 4.6 Chloride 102 Carbon Dioxide 24 BUN 22 H Creatinine 0.81 Narrative Narrative: EKG 2023 Vent. Rate : 082 BPM Atrial Rate : 082 BPM P-R Int : 156 ms QRS Dur : 070 ms QT Int : 352 ms P-R-T Axes : 069 033 054 degrees QTc Int : 411 ms Normal sinus rhythm Possible Left atrial enlargement Borderline ECG When compared with ECG of 23-JUN-2024 11:29, No significant change was foun Assessment and Plan Assessment Anesthesia Assessment: Chart Reviewed Final Anesthetic Review Family History of Problems with Anesthesia: No History of Problems with Anesthesia: No Documented by User: Eron Nesbitt MD 05/27/25 08:26 [facility] Past Medical History Medical History Hyperparathyroidism History of pyelonephritis Subclinical hypothyroidism Elevated parathyroid hormone Lipoma of back Diabetes GERD (gastroesophageal reflux disease) Back pain Gallbladder polyp Surgical History Surgical History History of salpingo-oophorectomy History of esophagogastroduodenoscopy (EGD) Hx of colonoscopy H/O dilation and curettage Social History Social History (Updated 05/27/25 @ 07:08 by Anca Mcgregor RN) Household Members: Family Housing: House Alcohol intake: former Patient Tobacco Use Status: Current everyday Tobacco user Tobacco use type: Cigarette Cigarettes Per Day: 2 Years Smoked: 40 + Smoked in Last 30 Days: Yes e-Cigarette/Vaping Use: Currently Using Use of substances other than those prescribed or required for medical reasons: No Substance Use Type: Marijuana Substance Use Type Other:: edibles Substance Use Frequency: Occasionally Last Used Substance: Days (ago) Have you been hit, kicked, punched, or otherwise hurt by someone within the past year? If so, by whom?: No Are you DNR?: No Advance Directives: No Advance Directives Information Provided: Yes Advance Directives on File: No service: No Meds Allergies Allergy/AdvReac Type Severity Reaction Status Date / Time Latex, Natural Rubber Allergy Rash Verified 05/20/25 09:20 Home Medications ?Medication ?Instructions ?Recorded ?Confirmed ?Last Taken ?Type atorvastatin 20 mg tablet 20 mg PO BEDTIME 10/31/24 05/25/25 12/26/24 History blood sugar diagnostic (FreeStyle #10 ea 01/20/25 04/22/25 Unknown History Lite Strips) glipizide 2.5 mg tablet, extended 2.5 mg PO DAILY 01/20/25 05/25/25 Unknown History release 24 hr lancets 28 gauge (FreeStyle #100 ea 01/20/25 04/22/25 Unknown History Lancets) blood-glucose meter (FreeStyle #1 ea 02/13/25 04/22/25 Unknown History Lite Meter kit) simethicone 125 mg capsule (Gas 125 mg PO BID-QID PRN Abdominal 04/22/25 05/25/25 Unknown History Relief (simethicone)) Distention turmeric root extract 500 mg tablet 500 mg PO DAILY 04/22/25 05/25/25 05/26/25 History Exam Airway Mallampati Class: I TM Dist: >3cm Neck ROM: Full Loose/Missing/Broken Teeth: Yes and Upper Heart: ok Lungs: ok Assessment and Plan Assessment Anesthesia Assessment: Anesthesia Plan Discussed Final Anesthetic Review NPO: Yes ASA Class: II Final Preanesthetic Review: No Changes in Pt Med Stat, Meds/Allgs Chart Reviewed, Consent Obtained/Reviewed and Anes Risks/Benef Reviewed Patient Risk: Low Procedure Risk: Low Anesthetic Plan Anesthetic Plan: GA and Agree w/ Assess. and Plan Disposition: Standard PACU
[2025-05-27] VITALS (7 sets, daily range): BP systolic 99–121; BP diastolic 45–71; PULSE 59–93; RESP 14–19; TEMP 36.1–36.8; O2SAT 96–100
--- NOTE | ~2025-05-27 | MM_ITS ---
Single right breast specimen radiograph demonstrates the tag and the coil clip within the specimen. Electronically signed by: Heike Eller DO 05/27/2025 10:09 AM EDT
[2025-05-27 07:15] LABS: Glucose, Whole Blood 144 mg/dL (60-115)
[2025-05-27] MEDS: Lactated Ringers 1,000 ML 100 ML IVCONT (07:17)
--- NOTE | 2025-05-27 08:33 | MHC.SHP ---
Pre-Procedural Eval Section A - 24 Hr Update-Section A only Date of Service: 05/27/25 The patient is an INPATIENT: No Changes since office visit: Yes Patient answered all questions; No Cold of Flu in the past 2 weeks, No New Medical Problems and No Changes in Medication The patient has been examined within 24 hours of the surgical procedure. The History & Physical has been completed within 30 days and I have reviewed it.: No Section B - Complete if H&P > 30 days Chief Complaint: Benign lipomatous neoplasm of skin and subcut tiss Details of Present Illness: Papilloma of breast Relevant Family History (Specify if Yes): No Relevant Social History: None Present Medications: see Short Stay Collaborative assessment Medical History: No relevant PMH History of Previous Operations: No relevant previous surgery Allergies: Allergies Allergy/AdvReac Type Severity Reaction Status Date / Time Latex, Natural Rubber Allergy Rash Verified 05/20/25 09:20 Review of Systems Sugical H&P ROS: Negative: Constitution, Cardiovascular, Respiratory, Neurological, Psychiatric, Hem-Onc, Allergic/Immunologic, Gastrointestinal, Genitourinary, Musculoskeletal, Integumentary, Endocrine and Eyes/Ears/Nose/Throat Exam Surgical H&P Exam: Normal: HEENT, Normal: Heart, Normal: Lungs, Normal: Extremities, Normal: Abdomen and Normal: Neurological and Significant Findings: Skin (Left back lipoma 7 cm diameter) Plan Diagnosis/Plan: Change I have reviewed the history and physical and performed a pertinent physical examination on my patient. No changes have occurred unless specified. I reviewed the right breast lumpectomy with localizer as well as excision of the left back lipoma. She consents to both procedures after a discussion of the procedure, risks and alternatives. Time Spent With Patient Time: Total time managing care of this patient today ____ minutes.
--- NOTE | 2025-05-27 09:53 | P.OP_ITS ---
Operative Note Operative Note Date of Service: 05/27/25 Narrative: Preoperative diagnosis: Large lipoma left back, papilloma right breast Postoperative diagnosis: Same Procedure: Excision of lipoma left back, lumpectomy right breast with localizer Surgeon: Lex Mckee MD Process Improvement Analyst: Ysabel Gomez PA-C; BARI Salinas Anesthesia: General LMA Indications for procedure: 64-year-old female patient with a recent mammogram which revealed a density in the right breast felt to be suspicious for malignancy. She subsequently underwent core biopsy which revealed papilloma fragments. She presents for wide excision to assure complete removal. She also has a large lipoma of the back measuring at least 7 cm in diameter on examination. Operative findings: Lipoma measuring 17 cm by 11 cm by 3 cm in the left upper back extending below the scapula. Breast specimen confirmed localizing clip and biopsy clip within the specimen. Specimen: Lipoma left upper back, lumpectomy right breast Estimated blood loss: 5 mL Complications: None Procedure details: Patient was brought to the OR and placed in a supine position. After administering general anesthesia she was placed in a right lateral decubitus position. The patient's back was prepped with ChloraPrep and draped in a sterile fashion. A surgical time-out was called the consent confirmed. Patient received preoperative antibiotics and Venodyne boots were in place. Local anesthesia was then infiltrated in the longitudinal fashion directly over the lipoma. Incision was then made with a scalpel and carried out through subcutaneous tissue through muscle fascia and up to the lipoma. The lipoma was then dissected circumferentially around the submuscular fascia using electrocautery. The lesion was completely removed and sent to pathology for further examination. Hemostasis was assured using electrocautery. Wounds were irrigated with saline solution suctioned dry. Muscle fibers were reapproximated using interrupted 3-0 Polysorb sutures. Dermis was reapproximated using interrupted 3-0 Polysorb sutures. Skin was then closed using a running subcuticular 4-0 Polysorb suture. Sterile dressings consisting of 4 x 4 gauze and Tegaderm were then applied. The patient was then placed in a supine position. The patient's right breast was prepped with ChloraPrep and draped in a sterile fashion. The localizer device was used to identify the site of the marking clip. Curvilinear incision was made in the lower outer quadrant and carried out through subcutaneous tissue. Superior and inferior skin flaps were then created with electrocautery. Using the localizer core of tissue surrounding the localizer clip was then obtained beginning with the inferior margin and continuing with the medial margin, lateral margin, posterior margin and superior margin. A specimen x-ray was performed and within the room and the marking clips identified within the specimen. This was then sent to pathology for further examination. Lesion was noted within the specimen by pathology. Wounds were then irrigated with saline solution and suctioned dry. Deep breast tissue was reapproximated using interrupted 3-0 Polysorb sutures. Dermis was reapproximated using interrupted 3-0 Polysorb sutures. Skin was then closed using a running subcuticular 4-0 Polysorb suture. Steri-Strips, 4 x 4 gauze and Tegaderm were then applied. The patient tolerated the procedure well. Sponge, instrument, and needle counts reported as correct. The patient was transferred to PACU in stable condition.
== END 2025-05-27 11:48 | disposition home or self-care (01) ==
PROVIDERS: PCP Internal Medicine; Visit Provider Surgery
PROC: (CPT 21933; principal; 2025-05-27 09:00)
PROC: (CPT 21933; 2025-05-27 09:00)
DX: D17.1 Benign lipomatous neoplasm of skin and subcutaneous tissue of trunk (principal); D24.1 Benign neoplasm of right breast; E11.9 Type 2 diabetes mellitus without complications; E03.8 Other specified hypothyroidism; E21.0 Primary hyperparathyroidism; M54.9 Dorsalgia, unspecified; K21.9 Gastro-esophageal reflux disease without esophagitis; Z87.440 Personal history of urinary (tract) infections; Z79.84 Long term (current) use of oral hypoglycemic drugs; Z79.899 Other long term (current) drug therapy; Z91.040 Latex allergy status; Z98.890 Other specified postprocedural states; F17.210 Nicotine dependence, cigarettes, uncomplicated
CPT/HCPCS: 21933; 19301; 82947; 88304; 88307; J0690; J2003; J2405; J2704; J3010

== ENCOUNTER → 2025-05-27 06:49 | Outpatient (BNV) | payer OTHER, SELFPAY | PROVIDERS: PCP Internal Medicine; Visit Provider Surgery | DX: D24.1 Benign neoplasm of right breast (principal); D17.1 Benign lipomatous neoplasm of skin and subcutaneous tissue of trunk | CPT/HCPCS: 19301; 21933 ==

== ENCOUNTER 2025-06-05 10:01 | Outpatient (AMB) | payer OTHER, SELFPAY ==
[2025-06-05 10:14] VITALS: BP 108/67; PULSE 116
--- NOTE | 2025-06-05 10:14 | MHC.OFFVIS ---
Vital Signs 06/05/25 10:14 Weight 152 lb BP 108/67 Blood Pressure Location Rt brachial Position Sitting Pulse 116 H Intake Visit Reasons: S/P Rt. brst lumpectomy w/localizer, exc. Lg lipom Intake Note: Patient is seen in office for post op assessment post right breast lumpectomy and excision of lipoma of the back. Pt c/o: incisions healing well. Denies pain. Normal BM. Steri strips in place. surgery:05/27/25 Drug And Alcohol Counselor Required: No Accompanied by: Self / Same As Patient Allergies Latex, Natural Rubber Allergy (Verified 06/05/25 10:16) Rash HPI Comments Details: 64-year-old female returning 1 week following right breast lumpectomy with localizer and excision of left back lipoma. She tolerated the procedure well but does report some right buttock pain. She denies any problems in the area of incision. Pathology revealed intraductal papilloma with no atypia or malignancy. Lipoma was confirmed on pathology as well. [facility] Medical History (Updated 06/05/25 @ 10:27 by Lex Mckee MD) Hyperparathyroidism History of pyelonephritis Subclinical hypothyroidism Elevated parathyroid hormone Lipoma of back Diabetes GERD (gastroesophageal reflux disease) Back pain Gallbladder polyp Surgical History (Updated 06/04/25 @ 16:58 by ROBERT Knutson) History of lumpectomy of right breast (05/27/25) Hx of excision of mass (05/27/25) History of salpingo-oophorectomy History of esophagogastroduodenoscopy (EGD) Hx of colonoscopy H/O dilation and curettage Social History (Updated 05/27/25 @ 07:08 by Anca Mcgregor RN) Household Members: Family Housing: House Alcohol intake: former Patient Tobacco Use Status: Current everyday Tobacco user Tobacco use type: Cigarette Cigarettes Per Day: 2 Years Smoked: 40 + e-Cigarette/Vaping Use: Currently Using Substance Use Type: Marijuana service: No Female Reproductive History Menstrual Age of Menarche: 13 Physical Exam Vital Signs: Last Vital Signs Pulse 116 H 06/05/25 10:14 BP 108/67 06/05/25 10:14 Const General: comfortable Nutritional Appearance: well nourished Orientation/consciousness: patient oriented x3 Limitations: no limitations Chest Chest/axillae images:  1. Incision right breast lower outer quadrant without redness or discharge, intact Steri-Strips. Resp Effort & Inspection: normal respiratory effort Back/Spine/Pelvis Back/spine/pelvis image:  1. Incision left upper back is clean, dry, and intact without seroma or hematoma. Neuro General: patient oriented x3 Assessment & Plan Assessment & Plan (1) Lipoma of back: Code(s): D17.1 - Benign lipomatous neoplasm of skin and subcutaneous tissue of trunk Category: Medical (2) Papilloma of right breast: Code(s): D24.1 - Benign neoplasm of right breast Category: Medical Plan 64-year-old female patient status post right breast lumpectomy for intraductal papilloma. Pathology confirmed intraductal papilloma without atypia. She also underwent excision of a left back lipoma which she tolerated. Wounds are clean, dry, and intact at both incisions with no evidence of infection, hematoma or seroma. She may resume normal activity without restrictions and should follow up as needed. Coding Level of Care Code Global (08310) Diagnoses Lipoma of back D17.1 Papilloma of right breast D24.1
== END 2025-06-05 10:24 | disposition home or self-care (01) ==
LOC: HO.HGS 10:02
PROVIDERS: PCP Internal Medicine; Visit Provider Surgery
DX: D17.1 Benign lipomatous neoplasm of skin and subcutaneous tissue of trunk (principal); D24.1 Benign neoplasm of right breast
CPT/HCPCS: 99024

== ENCOUNTER 2025-06-05 10:01 | Outpatient (REF) | payer OTHER, SELFPAY ==
[2025-06-05 11:11] LABS: Creatinine, mg/dL 33.63
[2025-06-05 13:32] LABS: Total Volume 24 Hour Urine 2175 mL
[2025-06-16 14:39] LABS: Calcium/Creatinine Ratio 122 mg/g creat (30-275); Creatinine 24Hr Urine 0.78 g/24 h (0.50-2.15)
== END 2025-06-05 10:02 | disposition home or self-care (01) ==
LOC: HO.LNP 10:01
PROVIDERS: Student in an Organized Health Care Education/Training Program; PCP Internal Medicine; Visit Provider Surgery
DX: D17.1 Benign lipomatous neoplasm of skin and subcutaneous tissue of trunk (principal); D24.1 Benign neoplasm of right breast; Z98.890 Other specified postprocedural states; E21.3 Hyperparathyroidism, unspecified
CPT/HCPCS: 82340; 82570; 99212

== ENCOUNTER 2025-06-09 12:30 | Outpatient (AMB) | payer OTHER, SELFPAY ==
--- NOTE | 2025-06-09 12:32 | A.OFFVIS_ITS ---
Vital Signs 06/09/25 12:33 Height 5 ft 7 in Weight 154 lb 12.232 oz BMI 24.2 BP 140/72 H Blood Pressure Location Lt brachial Position Sitting Pulse 96 Pulse Source Pulse Oximeter Pulse Oximetry (%) 99 Oxygen Delivery Method Room Air Intake Visit Reasons: Nontoxic single thyroid nodule Intake Note: Patient present today for Nontoxic single thyroid nodule office visit. [employer] Required: No Accompanied by: Daughter Allergies Latex, Natural Rubber Allergy (Verified 06/09/25 12:36) Rash HPI Comments Details: 64-year-old female here today for fup of subclinical hypothyroidism and elevated PTH level. Subclinical hypothyroidism Labs from 12/27/24: TSH 4.44, free 1.06 01/01/25: TSH elevated 9.56, free t4 was normal 1.10 She did have cute pyelonephritis at the time of these labs 12/22/24: Thyroid US , i reveiwed the images [facility] showed subcentimeter colloid cysts that do not meet criteria for follow up Patient currently denies heat or cold intolerance, diarrhea or constipation, h air loss, palpitation, anxiety, mood changes, low energy, changes in appearance of eyes or vision changes, tremors, increased diaphoresis or dry skin. ? Lost 20 lbs between winter 2023 and spring 2024, now gained back 10 lbs since past month, feels eating a bit more now Patient denies any difficulty swallowing, pain on swallowing or voice changes or difficulty breathing. Patient denies any history of childhood neck radiation. Denies having ever used lithium, amiodarone or biotin supplements. Patient denies any family history of thyroid cancer or thyroid disease. 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 Elevated PTH level Chart review shows that patient was found to have elevated PTH level of 133.4 on 12/15/2024. No concurrent calcium level for that day, however total calcium has been in the range of 8.9-9.4, however patient's albumin helps been low around 2.7-3.1, corrected calcium would be some thing around 10 or 10.2. In the past in 2023 when she had normal albumin levels, total calcium was noted to be elevated at 10.3. No concurrent PTH level from that time. Most recently vitamin-D level noted to be low at 21 from November 2024. Normal kidney function. No fractures , no BMD done Mother : had kidney stone 2007 passed a kidney stone , CT abdomen done December 2024 did show a right 3 mm nonobstructing calculi in the collecting system Vitamin D 5000 units daily started 12/23/24 by BENNY ann Tri labs February 2025 : Normal kidney function, calcium elevated at 10.3 with albumin of 4.3, corrected calcium would be 10, ionized calcium a low so elevated at 5.8, normal phosphorus, vitamin-D improved to 31.5, PTH elevated at 101.6. Vitamin D 1000 units daily reduced since 01/20/2025 Interval history 04/01/2025: DEXA scan showed normal bone density of the lumbar spine with a T-scor e of-0.5, osteopenia of the left total hip with a T-score of-2.3, osteoporosis of the left femoral neck with a T-score of-2.8, normal bone density of the distal forearm with a T-score of-0.2. 24 hour urine calcium levels from 06/05/2025 pending. She did not do blood work same day. no calcium supplements Milk: with cereal almost daily Yogurt: almost daily one serving Cheese : sometimes no abd pain, no muscle aches or pains, no mental status chnages , no brain fog , no constipation Physical exam General: sitting comfortably in no acute distress HEENT: normocephalic/atraumatic, Neck: supple, symmetrical, no dorsocervical or supraclavicular fat pads Cardiac: normal heart sounds Pulm: normal breath sounds B/L, no added breath sounds Abd: not distended, no tenderness Extremities: no edema, no signs of myxedema Neuro: AAO x3, Speech: normal, no facial droop, moving all 4 extremities Laboratory Tests 12/15/24 12/19/24 12/27/24 09:38 14:18 09:04 Calcium 9.1 D Albumin 3.1 L 25-OH Vitamin D Total 21 L 25-Hydroxy Vitamin D2 <4 25-Hydroxy Vitamin D3 21 TSH 4.44 H Free T4 1.06 PTH Intact 133.4 H 12/28/24 12/30/24 01/01/25 06:17 05:55 14:58 Calcium 8.9 9.2 9.4 Albumin 2.7 L 2.8 L 3.4 L 25-OH Vitamin D Total 25-Hydroxy Vitamin D2 25-Hydroxy Vitamin D3 TSH 9.56 H Free T4 1.10 PTH Intact 01/09/25 09:33 Calcium Albumin 3.8 25-OH Vitamin D Total 25-Hydroxy Vitamin D2 25-Hydroxy Vitamin D3 TSH Free T4 PTH Intact 92.4 H Laboratory Tests 03/13/25 08:12 Creatinine 0.81 Estimated GFR > 60 Calcium 10.3 H D Ionized Calcium 5.8 H Phosphorus 3.3 Albumin 4.3 25-OH Vitamin D Total 31.5 TSH 6.02 H Free T4 0.91 PTH Intact 101.6 H Laboratory Tests 05/18/25 06/05/25 08:16 04:30 Creatinine 0.81 Estimated GFR > 60 Calcium 10.1 Ionized Calcium 5.6 H Albumin 4.4 PTH Intact 65.6 Ur 24 Hour Volume 2175 Ur Creatinine mg/dL 33.63 Ur Creatinine 24 Hour 0.7 L EXAMINATION: DXA BONE DENSITY EXTREMITY 04/01/2025 HISTORY: E21.3 - Hyperparathyroidism, unspecified TECHNIQUE: [employer] Dual energy absorptiometry (DEXA) of the lumbar spine, total left hip, femoral neck, and distal forearm was performed. COMPARISON: There are no prior studies for comparison. FINDINGS: The bone mineral density of the lumbar spine is 1.119, corresponding to a T-score of -0.5, and a Z-score of 0.9. This is indicative of normal bone mineral density. The bone mineral density of the left total hip is 0.715, corresponding to a T-score of -2.3, and a Z-score of -1.2. This is indicative of osteopenia. The bone mineral density of the left femoral neck is 0.655, corresponding to a T-score of -2.8, and a Z-score of -1.4. This is indicative of osteoporosis. The bone mineral density of the distal forearm is 0.858, corresponding to a T-score of -0.2, and a Z-score of 1.0. This is indicative of normal bone mineral density. MM/XR DEXA appendicular skeleton IMPRESSION: Based on bone mineral density, and according to World Health Organization (WHO) criteria, the diagnosis is consistent with osteoporosis. EXAMINATION: US THYROID 12/22/24 HISTORY: E21.3 - Hyperparathyroidism, unspecified TECHNIQUE: Real-time grayscale ultrasound imaging was performed and images were reviewed. COMPARISON: There are no prior studies for comparison. FINDINGS: SIZE: The right thyroid lobe measures 5.2 x 1.9 x 1.6 cm. The left thyroid lobe measures 5.0 x 1.1 x 1.7 cm. The isthmus measures 6 mm. FLOW: Flow to the gland is increased. ECHOGENICITY: The echotexture of the gland is mildly heterogeneous. NODULES: There are nodules noted in the right thyroid lobe as described below: Nodule #: 1 Location: Right upper pole measuring 2 x 1 x 2 mm Shape: Wider than tall (0 points) Margins: Smooth (0 points) Echotexture: Hyperechoic (1 point) Composition: Solid (2 points) Calcifications: Macrocalcs (1 point) Total points: 4 TIRADS: TR4: Moderately suspicious. Nodule #: 2 Location: Midportion of the right thyroid lobe measuring 4 x 2 x 3 mm Shape: Wider than tall (0 points) Margins: Smooth (0 points) Echotexture: Hyperechoic (1 point) Composition: Solid (2 points) Calcifications: Macrocalcs (1 point) Total points: 4 TIRADS: TR4: Moderately suspicious. US/US thyroid IMPRESSION: Tiny subcentimeter right thyroid nodules as described. CT abdomen and pelvis with contrast01/20 Comparison: None Findings: Trace right effusion with overlying atelectasis. The liver, gallbladder, spleen, adrenal glands and pancreas are unremarkable. There is asymmetric prominence and heterogeneous enhancement of the right kidney. Asymmetric perinephric stranding on the right. No obstructing calculus. There is a 3 mm collecting system calculus in the right. The bladder is decompressed. Normal appendix. Abnormal thickening of the ascending colon with surrounding stranding. Normal appendix. The terminal ileum appears unremarkable. No bowel obstruction or free air. No abscess. Complex right adnexal cyst suggested. Uterus unremarkable. Moderate diffuse atherosclerotic disease. No acute osseous finding. Impression: Abnormal prominence of the right kidney with asymmetric perfusion. Clinical correlation for pyelonephritis. Abnormal thickening of predominantly the ascending colon with surrounding stranding. Colitis suggested. Normal appendix. No free air or abscess. Right adnexal complex cysts. Ultrasound could be considered. This document has been electronically signed by: Zachariah Lunsford MD on 12/27/2024 12:08:17 [facility] Medical History (Updated 06/09/25 @ 12:42 by Lalita Feliciano MD) Osteoporosis Hyperparathyroidism History of pyelonephritis Subclinical hypothyroidism Elevated parathyroid hormone Lipoma of back Diabetes GERD (gastroesophageal reflux disease) Back pain Gallbladder polyp Surgical History (Updated 06/04/25 @ 16:58 by ROBERT Knutson) History of lumpectomy of right breast (05/27/25) Hx of excision of mass (05/27/25) History of salpingo-oophorectomy History of esophagogastroduodenoscopy (EGD) Hx of colonoscopy H/O dilation and curettage Social History (Updated 05/27/25 @ 07:08 by Anca Mcgregor RN) Household Members: Family Housing: House Alcohol intake: former Patient Tobacco Use Status: Current everyday Tobacco user Tobacco use type: Cigarette Cigarettes Per Day: 2 Years Smoked: 40 + e-Cigarette/Vaping Use: Currently Using Substance Use Type: Marijuana service: No Female Reproductive History Menstrual Age of Menarche: 13 Physical Exam Vital Signs: Last Vital Signs Pulse 96 06/09/25 12:33 BP 140/72 H 06/09/25 12:33 Pulse Ox 99 06/09/25 12:33 Oxygen Delivery Method Room Air 06/09/25 12:33 BMI result Body Mass Index 24.2 Assessment & Plan Assessment & Plan (1) Elevated parathyroid hormone: Code(s): R79.89 - Other specified abnormal findings of blood chemistry Category: Medical Plan: 64-year-old female noted to have elevated PTH level. Chart review shows that patient was found to have elevated PTH level of 133.4 on 12/15/2024. No concurrent calcium level for that day, however total calcium has been in the range of 8.9-9.4, however patient's albumin helps been low around 2.7-3.1, corrected calcium would be some thing around 10 or 10.2. In the past in 2023 when she had normal albumin levels, total calcium was noted to be elevated at 10.3. No concurrent PTH level from that time. vitamin-D level noted to be low at 21 from November 2024. Normal kidney function. She was on vitamin-D 5000 units daily from 12/23/2024 up on 01/05/2025 and then I reduced it to 1000 units daily. She continues on this. labs February 2025 : Normal kidney function, calcium elevated at 10.3 with albumin of 4.3, corrected calcium would be 10, ionized calcium also elevated at 5.8, normal phosphorus, vitamin-D improved to 31.5, PTH elevated at 101.6. Now that vitamin-D has improved, and PTH still remains elevated, unlikely to be secondary hyperparathyroidism due to vitamin-D deficiency. Her kidney function is normal. She has good nutritional intake of calcium. Not on any calcium supplements. Given hypercalcemia with a history of kidney stones, with the abdominal CT from December 2024 also showing a nonobstructing 3 mm right renal calculi, most likely she has primary hyperparathyroidism. 04/01/2025: DEXA scan showed normal bone density of the lumbar spine with a T- score of-0.5, osteopenia of the left total hip with a T-score of-2.3, osteoporosis of the left femoral neck with a T-score of-2.8, normal bone density of the distal forearm with a T-score of-0.2. Given both kidney stones as well as osteoporosis, she meets criteria for surgery. I will obtain a parathyroid scan. 24 hour urine calcium levels from 06/05/2025 pending. She did not do blood work same day. I have asked her to get blood work today 06/09/2025. I will also check her bone resorption markers while she is doing blood work. Other differential could possibly be [facility], we are waiting on the results of the 24 hour urine calcium to help evaluate. Plan: -continue vitamin-D 1000 units daily -continue incorporating calcium in diet, no use of calcium supplements -do parathyroid scan -follow up results of 24 hour urine calcium and creatinine as well as [facility] -follow up in 6 weeks to discuss results (2) Subclinical hypothyroidism: Code(s): E03.8 - Other specified hypothyroidism Category: Medical Plan: 64-year-old female with blood work from November 2024 showing elevated TSH level with normal free T4 consistent with subclinical hypothyroidism. However at the time and labs were done, patient was having an acute pyelonephritis. Usually during acute sickness TSH levels are lower not higher. Most recent blood work from February 2025 shows TSH has come down to 6.06, free T4 remains normal. Currently she is not very symptomatic. Usually treatment criteria is either TSH greater than 10 or if between 6 and 9, and patient has significant symptoms. For now we will hold off on any treatment. Ultrasound thyroid from November 2024 did not show any concerning findings, small subcentimeter colloid /microcalcification that do not need follow up. Plan: -we will plan to repeat TSH, free T4 in about 4-6 months sometime around fall /winter 2024 (3) Hyperparathyroidism: Code(s): E21.3 - Hyperparathyroidism, unspecified Category: Medical Plan: See above (4) Hypercalcemia: Code(s): E83.52 - Hypercalcemia Category: Medical Plan: See above (5) Osteoporosis: Code(s): M81.0 - Age-related osteoporosis without current pathological fracture Category: Medical Qualifiers: Osteoporosis type: localized Presence of current pathological fracture: without current pathological fracture Qualified Code(s): M81.6 - Localized osteoporosis [[place]] Plan: See above Plan See above Orders: Orders Calcium, Ionized Today E21.3 - Hyperparathyroidism, unspecified, M81.6 - Localized osteoporosis [[place]], R79.89 - Other specified abnormal findings of blood chemistry Parathyroid Hormone Intact Today E21.3 - Hyperparathyroidism, unspecified, M81.6 - Localized osteoporosis [[place]], R79.89 - Other specified abnormal findings of blood chemistry Creatinine Today E21.3 - Hyperparathyroidism, unspecified, M81.6 - Localized osteoporosis [[place]], R79.89 - Other specified abnormal findings of blood chemistry NM parathyroid SPECT w CT Today E21.3 - Hyperparathyroidism, unspecified, M81.6 - Localized osteoporosis [[place]], R79.89 - Other specified abnormal findings of blood chemistry Collagen Type I C-Telopeptide Today E21.3 - Hyperparathyroidism, unspecified, M81.6 - Localized osteoporosis [[place]] Albumin Level Today E21.3 - Hyperparathyroidism, unspecified, M81.6 - Localized osteoporosis [[place]], R79.89 - Other specified abnormal findings of blood chemistry Calcium Today E21.3 - Hyperparathyroidism, unspecified, M81.6 - Localized osteoporosis [[place]], R79.89 - Other specified abnormal findings of blood chemistry Phosphorus Today E21.3 - Hyperparathyroidism, unspecified, M81.6 - Localized osteoporosis [[place]], R79.89 - Other specified abnormal findings of blood chemistry Alkaline Phosphatase Bone Today E21.3 - Hyperparathyroidism, unspecified, M81.6 - Localized osteoporosis [[place]] Patient Instructions: Continue vitamin D 1000 units daily Keep incorporating dairy in diet Do blood work at [facility] fasting 8 AM at [address] [place] [address], please ask them to fax results to me Do parathyroid scan someone will call you to schedule this Follow up in 6 weeks to discuss results Coding Level of Care Code Est Pt Level 3 (76339) Diagnoses Elevated parathyroid hormone R79.89 Subclinical hypothyroidism E03.8 Hyperparathyroidism E21.3 Hypercalcemia E83.52 Localized osteoporosis without current pathological fracture M81.6 Osteoporosis type: localized Presence of current pathological fracture: without current pathological fracture
[2025-06-09 12:33] VITALS: BP 140/72; PULSE 96; O2SAT 99; BMI 24.2
== END 2025-06-09 13:02 | disposition home or self-care (01) ==
LOC: HO.ENCR 12:31
PROVIDERS: PCP Internal Medicine; Visit Provider Student in an Organized Health Care Education/Training Program
DX: R79.89 Other specified abnormal findings of blood chemistry (principal); E03.8 Other specified hypothyroidism; E21.3 Hyperparathyroidism, unspecified; M81.6 Localized osteoporosis [Lequesne]
CPT/HCPCS: 99213

== ENCOUNTER → 2025-06-09 12:30 | Outpatient (BNVA) | payer OTHER, SELFPAY | PROVIDERS: PCP Internal Medicine; Visit Provider Student in an Organized Health Care Education/Training Program | DX: E04.1 Nontoxic single thyroid nodule (principal); E89.0 Postprocedural hypothyroidism; R79.89 Other specified abnormal findings of blood chemistry; M81.6 Localized osteoporosis [Lequesne]; E21.3 Hyperparathyroidism, unspecified | CPT/HCPCS: 99212 ==

== ENCOUNTER 2025-06-22 08:55 | Outpatient (REF) | payer OTHER, SELFPAY ==
[2025-06-22 14:00] LABS: Microalbum/Creatinine Ratio Ur 557.4 ug/mg cr (<30)
[2025-06-22 14:01] LABS: Alanine Aminotransferase 24 U/L (0-31); Albumin Level 4.6 g/dL (3.5-5.0); Alkaline Phosphatase 91 U/L (39-117); Anion Gap 13 (12-20); Aspartate Amino Transferase 19 U/L (5-31); Blood Urea Nitrogen 21 mg/dL (9-16); Calcium 10.5 mg/dL (8.4-10.2); Carbon Dioxide 22 mmol/L (22-29); Chloride 104 mmol/L (96-108); Estimated Glomerular Filt Rate > 60; Potassium 4.1 mmol/L (3.3-5.1); Sodium 135 mmol/L (135-145); Total Protein 7.4 g/dL (6.5-8.0)
[2025-06-22 16:12] LABS: Hemoglobin A1C 163.7865 umol/L; Total Hemoglobin (HGBA1C) 3574.3229 umol/L
== END 2025-06-22 08:56 | disposition home or self-care (01) ==
LOC: HO.HMGCLDS 08:55
PROVIDERS: PCP Internal Medicine; Visit Provider Internal Medicine
DX: R80.8 Other proteinuria (principal); E11.9 Type 2 diabetes mellitus without complications; E21.0 Primary hyperparathyroidism
CPT/HCPCS: 36415; 80053; 82043; 82570; 83036

== ENCOUNTER → 2025-07-03 10:44 | Outpatient (REF) | payer OTHER, SELFPAY ==
--- NOTE | ~2025-07-03 | NM_ITS ---
EXAMINATION: NM PARATHYROID SPECT AND CT HISTORY: E21.3 - Hyperparathyroidism, unspecified. TECHNIQUE: A parathyroid imaging study was performed following the intravenous administration of 30 mCi technetium 99m-sestamibi. Planar images of the neck were obtained at 3 minutes and at 2 hours after injection of the radiopharmaceutical. SPECT/CT imaging of the neck was obtained at 2 hours. COMPARISON: There are no prior studies available for comparison. FINDINGS: Early planar images demonstrate homogeneous activity throughout the thyroid gland. Two-hour delayed images demonstrate minimal washout of activity from the thyroid gland. This limits evaluation for a parathyroid adenoma. No definite focus of abnormal activity is seen in the neck on SPECT/CT imaging. NM/NM parathyroid SPECT w CT IMPRESSION: No definite scintigraphic evidence of a parathyroid adenoma. Electronically signed by: Jorge Shelby MD 07/03/2025 02:08 PM EDT
== END ==
LOC: HO.NUCMED 10:44
PROVIDERS: PCP Internal Medicine; Visit Provider Student in an Organized Health Care Education/Training Program
DX: M81.6 Localized osteoporosis [Lequesne] (principal); E21.3 Hyperparathyroidism, unspecified; R79.89 Other specified abnormal findings of blood chemistry
CPT/HCPCS: 78072; A9500

== ENCOUNTER → 2025-07-03 10:45 | Outpatient (BNV) | payer OTHER, SELFPAY | PROVIDERS: PCP Internal Medicine; Visit Provider Radiology Diagnostic Radiology | DX: E21.3 Hyperparathyroidism, unspecified (principal) | CPT/HCPCS: 78072 ==

== ENCOUNTER 2025-08-06 09:44 | Outpatient (AMB) | payer OTHER, SELFPAY ==
--- NOTE | 2025-08-06 09:50 | A.OFFVIS_ITS ---
Vital Signs 3 08/06/25 09:53 Height 5 ft 7 in Weight 160 lb 11.472 oz BMI 25.2 BP 118/62 Blood Pressure Location Lt brachial Position Sitting Pulse 85 Pulse Source Pulse Oximeter Pulse Oximetry (%) 99 Oxygen Delivery Method Room Air Intake Visit Reasons: Nontoxic single thyroid nodule Intake Note: Patient present today for Nontoxic single thyroid nodule office visit. 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 Accompanied by: Self / Same As Patient Allergies Latex, Natural Rubber Allergy (Verified 08/06/25 09:57) Rash Medication List - Last Reconciled 08/06/25 by Lalita Feliciano MD acetaminophen (Tylenol Extra Strength) 500 mg PO Q6H PRN atorvastatin 20 mg PO BEDTIME blood sugar diagnostic (FreeStyle Lite Strips) As directed blood-glucose meter (FreeStyle Lite Meter kit) As directed cholecalciferol (vitamin D3) 25 mcg PO DAILY glipizide ER 2.5 mg PO DAILY lancets (FreeStyle Lancets) As directed [id number] 24,000-76,000 -120,000 unit (Creon) 1 cap PO QID losartan 50 mg PO DAILY ondansetron 4 mg PO Q8H PRN pantoprazole 40 mg PO QAM simethicone (Gas Relief (simethicone)) 125 mg PO BID-QID PRN sucralfate 10 mL PO BEDTIME turmeric root extract 500 mg PO DAILY HPI Comments Details: 64-year-old female here today for fup of subclinical hypothyroidism and osteoporosis with elevated PTH level. Subclinical hypothyroidism Labs from 12/27/24: TSH 4.44, free 1.06 01/01/25: TSH elevated 9.56, free t4 was normal 1.10 She did have cute pyelonephritis at the time of these labs 12/22/24: Thyroid US , i reveiwed the images [facility] showed subcentimeter colloid cysts that do not meet criteria for follow up Patient currently denies heat or cold intolerance, diarrhea or constipation, hair loss, palpitation, anxiety, mood changes, low energy, changes in appearance of eyes or vision changes, tremors, increased diaphoresis or dry skin. ? Lost 20 lbs between winter 2023 and spring 2024, now gained back 10 lbs since past month, feels eating a bit more now Patient denies any difficulty swallowing, pain on swallowing or voice changes or difficulty breathing. Patient denies any history of childhood neck radiation. Denies having ever used lithium, amiodarone or biotin supplements. Patient denies any family history of thyroid cancer or thyroid disease. 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 Elevated PTH level Chart review shows that patient was found to have elevated PTH level of 133.4 on 12/15/2024. No concurrent calcium level for that day, however total calcium has been in the range of 8.9-9.4, however patient's albumin helps been low around 2.7-3.1, corrected calcium would be some thing around 10 or 10.2. In the past in 2023 when she had normal albumin levels, total calcium was noted to be elevated at 10.3. No concurrent PTH level from that time. Most recently vitamin-D level noted to be low at 21 from November 2024. Normal kidney function. No fractures , no BMD done Mother : had kidney stone 2007 passed a kidney stone , CT abdomen done December 2024 did show a right 3 mm nonobstructing calculi in the collecting system Vitamin D 5000 units daily started 12/23/24 by BENNY Bartlett labs February 2025 : Normal kidney function, calcium elevated at 10.3 with albumin of 4.3, corrected calcium would be 10, ionized calcium a low so elevated at 5.8, normal phosphorus, vitamin-D improved to 31.5, PTH elevated at 101.6. Vitamin D 1000 units daily reduced since 01/20/2025 04/01/2025: DEXA scan showed normal bone density of the lumbar spine with a T- score of-0.5, osteopenia of the left total hip with a T-score of-2.3, osteoporosis of the left femoral neck with a T-score of-2.8, normal bone density of the distal forearm with a T-score of-0.2. Interval history 08/06/2025 06/05/2025:24 hour urine calcium 96, calcium creatinine ratio 122, fractional excretion of calcium: 0.0108 06/11/2025: Labs done at [facility] showed ionized calcium high at 5.6, creatinine 0.82, EGFR 80, PTH 52, calcium 10.4, albumin 4.3, corrected calcium 10.1, phosphorus 3.7, bone specific alkaline phosphatase 15.5, CTX 652, 07/03/2025: Parathyroid scan was normal no calcium supplements Milk: with cereal almost daily Yogurt: almost daily one serving Cheese : sometimes no abd pain, no muscle aches or pains, no mental status chnages , no brain fog , no constipation Physical exam General: sitting comfortably in no acute distress HEENT: normocephalic/atraumatic, Neck: supple, symmetrical, no dorsocervical or supraclavicular fat pads Cardiac: normal heart sounds Pulm: normal breath sounds B/L, no added breath sounds Abd: not distended, no tenderness Extremities: no edema, no signs of myxedema Neuro: AAO x3, Speech: normal, no facial droop, moving all 4 extremities Laboratory Tests 12/15/24 12/19/24 12/27/24 09:38 14:18 09:04 Calcium 9.1 D Albumin 3.1 L 25-OH Vitamin D Total 21 L 25-Hydroxy Vitamin D2 <4 25-Hydroxy Vitamin D3 21 TSH 4.44 H Free T4 1.06 PTH Intact 133.4 H 12/28/24 12/30/24 01/01/25 06:17 05:55 14:58 Calcium 8.9 9.2 9.4 Albumin 2.7 L 2.8 L 3.4 L 25-OH Vitamin D Total 25-Hydroxy Vitamin D2 25-Hydroxy Vitamin D3 TSH 9.56 H Free T4 1.10 PTH Intact 01/09/25 09:33 Calcium Albumin 3.8 25-OH Vitamin D Total 25-Hydroxy Vitamin D2 25-Hydroxy Vitamin D3 TSH Free T4 PTH Intact 92.4 H Laboratory Tests 03/13/25 08:12 Creatinine 0.81 Estimated GFR > 60 Calcium 10.3 H D Ionized Calcium 5.8 H Phosphorus 3.3 Albumin 4.3 25-OH Vitamin D Total 31.5 TSH 6.02 H Free T4 0.91 PTH Intact 101.6 H Laboratory Tests 05/18/25 06/05/25 08:16 04:30 Creatinine 0.81 Estimated GFR > 60 Calcium 10.1 Ionized Calcium 5.6 H Albumin 4.4 PTH Intact 65.6 Ur 24 Hour Volume 2175 Ur Creatinine mg/dL 33.63 Ur Creatinine 24 Hour 0.7 L Laboratory Tests 05/18/25 06/05/25 06/22/25 08:16 04:30 09:35 Creatinine 0.91 Estimated GFR > 60 Calcium 10.1 10.5 H Ionized Calcium 5.6 H Albumin 4.4 4.6 PTH Intact 65.6 Ur 24 Hour Volume 2175 Ur Creatinine mg/dL 33.63 Ur Creatinine 24 Hour 0.7 L Ur Calcium 24 Hr 96 Calcium/Creat 24 Hr 122 Reason for Exam: E21.3 - Hyperparathyroidism, unspecified 07/03/25 EXAMINATION: [place] PARATHYROID SPECT AND CT HISTORY: E21.3 - Hyperparathyroidism, unspecified. TECHNIQUE: A parathyroid imaging study was performed following the intravenous administration of 30 mCi technetium 99m-sestamibi. Planar images of the neck were obtained at 3 minutes and at 2 hours after injection of the radiopharmaceutical. SPECT/CT imaging of the neck was obtained at 2 hours. COMPARISON: There are no prior studies available for comparison. FINDINGS: Early planar images demonstrate homogeneous activity throughout the thyroid gland. Two-hour delayed images demonstrate minimal washout of activity from the thyroid gland. This limits evaluation for a parathyroid adenoma. No definite focus of abnormal activity is seen in the neck on SPECT/CT imaging. TN/TN parathyroid SPECT w CT IMPRESSION: No definite scintigraphic evidence of a parathyroid adenoma. Electronically signed by: Jorge Shelby MD 07/03/2025 02:08 PM EDT EXAMINATION: DXA BONE DENSITY EXTREMITY 04/01/2025 HISTORY: E21.3 - Hyperparathyroidism, unspecified TECHNIQUE: [place] Dual energy absorptiometry (DEXA) of the lumbar spine, total left hip, femoral neck, and distal forearm was performed. COMPARISON: There are no prior studies for comparison. FINDINGS: The bone mineral density of the lumbar spine is 1.119, corresponding to a T-score of -0.5, and a Z-score of 0.9. This is indicative of normal bone mineral density. The bone mineral density of the left total hip is 0.715, corresponding to a T-score of -2.3, and a Z-score of -1.2. This is indicative of osteopenia. The bone mineral density of the left femoral neck is 0.655, corresponding to a T-score of -2.8, and a Z-score of -1.4. This is indicative of osteoporosis. The bone mineral density of the distal forearm is 0.858, corresponding to a T-score of -0.2, and a Z-score of 1.0. This is indicative of normal bone mineral density. MM/XR DEXA appendicular skeleton IMPRESSION: Based on bone mineral density, and according to World Health Organization (WHO) criteria, the diagnosis is consistent with osteoporosis. EXAMINATION: US THYROID 12/22/24 HISTORY: E21.3 - Hyperparathyroidism, unspecified TECHNIQUE: Real-time grayscale ultrasound imaging was performed and images were reviewed. COMPARISON: There are no prior studies for comparison. FINDINGS: SIZE: The right thyroid lobe measures 5.2 x 1.9 x 1.6 cm. The left thyroid lobe measures 5.0 x 1.1 x 1.7 cm. The isthmus measures 6 mm. FLOW: Flow to the gland is increased. ECHOGENICITY: The echotexture of the gland is mildly heterogeneous. NODULES: There are nodules noted in the right thyroid lobe as described below: Nodule #: 1 Location: Right upper pole measuring 2 x 1 x 2 mm Shape: Wider than tall (0 points) Margins: Smooth (0 points) Echotexture: Hyperechoic (1 point) Composition: Solid (2 points) Calcifications: Macrocalcs (1 point) Total points: 4 TIRADS: TR4: Moderately suspicious. Nodule #: 2 Location: Midportion of the right thyroid lobe measuring 4 x 2 x 3 mm Shape: Wider than tall (0 points) Margins: Smooth (0 points) Echotexture: Hyperechoic (1 point) Composition: Solid (2 points) Calcifications: Macrocalcs (1 point) Total points: 4 TIRADS: TR4: Moderately suspicious. US/US thyroid IMPRESSION: Tiny subcentimeter right thyroid nodules as described. CT abdomen and pelvis with contrast01/20 Comparison: None Findings: Trace right effusion with overlying atelectasis. The liver, gallbladder, spleen, adrenal glands and pancreas are unremarkable. There is asymmetric prominence and heterogeneous enhancement of the right kidney. Asymmetric perinephric stranding on the right. No obstructing calculus. There is a 3 mm collecting system calculus in the right. The bladder is decompressed. Normal appendix. Abnormal thickening of the ascending colon with surrounding stranding. Normal appendix. The terminal ileum appears unremarkable. No bowel obstruction or free air. No abscess. Complex right adnexal cyst suggested. Uterus unremarkable. Moderate diffuse atherosclerotic disease. No acute osseous finding. Impression: Abnormal prominence of the right kidney with asymmetric perfusion. Clinical correlation for pyelonephritis. Abnormal thickening of predominantly the ascending colon with surrounding stranding. Colitis suggested. Normal appendix. No free air or abscess. Right adnexal complex cysts. Ultrasound could be considered. This document has been electronically signed by: Zachariah Lunsford MD on 12/27/2024 12:08:17 [facility] Medical History (Updated 06/09/25 @ 12:42 by Lalita Feliciano MD) Osteoporosis Hyperparathyroidism History of pyelonephritis Subclinical hypothyroidism Elevated parathyroid hormone Lipoma of back Diabetes GERD (gastroesophageal reflux disease) Back pain Gallbladder polyp Surgical History History of lumpectomy of right breast (05/27/25) Hx of excision of mass (05/27/25) History of salpingo-oophorectomy History of esophagogastroduodenoscopy (EGD) Hx of colonoscopy H/O dilation and curettage Social History Household Members: Family Housing: House Alcohol intake: former Patient Tobacco Use Status: Current everyday Tobacco user Tobacco use type: Cigarette Cigarettes Per Day: 2 Years Smoked: 40 + e-Cigarette/Vaping Use: Currently Using Substance Use Type: Marijuana service: No Female Reproductive History Menstrual Age of Menarche: 13 Assessment & Plan Assessment & Plan (1) Elevated parathyroid hormone: Code(s): R79.89 - Other specified abnormal findings of blood chemistry Category: Medical Plan: 64-year-old female noted to have elevated PTH level. Chart review shows that patient was found to have elevated PTH level of 133.4 on 12/15/2024. No concurrent calcium level for that day, however total calcium has been in the range of 8.9-9.4, however patient's albumin helps been low around 2.7-3.1, corrected calcium would be some thing around 10 or 10.2. In the past in 2023 when she had normal albumin levels, total calcium was noted to be elevated at 10.3. No concurrent PTH level from that time. vitamin-D level noted to be low at 21 from November 2024. Normal kidney function. She was on vitamin-D 5000 units daily from 12/23/2024 up on 01/05/2025 and then I reduced it to 1000 units daily. She continues on this. labs February 2025 : Normal kidney function, calcium elevated at 10.3 with albumin of 4.3, corrected calcium would be 10, ionized calcium also elevated at 5.8, normal phosphorus, vitamin-D improved to 31.5, PTH elevated at 101.6. Now that vitamin-D has improved, and PTH still remains elevated, unlikely to be secondary hyperparathyroidism due to vitamin-D deficiency. Her kidney function is normal. She has good nutritional intake of calcium. Not on any calcium supplements. has history of kidney stones, with the abdominal CT from December 2024 also showing a nonobstructing 3 mm right renal calculi 04/01/2025: DEXA scan showed normal bone density of the lumbar spine with a T- score of-0.5, osteopenia of the left total hip with a T-score of-2.3, osteoporosis of the left femoral neck with a T-score of-2.8, normal bone density of the distal forearm with a T-score of-0.2. 06/05/2025:24 hour urine calcium 96, calcium creatinine ratio 122, fractional excretion of calcium: 0.0108, given no hypercalciuria, unlikely her kidney stones are related to calcium levels, and we could not exactly rule out FHH, however unlikely as she has had normal calcium levels in the past and given age of presentation unlikely to be FHH. 06/11/2025: Labs done at [facility] showed ionized calcium high at 5.6, creatinine 0.82, EGFR 80, PTH 52, calcium 10.4, albumin 4.3, corrected calcium 10.1, phosphorus 3.7, bone specific alkaline phosphatase 15.5, CTX 652, Given given hypercalcemia with inappropriately normal PTH with osteoporosis, she meets criteria for surgery. 07/03/2025: Parathyroid SPECT CT scan was normal At this time I discussed with the patient that she probably has a underlying mild primary hyperparathyroidism and given osteoporosis, she would benefit from surgical evaluation. We discussed that given her SPECT CT did not exactly identify an adenoma, she might need exploratory parathyroidectomy. Patient is agreeable for surgical evaluation, we will refer her to [facility]. Plan: -continue vitamin-D 1000 units daily -continue incorporating calcium in diet, no use of calcium supplements -based surgical referral to Dr. Bhaskar Hargrove at [facility], if decision for surgery is made, patient will inform us of the surgical date so we can scheduled postoperative visit accordingly -otherwise tentatively for now we will plan for follow up in 5 months with blood work done prior to visit (2) Subclinical hypothyroidism: Code(s): E03.8 - Other specified hypothyroidism Category: Medical Plan: 64-year-old female with blood work from November 2024 showing elevated TSH level with normal free T4 consistent with subclinical hypothyroidism. However at the time and labs were done, patient was having an acute pyelonephritis. Usually during acute sickness TSH levels are lower not higher. Most recent blood work from February 2025 shows TSH has come down to 6.06, free T4 remains normal. Currently she is not very symptomatic. Usually treatment criteria is either TSH greater than 10 or if between 6 and 9, and patient has significant symptoms. For now we will hold off on any treatment. Ultrasound thyroid from November 2024 did not show any concerning findings, small subcentimeter colloid /microcalcification that do not need follow up. Plan: -ordered repeat TSH, free T4 prior to next follow up (3) Hyperparathyroidism: Code(s): E21.3 - Hyperparathyroidism, unspecified Category: Medical Plan: See above (4) Hypercalcemia: Code(s): E83.52 - Hypercalcemia Category: Medical Plan: See above (5) Osteoporosis: Code(s): M81.0 - Age-related osteoporosis without current pathological fracture Category: Medical Qualifiers: Osteoporosis type: localized Presence of current pathological fracture: without current pathological fracture Qualified Code(s): M81.6 - Localized osteoporosis [[place]] Plan: See above Plan I spent 30 minutes in reviewing the record, seeing the patient and documenting in the medical record. Orders: Orders 2 Albumin Level 4 Months E03.8 - Other specified hypothyroidism, E21.3 - Hyperparathyroidism, unspecified, M81.6 - Localized osteoporosis [[place]], R79.89 - Other specified abnormal findings of blood chemistry Calcium 4 Months E03.8 - Other specified hypothyroidism, E21.3 - Hyperparathyroidism, unspecified, M81.6 - Localized osteoporosis [[place]], R79.89 - Other specified abnormal findings of blood chemistry Calcium, Ionized 4 Months E03.8 - Other specified hypothyroidism, E21.3 - Hyperparathyroidism, unspecified, M81.6 - Localized osteoporosis [[place]], R79.89 - Other specified abnormal findings of blood chemistry Alkaline Phosphatase Bone 4 Months E03.8 - Other specified hypothyroidism, E21.3 - Hyperparathyroidism, unspecified, M81.6 - Localized osteoporosis [[place]], R79.89 - Other specified abnormal findings of blood chemistry Collagen Type I C-Telopeptide 4 Months E03.8 - Other specified hypothyroidism, E21.3 - Hyperparathyroidism, unspecified, M81.6 - Localized osteoporosis [[place]], R79.89 - Other specified abnormal findings of blood chemistry Thyroid Stimulating Hormone 4 Months E03.8 - Other specified hypothyroidism, E21.3 - Hyperparathyroidism, unspecified, M81.6 - Localized osteoporosis [[place]], R79.89 - Other specified abnormal findings of blood chemistry Phosphorus 4 Months E03.8 - Other specified hypothyroidism, E21.3 - Hyperparathyroidism, unspecified, M81.6 - Localized osteoporosis [[place]], R79.89 - Other specified abnormal findings of blood chemistry Parathyroid Hormone Intact 4 Months E03.8 - Other specified hypothyroidism, E21.3 - Hyperparathyroidism, unspecified, M81.6 - Localized osteoporosis [[place]], R79.89 - Other specified abnormal findings of blood chemistry Vitamin D 25-OH Total 4 Months E03.8 - Other specified hypothyroidism, E21.3 - Hyperparathyroidism, unspecified, M81.6 - Localized osteoporosis [[place]], R79.89 - Other specified abnormal findings of blood chemistry Creatinine 4 Months E03.8 - Other specified hypothyroidism, E21.3 - Hyperparathyroidism, unspecified, M81.6 - Localized osteoporosis [[place]], R79.89 - Other specified abnormal findings of blood chemistry Free T4 (Free Thyroxine) 4 Months E03.8 - Other specified hypothyroidism, E21.3 - Hyperparathyroidism, unspecified, M81.6 - Localized osteoporosis [[place]], R79.89 - Other specified abnormal findings of blood chemistry Referrals 2 General Surgery Referral E21.3 - Hyperparathyroidism, unspecified, M81.6 - Localized osteoporosis [[place]] Patient Instructions: We have put in a referral for you to see Dr. Bhaskar Hargrove at [facility], please expect a call from the office to schedule an appointment, if you have not heard from anyone within the next 3-4 weeks, please call our office during office hours to find out the status of your referral Once you have a your visit with the surgeon, if plans are made to move ahead with surgery, please call our office during office hours and let us know about the date for surgery so we can schedule you for a postoperative appointment accordingly For now tentatively we will put you in for a follow up in 5 months, please do fasting 08:00 blood work 2 weeks prior to your appointment at [place] [facility]. -continue vitamin-D 1000 units daily -continue incorporating calcium in diet, no use of calcium supplements Coding Level of Care Code Est Pt Level 4 (23808) Diagnoses Elevated parathyroid hormone R79.89 Subclinical hypothyroidism E03.8 Hyperparathyroidism E21.3 Hypercalcemia E83.52 Localized osteoporosis without current pathological fracture M81.6 Osteoporosis type: localized Presence of current pathological fracture: without current pathological fracture Time Spent (min) 30
[2025-08-06 09:53] VITALS: BP 118/62; PULSE 85; O2SAT 99; BMI 25.2
== END 2025-08-06 10:15 | disposition home or self-care (01) ==
LOC: HO.ENCR 09:45
PROVIDERS: PCP Internal Medicine; Visit Provider Student in an Organized Health Care Education/Training Program
DX: R79.89 Other specified abnormal findings of blood chemistry (principal); E03.8 Other specified hypothyroidism; E21.3 Hyperparathyroidism, unspecified; M81.6 Localized osteoporosis [Lequesne]
CPT/HCPCS: 99214

== ENCOUNTER → 2025-08-06 09:44 | Outpatient (BNVA) | payer OTHER, SELFPAY | PROVIDERS: PCP Internal Medicine; Visit Provider Student in an Organized Health Care Education/Training Program | DX: R79.89 Other specified abnormal findings of blood chemistry (principal); E03.8 Other specified hypothyroidism; E21.3 Hyperparathyroidism, unspecified; E83.52 Hypercalcemia; M81.6 Localized osteoporosis [Lequesne] | CPT/HCPCS: 99212 ==

== ENCOUNTER 2025-09-17 09:01 | Outpatient (REF) | payer OTHER, SELFPAY ==
[2025-09-17 10:15] LABS: MANUAL DIFF FLAG NO
[2025-09-17 10:26] LABS: Hematocrit 40.3 % (37.0-47.0); Hemoglobin 13.4 g/dl (12.0-16.0); Imm Gran Abs Auto 0.05 X10*3/uL (0.00-0.03); Imm Gran Pct Auto 0.5 % (0.0-0.4); Lymphocytes Absolute Auto 2.7 X10*3/uL (1.2-4.9); Mean Corpuscular HGB Conc 33.3 g/dl (31.0-35.0); Mean Corpuscular Hemoglobin 30.7 pg (27.0-33.0); Mean Corpuscular Volume 92.4 fL (80.0-98.0); NRBC Abs Auto 0.000 X10*3/uL (0.0-0.012); NRBC Pct Auto 0.0 /100WBC (0.0-0.2); Platelet Count 406 X10*3/uL (160-400); Red Blood Count 4.36 X10*6/uL (4.20-5.50); White Blood Count 10.1 X10*3/uL (4.8-10.8)
[2025-09-17 10:54] LABS: Alanine Aminotransferase 26 U/L (0-31); Albumin Level 4.5 g/dL (3.5-5.0); Alkaline Phosphatase 102 U/L (39-117); Anion Gap 11 (12-20); Aspartate Amino Transferase 25 U/L (5-31); Blood Urea Nitrogen 28 mg/dL (9-16); Calcium 10.1 mg/dL (8.4-10.2); Carbon Dioxide 25 mmol/L (22-29); Chloride 104 mmol/L (96-108); Cholesterol 197 mg/dL (<200); Estimated Glomerular Filt Rate > 60; HDL Cholesterol 40 mg/dL (>40); Potassium 4.4 mmol/L (3.3-5.1); Sodium 136 mmol/L (135-145); Total Protein 7.1 g/dL (6.5-8.0); Triglycerides 333 mg/dL (<150)
[2025-09-17 12:14] LABS: Folate 12.7 ng/mL (> or = 4.0); Vitamin B12 388 pg/mL (200-900)
== END 2025-09-17 09:02 | disposition home or self-care (01) ==
LOC: HO.HMGCLDS 09:01
PROVIDERS: PCP Internal Medicine; Visit Provider Internal Medicine
DX: E11.9 Type 2 diabetes mellitus without complications (principal); E21.0 Primary hyperparathyroidism; E78.00 Pure hypercholesterolemia, unspecified; R20.8 Other disturbances of skin sensation; R80.9 Proteinuria, unspecified
CPT/HCPCS: 36415; 80053; 80061; 82607; 82746; 83036; 85025